=== PATIENT | male | born 1945 | race Caucasian/White ===

== ENCOUNTER 2020-12-29 12:23 | Emergency (ER) | payer MEDICARE, SELFPAY ==
[2020-12-29] VITALS (7 sets, daily range): BP systolic 113–134; BP diastolic 81–98; PULSE 75–95; RESP 18–26; TEMP 37.7–38; O2SAT 94–98; BMI 22.2
--- NOTE | 2020-12-29 12:44 | CT_ITS ---
WS: [id number] CT HEAD TECHNIQUE: Noncontrast CT of the head obtained from the skullbase to the vertex. CLINICAL INFORMATION: altered mental status COMPARISON: CT 8 DLP: 887.[address] scans at [facility] use at least one of these dose optimization techniques: automat ed exposure control; mA and/or kV adjustment per patient size (includes targeted exams where dose is matched to clinical indication); or iterative reconstruction. FINDINGS: No evidence of intracranial hemorrhage or mass effect. Ventricular system and basal cisterns are block nt. Moderate small vessel changes with moderate parenchymal volume loss. Chronic lacunar infarcts in the basal ganglia and thalami bilaterally. Chronic infarct in the right frontoparietal junction with encephalomalacia unchanged from previous. Ex vacuo dilatation right lateral ventricle. Volume loss pr ogressed since 2014. Intracranial vascular calcification. Paranasal sinuses and mastoid air cells are well aerated. .Normal visualized soft tissues. CT/CT head wo con* [id number] IMPRESSION: 1. No evidence of intracranial hemorrhage or mass effect. 2. Moderate small vessel changes with moderate parenchymal volume loss. Volume loss progressed since 2014. 3. Multiple chronic lacunar infarcts in the basal ganglia and bilateral thalam i progressed since 2014 4. Chronic infarct with encephalomalacia right frontoparietal junction is unch anged. 5. No other significant findings.
--- NOTE | 2020-12-29 12:45 | XR_ITS ---
WS: [id number] Exam: XR chest 1V portable [id number] Date/Time of Exam: 12/29/2020 12:46 PM Reason For Exam: fever, aspiration Comparison 09/25/2014. The lungs are fully inflated and clear. Normal cardiomediastinal structures and bony elements. No ple ural effusions. XR/XR chest 1V portable [id number] IMPRESSION: 1. No acute cardiopulmonary finding.
--- NOTE | 2020-12-29 12:59 | ED_ITS ---
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 His states that for the last week he has not been eating much and she has only been able to get a little bit of boost/Ensure down. He denies nausea or vomiting, denies urinary symptoms but his thinks he has a UTI. He has difficulty swallowing following his CVA and his states that he sometimes chokes on his food. She states his mental status has changed and so she would like for him to be evaluated. MD Complaint: generalized weakness and lack of energy Onset (ago): week(s) (1) Duration: constant Location: generalized Associated symptoms: Reports decreased appetite and fever(s); Denies chest pain, chills, confusion, melena, diaphoresis, dysuria, easy bruising, headache(s), myalgias, nausea, rash, short of breath, syncope or vomiting Review of Systems General: Reports: 10 or more systems reviewed and unremarkable except in HPI and below Const: Reports: fever(s); Denies: chills or diaphoresis Card: Denies: chest pain or syncope GI: Denies: nausea, vomiting or melena : Denies: dysuria Neuro: Denies: headache(s) or confusion Jamar/Lymph: Denies: easy bruising Physical Exam Const: COMMON NORMALS: no acute distress, average body habitus, patient oriented x3, no limitations, healthy appearing, alert and well nourished GENERAL APPEARANCE: frail appearing and other (clothes are quite unclean with old food stains on his shirt) HENMT: COMMON NORMALS: normocephalic, atraumatic and moist oral mucous membranes HEAD & SCALP: normocephalic and atraumatic Neck/C-Spine: COMMON NORMALS: no meningeal signs and no JVD Resp: COMMON NORMALS: normal respiratory effort, No retractions, No use of accessory muscles, clear to auscultation bilaterally and percussion normal AUSCULTATION: clear to auscultation bilaterally PERCUSSION: percussion normal Cardio: COMMON NORMALS: no JVD, regular rate, regular rhythm, S1 normal heart sound present, S2 normal heart sound present, No gallops present (Cardio), No clicks present (Cardio), No murmurs present (Cardio), No rub (Cardio) and Peripheral pulses 2+ throughout RATE: regular rate RHYTHM: regular rhythm HEART SOUNDS: S1 normal heart sound present and S2 normal heart sound present PERIPHERAL PULSES: Peripheral pulses 2+ throughout GI: COMMON NORMALS: Normal to inspection, nondistended, normoactive bowel sounds present, Soft to palpation, non-tender, No hepatosplenomegaly present, no masses and no bruits PALPATION: Yes Soft to palpation and Yes No hepatosplenomegaly present : COMMON NORMALS: Yes no CVA tenderness BLADDER/KIDNEY EXAM: Yes no CVA tenderness Back/Pelvis: COMMON NORMALS: no CVA tenderness Extremity: COMMON NORMALS: normal to inspection, full ROM, capillary refill normal, no calf tenderness and no pedal edema OTHER: left hemiplegia (baseline) Neuro: COMMON NORMALS: patient oriented x3 SENSORIUM/ORIENTATION: Yes alert MENINGEAL SIGNS: Yes no meningeal signs Course ED course: 75-year-old male with a prior history of CVA with residual left hemiparesis was brought into the emergency department by his with concerns for increasing weakness, possible UTI, and reduced appetite. Discussed his lab and imaging findings with his and as I am unable to find any acute reasons for his symptoms other than mild dehydration and constipation he is discharged home. Advised his that he does not meet admission criteria. She voiced understanding and is in agreement with the plan Vital Signs: Vital signs: Vital Signs Temperature 99.8 F H 12/29/20 14:33 Pulse Rate 90 12/29/20 20:10 Respiratory Rate 20 H 12/29/20 20:10 Blood Pressure 113/81 12/29/20 20:10 Pulse Oximetry 95 12/29/20 20:10 MDM - Weakness MDM Narrative: Medical decision making narrative: 75-year-old male who was brought into the emergency department by his with nonspecific symptoms. E valuation in the emergency department is unremarkable. CT scan of his abdomen is suggestive of mild constipation. Lab work is also suggestive of mild dehydration. He was given 1 L of normal saline and is discharged home. The patient does not have a primary care provider according to his and a referral was made to case management to obtain a primary care provider for this patient. His wants him to follow-up with Dr. Cooley. Medical Records: Attestation: I reviewed the patient's medical records. Lab Data: Attestation: I reviewed the patient's lab results. Labs: Lab Results 12/29/20 12/29/20 12/29/20 Range/Units 13:42 14:08 14:08 WBC 4.5 (4.0-10.0) 10^3/ uL RBC 5.26 (4.1-5.3) 10^6/u L Hgb 15.7 (11.7-16.6) g/dL Hct 46.1 (42.0-52.0) % MCV 87.6 (80-94) fL MCH 29.8 (28.0-34.0) pg MCHC 34.1 (30.0-36.0) g/dL RDW 13.2 (12.1-15.1) % Plt Count 123 L (130-400) 10^3/c mm MPV 10.9 H (7.4-10.4) fL Neut % (Auto) 78.0 % Lymph % (Auto) 12.4 % [place] % (Auto) 8.2 % Eos % (Auto) 0.0 % Baso % (Auto) 0.7 % Neut # (Auto) 3.51 (1.8-7.7) 10^3/u L Lymph # (Auto) 0.6 L (0.8-4.8) 10^3/u L [place] # (Auto) 0.4 (0.2-0.9) 10^3/u L Eos # (Auto) 0.0 (0.0-0.8) 10^3/u L Baso # (Auto) 0.0 (0.0-0.1) 10^3/u L Nucleated RBC % (a uto) 0 % Nucleated RBCs # 0.0 /100WBC Sodium 136 (136-145) mmol/L Potassium 3.5 (3.5-5.1) mmol/L Chloride 100 (98-107) mmol/L Carbon Dioxide 22 (22-29) mmol/L Anion Gap 17.5 (5-19) BUN 36 H (8-23) mg/dL Creatinine 1.6 H (0.7-1.2) mg/dL GFR Calculation Not Reportable Glucose 184 H (65-115) mg/dL Calculated Osmolal ity 295 (285-295) mOsm/k g Lactate (0.5-2.2) mmol/L Calcium 9.2 (8.5-10.5) mg/dL Total Bilirubin 0.8 (0.15-1.2) mg/dL AST 50 H (0-40) U/L ALT 20 (0-41) U/L Alkaline Phosphata se 76 (40-130) IU/L C-Reactive Protein 28.0 H (0.0-4.9) mg/L Total Protein 7.6 (6.6-8.7) g/dL Albumin 4.2 (3.5-5.2) g/dL Globulin 3.4 (1.3-4.6) g/dL Urine Color Yellow (Yellow) Urine Appearance Clear (CLEAR) Urine pH 5 (5-7) Ur Specific Gravit y 1.015 (1.005-1.030) Urine Protein 3+ H (Negative) Urine Glucose (UA) Norm (Normal) Urine Ketones Negative (Negative) Urine Blood Neg (Negative) Urine Nitrate Negative (Negative) Urine Bilirubin Neg (Negative) Urine Urobilinogen Norm (Negative) mg/dL Ur Leukocyte Cecile ase Negative (Negative) Urine RBC None (0-2) /hpf Urine WBC 5-10 H (0-5) /hpf Ur Squamous Epith Cells 0-4 H (0-5) /hpf Amorphous Sediment Trace /hpf Urine Bacteria 2+ H (NONE) /hpf Hyaline Casts 0-4 H /lpf // Range/Units 14:08 WBC (4.0-10.0) 10^3/ uL RBC (4.1-5.3) 10^6/u L Hgb (11.7-16.6) g/dL Hct (42.0-52.0) % MCV (80-94) fL MCH (28.0-34.0) pg MCHC (30.0-36.0) g/dL RDW (12.1-15.1) % Plt Count (130-400) 10^3/c mm MPV (7.4-10.4) fL Neut % (Auto) % Lymph % (Auto) % [place] % (Auto) % Eos % (Auto) % Baso % (Auto) % Neut # (Auto) (1.8-7.7) 10^3/u L Lymph # (Auto) (0.8-4.8) 10^3/u L [place] # (Auto) (0.2-0.9) 10^3/u L Eos # (Auto) (0.0-0.8) 10^3/u L Baso # (Auto) (0.0-0.1) 10^3/u L Nucleated RBC % (a uto) % Nucleated RBCs # /100WBC Sodium (136-145) mmol/L Potassium (3.5-5.1) mmol/L Chloride (98-107) mmol/L Carbon Dioxide (22-29) mmol/L Anion Gap (5-19) BUN (8-23) mg/dL Creatinine (0.7-1.2) mg/dL GFR Calculation Glucose (65-115) mg/dL Calculated Osmolal ity (285-295) mOsm/k g Lactate 1.3 (0.5-2.2) mmol/L Calcium (8.5-10.5) mg/dL Total Bilirubin (0.15-1.2) mg/dL AST (0-40) U/L ALT (0-41) U/L Alkaline Phosphata se (40-130) IU/L C-Reactive Protein (0.0-4.9) mg/L Total Protein (6.6-8.7) g/dL Albumin (3.5-5.2) g/dL Globulin (1.3-4.6) g/dL Urine Color (Yellow) Urine Appearance (CLEAR) Urine pH (5-7) Ur Specific Gravit y (1.005-1.030) Urine Protein (Negative) Urine Glucose (UA) (Normal) Urine Ketones (Negative) Urine Blood (Negative) Urine Nitrate (Negative) Urine Bilirubin (Negative) Urine Urobilinogen (Negative) mg/dL Ur Leukocyte Cecile ase (Negative) Urine RBC (0-2) /hpf Urine WBC (0-5) /hpf Ur Squamous Epith Cells (0-5) /hpf Amorphous Sediment /hpf Urine Bacteria (NONE) /hpf Hyaline Casts /lpf Imaging Data^: CT Abd/Pel: Attestation: I personally reviewed and interpreted this imaging study as follows: Radiologist's impression: [address], [place] [address]TV Scan ReportSigned Patient: Rico Ozuna AUnit #: [id number]: [id number]#:[id number]/Sex: 75 / MADM Date: 12/29/20Loc: ERRoom/Bed:Attending Dr: Ordering Provider/Ordering MD: Brittany Elias [place] [facility] [place] of Service: 12/29/20 Procedure(s): CT abdomen pelvis wo con [id number] Accession Number(s): [id number] Report Number: [id number] PROCEDURE INFORMATION: Exam: CT Abdomen And Pelvis Without Contrast Exam date and time: 12/29/2020 4:05 PM Age: 75 years old Clinical indication: Constipation; Prior surgery; Surgery type: Hernia TECHNIQUE: Imaging protocol: Computed tomography of the abdomen and pelvis without contrast. Radiation optimization: All CT scans at this facility use at least one of these dose optimization techniques: automated exposure control; mA and/or kV adjustment per patient size (includes targeted exams where dose is matched to clinical indication); or iterative reconstruction. COMPARISON: No relevant prior studies available. RADIATION DOSE METRICS: Total DLP (mGy-cm): 1225.54 FINDINGS: Liver: Normal. No mass. Gallbladder and bile ducts: Normal. No calcified stones. No ductal dilation. Pancreas: Normal. No ductal dilation. Spleen: Normal. No splenomegaly. Adrenal glands: Normal. No mass. Kidneys and ureters: Small vessel arterial calcifications in the renal jong bilaterally which are often associated with chronic renal failure. Stomach and bowel: Moderate retained feces in the rectum. Tortuous sigmoid colon. Appendix: Normal appendix. Intraperitoneal space: Unremarkable. No free air. No significant fluid collection. Vasculature: Severe calcified coronary artery disease. Calcification of the abdominal aorta and/or iliac arteries consistent with atherosclerotic vessel disease. Lymph nodes: Unremarkable. No enlarged lymph nodes. Urinary bladder: Unremarkable as visualized. Reproductive: Unremarkable as visualized. Bones/joints: Unremarkable. No acute fracture. Soft tissues: Previous left inguinal hernia repair. CT/CT abdomen pelvis wo con [id number] IMPRESSION: 1. Severe calcified coronary artery disease. 2. Small vessel arterial calcifications in the renal jong bilaterally which are often associated with chronic renal failure. 3. Moderate retained feces in the rectum. Radiation Dose CTDIVOL = (mGy): DLP = 1225.54 (mGy-cm) Dictated By:Jason Mcdonald MDSigned By:Jason Mcdonald MDSigned Date/Time:12/29/20 1712DD/ 1711 CXR: Attestation: I personally reviewed and interpreted this imaging study as follows: Radiologist's impression: [employer] [id number] [address]UOok ReportSigned Patient: Rico Ozuna #: [id number]: [id number]#:[id number]/Sex: 75 / MADM Date: 12/29/20Loc: ERRoom/Bed:Attending Dr: Ordering Provider/Ordering MD: Brittany Elias MD, [facility] [place] of Service: 12/29/20 Procedure(s): XR chest 1V portable [id number] Accession Number(s): [id number] Report Number: [id number] WS: [id number] Exam: XR chest 1V portable [id number] Date/Time of Exam: 12/29/2020 12:46 PM Reason For Exam: fever, aspiration Comparison 09/25/2014. The lungs are fully inflated and clear. Normal cardiomediastinal structures and bony elements. No pleural effusions. XR/XR chest 1V portable [id number] IMPRESSION: 1. No acute cardiopulmonary finding. Dictated By:Alexanderigned By:Brown Omer Date/Time:12/29/20 1259DD/ 1258 CT Head: Attestation: I personally reviewed and interpreted this imaging study as follows: Radiologist's impression: [address] [address]SP Scan ReportSigned Patient: Rico Ozuna #: [id number]: [id number]#:[id number]/Sex: 75 / MADM Date: 12/29/20Loc: ERRoom/Bed:Attending Dr: Ordering Provider/Ordering MD: Brittany Elias MD, [facility] [place] of Service: 12/29/20 Procedure(s): CT head wo con* [id number] Accession Number(s): [id number] Report Number: [id number] WS: [id number] CT HEAD TECHNIQUE: Noncontrast CT of the head obtained from the skullbase to the vertex. CLINICAL INFORMATION: altered mental status COMPARISON: CT 8 DLP: 887.[address] scans at [facility] use at least one of these dose optimization techniques: automated exposure control; mA and/or kV adjustment per patient size (includes targeted exams where dose is matched to clinical indication); or iterative reconstruction. FINDINGS: No evidence of intracranial hemorrhage or mass effect. Ventricular system and basal cisterns are patent. Moderate small vessel changes with moderate parenchymal volume loss. Chronic lacunar infarcts in the basal ganglia and thalami bilaterally. Chronic infarct in the right frontoparietal junction with encephalomalacia unchanged from previous. Ex vacuo dilatation right lateral ventricle. Volume loss progressed since 2015. Intracranial vascular calcification. Paranasal sinuses and mastoid air cells are well aerated. .Normal visualized soft tissues. CT/CT head wo con* [id number] IMPRESSION: 1. No evidence of intracranial hemorrhage or mass effect. 2. Moderate small vessel changes with moderate parenchymal volume loss. Volume loss progressed since 2014. 3. Multiple chronic lacunar infarcts in the basal ganglia and bilateral thalami progressed since 2014 4. Chronic infarct with encephalomalacia right frontoparietal junction is unchanged. 5. No other significant findings. Dictated By:Caio Mariscal MDSigned By:Caio Mariscal MDSigned Date/Time:12/29/20 1320DD/ 1313 EKG Data^: EKG 1: Attestation: I personally reviewed and interpreted this EKG as follows: EKG interpretation date: 12/29/20 EKG interpretation time: 13:26 Prior EKG tracings: not available for review Interpretation: Sinus rhythm. Heart rate 89 bpm. Left axis deviation. No ST changes. Discharge Plan Discharge Patient Disposition: Home Clinical Impression: Dehydration Constipation Qualifiers: Constipation type: unspecified constipation type Qualified Code(s): K59.00 - Constipation, unspecified Condition: Stable Discharge Orders: Discharge ED (Routine); Ordered 12/29/20 Ordered By: Brittany Elias Referrals: [facility] [Primary Care Provider] - Ezra Cooley MD [Physician] - 4-7 days Discharge Diet: Usual diet Discharge Activity: Increase activity as tolerated Patient Instructions: Constipation (ED), Dehydration (ED) Activity Restrictions/Additional Instructions: Return for any new or worsening symptoms. Follow up with Dr. Cooley within one week. You will be contacted by case management to schedule an appointment with Dr. Cooley. Give him [id number] laxatives and or an enema to help with the constipation. Have him drink plenty of water to keep well hydrated Coding Level of Care Code ED Air Pollution Control Engineer for Chg Fwd Exam Comprehensive
--- NOTE | 2020-12-29 13:48 | PC.NURSE ---
states he has over taken Glyburide, and had a stroke. When placing a 16 F sosa cath, pt peed all around the catheter. UA collected Not able to attain IV access.
[2020-12-29 14:07] LABS: Add Urine Microscopic? YES; Bilirubin Urine Neg (Negative); Blood Urine Neg (Negative); Glucose Urine UA Norm (Normal); Ketones Urine Negative (Negative); Leukocyte Esterase Urine Negative (Negative); Nitrate Urine Negative (Negative); Protein Urine 3+ (Negative); Specific Gravity, Urine 1.015 (1.005-1.030); Urine Appearance Clear (CLEAR); Urine Color Yellow (Yellow); Urobilinogen Urine Norm (Negative); pH Urine 5 (5-7)
[2020-12-29 14:16] LABS: Basophils % 0.7 %; Hematocrit 46.1 % (42.0-52.0); Hemoglobin 15.7 g/dL (11.7-16.6); Lymphocytes # 0.6 10^3/uL (0.8-4.8); Lymphocytes % 12.4 %; Mean Corpuscular HGB Conc 34.1 g/dL (30.0-36.0); Mean Corpuscular Hemoglobin 29.8 pg (28.0-34.0); Mean Corpuscular Volume 87.6 fL (80-94); Mean Platelet Volume 10.9 fL (7.4-10.4); Monocytes # 0.4 10^3/uL (0.2-0.9); Monocytes % 8.2 %; Neutrophils # 3.51 10^3/uL (1.8-7.7); Nucleated Red Blood Cells % 0 %; Platelet Count 123 10^3/cmm (130-400); Red Blood Count 5.26 10^6/uL (4.1-5.3); Red Cell Distribution Width 13.2 % (12.1-15.1); White Blood Count 4.5 10^3/uL (4.0-10.0)
[2020-12-29 14:25] LABS: Bacteria Urine 2+ /hpf; Hyaline Casts Urine 0-4 /lpf
[2020-12-29 14:26] LABS: Add Urine Culture? No; Amorphous Sediment Urine TRACE /hpf; Squamous Epithelial Cell Urine 0-4 /hpf (0-5)
[2020-12-29 14:44] LABS: Lactate (Lactic Acid level) 1.3 mmol/L (0.5-2.2)
[2020-12-29 14:45] LABS: Alanine Aminotransferase 20 U/L (0-41); Albumin Level 4.2 g/dL (3.5-5.2); Alkaline Phosphatase 76 IU/L (40-130); Anion Gap 17.5 (5-19); Aspartate Amino Transferase 50 U/L (0-40); Blood Urea Nitrogen 36 mg/dL (8-23); Calcium 9.2 mg/dL (8.5-10.5); Carbon Dioxide 22 mmol/L (22-29); Chloride 100 mmol/L (98-107); Globulin 3.4 g/dL (1.3-4.6); Glucose 184 mg/dL (65-115); Osmolality Calculated 295 mOsm/kg (285-295); Potassium 3.5 mmol/L (3.5-5.1); Sodium 136 mmol/L (136-145); Total Bilirubin 0.8 mg/dL (0.15-1.2); Total Protein 7.6 g/dL (6.6-8.7)
--- NOTE | 2020-12-29 15:38 | ECG_ITS ---
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 Measurements Intervals [place] Rate: 89 P: 54 CO: 190 QRS: -48 QRSD: 95 T: 45 QT: 337 QTc: 412 Interpretive Statements SINUS RHYTHM MARKED LEFT AXIS DEVIATION [QRS AXIS < -30] PATTERN CONSISTENT WITH PULMONARY DISEASE Compared to ECG 10/30/2017 10:00:38 No significant changes Electronically Signed On 12-29-2020 17:46:58 CDT by Alexandrea Gómez M.D. [id number]
--- NOTE | 2020-12-29 16:05 | CTR_ITS ---
PROCEDURE INFORMATION: Exam: CT Abdomen And Pelvis Without Contrast Exam date and time: 12/29/2020 4:05 PM Age: 75 years old Clinical indication: Constipation; Prior surgery; Surgery type: Hernia TECHNIQUE: Imaging protocol: Computed tomography of the abdomen and pelvis without contrast. Radiation optimization: All CT scans at this facility use at least one of these dose optimization techniques: automated exposure control; mA and/or kV adjustment per patient size (includes targeted exams where dose is matched to clinical indication); or iterative reconstruction. COMPARISON: No relevant prior studies available. RADIATION DOSE METRICS: Total DLP (mGy-cm): 1225.54 FINDINGS: Liver: Normal. No mass. Gallbladder and bile ducts: Normal. No calcified stones. No ductal dilation. Pancreas: Normal. No ductal dilation. Spleen: Normal. No splenomegaly. Adrenal glands: Normal. No mass. Kidneys and ureters: Small vessel arterial calcifications in the renal jong bilaterally which are often associated with chronic renal failure. Stomach and bowel: Moderate retained feces in the rectum. Tortuous sigmoid colon. Appendix: Normal appendix. Intraperitoneal space: Unremarkable. No free air. No significant fluid collection. Vasculature: Severe calcified coronary artery disease. Calcification of the abdominal aorta and/or iliac arteries consistent with atherosclerotic vessel disease. Lymph nodes: Unremarkable. No enlarged lymph nodes. Urinary bladder: Unremarkable as visualized. Reproductive: Unremarkable as visualized. Bones/joints: Unremarkable. No acute fracture. Soft tissues: Previous left inguinal hernia repair. CT/CT abdomen pelvis wo con [id number] IMPRESSION: 1. Severe calcified coronary artery disease. 2. Small vessel arterial calcifications in the renal jong bilaterally which are often associated with chronic renal failure. 3. Moderate retained feces in the rectum. Radiation Dose CTDIVOL = (mGy): DLP = 1225.54 (mGy-cm)
[2020-12-29] MEDS: sodium chloride 0.9% 1,000 ML 999 ML IV (16:08)
--- NOTE | 2020-12-30 09:53 | DCPLANNER ---
care services manager had message to get patient established with a primary care physician. care services manager was told that patient would like to be set up with Dr. Cooley, ed case manager called [facility], spoke with Amanda, gave clinic patients information. care services manager was given an appointment for , February 09, [address] at 9:[address] Cooley. care services manager called phone number [phone], unable to speak with patient or , a voicemail was left for patient to return welfare case worker phone call.
== END 2020-12-29 19:40 | disposition home or self-care (01) ==
PROVIDERS: Emergency Provider Family Medicine
DX: K59.00 Constipation, unspecified (principal); E86.0 Dehydration
CPT/HCPCS: 36415; 70450; 71045; 74176; 80053; 81001; 83605; 85025; 86140; 93005; 96360; 99284; J7030

== ENCOUNTER 2021-11-19 17:10 | Inpatient (IN) | payer MEDICARE, SELFPAY ==
[2021-11-19] VITALS (7 sets, daily range): BP systolic 137–214; BP diastolic 66–92; PULSE 78–93; RESP 17–20; TEMP 37.3–37.9; O2SAT 95–100; BMI 22.6; BMI 19.8
--- NOTE | 2021-11-19 17:15 | ED_ITS ---
HPI - General Adult General: Chief complaint: Skin/Abscess/Foreign Body Stated complaint: RIGHT SCAPULA WOUND Time Seen by Provider: 11/19/21 17:14 History of Present Illness: Patient is a 76-year-old male with prior CVA with left-sided residual weakness presented to the emergency room with concerns for 2 weeks of worsening right upper back abscess. Patient tells me that he was at home when the abscess first started. Since then, patient has been using silver gel to treat the abscess without any improvement symptom. Because of worsening pain patient decided to come to the emergency room for further evaluation. Patient denies any fever/chills or drainage from the abscess. Patient has no other focal complaints at this time. Denies any history of immunosuppression, DM or IV drug use. Onset:2 weeks ago Duration: ongoing Location:R upper back Severity:moderate Associated symptoms: Deny chest pain, dyspnea, nausea, palpitations or vomiting Review of Systems Const: Denies: fever(s) or chills Eyes: Denies: change in vision ENMT: Denies: mouth pain Card: Denies: chest pain or palpitations Resp: Denies: dyspnea or non-productive cough GI: Denies: abdominal pain, nausea, vomiting or diarrhea : Denies: dysuria Musc: Denies: extremity pain Skin/Breast: Reports: new lesions (+R upper back abscess) Neuro: Denies: weakness in extremities Psych: Reports: other (Normal mood) Jamar/Lymph: Denies: easy bruising [facility] ED PFSH: Medical History (Updated 11/21/21 @ 14:37 by Cesario Pérez MD) CKD (chronic kidney disease) stage 3, GFR 30-59 ml/min COPD (chronic obstructive pulmonary disease) CVA (cerebral vascular accident) Depressed Diabetes HTN (hypertension) Malnourished Pulmonary nodule Surgical History History of testicular surgery Social History Smoking and tobacco status: former smoker Alcohol intake: never Substance/Drug Use: never Household members: spouse Housing: House Physical Exam Const: COMMON NORMALS: alert HENMT: COMMON NORMALS: atraumatic HEAD & SCALP: atraumatic MOUTH: moist mucous membranes not abnormal Eye: COMMON NORMALS: EOMs intact bilaterally and conjunctivae normal CONJUNCTIVA: Yes conjunctivae normal Neck/C-Spine: COMMON NORMALS: full ROM and supple Resp: COMMON NORMALS: normal respiratory effort and clear to auscultation bilaterally AUSCULTATION: clear to auscultation bilaterally Cardio: COMMON NORMALS: regular rate RATE: regular rate GI: COMMON NORMALS: Soft to palpation and non-tender PALPATION: Yes Soft to palpation Extremity: COMMON NORMALS: full ROM Neuro: SENSORIUM/ORIENTATION: Yes alert OTHER: +L sided weakness similar to baseline Psych: COMMON NORMALS: speech normal SPEECH: Yes normal speech MOOD & AFFECT: Yes euthymic mood Skin: NARRATIVE SKIN EXAM: +R upper back 8cm x 8cm abscess with central ulceration and mild drainage - lesions tender to palpation, fluctuant Course Vital Signs: Vital signs: Vital Signs Temperature 98.7 F 11/21/21 15:38 Pulse Rate 76 11/21/21 15:38 Respiratory Rate 18 11/21/21 15:38 Blood Pressure 166/82 11/21/21 15:38 Pulse Oximetry 91 11/21/21 15:38 MDM - General Adult Medical Decision Making 76-year-old male with a history of prior CVA and left-sided weakness presenting to the emergency room with right upper back abscess. On exam, patient has a large abscess with central authorization of mild drainage/flucutant to p alpation. CT scan showed complex R upper thoracic abscess. WBC of 14.3. Cr of 1.3 simlar to baseline. Blood culture ordered. Patient received vancomycin and Zosyn. Given 1L of NS. Case was discussed with Dr. Pérez who recommended OR washout tomorrow upon admission. NPO at midnight. 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 Patient is placed in a negative pressure room. Patient he will need work-up for possible tuberculosis vs other mycobacterial infection. Disposition: admission Lab Data : 11/21/21 05:27 11/21/21 05:[address] 11/19/21 17:24 IMPRESSION: 1. 8 x 8 x 3.1 cm area of soft tissue prominence with subcutaneous edema seen in the right posterior lower thorax without intrathoracic extension suggestive of a phlegmon/very complex abscess. 2. Coronary artery atherosclerotic calcifications. 3. Scattered prominent subcentimeter short axis mediastinal lymph nodes, nonspecific. 4. Emphysematous changes. 5. Subtle bilateral upper lobe tree-in-bud type reticulonodular densities, perhaps reflecting an underlying atypical mycobacterial infection. 6. Right upper lobe demonstrates several more focal pulmonary nodules measuring up to 4.6 mm, for instance on series 2 image 20. For patients at low risk (minimal or absent history of smoking and of other known risk factors), no routine follow-up is indicated. For patients at high risk (history of smoking or of other known risk factors), consider optional CT Chest at 12 months. (Reference: [place]) REFERENCES: [place] Webb, et al. Guidelines for Management of Incidental Pulmonary Nodules Detected on CT Images: From the Fleischner Society 2017. Radiology. 2017;284(1):228-243. Laboratory Results WBC 14.3 10^3/uL (4.0-10.0) H 11/19/21 18:40 RBC 3.78 10^6/uL (4.1-5.3) L 11/19/21 18:40 Hgb 10.7 g/dL (11.7-16.6) L 11/19/21 18:40 Hct 33.1 % (42.0-52.0) L 11/19/21 18:40 MCV 87.6 fl (80-94) 11/19/21 18:40 MCH 28.3 pg (28.0-34.0) 11/19/21 18:40 MCHC 32.3 g/dL (30.0-36.0) 11/19/21 18:40 RDW 13.9 % (12.1-15.1) 11/19/21 18:40 Plt Count 269 10^3/cmm (130-400) 11/19/21 18:40 MPV 10.8 fL (7.4-10.4) H 11/19/21 18:40 Neut % (Auto) 80.0 % 11/19/21 18:40 Lymph % (Auto) 8.9 % 11/19/21 18:40 Sunflower % (Auto) 9.1 % 11/19/21 18:40 Eos % (Auto) 0.5 % 11/19/21 18:40 Baso % (Auto) 0.3 % 11/19/21 18:40 Neut # (Auto) 11.46 10^3/uL (1.8-7.7) H 11/19/21 18:40 Lymph # (Auto) 1.3 10^3/uL (0.8-4.8) 11/19/21 18:40 Sunflower # (Auto) 1.3 10^3/uL (0.2-0.9) H 11/19/21 18:40 Eos # (Auto) 0.1 10^3/uL (0.0-0.8) 11/19/21 18:40 Baso # (Auto) 0.1 10^3/uL (0.0-0.1) 11/19/21 18:40 Nucleated RBC % (auto) 0 % 11/19/21 18:40 Nucleated RBCs # 0.0 /100WBC 11/19/21 18:40 ESR 45 mm/hr (0-10) H 11/19/21 18:40 Sodium 134 mmol/L (136-145) L 11/19/21 18:40 Potassium 3.5 mmol/L (3.5-5.1) 11/19/21 18:40 Chloride 95 mmol/L (98-107) L 11/19/21 18:40 Carbon Dioxide 27 mmol/L (22-29) 11/19/21 18:40 Anion Gap 15.5 (5-19) 11/19/21 18:40 BUN 23 mg/dL (8-23) 11/19/21 18:40 Creatinine 1.3 mg/dL (0.7-1.2) H 11/19/21 18:40 GFR Calculation Not Reportable 11/19/21 18:40 Glucose 121 mg/dL (65-115) H 11/19/21 18:40 Calculated Osmolality 283 mOsm/kg (285-295) L 11/19/21 18:40 Calcium 9.4 mg/dL (8.5-10.5) 11/19/21 18:40 C-Reactive Protein 225.8 mg/L (0.0-4.9) H 11/19/21 18:40 Procalcitonin 0.30 ng/mL (0-0.5) 11/19/21 18:40 Imaging Data Other Imaging: Radiologist's impression: [address] [address] [address] Scan Report Signed Patient: Rico Ozuna Unit #: [id number] : 1945 Age/Sex: 76 / M ADM Date: 11/19/21 Loc: ER Room/Bed: Attending Dr: Ordering Provider/Ordering MD: Melissa Lee MD Date of Service: 11/19/21 Procedure(s): CT chest wo con [id number] Accession Number(s): [id number] Report Number: [id number] PROCEDURE INFORMATION: Exam: CT Chest Without Contrast; Diagnostic Exam date and time: 11/19/2021 5:37 PM Age: 76 years old Clinical indication: Mass, lump, or swelling in the chest; Patient HX: C/O abscess near R scapula x approx. 2 weeks worsening pain w foul drainage. No specific injury. ; Additional info: Significant R posterior back abscess mid thoracic TECHNIQUE: Imaging protocol: Diagnostic computed tomography of the chest without contrast. Radiation optimization: All CT scans at this facility use at least one of these dose optimization techniques: automated exposure control; mA and/or kV adjustment per patient size (includes targeted exams where dose is matched to clinical indication); or iterative reconstruction. COMPARISON: CR XR chest 1V portable [id number] 12/29/2020 12:44 PM RADIATION DOSE METRICS: Total DLP (mGy-cm): 780.99 FINDINGS: Lungs: Emphysematous changes. Subtle bilateral upper lobe tree-in-bud type reticulonodular densities, perhaps reflecting an underlying atypical mycobacterial infection. Right upper lobe demonstrates several more focal pulmonary nodules measuring up to 4.6 mm, for instance on series 2 image 20. Pleural spaces: Unremarkable. No pneumothorax. No pleural effusion. Heart: Coronary artery atherosclerotic calcifications. Lymph nodes: Scattered prominent subcentimeter short axis mediastinal lymph nodes, nonspecific. Vasculature: Unremarkable. No aortic aneurysm.? Bones/joints: Unremarkable. No acute fracture. Soft tissues: 8 x 8 x 3.1 cm area of soft tissue prominence with subcutaneous edema seen in the right posterior lower thorax without intrathoracic extension suggestive of a phlegmon/very complex abscess. CT/CT chest wo con [id number] IMPRESSION: 1. 8 x 8 x 3.1 cm area of soft tissue prominence with subcutaneous edema seen in the right posterior lower thorax without intrathoracic extension suggestive of a phlegmon/very complex abscess. 2. Coronary artery atherosclerotic calcifications. 3. Scattered prominent subcentimeter short axis mediastinal lymph nodes, nonspecific. 4. Emphysematous changes. 5. Subtle bilateral upper lobe tree-in-bud type reticulonodular densities, perhaps reflecting an underlying atypical mycobacterial infection. 6. Right upper lobe demonstrates several more focal pulmonary nodules measuring up to 4.6 mm, for instance on series 2 image 20. For patients at low risk (minimal or absent history of smoking and of other known risk factors), no routine follow-up is indicated. For patients at high risk (history of smoking or of other known risk factors), consider optional CT Chest at 12 months. (Reference: [place]) ? REFERENCES: [place] H, et al. Guidelines for Management of Incidental Pulmonary Nodules Detected on CT Images: From the Fleischner Society 2017. Radiology. 2017;284(1):228-243. ? Dictated By: Armand Donald MD Signed By: Armand Donald MD Signed Date/Time: 11/19/211816 DD/ 36 Discharge Plan Discharge Patient Disposition: Admitted As Inpatient Admit Provider: Radhika Kelsey Clinical Impression: Abscess, CARMENZA (acute kidney injury) Condition: Stable Coding Level of Care Code ED Travel Nurse for [facility] Fwd Exam Comprehensive
--- NOTE | 2021-11-19 17:24 | CTR_ITS ---
PROCEDURE INFORMATION: Exam: CT Chest Without Contrast; Diagnostic Exam date and time: 11/19/2021 5:37 PM Age: 76 years old Clinical indication: Mass, lump, or swelling in the chest; Patient HX: C/O abscess near R scapula x approx. 2 weeks worsening pain w foul drainage. No specific injury. ; Additional info: Significant R posterior back abscess mid thoracic TECHNIQUE: Imaging protocol: Diagnostic computed tomography of the chest without contrast. Radiation optimization: All CT scans at this facility use at least one of these dose optimization techniques: automated exposure control; mA and/or kV adjustment per patient size (includes targeted exams where dose is matched to clinical indication); or iterative reconstruction. COMPARISON: CR XR chest 1V portable [id number] 12/29/2020 12:44 PM RADIATION DOSE METRICS: Total DLP (mGy-cm): 780.99 FINDINGS: Lungs: Emphysematous changes. Subtle bilateral upper lobe tree-in-bud type reticulonodular densities, perhaps reflecting an underlying atypical mycobacterial infection. Right upper lobe demonstrates several more focal pulmonary nodules measuring up to 4.6 mm, for instance on series 2 image 20. Pleural spaces: Unremarkable. No pneumothorax. No pleural effusion. Heart: Coronary artery atherosclerotic calcifications. Lymph nodes: Scattered prominent subcentimeter short axis mediastinal lymph nodes, nonspecific. Vasculature: Unremarkable. No aortic aneurysm. Bones/joints: Unremarkable. No acute fracture. Soft tissues: 8 x 8 x 3.1 cm area of soft tissue prominence with subcutaneous edema seen in the right posterior lower thorax without intrathoracic extension suggestive of a phlegmon/very complex abscess. CT/CT chest [facility] [id number] IMPRESSION: 1. 8 x 8 x 3.1 cm area of soft tissue prominence with subcutaneous edema seen in the right posterior lower thorax without intrathoracic extension suggestive of a phlegmon/very complex abscess. 2. Coronary artery atherosclerotic calcifications. 3. Scattered prominent subcentimeter short axis mediastinal lymph nodes, nonspecific. 4. Emphysematous changes. 5. Subtle bilateral upper lobe tree-in-bud type reticulonodular densities, perhaps reflecting an underlying atypical mycobacterial infection. 6. Right upper lobe demonstrates several more focal pulmonary nodules measuring up to 4.6 mm, for instance on series 2 image 20. For patients at low risk (minimal or absent history of smoking and of other known risk factors), no routine follow-up is indicated. For patients at high risk (history of smoking or of other known risk factors), consider optional CT Chest at 12 months. (Reference: [place]) REFERENCES: [place] Webb, et al. Guidelines for Management of Incidental Pulmonary Nodules Detected on CT Images: From the Fleischner Society 2017. Radiology. 2017;284(1):228-243.
--- NOTE | 2021-11-19 18:36 | P.CONIM_ITS ---
Providers/Reason For Consult Consulting Physician/Specialty*: Cesario Pérez MD Reason for Consult*: Right back abscess Requesting Physician: Dr. Lee History of Present Illness History of Present Illness Mr. Rico Ozuna is a pleasant 76 year old male with history of stroke comes to the ER escorted by his spouse as he did develop over the past couple of weeks worsening swelling at the lower side of the right hemithorax likely started as a pressure injury spot being laying down on his chair subsequently he developed infection, also the spouse does not rule out potential spider bite. She denies any history of falls that led to a hematoma and that infection. Currently the patient is seen less oriented likely there is an underlying dementia component. And most of the questions are being answered by his spouse. Further work-up in the ER in the form of blood work was of insignificance except for platelet count of 123, BUN 36, creatinine 1.6, glucose 184, AST 50, C- reactive protein 28. Patient also undergone a CT scan of the chest without contrast that did show; 1. 8 x 8 x 3.1 cm area of soft tissue prominence with subcutaneous edema seen in the right posterior lower thorax without intrathoracic extension suggestive of a phlegmon/very complex abscess. 2. Coronary artery atherosclerotic calcifications. 3. Scattered prominent subcentimeter short axis mediastinal lymph nodes, nonspecific. 4. Emphysematous changes. 5. Subtle bilateral upper lobe tree-in-bud type reticulonodular densities, perhaps reflecting an underlying atypical mycobacterial infection. 6. Right upper lobe demonstrates several more focal pulmonary nodules measuring up to 4.6 mm, for instance on series 2 image 20. For patients at low risk (minimal or absent history of smoking and of other known risk factors), no routine follow-up is indicated. For patients at high risk (history of smoking or of other known risk factors), consider optional CT Chest at 12 months. (Reference: [place]) General surgery was consulted, patient was seen and evaluated in the emergency department Review of Systems General: Reports: ROS unobtainable due to medical condition Medications/Allergies Allergies Allergy/AdvReac Type Severity Reaction Status Date / Time No Known Allergies Allergy Verified 12/29/20 12:36 PFSH Acute PFSH: Medical History CKD (chronic kidney disease) stage 3, GFR 30-59 ml/min COPD (chronic obstructive pulmonary disease) CVA (cerebral vascular accident) Depressed Diabetes HTN (hypertension) Surgical History History of testicular surgery Social History Smoking and tobacco status: former smoker Alcohol intake: never Substance/Drug Use: never Household members: spouse Housing: House Vitals/I&O/Wt Last Vital Signs Temp 99.2 F 11/19/21 17:18 Pulse 90 11/19/21 17:18 Resp 17 11/19/21 17:18 BP 137/75 11/19/21 17:18 Pulse Ox 100 11/19/21 17:18 Weight last 48 hrs Weight 158 lb Physical Exam Const: COMMON NORMALS: apparent distress (Mildly agitated), negative for patient oriented x3 (Patient is conscious alert yet confused) and negative for well nourished (Cachectic) GENERAL APPEARANCE: cooperative ORIENTATION/CONSCIOUSNESS: Yes awake, Yes oriented to person, Yes oriented to place and Yes oriented to time HENMT: COMMON NORMALS: normocephalic HEAD & SCALP: normocephalic Eye: COMMON NORMALS: Equal, round and reactive pupils present and no scleral icterus PUPIL: Yes Equal, round and reactive pupils present Lymph: LYMPHATIC: no lymphadenopathy noted Chest: COMMONS NORMALS: normal inspection of the chest Resp: COMMON NORMALS: normal respiratory effort and clear to auscultation bilaterally AUSCULTATION: clear to auscultation bilaterally Cardio: COMMON NORMALS: S1 normal heart sound present and S2 normal heart sound present; negative for No murmurs present (Cardio) HEART SOUNDS: S1 normal heart sound present and S2 normal heart sound present GI: COMMON NORMALS: Soft to palpation; negative for No hepatosplenomegaly present INSPECTION: Yes normal to inspection PALPATION: Yes Soft to palpation, No Firmness to palpation present (GI), No Tenderness to palpation present (GI), No Guarding due to palpation present (GI), No Rigid due to palpation and No No hepatosplenomegaly present Back/Pelvis: BACK IMAGE (MALE): 1. 20 x 5 cm indurated soft tissue swelling showing tenderness and necrotic tissues at the top of the swelling, clinically consistent with infected hematoma or abscess formation, on top cellulitic changes and it was marked by me bedside. With some fluctuation. Neuro: COMMON NORMALS: negative for patient oriented x3 (Patient is conscious alert yet confused) SENSORIUM/ORIENTATION: Yes oriented to person, Yes oriented to place and Yes oriented to time Psych: COMMON NORMALS: mental status grossly normal Skin: COMMON NORMALS: no rashes or lesions noted GENERAL SKIN EXAM: no rashes or lesions noted Data : 11/20/21 04:00 11/20/21 04:00 A&P Assessment and plan (1) Abscess: After limited history taking physical examination reviewing the chart and images of the CT scan with my personal interpretation. Likely the patient started with a pressure injury ulcer that developed some sort of complex abscess formation. We will plan to take the patient tomorrow for surgery for I&D Indications, risks, benefits alternatives all discussed with the patient and spouse and likely the spouse is the one taking the decision on behalf of her , she agreed to proceed with the I&D understanding the potential longevity of local wound care and potential risk of future surgical interventions IV fluid resuscitation Brought spectrum IV antibiotics. Assurance and education All questions have been answered and all concerns have been addressed to patient's satisfaction. Status: Acute Consult Attestations Medical Necessity Statement: Per admitting service Coding Level of Care Code Acute Faculty Physician for [facility] Fwd Exam Comprehensive Diagnoses Abscess L02.91
[2021-11-19 18:52] LABS: Basophils # 0.1 10^3/uL (0.0-0.1); Basophils % 0.3 %; Eosinophils # 0.1 10^3/uL (0.0-0.8); Eosinophils % 0.5 %; Hematocrit 33.1 % (42.0-52.0); Hemoglobin 10.7 g/dL (11.7-16.6); Lymphocytes # 1.3 10^3/uL (0.8-4.8); Lymphocytes % 8.9 %; Mean Corpuscular HGB Conc 32.3 g/dL (30.0-36.0); Mean Corpuscular Hemoglobin 28.3 pg (28.0-34.0); Mean Corpuscular Volume 87.6 fl (80-94); Mean Platelet Volume 10.8 fL (7.4-10.4); Monocytes # 1.3 10^3/uL (0.2-0.9); Monocytes % 9.1 %; Neutrophils # 11.46 10^3/uL (1.8-7.7); Nucleated Red Blood Cells % 0 %; Platelet Count 269 10^3/cmm (130-400); Red Blood Count 3.78 10^6/uL (4.1-5.3); Red Cell Distribution Width 13.9 % (12.1-15.1); White Blood Count 14.3 10^3/uL (4.0-10.0)
[2021-11-19] MEDS: vancomycin 1,000 MG in sodium chloride 0.9% 250 ML 250 MG IV (19:01)
[2021-11-19 19:12] LABS: Anion Gap 15.5 (5-19); Blood Urea Nitrogen 23 mg/dL (8-23); C Reactive Protein 225.8 mg/L (0.0-4.9); Calcium 9.4 mg/dL (8.5-10.5); Carbon Dioxide 27 mmol/L (22-29); Chloride 95 mmol/L (98-107); Glucose 121 mg/dL (65-115); Osmolality Calculated 283 mOsm/kg (285-295); Potassium 3.5 mmol/L (3.5-5.1); Sodium 134 mmol/L (136-145)
[2021-11-19] MEDS: sodium chloride 0.9% 1,000 ML 999 ML IV (19:41)
--- NOTE | 2021-11-19 20:22 | P.HP_ITS ---
Providers/Chief Complaint Admitting Physician: Radhika Kelsey MD Chief Complaint: RIGHT SCAPULA WOUND History of Present Illness Rico Ozuna is a 76 year old male presented to the hospital with chief Complaint of of worsening of his back sore. 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 Now it has gotten worse, pus is visible, he is not able to lay flat anymore. It has gotten worse in size as well. Patient is not endorsing night sweats, nocturnal fever. He does have features of weight loss Diagnostic work-up in the ER revealed hypertension, patient is stating that he only takes clonidine at home for his high blood pressure He was not able to tell me that he also has history of COPD and diabetes which I found out through review of previous records He has been given vancomycin and Zosyn in the ER along with fluids, I have requested a QuantiFERON test, along tuberculin skin test, requested HIV and ESR Patient is on room air Patient is stating that he is doing well for now CT scan is showing concerning changes IMPRESSION: 1. 8 x 8 x 3.1 cm area of soft tissue prominence with subcutaneous edema seen in the right posterior lower thorax without intrathoracic extension suggestive of a phlegmon/very complex abscess. 2. Coronary artery atherosclerotic calcifications. 3. Scattered prominent subcentimeter short axis mediastinal lymph nodes, nonspecific. 4. Emphysematous changes. 5. Subtle bilateral upper lobe tree-in-bud type reticulonodular densities, perhaps reflecting an underlying atypical mycobacterial infection. 6. Right upper lobe demonstrates several more focal pulmonary nodules measuring up to 4.6 mm, for instance on series 2 image 20 Review of Systems Const: Reports: fever(s), chills, body aches and fatigue Eyes: Denies: change in vision ENMT: Denies: throat pain Card: Denies: chest pain Resp: Denies: dyspnea GI: Reports: diarrhea : Denies: flank pain Musc: Reports: joint stiffness Skin/Breast: Reports: skin swelling, sores, new lesions, changing lesions and changes in skin color Neuro: Denies: headache(s) Psych: Denies: anxiety Endo: Denies: polyuria Jamar/Lymph: Denies: easy bruising All/Imm: Denies: urticaria Medications/Allergies Allergies Allergy/AdvReac Type Severity Reaction Status Date / Time No Known Allergies Allergy Verified 12/29/20 12:36 PFSH Acute PFSH: Medical History (Updated 11/19/21 @ 21:25 by Radhika Kelsey MD) CKD (chronic kidney disease) stage 3, GFR 30-59 ml/min COPD (chronic obstructive pulmonary disease) CVA (cerebral vascular accident) Depressed Diabetes HTN (hypertension) Surgical History (Updated 11/19/21 @ 21:24 by Radhika Kelsey MD) History of testicular surgery Social History (Updated 11/19/21 @ 21:26 by Radhika Kelsey MD) Smoking and tobacco status: former smoker Alcohol intake: never Substance/Drug Use: never Household members: spouse Housing: House Vitals/I&O/Wt Last Vital Signs Temp 99.2 F 11/19/21 17:18 Pulse 80 11/19/21 20:01 Resp 20 H 11/19/21 20:01 BP 162/66 11/19/21 20:01 Pulse Ox 96 11/19/21 20:01 Weight last 48 hrs Weight 71.668 kg Physical Exam Narrative: Cachectic malnourished elderly male Awake and alert GCS 15 Hemoglobin PERRLA Patient is stating that he is not in pain He is able to roll over to show me his right-sided back ulcer Abdomen is soft Contracture of left-sided arm and leg noted 8 x 8 cm swelling of right posterior thoracic area purulent drainage noted, fluctuant consistency, borders are rounded not attached to underlying muscle Saturating well on room air Patient does not make eye contact Malnourished cachectic appearing Unkempt appearance No audible stridor or wheezing Data : 11/19/21 18:40 11/19/21 18:40 Micro: Microbiology 11/19/21 20:06 Blood Culture - Preliminary Blood SPECIMEN COLLECTED 11/19/21 18:40 Blood Culture - Preliminary Blood SPECIMEN COLLECTED Other data: A&P Assessment and plan (1) Abscess: Status: Acute (2) CARMENZA (acute kidney injury): Status: Acute (3) Anemia: Status: Acute (4) Pulmonary nodule: Status: Acute (5) Cellulitis: Status: Acute (6) Malnourished: Status: Acute Plan Purulent cellulitis Patient has history of diabetes Will request A1c level Start broad-spectrum antibiotics renally dosed I would use vancomycin cefepime and metronidazole Continue IV fluids No active signs of sepsis Cachectic, malnourished, pulmonary nodule right upper lobe Rule out HIV I requested tuberculin skin test along QuantiFERON test reason I have ordered skin test is to get results within 48 hours, quantiferon might take more than 72 hours Requested ESR, CRP, procalcitonin, Sputum culture for 3 days 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 Check A1c level Patient is getting that he takes clonidine for hypertension, I would add amlodipine and IV as needed labetalol Goals of care discussed with the patient, patient is stating that he does not want any aggressive intervention such as chest compressions defibrillation or intubation N.p.o. after midnight Copious renal lesion Patient is experiencing loose stools as well For more than 3 loose stools we will request C. 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
[2021-11-19 20:23] LABS: INR 0.89 (0.8-1.2); Partial Thromboplastin Time 19.2 SECONDS (23.9-36.7)
[2021-11-19] MEDS: sodium chloride 0.9% 1,000 ML 100 ML IV (20:48)
[2021-11-19] MEDS: sodium chloride 0.9% 1,000 ML 75 ML IV (20:54)
[2021-11-19] MEDS: metroNIDAZOLE 500 MG Tablet PO (21:00)
[2021-11-19] MEDS: amlodipine 10 mg Tablet PO (21:00)
[2021-11-19 21:10] LABS: Erythrocyte Sedimentation Rate 45 mm/hr (0-10)
[2021-11-19] MEDS: piperacillin-tazobactam 4.5 GM in sodium chloride 0.9% (plus) 50 ML IV (21:12)
[2021-11-19] MEDS: tuberculin 5 unit/0.1 mL (per dose) INTRADERMA (21:13)
--- NOTE | 2021-11-19 21:15 | PC.PHAR ---
Pharmacokinetic dosing service Date: 11/19/21 Time: 2114 Objective: Patient: Rico Ozuna Floor: 257-1 Age: 76 yo Serum creatinine: 1.3 mg/dL Height: 70.0 Inches Weight (kg): 71.668 Diagnosis: Relevant medical/social history: Cultures and sensitivities: Other labs: Assessment: IBW (kg): 73.00 Dosing wt(kg): 71.668 Estimated Creatinine clearance (ml/min): 50.5 CRCL method: Cockcroft and Gault using ibw(default). Drug selected: Vancomycin Loading dose (mg): 0 Vd (liters): 64.5 (factor used: 0.9 L/kg) Murali (hr-1): 0.046 Half life (hrs): 15.07 Recommended dose: 1250 mg Interval: 18 hrs Infusion time (hrs): 1.5 Predicted peak (mcg/mL): 33.3 Predicted trough (mcg/mL): 15.59 Total body weight is being used for vancomycin dosing. Renal function is stable [ ] /unstable [ ] Recommendations: Give Vancomycin 1250 mg q 18 hrs with an expected Cpeak of 33.3 mcg/ml and an expected Ctrough of 15.59 mcg/ml Renal dosing of other antibiotics (review renal dosing of other medications and list guidelines here): Thank you for the consult, will continue to follow. Signature: Babita Calhoun [facility]
[2021-11-19] MEDS: cefepime 1,000 MG in sodium chloride 0.9% (plus) 50 ML 100 MG IV (21:54)
[2021-11-20] VITALS (18 sets, daily range): BP systolic 89–186; BP diastolic 61–98; PULSE 63–122; RESP 11–18; TEMP 36.6–37.7; O2SAT 91–98
[2021-11-20 04:21] LABS: Basophils # 0.1 10^3/uL (0.0-0.1); Basophils % 0.4 %; Eosinophils # 0.1 10^3/uL (0.0-0.8); Eosinophils % 0.4 %; Hematocrit 32.5 % (42.0-52.0); Hemoglobin 10.4 g/dL (11.7-16.6); Lymphocytes # 1.2 10^3/uL (0.8-4.8); Mean Corpuscular Hemoglobin 28.2 pg (28.0-34.0); Mean Corpuscular Volume 88.1 fl (80-94); Mean Platelet Volume 10.4 fL (7.4-10.4); Monocytes % 8.5 %; Neutrophils # 9.74 10^3/uL (1.8-7.7); Nucleated Red Blood Cells % 0 %; Platelet Count 276 10^3/cmm (130-400); Red Blood Count 3.69 10^6/uL (4.1-5.3); White Blood Count 12.2 10^3/uL (4.0-10.0)
[2021-11-20 04:39] LABS: Alanine Aminotransferase 11 U/L (0-41); Albumin Level 2.8 g/dL (3.5-5.2); Alkaline Phosphatase 79 IU/L (40-130); Anion Gap 15.4 (5-19); Aspartate Amino Transferase 27 U/L (0-40); Blood Urea Nitrogen 21 mg/dL (8-23); C Reactive Protein 210.6 mg/L (0.0-4.9); Calcium 9.1 mg/dL (8.5-10.5); Carbon Dioxide 25 mmol/L (22-29); Chloride 99 mmol/L (98-107); Globulin 3.3 g/dL (1.3-4.6); Glucose 111 mg/dL (65-115); Magnesium 2.1 mg/dL (1.7-2.3); Osmolality Calculated 286 mOsm/kg (285-295); Potassium 3.4 mmol/L (3.5-5.1); Sodium 136 mmol/L (136-145); Total Bilirubin 0.4 mg/dL (0.15-1.2); Total Protein 6.1 g/dL (6.6-8.7)
[2021-11-20 04:40] LABS: Creatinine Clr Calc Pharmacy 45.5702; Slide Review Slide Review Perform
[2021-11-20] MEDS: labetalol 5 mg/mL SDV 20mL 10 MG IVP (04:54)
[2021-11-20 04:56] LABS: HIV 1 & 2 Antibody Non-Reactive (Non-Reactiv); HIV 1 & 2 Antigen Non-Reactive (Non-Reactiv)
[2021-11-20] MEDS: sodium chloride 0.9% 1,000 ML 30 ML IV (07:50)
[2021-11-20] MEDS: acetaminophen 1,000 MG/100 ML PIGGYBACK 400 MG IV (08:00)
--- NOTE | 2021-11-20 08:11 | ANES.PREANE2 ---
Pre-Anesthetic Assessment Height/Weight: Height 1.73 m Weight 58.967 kg Temp Pulse Resp BP Pulse Ox 99.8 F H 92 18 109/62 96 11/20/21 07:50 11/20/21 07:50 11/20/21 07:50 11/20/21 07:50 11/20/21 07:50 Preop Diagnosis: Right back abscess Operation Date: 11/20/21 08:10 Proposed Procedures p Incision And Drainage of right back abcess(Right) - Cesario Pérez MD Familial anesthetic complications: None Was Beta Niko taken within 24 hours: N/A Was Clonidine taken within 24 hours: Yes Last intake: Intake Last Liquid Date 11/19/21 Last Solid Date 11/19/21 Social No alcohol and No tobacco (h/o smoking) Exam alert, oriented x 3, clear to auscultation bilaterally and regular rate & rhythm Airway Submandibular: within normal limits Cervical ROM: within normal limits Mallampati: Class II Dentition: false Pulmonary Chronic Obstructive Pulmonary Disease CV/HEM Anemia, Hypertension and Peripheral Vascular Disease Chronic Renal Insufficiency Neuropsych Cerebrovascular Accident and Deficit (Left hemiplegia) Anesthetic Plan ASA status: 3 Anesthesia: General Medications/Allergies Allergies Allergy/AdvReac Type Severity Reaction Status Date / Time No Known Allergies Allergy Verified 12/29/20 12:36 Current Medications Generic Name Dose Route Start Last Admin Trade Name Freq PRN Reason Stop Dose Admin Amlodipine Besylate 10 mg 11/19/21 20:45 11/19/21 21:00 Amlodipine 10 Mg Tablet PO 10 mg DAILY PEPE Administration Sodium Chloride 1,000 mls @ 75 mls/hr 11/19/21 20:45 11/19/21 20:54 Sodium Chloride 0.9% IV 75 mls/hr .[id number] PEPE Administration Cefepime HCl 1,000 mg/ Sodium 50 mls @ 100 mls/hr 11/19/21 21:00 11/19/21 22:33 Chloride IV Infused Q12H PEPE Infusion Protocol Labetalol HCl 10 mg 11/19/21 20:45 11/20/21 04:54 Labetalol 5 Mg/Ml Sdv 20ml IVP 10 mg Q4H PRN Administration bp>180/100 Metronidazole 500 mg 11/19/21 21:00 11/19/21 21:00 Metronidazole 500 Mg Tablet PO 500 mg TID PEPE Administration PFSH Anesthesia Medical History CKD (chronic kidney disease) stage 3, GFR 30-59 ml/min COPD (chronic obstructive pulmonary disease) CVA (cerebral vascular accident) Depressed Diabetes HTN (hypertension) Surgical History History of testicular surgery Social History Smoking and tobacco status: former smoker Alcohol intake: never Substance/Drug Use: never Household members: spouse Housing: House Data Anesthesia : 11/20/21 04:00 11/20/21 04:00 Short CBC 11/19/21 11/20/21 Range/Units 18:40 04:00 WBC 14.3 H 12.2 H (4.0-10.0) 10^3/uL Hgb 10.7 L 10.4 L (11.7-16.6) g/dL Hct 33.1 L 32.5 L (42.0-52.0) % MCV 87.6 88.1 (80-94) fl Plt Count 269 276 (130-400) 10^3/cmm Neut % (Auto) 80.0 80.0 % Neut # (Auto) 11.46 H 9.74 H (1.8-7.7) 10^3/uL BMP 11/19/21 11/20/21 18:40 04:00 Sodium 134 L 136 Potassium 3.5 3.4 L Chloride 95 L 99 Carbon Dioxide 27 25 BUN 23 21 Creatinine 1.3 H 1.3 H Glucose 121 H 111 Calcium 9.4 9.1 Liver Function 11/20/21 Range/Units 04:00 Total Bilirubin 0.4 (0.15-1.2) mg/dL AST 27 (0-40) U/L ALT 11 (0-41) U/L Alkaline Phosphatase 79 (40-130) IU/L Albumin 2.8 L (3.5-5.2) g/dL Coags 11/19/21 11/19/21 11/19/21 18:40 18:40 20:06 ESR 45 H PT 12.30 INR 0.89 APTT 19.2 L C-Reactive Protein 225.8 H 11/20/21 04:00 ESR PT INR APTT C-Reactive Protein 210.6 H Microbiology 11/19/21 20:06 Blood Culture - Preliminary Blood SPECIMEN COLLECTED 11/19/21 18:40 Blood Culture - Preliminary Blood SPECIMEN COLLECTED Cardiac Studies: No Data to Display
--- NOTE | 2021-11-20 08:20 | SUR.PHASEI ---
0755 PT TO OPS ISOLATION ROOM PT IS ON AIRBORN PRECAUTIONS, PT WEARING N-95 DURING TRANSPORT, PT AWAKE ALERT CONFUSED TO ALL BUT SELF, VSS PT WITH WOUND TO BACK CHUX IN PLACE, PT HAS ATTENDS ON , PT ATTEMPTING TO USE URINAL, UNABLE, IV TP RT FOREARM #18 PATIENT WITH GOOD BLOOD RETURN, FLUSHES EASILY, NS 1000ML UP AT KVO RATE PER GRAVITY, TYLENOL INFUSING ORDERED, AT BEDSIDE, TALKING WITH DR LOAIZA AND ANESTHESIA. SIDE RAILS UP AND CALL LIGHT WITHIN REACH, BRAKES ON.
[2021-11-20] MEDS: lidocaine 2% INJ 20 mL INJECTION (09:00)
--- NOTE | 2021-11-20 09:05 | PM.OP ---
Operative Report Date of procedure: November 20, 2021 Pre-op diagnosis: Preop Diagnosis Right back abscess Post-op diagnosis: Right lower back carbuncle Post excision wound measurements 11 x 10 [address] to the muscle layer Post-op findings: Multiple draining sinuses from a carbuncle Procedure done: 1-Excision excision of right lower back carbuncle 2-Incision and drainage of right lower back abscess 3-Sharp debridement of abscess cavity Implants: 2 pieces of Surgicel followed by Kerlix wet-to-dry for packing followed by ABDs Specimens removed/disposition: Swabs for cultures and sensitivity Tissues for cultures and sensitivities Right lower back carbuncle mass with short sutures superior and long sutures marked lateral Surgeon: Cesario Pérez MD Honing Machine Operator: Surgical andrea Ramirez and Leeann Circulating nurse Ezra Ferro Anesthesia: General (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 Patient was appropriately secured to the bed. Time-out was done verifying the patient's name/date of /planned procedure and destination after the procedure, all were in agreement. After palpation of the right lower back carbuncle, I did add elliptical incision Encasing the whole carbuncle mass with multiple draining sinuses with pus. Swab cultures were obtained for aerobes and anaerobes, incision was extended, followed by that superior/inferior incision was created, to create an ellipse to excise the whole carbuncle out from the surrounding healthy tissues(Short suture superior and right long lateral sutures), all loculations were broken down by the examining finger, tissues were obtained for culture from different bernal of the abscess cavity. Debridement of the abscess cavity was obtained,sharp debridement was done all the way to the subcutaneous and muscle layers. Post excision wound measurements 11 x 10 x 3[address] to the muscle layer Copious and thorough irrigation with warm saline was done using 3 L Pulsavac followed by appropriate hemostasis, few [id number] 3-0 Vicryl were used for hemostasis of the bleeding muscle fibers. Followed by 2 sheets of surgicel followed by Kerlix impregnated with lidocaine 2% was used to pack the wound cavity. Pressure and Dry dressing was then applied in the form of ABDs, followed by tape. Patient tolerated the procedure well, count of instruments, needles and sponges were completed at the end of the procedure.The patient was taken to the recovery area in stable condition after extubation. I Was present for the whole entire procedure
--- NOTE | 2021-11-20 09:29 | SUR.PHASEI ---
0915 PT TO OPS 12 ISOLATION ROOM PT AWAKE TO VOICE, GOOD RESP EFFORT, DRESSING TO BACK D/I BILAT SCDS ON IV PATENT NS AT KVO RATE PER GRAVITY, 0933 PT AWAKE ALERT ASKS(HOW DID EVERYTHING GO?) PT STATES PAIN IS (MUCH BETTER) WHEN ASKED PT REPOSTIONS SELF, PT HAS WEAKNESS TO LEFT SIDE FROM OLD STROKE, PT TRYING TO ROLL TO LT SIDE PT ASSISTED WITH PILLOW TO BACK WILL CALL REPORT TO FLOOR.
--- NOTE | 2021-11-20 10:01 | SUR.PHASEI ---
PT TO FLOOR PER CART PT VERY ACTIVE TRIES TO ASSIST WITH TRANSFER TO BED PT VERBALLY TAKING TO STAFF AND , PT REQUESTS OATMEAL AND TOAST. HANDOFF AT BEDSIDE.
--- NOTE | 2021-11-20 10:46 | ANE.PACU2 ---
Inpatient post-anesthesia follow up: Airway intact: Yes Vital signs: Temperature 98.6 F Pulse Rate 104 Respiratory Rate 11 Blood Pressure 135/98 Pulse Oximetry 96 Oxygen Delivery Me thod Room Air Oxygen Flow Rate 8 Fraction of Inspir ed Oxygen Hydration adequate: Yes Nausea and vomiting: No Pain level: 2 Mental status: Baseline
--- NOTE | 2021-11-20 14:19 | PM.PN ---
Subjective Subjective: Admitted overnight. Today morning seen post deep I&D with Dr. Pérez. at bedside. Patient lying comfortably in bed. States pain is better controlled now. Denies any shortness of breath. Patient denies any hemoptysis. Does complain of loss of weight. Did travel to [place] as a kid. 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 Otherwise hemodynamically stable and afebrile. Vitals/I&O/Wt Last Vital Signs Temp 98.2 F 11/20/21 12:55 Pulse 71 11/20/21 12:55 Resp 16 11/20/21 12:55 BP 140/69 11/20/21 12:55 Pulse Ox 96 11/20/21 12:55 11/19/21 11/20/21 11/20/21 22:59 06:59 14:59 Intake Total 1360 / 1360 700 / 700 Output Total 25 / 25 Balance 1360 / 1360 675 / 675 Weight last 48 hrs Weight 58.967 kg Weight 71.668 kg Physical Exam Narrative: Cachectic malnourished elderly male Awake and alert GCS 15 Hemoglobin PERRLA Patient is stating that he is not in pain He is able to roll over to show me his right-sided back ulcer Abdomen is soft Contracture of left-sided arm and leg noted 8 x 8 cm swelling of right posterior thoracic area purulent drainage noted, fluctuant consistency, borders are rounded not attached to underlying muscle Saturating well on room air Patient does not make eye contact Malnourished cachectic appearing Unkempt appearance No audible stridor or wheezing Data : 11/20/21 04:00 11/20/21 04:00 Micro: Microbiology 11/20/21 08:45 Gram Stain - Final Back 11/20/21 08:30 Gram Stain - Final Back 11/19/21 20:06 Blood Culture - Preliminary Blood SPECIMEN COLLECTED 11/19/21 18:40 Blood Culture - Preliminary Blood SPECIMEN COLLECTED A&P Assessment and plan (1) Abscess: Status: Acute (2) CARMENZA (acute kidney injury): Status: Acute (3) Anemia: Status: Acute (4) Pulmonary nodule: Status: Acute (5) Cellulitis: Status: Acute (6) Malnourished: Status: Acute Plan Purulent cellulitis Patient has history of diabetes Will request A1c level Start broad-spectrum antibiotics renally dosed I would use vancomycin cefepime and metronidazole Continue IV fluids No active signs of sepsis Cachectic, malnourished, pulmonary nodule right upper lobe Rule out HIV I requested tuberculin skin test along QuantiFERON test reason I have ordered skin test is to get results within 48 hours, quantiferon might take more than 72 hours Requested ESR, CRP, procalcitonin, Sputum culture for 3 days stitch rubber sputum sample for next 3 days Hypertension and diabetic I will keep him on low-dose sliding scale currently he is n.p.o. Check A1c level Patient is getting that he takes clonidine for hypertension, I would add amlodipine and IV as needed labetalol Goals of care discussed with the patient, patient is stating that he does not want any aggressive intervention such as chest compressions defibrillation or intubation N.p.o. after midnight Copious renal lesion Patient is experiencing loose stools as well For more than 3 loose stools we will request C. difficile Plan for day: Continue vancomycin. Switch from cefepime and oral metronidazole to Zosyn. Follow-up culture results. Continue with gentle IV hydration at 50 cc an hour. Will request for 3 days of subsequent increase sputum sample for Mycobacterium culture. Low suspicion of tuberculosis mycobacterium but history and imaging suspicious for MAC. Remove isolation precautions. Check iron panel, TSH, vitamin B12, folate level. Check urinalysis, urine Legionella, bacterial antigen, hepatitis panel. Discharge planning: Patient most likely will need placement to SNF given physical deconditioning. Will need aggressive wound care on discharge. Attestations Medical Necessity Statement*: Requires further hospitalization for management of purulent cellulitis of thoracic wall. Time Spent in Patient Care: Greater than 35 minutes Coding Level of Care Code Acute [employer] for [employer] Diagnoses Abscess L02.91 CARMENZA (acute kidney injury) N17.9 Anemia D64.9 Pulmonary nodule R91.1 Cellulitis L03.90 Malnourished E46
[2021-11-20] MEDS: sodium chloride 0.9% 1,000 ML 75 ML IV (14:22)
[2021-11-20] MEDS: vancomycin 1,250 MG/250 ML PIGGYBACK 250 MG IV (14:23)
[2021-11-20] MEDS: metroNIDAZOLE 500 MG Tablet PO (14:23)
[2021-11-20 14:40] LABS: Bacillus cereus group Not Detected (NOT DETECT); Bacillus subtillis group Not Detected (NOT DETECT); Corynebacterium Not Detected (NOT DETECT); Cutibacterium acnes (P.acnes) Not Detected (NOT DETECT); Enterococcus Not Detected (NOT DETECT); Enterococcus faecalis Not Detected (NOT DETECT); Enterococcus faecium Not Detected (NOT DETECT); Lactobacillus species Not Detected (NOT DETECT); Listeria Not Detected (NOT DETECT); Listeria monocytogenes Not Detected (NOT DETECT); Micrococcus Not Detected (NOT DETECT); Pan Candida Not Detected (NOT DETECT); Pan Gram-Negative Not Detected (NOT DETECT); Staphylococcus epidermidis Not Detected (NOT DETECT); Staphylococcus lugdunensis Not Detected (NOT DETECT); Staphylococcus species Detected (NOT DETECT); Streptococcus agalactiae Not Detected (NOT DETECT); Streptococcus anginosus group Not Detected (NOT DETECT); Streptococcus pneumoniae Not Detected (NOT DETECT); Streptococcus pyogenes Not Detected (NOT DETECT); Streptococcus species Not Detected (NOT DETECT); mecA Detected (NOT DETECT); mecC Not Detected (NOT DETECT)
[2021-11-20 15:05] LABS: Iron 10 ug/dL (59-158); Percent Saturation 6.6 % (20-50); Total Iron Binding Capacity 150 mcg/dl; Unsaturated Iron Binding 140 ug/dL (112-347)
[2021-11-20 15:11] LABS: Procalcitonin 0.33 ng/mL (0-0.5)
[2021-11-20 15:30] LABS: Thyroid Stimulating Hormone 0.88 uIU/mL (0.27-4.20)
[2021-11-20] MEDS: piperacillin-tazobactam 3.375 GM in sodium chloride 0.9% (plus) 100 ML IV ×2 (15:44→21:39)
[2021-11-20 20:47] LABS: Urine Appearance SL Hazy (CLEAR); Urine Color Yellow (Yellow); pH Urine 5 (5-7)
[2021-11-20 20:48] LABS: Add Urine Culture? No; Add Urine Microscopic? YES; Amorphous Sediment Urine 4+ /hpf; Bacteria Urine 1+ /hpf; Bilirubin Urine Neg (Negative); Blood Urine Trace (Negative); Glucose Urine UA Norm (Normal); Ketones Urine Negative (Negative); Leukocyte Esterase Urine Negative (Negative); Mucus Urine 1+ /hpf; Nitrate Urine Negative (Negative); Protein Urine 3+ (Negative); Urobilinogen Urine Norm (Negative); WBC Urine 0-4 /hpf (0-5)
[2021-11-21] VITALS (7 sets, daily range): BP systolic 161–175; BP diastolic 70–88; PULSE 63–80; RESP 17–18; TEMP 36.7–37.3; O2SAT 91–97
[2021-11-21] MEDS: sodium chloride 0.9% 1,000 ML 75 ML IV (04:10)
[2021-11-21] MEDS: piperacillin-tazobactam 3.375 GM in sodium chloride 0.9% (plus) 100 ML IV ×3 (05:39→21:46)
[2021-11-21 05:42] LABS: Basophils % 0.1 %; Hematocrit 29.6 % (42.0-52.0); Hemoglobin 9.5 g/dL (11.7-16.6); Lymphocytes # 0.8 10^3/uL (0.8-4.8); Lymphocytes % 7.5 %; Mean Corpuscular HGB Conc 32.1 g/dL (30.0-36.0); Mean Corpuscular Hemoglobin 28.3 pg (28.0-34.0); Mean Corpuscular Volume 88.1 fl (80-94); Mean Platelet Volume 10.5 fL (7.4-10.4); Monocytes # 0.6 10^3/uL (0.2-0.9); Neutrophils # 9.47 10^3/uL (1.8-7.7); Neutrophils % 86.6 %; Nucleated Red Blood Cells % 0 %; Platelet Count 278 10^3/cmm (130-400); Red Blood Count 3.36 10^6/uL (4.1-5.3); Red Cell Distribution Width 14.2 % (12.1-15.1); White Blood Count 10.9 10^3/uL (4.0-10.0)
[2021-11-21 06:11] LABS: Alanine Aminotransferase 11 U/L (0-41); Albumin Level 2.5 g/dL (3.5-5.2); Alkaline Phosphatase 73 IU/L (40-130); Anion Gap 14.8 (5-19); Aspartate Amino Transferase 27 U/L (0-40); Blood Urea Nitrogen 32 mg/dL (8-23); Calcium 8.7 mg/dL (8.5-10.5); Carbon Dioxide 23 mmol/L (22-29); Chloride 102 mmol/L (98-107); Chol HDL Ratio 3.38 mg/dL (1.0-5.00); Cholesterol 115 mg/dL (0-200); Creatinine Clr Calc Pharmacy 45.5702; Globulin 3.7 g/dL (1.3-4.6); Glucose 239 mg/dL (65-115); HDL Cholesterol 34 mg/dL (60-100); LDL Cholesterol Calculated 66 mg/dL (50-129); Osmolality Calculated 297 mOsm/kg (285-295); Potassium 3.8 mmol/L (3.5-5.1); Sodium 136 mmol/L (136-145); Total Bilirubin 0.2 mg/dL (0.15-1.2); Total Protein 6.2 g/dL (6.6-8.7); Triglycerides 77 mg/dL (0-150); VLDL Cholestrol Calculation 15 mg/dL (0-30)
[2021-11-21 06:12] LABS: Estmated Average Glucose 114; Hemoglobin A1C 5.6 % (4.0-6.0)
--- NOTE | 2021-11-21 06:16 | PC.NURSE ---
Patient refused to get up to chair.
[2021-11-21] MEDS: vancomycin 1,250 MG/250 ML PIGGYBACK 250 MG IV (08:21)
[2021-11-21] MEDS: amlodipine 10 mg Tablet PO (08:22)
[2021-11-21] MEDS: sennosides-docusate Tablet 1 TAB PO (08:22)
--- NOTE | 2021-11-21 14:26 | P.PN_ITS ---
Subjective Subjective: Admitted overnight. Today morning seen post deep I&D with Dr. Pérez. at bedside. Patient lying comfortably in bed. States pain is better controlled now. Denies any shortness of breath. Patient denies any hemoptysis. Does complain of loss of weight. Did travel to [place] as a kid. 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 Otherwise hemodynamically stable and afebrile. Medications: Medication Review Details: Generic Name Dose Route Start Last Admin Trade Name Freq PRN Reason Stop Dose Admin Amlodipine Besylat e 10 mg 11/19/21 20:45 11/21/21 08:22 Amlodipine 10 Mg Tablet PO 10 mg DAILY PEPE Administration Vancomycin/PEG/NAD A/Lysine/Water 1,250 mg in 250 m ls @ 250 mls/hr 11/20/21 14:30 11/21/21 09:21 Vancocin IV Infused Q18H PEPE Infusion Piperacillin Sod/T azobactam 100 mls @ 25 mls/ hr 11/20/21 14:30 11/21/21 13:47 Sod 3.375 gm/ So dium Chloride IV 25 mls/hr Q8H PEPE Administration Labetalol HCl 10 mg 11/19/21 20:45 11/20/21 04:54 Labetalol 5 Mg/M l Sdv 20ml IVP 10 mg Q4H PRN Administration bp>180/100 Senna/Docusate Sod ium 1 tab 11/20/21 09:00 11/21/21 08:22 Sennosides-Docus ate Tablet PO 1 tab DAILY PEPE Administration Vitals/I&O/Wt Last Vital Signs Temp 98.0 F 11/21/21 12:00 Pulse 65 11/21/21 12:00 Resp 18 11/21/21 12:00 BP 163/78 11/21/21 12:00 Pulse Ox 94 11/21/21 12:00 11/20/21 11/21/21 11/21/21 22:59 06:59 14:59 Intake Total 350 / 2050 1100 / 3150 1190 / 1190 Output Total 250 / 275 Balance 100 / 1775 1100 / 2875 1190 / 1190 Weight last 48 hrs Weight 58.967 kg Weight 71.668 kg Physical Exam Const: COMMON NORMALS: patient oriented x3 HENMT: COMMON NORMALS: normocephalic and atraumatic HEAD & SCALP: normocephalic and atraumatic Eye: GENERAL EYE: appearance normal, both eyes and all related structures Chest: COMMONS NORMALS: normal inspection of the chest and normal palpation of entire chest wall CHEST: Yes Symmetrical chest wall rise Resp: COMMON NORMALS: normal respiratory effort, No retractions, No use of accessory muscles and clear to auscultation bilaterally EFFORT & INSPECTION: Yes symmetric chest movement AUSCULTATION: clear to auscultation bilaterally Cardio: COMMON NORMALS: regular rate, regular rhythm, S1 normal heart sound present, S2 normal heart sound present, No gallops present (Cardio), No murmurs present (Cardio), No rub (Cardio) and Peripheral pulses 2+ throughout RATE: regular rate RHYTHM: regular rhythm HEART SOUNDS: S1 normal heart sound present and S2 normal heart sound present PERIPHERAL PULSES: Peripheral pulses 2+ throughout GI: COMMON NORMALS: Normal to inspection, nondistended, normoactive bowel sounds present, Soft to palpation, non-tender, No hepatosplenomegaly present and no masses AUSCULTATION: Yes normoactive bowel sounds PALPATION: Yes Soft to palpation and Yes No hepatosplenomegaly present RECTAL EXAM: Yes deferred Extremity: COMMON NORMALS: no clubbing, cyanosis or edema and no pedal edema Neuro: COMMON NORMALS: patient oriented x3 Skin: NARRATIVE SKIN EXAM: Large 1. 8 x 8 x 3.1 cm? wound on the right lower back. Data : 11/21/21 05:27 11/21/21 05:27 Micro: Microbiology 11/20/21 08:45 Gram Stain - Final Back Tissue Culture - Preliminary Methicillin Resis Staph Aureus 11/20/21 08:30 Gram Stain - Final Back Anaerobic Culture - Preliminary Abscess Culture - Preliminary Methicillin Resis Staph Aureus 11/20/21 17:30 MRSA Culture - Final Nose 11/19/21 20:15 Bacterial Antigens - Final Urine Kidney 11/21/21 05:27 Blood Culture - Preliminary Blood SPECIMEN COLLECTED 11/21/21 05:30 Blood Culture - Preliminary Blood SPECIMEN COLLECTED 11/20/21 20:15 Legionella Urinary Antigen - Final Urine Catheterized 11/19/21 20:06 Blood Culture - Preliminary Blood NEGATIVE TO DATE 11/19/21 18:40 Blood Culture - Preliminary Blood Methicillin Resis Staph Aureus A&P Assessment and plan (1) Abscess: Status: Acute (2) CARMENZA (acute kidney injury): Status: Acute (3) Anemia: Status: Acute (4) Pulmonary nodule: Status: Acute (5) Cellulitis: Status: Acute (6) Malnourished: Status: Acute Plan Assessment: #Right posterior lower thorax: Carbuncle/abscess: S/p incision and debridement: CT chest wo con?:8 x 8 x 3.1 cm area of soft tissue prominence with subcutaneous edema seen in the right posterior lower thorax without intrathoracic extension suggestive of a phlegmon/very complex abscess. Blood culture: 07/19:MRSA Repeat blood culture: Wound culture:MRSA ESR:45. CRP: 210 Procalcitonin:0.33 Urine Legionella antigen: Negative Urine bacterial antigen panel: Negative Currently on vancomycin and Zosyn. #MRSA bacteremia: Blood culture has grown 1 out of 4: MRSA Follow repeat blood culture #Right upper lobe several more focal pulmonary nodules measuring up to 4.6 mm. Patient quit smoking 5 years back, no history of travel to high risk countries for tuberculosis HIV negative TST: Quant gold: Sputum AFB and culture Low clinical suspicion for TB/MAC #Diabetes: LDDI FSG #Hypertension: Continue amlodipine 10 mg p.o. daily #CKD stage III versus CARMENZA on CKD: Baseline serum creatinine unknown Admission serum creatinine 1.3 Monitor BMP Avoid nephrotoxic's Intake output charting #CODE STATUS: DNI/DNR #History of CVA: With residual left-sided weakness: No acute intervention #Disposition: Likely placement to SNF. Attestations Medical Necessity Statement*: Patient is still in hospital for management of abscess need for IV antibiotics. 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
--- NOTE | 2021-11-21 14:36 | PM.PN ---
Subjective Subjective: Patient appears to be feeling better Medications: Reviewed: Yes Vitals/I&O/Wt Last Vital Signs Temp 98.0 F 11/21/21 12:00 Pulse 65 11/21/21 12:00 Resp 18 11/21/21 12:00 BP 163/78 11/21/21 12:00 Pulse Ox 94 11/21/21 12:00 11/20/21 11/21/21 11/21/21 22:59 06:59 14:59 Intake Total 350 / 2050 1100 / 3150 1190 / 1190 Output Total 250 / 275 Balance 100 / 1775 1100 / 2875 1190 / 1190 Weight last 48 hrs Weight 130 lb Weight 158 lb Physical Exam Narrative: Patient is conscious alert oriented X3 No apparent distress BMI 20 Head and neck examination PERRLA no masses no cervical lymphadenopathy no jaundice Right lower back wound is clean and no evidence of pus. Packing was removed bedside and repacked by me in the presence of the nursing staff Annika Data : 11/21/21 05:27 11/21/21 05:27 Micro: Microbiology 11/20/21 08:45 Gram Stain - Final Back Tissue Culture - Preliminary Methicillin Resis Staph Aureus 11/20/21 08:30 Gram Stain - Final Back Anaerobic Culture - Preliminary Abscess Culture - Preliminary Methicillin Resis Staph Aureus 11/20/21 17:30 MRSA Culture - Final Nose 11/19/21 20:15 Bacterial Antigens - Final Urine Kidney 11/21/21 05:27 Blood Culture - Preliminary Blood SPECIMEN COLLECTED 11/21/21 05:30 Blood Culture - Preliminary Blood SPECIMEN COLLECTED 11/20/21 20:15 Legionella Urinary Antigen - Final Urine Catheterized 11/19/21 20:06 Blood Culture - Preliminary Blood NEGATIVE TO DATE 11/19/21 18:40 Blood Culture - Preliminary Blood Methicillin Resis Staph Aureus A&P Assessment and plan (1) Open wound of lower back: Assessment 76 years old gentleman status post excision of right lower back carbuncle Plan 1-nutrition optimization 2-wound care in the form of daily packing with wet-to-dry followed by ABD 3-management of medical comorbidities 4-physical therapy consultation when needed 5-assurance and education All questions have been answered and all concerns have been addressed to patient's satisfaction. Status: Acute Attestations Medical Necessity Statement*: Per admitting service Coding Level of Care Code Acute Prisoner Classification Interviewer for g Fwd Diagnoses Open wound of lower back S31.000A
--- NOTE | 2021-11-21 16:53 | PC.NURSE ---
TB skin test results noted to be without discoloration, no raise in skin, and no irritation noted.
[2021-11-21 17:15] LABS: Glucose Point of Care 231 mg/dL (70-110)
[2021-11-21] MEDS: insulin lispro 100 unit/1 mL SUBCUT (17:31)
[2021-11-21] MEDS: acetaminophen 500 mg Tablet PO (20:02)
[2021-11-21 20:39] LABS: Glucose Point of Care 110 mg/dL (70-110)
[2021-11-22] VITALS (10 sets, daily range): BP systolic 103–188; BP diastolic 60–82; PULSE 60–89; RESP 16–18; TEMP 36.7–37.2; O2SAT 86–99
[2021-11-22] MEDS: labetalol 5 mg/mL SDV 20mL 10 MG IVP (02:22)
[2021-11-22] MEDS: vancomycin 1,250 MG/250 ML PIGGYBACK 250 MG IV (02:23)
[2021-11-22] MEDS: piperacillin-tazobactam 3.375 GM in sodium chloride 0.9% (plus) 100 ML IV ×3 (05:42→22:37)
--- NOTE | 2021-11-22 06:20 | PC.NURSE ---
Patient refused to get into chair for breakfast at this time.
[2021-11-22 06:32] LABS: Glucose Point of Care 105 mg/dL (70-110)
[2021-11-22] MEDS: amlodipine 10 mg Tablet PO (09:33)
[2021-11-22] MEDS: sennosides-docusate Tablet 1 TAB PO (09:33)
[2021-11-22] MEDS: acetaminophen 500 mg Tablet PO (09:34)
--- NOTE | 2021-11-22 10:57 | PC.SOCIAL ---
IMM Update pg 2 of IMM updated and reviewed w/ patient and his . Copy provided and Copy placed in chart.
[2021-11-22 11:52] LABS: Glucose Point of Care 141 mg/dL (70-110)
--- NOTE | 2021-11-22 15:32 | P.PN_ITS ---
Subjective Subjective: Patient was seen and examined this morning, overall he is doing better no acute events overnight has remained afebrile, repeat blood culture drawn on 11/21 has been negative so far. Medications: Medication Review Details: Generic Name Dose Route Start Last Admin Trade Name Waleq PRN Reason Stop Dose Admin Amlodipine Besylat e 10 mg 11/19/21 20:45 11/21/21 08:22 Amlodipine 10 Mg Tablet PO 10 mg DAILY PEPE Administration Vancomycin/PEG/NAD A/Lysine/Water 1,250 mg in 250 m ls @ 250 mls/hr 11/20/21 14:30 11/21/21 09:21 Vancocin IV Infused Q18H PEPE Infusion Piperacillin Sod/T azobactam 100 mls @ 25 mls/ hr 11/20/21 14:30 11/21/21 13:47 Sod 3.375 gm/ So dium Chloride IV 25 mls/hr Q8H PEPE Administration Labetalol HCl 10 mg 11/19/21 20:45 11/20/21 04:54 Labetalol 5 Mg/M l Sdv 20ml IVP 10 mg Q4H PRN Administration bp>180/100 Senna/Docusate Sod ium 1 tab 11/20/21 09:00 11/21/21 08:22 Sennosides-Docus ate Tablet PO 1 tab DAILY PEPE Administration Vitals/I&O/Wt Last Vital Signs Temp 98.8 F 11/22/21 11:19 Pulse 87 11/22/21 11:19 Resp 16 11/22/21 11:19 BP 125/76 11/22/21 11:19 Pulse Ox 98 11/22/21 11:19 11/22/21 11/22/21 11/22/21 06:59 14:59 22:59 Intake Total 350 / 2770 940 / 940 Output Total 350 / 350 Balance 350 / 2770 590 / 590 Physical Exam Const: COMMON NORMALS: patient oriented x3 HENMT: COMMON NORMALS: normocephalic and atraumatic HEAD & SCALP: normocephalic and atraumatic Eye: GENERAL EYE: appearance normal, both eyes and all related structures Chest: COMMONS NORMALS: normal inspection of the chest and normal palpation of entire chest wall CHEST: Yes Symmetrical chest wall rise Resp: COMMON NORMALS: normal respiratory effort, No retractions, No use of accessory muscles and clear to auscultation bilaterally EFFORT & INSPECTION: Yes symmetric chest movement AUSCULTATION: clear to auscultation bilaterally Cardio: COMMON NORMALS: regular rate, regular rhythm, S1 normal heart sound present, S2 normal heart sound present, No gallops present (Cardio), No murmurs present (Cardio), No rub (Cardio) and Peripheral pulses 2+ throughout RATE: regular rate RHYTHM: regular rhythm HEART SOUNDS: S1 normal heart sound present and S2 normal heart sound present PERIPHERAL PULSES: Peripheral pulses 2+ throughout GI: COMMON NORMALS: Normal to inspection, nondistended, normoactive bowel sounds present, Soft to palpation, non-tender, No hepatosplenomegaly present and no masses AUSCULTATION: Yes normoactive bowel sounds PALPATION: Yes Soft to palpation and Yes No hepatosplenomegaly present RECTAL EXAM: Yes deferred Extremity: COMMON NORMALS: no clubbing, cyanosis or edema and no pedal edema Neuro: COMMON NORMALS: patient oriented x3 Skin: NARRATIVE SKIN EXAM: Large 1. 8 x 8 x 3.1 cm? wound on the right lower back. Data : 11/21/21 05:27 11/21/21 05:27 Micro: Microbiology 11/20/21 08:30 Gram Stain - Final Back Anaerobic Culture - Preliminary Abscess Culture - Preliminary Methicillin Resis Staph Aureus 11/20/21 08:45 Gram Stain - Final Back Tissue Culture - Preliminary Methicillin Resis Staph Aureus 11/19/21 18:40 Blood Culture - Preliminary Blood Methicillin Resis Staph Aureus 11/21/21 05:27 Blood Culture - Preliminary Blood NEGATIVE TO DATE 11/21/21 05:30 Blood Culture - Preliminary Blood NEGATIVE TO DATE 11/20/21 17:30 MRSA Culture - Final Nose A&P Assessment and plan (1) Abscess: Status: Acute (2) CARMENZA (acute kidney injury): Status: Acute (3) Anemia: Status: Acute (4) Pulmonary nodule: Status: Acute (5) Cellulitis: Status: Acute (6) Malnourished: Status: Acute Plan Assessment: #Right posterior lower thorax: Carbuncle/abscess: S/p incision and debridement: CT chest wo con?:8 x 8 x 3.1 cm area of soft tissue prominence with subcutaneous edema seen in the right posterior lower thorax without intrathoracic extension suggestive of a phlegmon/very complex abscess. Blood culture: 07/19:MRSA Repeat blood culture: Wound culture:MRSA ESR:45. CRP: 210 Procalcitonin:0.33 Urine Legionella antigen: Negative Urine bacterial antigen panel: Negative Currently on vancomycin and Zosyn. #MRSA bacteremia: Blood culture has grown 1 out of 4: MRSA Follow repeat blood culture #Right upper lobe several more focal pulmonary nodules measuring up to 4.6 mm. Patient quit smoking 5 years back, no history of travel to high risk countries for tuberculosis HIV negative TST: Quant gold: Sputum AFB and culture Low clinical suspicion for TB/MAC #Diabetes: LDDI FSG #Hypertension: Continue amlodipine 10 mg p.o. daily #CKD stage III versus CARMENZA on CKD: Baseline serum creatinine unknown Admission serum creatinine 1.3 Monitor BMP Avoid nephrotoxic's Intake output charting #CODE STATUS: DNI/DNR #History of CVA: With residual left-sided weakness: No acute intervention #Disposition: Patient is ready for discharge currently awaiting senior living placement. Attestations Medical Necessity Statement*: Patient is in hospital for management of above defined problem. 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
[2021-11-22 17:10] LABS: Glucose Point of Care 120 mg/dL (70-110)
[2021-11-22 21:10] LABS: Glucose Point of Care 143 mg/dL (70-110)
[2021-11-22 22:06] LABS: Vancomycin Trough 27.4 ug/mL (10-15)
--- NOTE | 2021-11-22 22:20 | PC.PHAR ---
Vancomycin trough on dosage of 1250mg IVPB every 18 hours is 27.4. Dosage is reduced to 1000mg IVPB every 24 hours with another trough to be obtained before the fourth 1gm dose.
[2021-11-23] VITALS (7 sets, daily range): BP systolic 119–171; BP diastolic 57–94; PULSE 67–90; RESP 16–20; TEMP 36.8–37.2; O2SAT 92–98
[2021-11-23 03:24] LABS: Basophils # 0.1 10^3/uL (0.0-0.1); Basophils % 0.4 %; Eosinophils # 0.3 10^3/uL (0.0-0.8); Eosinophils % 2.1 %; Hematocrit 31.1 % (42.0-52.0); Hemoglobin 9.8 g/dL (11.7-16.6); Lymphocytes % 17.1 %; Mean Corpuscular HGB Conc 31.5 g/dL (30.0-36.0); Mean Corpuscular Hemoglobin 28.1 pg (28.0-34.0); Mean Corpuscular Volume 89.1 fl (80-94); Mean Platelet Volume 10.1 fL (7.4-10.4); Monocytes # 0.7 10^3/uL (0.2-0.9); Monocytes % 6.2 %; Neutrophils # 8.57 10^3/uL (1.8-7.7); Nucleated Red Blood Cells % 0 %; Platelet Count 390 10^3/cmm (130-400); Red Blood Count 3.49 10^6/uL (4.1-5.3); Red Cell Distribution Width 14.6 % (12.1-15.1); White Blood Count 11.9 10^3/uL (4.0-10.0)
[2021-11-23 03:45] LABS: Blood Urea Nitrogen 28 mg/dL (8-23); Carbon Dioxide 24 mmol/L (22-29); Chloride 107 mmol/L (98-107); Glucose 96 mg/dL (65-115); Osmolality Calculated 297 mOsm/kg (285-295); Sodium 141 mmol/L (136-145)
[2021-11-23 04:06] LABS: Creatinine Clr Calc Pharmacy 45.5702
[2021-11-23 04:07] LABS: Anion Gap 13.7 (5-19); Potassium 3.7 mmol/L (3.5-5.1)
[2021-11-23] MEDS: piperacillin-tazobactam 3.375 GM in sodium chloride 0.9% (plus) 100 ML IV ×3 (05:31→22:58)
--- NOTE | 2021-11-23 06:08 | PC.NURSE ---
Patient declined to get up to a chair at this time.
[2021-11-23 06:43] LABS: Glucose Point of Care 104 mg/dL (70-110)
[2021-11-23] MEDS: amlodipine 10 mg Tablet PO (08:41)
[2021-11-23] MEDS: sennosides-docusate Tablet 1 TAB PO (08:41)
[2021-11-23] MEDS: HYDROcodone-acetaminophen 5-325 mg Tablet 1 TAB PO (08:54)
--- NOTE | 2021-11-23 10:36 | PC.NURSE ---
Dressing Dressing changed, 1inch Nu-Guaze wet to dry with NS Abd pad applied over Nu-Guaze with foam tape.
--- NOTE | 2021-11-23 11:24 | PM.PN ---
Subjective Subjective: Patient was seen and examined this morning, repeat blood culture from 11/21 has remained negative. Medications: Reviewed: Yes Medication Review Details: Generic Name Dose Route Start Last Admin Trade Name Mauricio PRN Reason Stop Dose Admin Amlodipine Besylat e 10 mg 11/19/21 20:45 11/21/21 08:22 Amlodipine 10 Mg Tablet PO 10 mg DAILY PEPE Administration Vancomycin/PEG/NAD A/Lysine/Water 1,250 mg in 250 m ls @ 250 mls/hr 11/20/21 14:30 11/21/21 09:21 Vancocin IV Infused Q18H PEPE Infusion Piperacillin Sod/T azobactam 100 mls @ 25 mls/ hr 11/20/21 14:30 11/21/21 13:47 Sod 3.375 gm/ So dium Chloride IV 25 mls/hr Q8H PEPE Administration Labetalol HCl 10 mg 11/19/21 20:45 11/20/21 04:54 Labetalol 5 Mg/M l Sdv 20ml IVP 10 mg Q4H PRN Administration bp>180/100 Senna/Docusate Sod ium 1 tab 11/20/21 09:00 11/21/21 08:22 Sennosides-Docus ate Tablet PO 1 tab DAILY PEPE Administration Vitals/I&O/Wt Last Vital Signs Temp 98.4 F 11/23/21 07:53 Pulse 68 11/23/21 08:00 Resp 17 11/23/21 08:00 BP 171/57 11/23/21 07:53 Pulse Ox 96 11/23/21 08:00 11/22/21 11/23/21 11/23/21 22:59 06:59 14:59 Intake Total 340 / 1280 340 / 1620 360 / 360 Balance 340 / 930 340 / 1270 360 / 360 Physical Exam Const: COMMON NORMALS: patient oriented x3 HENMT: COMMON NORMALS: normocephalic and atraumatic HEAD & SCALP: normocephalic and atraumatic Eye: GENERAL EYE: appearance normal, both eyes and all related structures Chest: COMMONS NORMALS: normal inspection of the chest and normal palpation of entire chest wall CHEST: Yes Symmetrical chest wall rise Resp: COMMON NORMALS: normal respiratory effort, No retractions, No use of accessory muscles and clear to auscultation bilaterally EFFORT & INSPECTION: Yes symmetric chest movement AUSCULTATION: clear to auscultation bilaterally Cardio: COMMON NORMALS: regular rate, regular rhythm, S1 normal heart sound present, S2 normal heart sound present, No gallops present (Cardio), No murmurs present (Cardio), No rub (Cardio) and Peripheral pulses 2+ throughout RATE: regular rate RHYTHM: regular rhythm HEART SOUNDS: S1 normal heart sound present and S2 normal heart sound present PERIPHERAL PULSES: Peripheral pulses 2+ throughout GI: COMMON NORMALS: Normal to inspection, nondistended, normoactive bowel sounds present, Soft to palpation, non-tender, No hepatosplenomegaly present and no masses AUSCULTATION: Yes normoactive bowel sounds PALPATION: Yes Soft to palpation and Yes No hepatosplenomegaly present RECTAL EXAM: Yes deferred Extremity: COMMON NORMALS: no clubbing, cyanosis or edema and no pedal edema Neuro: COMMON NORMALS: patient oriented x3 Skin: NARRATIVE SKIN EXAM: Large 1. 8 x 8 x 3.1 cm? wound on the right lower back. Data : 11/23/21 02:55 11/23/21 02:55 Micro: Microbiology 11/20/21 08:30 Gram Stain - Final Back Anaerobic Culture - Preliminary Abscess Culture - Preliminary Methicillin Resis Staph Aureus 11/20/21 08:45 Gram Stain - Final Back Tissue Culture - Preliminary Methicillin Resis Staph Aureus 11/19/21 18:40 Blood Culture - Preliminary Blood Methicillin Resis Staph Aureus A&P Assessment and plan (1) Abscess: Status: Acute (2) CARMENZA (acute kidney injury): Status: Acute (3) Anemia: Status: Acute (4) Pulmonary nodule: Status: Acute (5) Cellulitis: Status: Acute (6) Malnourished: Status: Acute Plan Assessment: #Right posterior lower thorax: Carbuncle/abscess: S/p incision and debridement: CT chest wo con?:8 x 8 x 3.1 cm area of soft tissue prominence with subcutaneous edema seen in the right posterior lower thorax without intrathoracic extension suggestive of a phlegmon/very complex abscess. Blood culture: 07/19:MRSA Repeat blood culture: Wound culture:MRSA ESR:45. CRP: 210 Procalcitonin:0.33 Urine Legionella antigen: Negative Urine bacterial antigen panel: Negative Currently on vancomycin and Zosyn. #MRSA bacteremia: Blood culture has grown 2 out of 4: MRSA Repeat blood culture: Negative. Patient will need 2 weeks of IV vancomycin from Target trough:10-15 PICC Line has to be placed #Right upper lobe several more focal pulmonary nodules measuring up to 4.6 mm. Patient quit smoking 5 years back, no history of travel to high risk countries for tuberculosis HIV negative TST: Negative Quant gold: Sputum AFB and culture Low clinical suspicion for TB/MAC #Diabetes: LDDI FSG #Hypertension: Continue amlodipine 10 mg p.o. daily #CKD stage III versus CARMENZA on CKD: Baseline serum creatinine unknown Admission serum creatinine 1.3 Monitor BMP Avoid nephrotoxic's Intake output charting #CODE STATUS: DNI/DNR #History of CVA: With residual left-sided weakness: No acute intervention #Disposition: Patient is ready for discharge currently awaiting longterm placement. Attestations Medical Necessity Statement*: Patient is currently awaiting longterm placement. Coding Level of Care Code Acute Inspection Supervisor for g Fwd Diagnoses Abscess L02.91 CARMENZA (acute kidney injury) N17.9 Anemia D64.9 Pulmonary nodule R91.1 Cellulitis L03.90 Malnourished E46
[2021-11-23 11:42] LABS: Glucose Point of Care 185 mg/dL (70-110)
[2021-11-23] MEDS: insulin lispro 100 unit/1 mL SUBCUT ×2 (11:57→17:15)
[2021-11-23] MEDS: vancomycin 1,000 MG in sodium chloride 0.9% 250 ML 250 MG IV (14:54)
[2021-11-23 17:02] LABS: Glucose Point of Care 195 mg/dL (70-110)
[2021-11-23 20:47] LABS: Glucose Point of Care 144 mg/dL (70-110)
[2021-11-24] VITALS (9 sets, daily range): BP systolic 123–183; BP diastolic 74–91; PULSE 64–104; RESP 15–20; TEMP 36.8–37.4; O2SAT 92–98
[2021-11-24 02:51] LABS: Basophils % 0.4 %; Eosinophils # 0.4 10^3/uL (0.0-0.8); Eosinophils % 3.7 %; Hematocrit 28.6 % (42.0-52.0); Hemoglobin 9.3 g/dL (11.7-16.6); Lymphocytes # 2.1 10^3/uL (0.8-4.8); Lymphocytes % 19.4 %; Mean Corpuscular HGB Conc 32.5 g/dL (30.0-36.0); Mean Corpuscular Hemoglobin 28.6 pg (28.0-34.0); Mean Platelet Volume 10.2 fL (7.4-10.4); Neutrophils # 7.07 10^3/uL (1.8-7.7); Neutrophils % 65.1 %; Nucleated Red Blood Cells % 0 %; Platelet Count 321 10^3/cmm (130-400); Red Blood Count 3.25 10^6/uL (4.1-5.3); Red Cell Distribution Width 14.6 % (12.1-15.1); White Blood Count 10.9 10^3/uL (4.0-10.0)
[2021-11-24 03:07] LABS: Blood Urea Nitrogen 23 mg/dL (8-23); Calcium 8.5 mg/dL (8.5-10.5); Carbon Dioxide 22 mmol/L (22-29); Chloride 105 mmol/L (98-107); Glucose 98 mg/dL (65-115); Osmolality Calculated 290 mOsm/kg (285-295); Sodium 138 mmol/L (136-145)
[2021-11-24 03:20] LABS: Anion Gap 15.1 (5-19); Potassium 4.1 mmol/L (3.5-5.1)
[2021-11-24] MEDS: piperacillin-tazobactam 3.375 GM in sodium chloride 0.9% (plus) 100 ML IV (06:00)
[2021-11-24 07:36] LABS: Glucose Point of Care 95 mg/dL (70-110)
[2021-11-24] MEDS: amlodipine 10 mg Tablet PO (10:17)
[2021-11-24] MEDS: sennosides-docusate Tablet 1 TAB PO (10:17)
--- NOTE | 2021-11-24 10:55 | PC.SOCIAL ---
IMM Update pg 2 of IMM updated and reviewed w/ patient and spouse who is @ bedside. Copy provided and Copy in chart updated.
[2021-11-24 12:21] LABS: Glucose Point of Care 131 mg/dL (70-110)
--- NOTE | 2021-11-24 12:33 | PM.PN ---
Subjective Subjective: Patient was seen and examined this morning,overall he is doing better.PICC Line has been placed today. Medications: Reviewed: Yes Medication Review Details: Generic Name Dose Route Start Last Admin Trade Name Mauricio PRN Reason Stop Dose Admin Acetaminophen 500 mg 11/19/21 20:45 11/22/21 09:34 Acetaminophen 50 0 Mg Tablet PO 500 mg Q4H PRN Administration fever Amlodipine Besylat e 10 mg 11/19/21 20:45 11/24/21 10:17 Amlodipine 10 Mg Tablet PO 10 mg DAILY PEPE Administration Insulin Human Lisp ro 0 unit 11/21/21 18:00 11/24/21 12:03 Insulin Lispro 1 00 Unit/1 Ml SUBCUT Not Given TIDWM [facility] Protocol Labetalol HCl 10 mg 11/19/21 20:45 11/22/21 02:22 Labetalol 5 Mg/M l Sdv 20ml IVP 10 mg Q4H PRN Administration bp>180/100 Senna/Docusate Sod ium 1 tab 11/20/21 09:00 11/24/21 10:17 Sennosides-Docus ate Tablet PO 1 tab DAILY PEPE Administration Vitals/I&O/Wt Last Vital Signs Temp 98.8 F 11/24/21 12:00 Pulse 72 11/24/21 12:00 Resp 18 11/24/21 12:00 BP 144/82 11/24/21 12:00 Pulse Ox 97 11/24/21 12:00 11/23/21 11/24/21 11/24/21 22:59 06:59 14:59 Intake Total 830 / 1290 400 / 1690 360 / 360 Balance 830 / 1290 400 / 1690 360 / 360 Weight last 48 hrs Weight 63.049 kg Physical Exam Const: COMMON NORMALS: patient oriented x3 HENMT: COMMON NORMALS: normocephalic and atraumatic HEAD & SCALP: normocephalic and atraumatic Eye: GENERAL EYE: appearance normal, both eyes and all related structures Chest: COMMONS NORMALS: normal inspection of the chest and normal palpation of entire chest wall CHEST: Yes Symmetrical chest wall rise Resp: COMMON NORMALS: normal respiratory effort, No retractions, No use of accessory muscles and clear to auscultation bilaterally EFFORT & INSPECTION: Yes symmetric chest movement AUSCULTATION: clear to auscultation bilaterally Cardio: COMMON NORMALS: regular rate, regular rhythm, S1 normal heart sound present, S2 normal heart sound present, No gallops present (Cardio), No murmurs present (Cardio), No rub (Cardio) and Peripheral pulses 2+ throughout RATE: regular rate RHYTHM: regular rhythm HEART SOUNDS: S1 normal heart sound present and S2 normal heart sound present PERIPHERAL PULSES: Peripheral pulses 2+ throughout GI: COMMON NORMALS: Normal to inspection, nondistended, normoactive bowel sounds present, Soft to palpation, non-tender, No hepatosplenomegaly present and no masses AUSCULTATION: Yes normoactive bowel sounds PALPATION: Yes Soft to palpation and Yes No hepatosplenomegaly present RECTAL EXAM: Yes deferred Extremity: COMMON NORMALS: no clubbing, cyanosis or edema and no pedal edema Neuro: COMMON NORMALS: patient oriented x3 Skin: NARRATIVE SKIN EXAM: Large 1. 8 x 8 x 3.1 cm? wound on the right lower back. Data : 11/24/21 01:52 11/24/21 01:52 Micro: Microbiology 11/20/21 08:30 Gram Stain - Final Back Anaerobic Culture - Preliminary Abscess Culture - Final Methicillin Resis Staph Aureus 11/19/21 18:40 Blood Culture - Final Blood Methicillin Resis Staph Aureus 11/20/21 08:45 Gram Stain - Final Back Tissue Culture - Final Methicillin Resis Staph Aureus A&P Assessment and plan (1) Abscess: Status: Acute (2) CARMENZA (acute kidney injury): Status: Acute (3) Anemia: Status: Acute (4) Pulmonary nodule: Status: Acute (5) Cellulitis: Status: Acute (6) Malnourished: Status: Acute Plan Assessment: #Right posterior lower thorax: Carbuncle/abscess: S/p incision and debridement: CT chest wo con?:8 x 8 x 3.1 cm area of soft tissue prominence with subcutaneous edema seen in the right posterior lower thorax without intrathoracic extension suggestive of a phlegmon/very complex abscess. Blood culture: 07/19:MRSA Repeat blood culture: Wound culture:MRSA ESR:45. CRP: 210 Procalcitonin:0.33 Urine Legionella antigen: Negative Urine bacterial antigen panel: Negative Currently on vancomycin and Zosyn. #MRSA bacteremia: Blood culture has grown 2 out of 4: MRSA Repeat blood culture: Negative. Patient will need 2 weeks of IV vancomycin from Target trough:10-15 PICC Line has to be placed #Right upper lobe several more focal pulmonary nodules measuring up to 4.6 mm. Patient quit smoking 5 years back, no history of travel to high risk countries for tuberculosis HIV negative TST: Negative Quant gold: Sputum AFB and culture Low clinical suspicion for TB/MAC #Diabetes: LDDI FSG #Hypertension: Continue amlodipine 10 mg p.o. daily #CKD stage III versus CARMENZA on CKD: Baseline serum creatinine unknown Admission serum creatinine 1.3 Monitor BMP Avoid nephrotoxic's Intake output charting #CODE STATUS: DNI/DNR #History of CVA: With residual left-sided weakness: No acute intervention #Disposition: Patient is ready for discharge ,PICC Line placed,formalities for shelter placement completed.Discharge in am. Attestations Medical Necessity Statement*: Patient will be discharged in the morning to shelter. Coding Level of Care Code Acute [employer] for [employer] Diagnoses Abscess L02.91 CARMENZA (acute kidney injury) N17.9 Anemia D64.9 Pulmonary nodule R91.1 Cellulitis L03.90 Malnourished E46
--- NOTE | 2021-11-24 13:18 | XR_ITS ---
WS: [id number] PORTABLE CHEST HISTORY: Post PICC COMPARISON: 12/29/2020 RIGHT PICC line is been placed with tip in the distal SVC. No pneumonia. Normal pulmonary vasculature. No pleural effusion or pneumothorax. Cardiac size: Normal. Mediastinum/Aorta: Normal mediastinum. No osseous abnormality seen. Heavy calcifications noted in the upper chest along the distribution of the subclavian arteries bilat erally but greatest on the RIGHT. XR/XR chest 1V portable [id number] IMPRESSION: 1. Right-sided PICC line in good position. 2. Severe atherosclerosis subclavian arteries.
[2021-11-24 16:58] LABS: Glucose Point of Care 163 mg/dL (70-110)
[2021-11-24] MEDS: vancomycin 1,000 MG in sodium chloride 0.9% 250 ML 250 MG IV (17:25)
[2021-11-24] MEDS: insulin lispro 100 unit/1 mL SUBCUT (18:35)
[2021-11-24 20:30] LABS: Glucose Point of Care 127 mg/dL (70-110)
[2021-11-25] VITALS (7 sets, daily range): BP systolic 165–186; BP diastolic 70–82; PULSE 71–77; RESP 17–19; TEMP 36.7–37.3; O2SAT 94–97
[2021-11-25 03:55] LABS: Basophils # 0.1 10^3/uL (0.0-0.1); Basophils % 0.4 %; Eosinophils # 0.6 10^3/uL (0.0-0.8); Eosinophils % 4.6 %; Hemoglobin 9.1 g/dL (11.7-16.6); Lymphocytes # 2.3 10^3/uL (0.8-4.8); Mean Corpuscular HGB Conc 32.5 g/dL (30.0-36.0); Mean Corpuscular Hemoglobin 28.5 pg (28.0-34.0); Mean Corpuscular Volume 87.8 fl (80-94); Monocytes # 0.9 10^3/uL (0.2-0.9); Monocytes % 7.5 %; Neutrophils # 7.99 10^3/uL (1.8-7.7); Neutrophils % 66.7 %; Nucleated Red Blood Cells % 0 %; Platelet Count 358 10^3/cmm (130-400); Red Blood Count 3.19 10^6/uL (4.1-5.3); Red Cell Distribution Width 14.6 % (12.1-15.1)
[2021-11-25 04:19] LABS: Blood Urea Nitrogen 19 mg/dL (8-23); Calcium 8.6 mg/dL (8.5-10.5); Carbon Dioxide 26 mmol/L (22-29); Chloride 105 mmol/L (98-107); Glucose 100 mg/dL (65-115); Osmolality Calculated 290 mOsm/kg (285-295); Sodium 139 mmol/L (136-145)
[2021-11-25 06:25] LABS: Glucose Point of Care 95 mg/dL (70-110)
[2021-11-25] MEDS: sennosides-docusate Tablet 1 TAB PO (08:11)
[2021-11-25] MEDS: amlodipine 10 mg Tablet PO (08:12)
--- NOTE | 2021-11-25 10:41 | P.DS_ITS ---
Discharge Providers Date of Admission: 11/19/21 19:23 Date of Discharge: November 25, 2021 Attending Provider at Admission: Radhika Kelsey MD Attending Provider at Discharge: Haider Reyes MD Diagnoses at Discharge Discharge Diagnosis (1) Abscess: Status: Acute (2) CARMENZA (acute kidney injury): Status: Acute (3) Anemia: Status: Acute (4) Pulmonary nodule: Status: Acute (5) Cellulitis: Status: Acute (6) Malnourished: Status: Acute Reason for Visit Reason for Visit: RIGHT SCAPULA WOUND Hospital Course Hospital Course HPI: Radhika Kelsey MD Rico Ozuna is a 76 year old male presented to the hospital with chief Complaint of of worsening of his back sore.? Patient is stating that his sore developed a few weeks ago, he is endorsing subjective fevers, he is not reliable historian, he is denying chest pain, shortness of breath, does not use oxygen, he has history of CVA in the past with left-sided weakness, patient is stating that he manages to walk despite his weakness on left side, he does not smoke, quit 5 years ago, he has not traveled outside [facility], he is not sure exactly what caused the ulcer on his back but according to his it probably happened because of his posturing in the chair.? Now it has gotten worse, pus is visible, he is not able to lay flat anymore.? It has gotten worse in size as well.? Patient is not endorsing night sweats, nocturnal fever.? He does have features of weight loss Diagnostic work-up in the ER revealed hypertension, patient is stating that he only takes clonidine at home for his high blood pressure He was not able to tell me that he also has history of COPD and diabetes which I found out through review of previous records He has been given vancomycin and Zosyn in the ER along with fluids, I have requested a QuantiFERON test, along tuberculin skin test, requested HIV and ESR Patient is on room air Patient is stating that he is doing well for now CT scan is showing concerning changes IMPRESSION: 1. 8 x 8 x 3.1 cm area of soft tissue prominence with subcutaneous edema seen in the right posterior lower thorax without intrathoracic extension suggestive of a phlegmon/very complex abscess. 2. Coronary artery atherosclerotic calcifications. 3. Scattered prominent subcentimeter short axis mediastinal lymph nodes, nonspecific. 4. Emphysematous changes. 5. Subtle bilateral upper lobe tree-in-bud type reticulonodular densities, perhaps reflecting an underlying atypical mycobacterial infection. 6. Right upper lobe demonstrates several more focal pulmonary nodules measuring up to 4.6 mm, for instance on series 2 image 20 Hospital course: Patient was managed for #Right posterior lower thorax: Carbuncle/abscess: S/p incision and debridement: With continued wound care.He was kept on broad- spectrum antibiotics, blood culture and urine culture was growing MRSA. Repeat blood culture drawn ON 11/21 was negative: Patient has been discharged on IV vancomycin to complete total of 14 days course of IV antibiotics from first negative blood culture date. Right upper lobe several more focal pulmonary nodules measuring up to 4.6 mm.HIV negative,TST: Negative. Low clinical suspicion for PTB/MAC. Patient was started on amlodipine 10 mg p.o. daily for hypertension. Patient is being discharged to custodial for continued care, he will continue to follow wound care as outpatient. Patient has responded well to above medical management is being discharged in stable condition. Physical Exam Const: COMMON NORMALS: patient oriented x3 HENMT: COMMON NORMALS: normocephalic and atraumatic HEAD & SCALP: normocephalic and atraumatic Eye: GENERAL EYE: appearance normal, both eyes and all related structures Chest: COMMONS NORMALS: normal inspection of the chest and normal palpation of entire chest wall CHEST: Yes Symmetrical chest wall rise Resp: COMMON NORMALS: normal respiratory effort, No retractions, No use of accessory muscles and clear to auscultation bilaterally EFFORT & INSPECTION: Yes symmetric chest movement AUSCULTATION: clear to auscultation bilaterally Cardio: COMMON NORMALS: regular rate, regular rhythm, S1 normal heart sound present, S2 normal heart sound present, No gallops present (Cardio), No murmurs present (Cardio), No rub (Cardio) and Peripheral pulses 2+ throughout RATE: regular rate RHYTHM: regular rhythm HEART SOUNDS: S1 normal heart sound present and S2 normal heart sound present PERIPHERAL PULSES: Peripheral pulses 2+ throughout GI: COMMON NORMALS: Normal to inspection, nondistended, normoactive bowel sounds present, Soft to palpation, non-tender, No hepatosplenomegaly present and no masses AUSCULTATION: Yes normoactive bowel sounds PALPATION: Yes Soft to palpation and Yes No hepatosplenomegaly present RECTAL EXAM: Yes deferred Extremity: COMMON NORMALS: no clubbing, cyanosis or edema and no pedal edema Neuro: COMMON NORMALS: patient oriented x3 Skin: NARRATIVE SKIN EXAM: Large 1. 8 x 8 x 3.1 cm? wound on the right lower back. Discharge Data Studies Completed and Pending Completed Studies During Hospitalization Category Date Time Status CT chest wo con [id number] Urgent Cat Scan 11/19/21 17:24 Completed CXRP [XR chest 1V portable [id number]] Routine Exams 11/24/21 13:18 Completed Pathology: Surgical [PTH] Routine Pth 11/20/21 09:27 Completed Pending at discharge Category Date Time Status ES surgery / GI images Routine Exams 11/20/21 07:34 Taken Abscess Culture and Gram Stain Routine Lab 11/20/21 08:30 Results Anaerobic Culture Routine Lab 11/20/21 08:30 Results Blood Culture AM LABS Lab 11/21/21 05:27 Results Mycobacterium TB Respiratory DAILY Lab 11/20/21 10:00 Ordered Mycobacterium TB Respiratory DAILY Lab 11/21/21 10:00 Ordered Mycobacterium TB Respiratory DAILY Lab 11/22/21 10:00 Ordered Vancomycin Trough Timed Lab 11/26/21 13:30 Ordered Radiology Impressions Chest CT 11/19/21 17:24 IMPRESSION: 1. 8 x 8 x 3.1 cm area of soft tissue prominence with subcutaneous edema seen in the right posterior lower thorax without intrathoracic extension suggestive of a phlegmon/very complex abscess. 2. Coronary artery atherosclerotic calcifications. 3. Scattered prominent subcentimeter short axis mediastinal lymph nodes, nonspecific. 4. Emphysematous changes. 5. Subtle bilateral upper lobe tree-in-bud type reticulonodular densities, perhaps reflecting an underlying atypical mycobacterial infection. 6. Right upper lobe demonstrates several more focal pulmonary nodules measuring up to 4.6 mm, for instance on series 2 image 20. For patients at low risk (minimal or absent history of smoking and of other known risk factors), no routine follow-up is indicated. For patients at high risk (history of smoking or of other known risk factors), consider optional CT Chest at 12 months. (Reference: [place]) REFERENCES: [place] Webb, et al. Guidelines for Management of Incidental Pulmonary Nodules Detected on CT Images: From the Fleischner Society 2017. Radiology. 2017;284(1):228-243. Chest X-Ray 11/24/21 13:18 IMPRESSION: 1. Right-sided PICC line in good position. 2. Severe atherosclerosis subclavian arteries. Laboratory Results WBC 12.0 10^3/uL (4.0-10.0) H 11/25/21 03:35 RBC 3.19 10^6/uL (4.1-5.3) L 11/25/21 03:35 Hgb 9.1 g/dL (11.7-16.6) L 11/25/21 03:35 Hct 28.0 % (42.0-52.0) L 11/25/21 03:35 MCV 87.8 fl (80-94) 11/25/21 03:35 MCH 28.5 pg (28.0-34.0) 11/25/21 03:35 MCHC 32.5 g/dL (30.0-36.0) 11/25/21 03:35 RDW 14.6 % (12.1-15.1) 11/25/21 03:35 Plt Count 358 10^3/cmm (130-400) 11/25/21 03:35 MPV 10.0 fL (7.4-10.4) 11/25/21 03:35 Neut % (Auto) 66.7 % 11/25/21 03:35 Lymph % (Auto) 19.0 % 11/25/21 03:35 Irwin % (Auto) 7.5 % 11/25/21 03:35 Eos % (Auto) 4.6 % 11/25/21 03:35 Baso % (Auto) 0.4 % 11/25/21 03:35 Neut # (Auto) 7.99 10^3/uL (1.8-7.7) H 11/25/21 03:35 Lymph # (Auto) 2.3 10^3/uL (0.8-4.8) 11/25/21 03:35 Irwin # (Auto) 0.9 10^3/uL (0.2-0.9) 11/25/21 03:35 Eos # (Auto) 0.6 10^3/uL (0.0-0.8) 11/25/21 03:35 Baso # (Auto) 0.1 10^3/uL (0.0-0.1) 11/25/21 03:35 Nucleated RBC % (auto) 0 % 11/25/21 03:35 Nucleated RBCs # 0.0 /100WBC 11/25/21 03:35 ESR 45 mm/hr (0-10) H 11/19/21 18:40 PT 12.30 SECONDS (12.1-14.9) 11/19/21 20:06 INR 0.89 (0.8-1.2) 11/19/21 20:06 APTT 19.2 SECONDS (23.9-36.7) L 11/19/21 20:06 Sodium 139 mmol/L (136-145) 11/25/21 03:35 Potassium 4.0 mmol/L (3.5-5.1) 11/25/21 03:35 Chloride 105 mmol/L (98-107) 11/25/21 03:35 Carbon Dioxide 26 mmol/L (22-29) 11/25/21 03:35 Anion Gap 12.0 (5-19) 11/25/21 03:35 BUN 19 mg/dL (8-23) 11/25/21 03:35 Creatinine 1.1 mg/dL (0.7-1.2) 11/25/21 03:35 GFR Calculation Not Reportable 11/25/21 03:35 Glucose 100 mg/dL (65-115) 11/25/21 03:35 POC Glucose 95 mg/dL (70-110) 11/25/21 06:19 Estimat Average Glucose 114 11/21/21 05:27 Hemoglobin A1c 5.6 % (4.0-6.0) 11/21/21 05:27 Calculated Osmolality 290 mOsm/kg (285-295) 11/25/21 03:35 Calcium 8.6 mg/dL (8.5-10.5) 11/25/21 03:35 Magnesium 2.1 mg/dL (1.7-2.3) 11/20/21 04:00 Iron 10 ug/dL (59-158) L 11/20/21 04:00 TIBC 150 mcg/dl 11/20/21 04:00 % Saturation 6.6 % (20-50) L 11/20/21 04:00 Unsat Iron Binding 140 ug/dL (112-347) 11/20/21 04:00 Total Bilirubin 0.2 mg/dL (0.15-1.2) 11/21/21 05:27 AST 27 U/L (0-40) 11/21/21 05:27 ALT 11 U/L (0-41) 11/21/21 05:27 Alkaline Phosphatase 73 IU/L (40-130) 11/21/21 05:27 C-Reactive Protein 210.6 mg/L (0.0-4.9) H 11/20/21 04:00 Total Protein 6.2 g/dL (6.6-8.7) L 11/21/21 05:27 Albumin 2.5 g/dL (3.5-5.2) L 11/21/21 05:27 Globulin 3.7 g/dL (1.3-4.6) 11/21/21 05:27 Triglycerides 77 mg/dL (0-150) 11/21/21 05:27 Cholesterol 115 mg/dL (0-200) 11/21/21 05:27 LDL Cholesterol, Calc 66 mg/dL (50-129) 11/21/21 05:27 Total VLDL Cholesterol 15 mg/dL (0-30) 11/21/21 05:27 HDL Cholesterol 34 mg/dL (60-100) L 11/21/21 05:27 Cholesterol/HDL Ratio 3.38 mg/dL (1.0-5.00) 11/21/21 05:27 Procalcitonin 0.33 ng/mL (0-0.5) 11/20/21 04:00 TSH 0.88 uIU/mL (0.27-4.20) 11/20/21 04:00 Urine Color Yellow (Yellow) 11/20/21 20:15 Urine Appearance Sl hazy (CLEAR) 11/20/21 20:15 Urine pH 5 (5-7) 11/20/21 20:15 Ur Specific Dequincy 1.020 (1.005-1.030) 11/20/21 20:15 Urine Protein 3+ (Negative) H 11/20/21 20:15 Urine Glucose (UA) Norm (Normal) 11/20/21 20:15 Urine Ketones Negative (Negative) 11/20/21 20:15 Urine Blood Trace (Negative) H 11/20/21 20:15 Urine Nitrate Negative (Negative) 11/20/21 20:15 Urine Bilirubin Neg (Negative) 11/20/21 20:15 Urine Urobilinogen Norm mg/dL (Negative) 11/20/21 20:15 Ur Leukocyte Esterase Negative (Negative) 11/20/21 20:15 Urine RBC 5-10 /hpf (0-2) H 11/20/21 20:15 Urine WBC 0-4 /hpf (0-5) H 11/20/21 20:15 Ur Squamous Epith Cells 10-15 /hpf (0-5) H 11/20/21 20:15 Amorphous Sediment 4+ /hpf 11/20/21 20:15 Urine Bacteria 1+ /hpf (NONE) H 11/20/21 20:15 Urine Mucus 1+ /hpf 11/20/21 20:15 Vancomycin Trough 27.4 ug/mL (10-15) H* 11/22/21 21:00 HIV 1&2 Ab & HIV 1 Ag Non-reactive (Non-Reactiv) 11/20/21 04:00 HIV 1&2 Antibody Non-reactive (Non-Reactiv) 11/20/21 04:00 TB (QFT) Gold In Tube Cancelled 11/20/21 04:00 TB Test (QFT) Nil Cancelled 11/20/21 04:00 TB Test (QFT) Mitogen Cancelled 11/20/21 04:00 TB Test Mitogen - Nil Cancelled 11/20/21 04:00 TB Test TB - Nil Cancelled 11/20/21 04:00 Vitals Last Vital Signs Temp 98.1 F 11/25/21 07:29 Pulse 71 11/25/21 08:00 Resp 18 11/25/21 08:00 BP 186/79 11/25/21 07:29 Pulse Ox 94 11/25/21 08:00 Discharge Plan Discharge Patient Disposition: Home Condition: Stable Prescriptions: New amlodipine 10 mg Tablet 10 mg PO DAILY 30 Days Qty: 30 3RF acetaminophen 500 mg Tablet 500 mg PO Q4H PRN (Reason: fever) 14 Days Qty: 30 0RF vancomycin 1.25 gram recon soln 1 g IV Q24H 10 Days 0RF levofloxacin 500 mg tablet 500 mg PO DAILY 7 Days Qty: 7 0RF Continued multivitamin Tablet 1 tab PO DAILY 30 Days Qty: 30 3RF Discharge Orders: Discharge Order (Routine); Ordered 11/25/21 Ordered By: Haider Reyes Referrals: [facility] [place] [Outside] Cesario Pérez MD [Physician] - (Return to wound care center on weekly basis and if needed) [facility] [Occupational Therapist] - Discharge Diet: Diabetic Discharge Activity: Increase activity as tolerated Patient Instructions: Anemia, Amlodipine (By mouth), Levofloxacin (By mouth), Vancomycin (By mouth), MRSA (Methicillin-Resistant Staphylococcus Aureus) (DC), Cellulitis (GEN), Iron Rich Diet (DC), Opioid Safety Discharge Attestations Time Spent in Discharge Care*: less than 30 min Status at Discharge: Cognitive status at discharge: cognitively intact , Behavioral status at discharge: cooperative , Quality Metrics Clinical Quality Measures [ No reported AMI, CVA or VTE this stay] Coding Level of Care Code Acute Chg FW DC note Diagnoses Abscess L02.91 CARMENZA (acute kidney injury) N17.9 Anemia D64.9 Pulmonary nodule R91.1 Cellulitis L03.90 Malnourished E46
[2021-11-25 11:43] LABS: Glucose Point of Care 119 mg/dL (70-110)
--- NOTE | 2021-11-25 12:11 | PC.NURSE ---
Called report to [facility] and spoke to Cuong Sood RN
== END 2021-11-25 12:30 | disposition skilled nursing facility (03) | DRG 580 ==
LOC: ER 18:43 → MEDSURG 19:58
PROVIDERS: Student in an Organized Health Care Education/Training Program; Surgery; Admitting Provider Internal Medicine; Emergency Provider Emergency Medicine; Visit Provider Internal Medicine
PROC: 0KBF0ZZ Excision of Right Trunk Muscle, Open Approach (ICD-10-PCS; principal; 2021-11-20 08:00)
DX: L02.232 Carbuncle of back [any part, except buttock and flank] (principal); I69.954 Hemiplegia and hemiparesis following unspecified cerebrovascular disease affecting left non-dominant side; E46 Unspecified protein-calorie malnutrition; N17.9 Acute kidney failure, unspecified; L03.312 Cellulitis of back [any part except buttock and flank]; E11.22 Type 2 diabetes mellitus with diabetic chronic kidney disease; I12.9 Hypertensive chronic kidney disease with stage 1 through stage 4 chronic kidney disease, or unspecified chronic kidney disease; N18.30 Chronic kidney disease, stage 3 unspecified; J44.9 Chronic obstructive pulmonary disease, unspecified; Z68.20 Body mass index [BMI] 20.0-20.9, adult; Z87.891 Personal history of nicotine dependence; D64.9 Anemia, unspecified; R91.8 Other nonspecific abnormal finding of lung field; B95.62 Methicillin resistant Staphylococcus aureus infection as the cause of diseases classified elsewhere
CPT/HCPCS: 36415; 36416; 36569; 71045; 71250; 80048; 80053; 80061; 80202; 81001; 82962; 83036; 83540; 83550; 83735; 84145; 84443; 85025; 85610; 85651; 85730; 86140; 86403; 86480; 87040; 87070; 87075; 87077; 87150; 87176; 87186; 87205; 87449; 87641; 87806; 88304; 96365; 96367; 96372; 97110; 97161; 97166; 97530; 97535; 99285; J0692; J1100; J1815; J2405; J2543; J2704; J3010; J3370; J3490; J7030; J7050

== ENCOUNTER 2021-11-29 07:49 | Outpatient (CLI) | payer MEDICARE, SELFPAY ==
[2021-11-29 08:51] LABS: Vancomycin Trough 17.7 ug/mL (10-15)
== END 2021-11-29 07:50 | disposition home or self-care (01) ==
LOC: LAB 07:54
PROVIDERS: Visit Provider Internal Medicine
DX: A49.02 Methicillin resistant Staphylococcus aureus infection, unspecified site (principal)
CPT/HCPCS: 80202

== ENCOUNTER 2021-12-02 07:17 | Outpatient (CLI) | payer MEDICARE, SELFPAY ==
[2021-12-02 07:59] LABS: Vancomycin Trough 19.4 ug/mL (10-15)
== END 2021-12-02 07:18 | disposition home or self-care (01) ==
LOC: LAB 07:20
PROVIDERS: Visit Provider Internal Medicine
DX: B95.62 Methicillin resistant Staphylococcus aureus infection as the cause of diseases classified elsewhere (principal)
CPT/HCPCS: 80202

== ENCOUNTER 2021-12-05 07:25 | Outpatient (CLI) | payer MEDICARE, SELFPAY ==
[2021-12-05 08:10] LABS: Vancomycin Trough 22.6 ug/mL (10-15)
== END 2021-12-05 07:26 | disposition home or self-care (01) ==
LOC: LAB 07:28
PROVIDERS: Visit Provider Internal Medicine
DX: A49.02 Methicillin resistant Staphylococcus aureus infection, unspecified site (principal)
CPT/HCPCS: 80202

== ENCOUNTER → 2021-12-21 13:09 | Outpatient (BNVA) | payer MEDICARE, SELFPAY | PROVIDERS: Visit Provider Nurse Practitioner Family | DX: I96 Gangrene, not elsewhere classified (principal); L98.492 Non-pressure chronic ulcer of skin of other sites with fat layer exposed | CPT/HCPCS: 11042; 11045 ==

== ENCOUNTER → 2021-12-28 10:03 | Outpatient (BNVA) | payer MEDICARE, SELFPAY | PROVIDERS: Visit Provider Nurse Practitioner Family | DX: I96 Gangrene, not elsewhere classified (principal); L98.492 Non-pressure chronic ulcer of skin of other sites with fat layer exposed | CPT/HCPCS: 11042; 11045 ==

== ENCOUNTER → 2022-01-04 13:59 | Outpatient (BNVA) | payer MEDICARE, SELFPAY | PROVIDERS: Visit Provider Nurse Practitioner Family | DX: I96 Gangrene, not elsewhere classified (principal); L98.492 Non-pressure chronic ulcer of skin of other sites with fat layer exposed | CPT/HCPCS: 11042; 11045 ==

== ENCOUNTER → 2022-01-12 13:40 | Outpatient (BNVA) | payer MEDICARE, SELFPAY | PROVIDERS: Visit Provider Family Medicine | DX: Z00.00 Encounter for general adult medical examination without abnormal findings (principal); I69.954 Hemiplegia and hemiparesis following unspecified cerebrovascular disease affecting left non-dominant side; R25.2 Cramp and spasm; Z12.5 Encounter for screening for malignant neoplasm of prostate; R35.0 Frequency of micturition; R53.81 Other malaise; R53.83 Other fatigue | CPT/HCPCS: 80053; 80061; 83735; 84153; 84439; 84443; 85025 ==

== ENCOUNTER → 2022-01-18 14:56 | Outpatient (BNVA) | payer MEDICARE, SELFPAY | PROVIDERS: Visit Provider Thoracic Surgery (Cardiothoracic Vascular Surgery) | DX: L97.512 Non-pressure chronic ulcer of other part of right foot with fat layer exposed (principal); I96 Gangrene, not elsewhere classified | CPT/HCPCS: 97597; A6212 ==

== ENCOUNTER 2022-01-30 11:36 | Outpatient (CLI) | payer MEDICARE, SELFPAY ==
[2022-01-30 12:19] LABS: Add Urine Microscopic? YES; Bilirubin Urine Neg (Negative); Blood Urine Neg (Negative); Glucose Urine UA Trace (Normal); Ketones Urine Negative (Negative); Leukocyte Esterase Urine Negative (Negative); Nitrate Urine Negative (Negative); Protein Urine 3+ (Negative); Urine Appearance Clear (CLEAR); Urine Color Yellow (Yellow); Urobilinogen Urine Norm (Negative); pH Urine 5 (5-7)
[2022-01-30 12:20] LABS: Add Urine Culture? No; Hyaline Casts Urine 25-40 /lpf; RBC Urine 0-4 /hpf (0-2); Squamous Epithelial Cell Urine 0-4 /hpf (0-5)
== END 2022-01-30 11:37 | disposition home or self-care (01) ==
LOC: LAB 11:40
PROVIDERS: Visit Provider Family Medicine
DX: N18.30 Chronic kidney disease, stage 3 unspecified (principal)
CPT/HCPCS: 81001

== ENCOUNTER → 2022-02-01 13:29 | Outpatient (BNVA) | payer MEDICARE, SELFPAY | PROVIDERS: Visit Provider Thoracic Surgery (Cardiothoracic Vascular Surgery) | DX: L98.492 Non-pressure chronic ulcer of skin of other sites with fat layer exposed (principal) | CPT/HCPCS: 97597; A6021 ==

== ENCOUNTER 2022-02-10 11:42 | Outpatient (CLI) | payer MEDICARE, SELFPAY ==
[2022-02-10 15:37] LABS: Basophils # 0.1 10^3/uL (0.0-0.1); Basophils % 0.6 %; Eosinophils # 0.6 10^3/uL (0.0-0.8); Hematocrit 33.7 % (42.0-52.0); Hemoglobin 10.7 g/dL (11.7-16.6); Lymphocytes # 1.7 10^3/uL (0.8-4.8); Mean Corpuscular HGB Conc 31.8 g/dL (30.0-36.0); Mean Corpuscular Hemoglobin 27.9 pg (28.0-34.0); Mean Corpuscular Volume 87.8 fl (80-94); Mean Platelet Volume 11.2 fL (7.4-10.4); Monocytes # 0.5 10^3/uL (0.2-0.9); Monocytes % 6.3 %; Neutrophils # 4.86 10^3/uL (1.8-7.7); Neutrophils % 62.8 %; Nucleated Red Blood Cells % 0 %; Platelet Count 289 10^3/cmm (130-400); Red Blood Count 3.84 10^6/uL (4.1-5.3); Red Cell Distribution Width 13.9 % (12.1-15.1); White Blood Count 7.7 10^3/uL (4.0-10.0)
[2022-02-10 16:03] LABS: Alanine Aminotransferase 6 U/L (0-41); Albumin Level 3.3 g/dL (3.5-5.2); Alkaline Phosphatase 81 IU/L (40-130); Anion Gap 12.1 (5-19); Aspartate Amino Transferase 16 U/L (0-40); Blood Urea Nitrogen 18 mg/dL (8-23); Calcium 9.7 mg/dL (8.5-10.5); Carbon Dioxide 28 mmol/L (22-29); Chloride 105 mmol/L (98-107); Cholesterol 154 mg/dL (0-200); Free T4 Free Thyroxine 0.85 ng/dL (0.82-1.77); Globulin 3.4 g/dL (1.3-4.6); Glucose 111 mg/dL (65-115); HDL Cholesterol 57 mg/dL (60-100); LDL Cholesterol Calculated 77 mg/dL (50-129); LDL HDL Ratio 1.35 RATIO (0.00-3.22); Osmolality Calculated 297 mOsm/kg (285-295); Potassium 3.1 mmol/L (3.5-5.1); Sodium 142 mmol/L (136-145); Thyroid Stimulating Hormone 1.32 uIU/mL (0.27-4.20); Total Bilirubin 0.3 mg/dL (0.15-1.2); Total Protein 6.7 g/dL (6.6-8.7); Triglycerides 100 mg/dL (0-150)
[2022-02-10 16:11] LABS: Estmated Average Glucose 103; Hemoglobin A1C 5.2 % (4.0-6.0)
== END 2022-02-10 11:43 | disposition home or self-care (01) ==
PROVIDERS: Visit Provider Family Medicine
DX: E11.22 Type 2 diabetes mellitus with diabetic chronic kidney disease (principal)
CPT/HCPCS: 80053; 80061; 83036; 83735; 84153; 84439; 84443; 85025

== ENCOUNTER 2022-04-07 06:29 | Inpatient (IN) | payer MEDICARE, SELFPAY ==
[2022-04-07] VITALS (104 sets, daily range): BP systolic 94–189; BP diastolic 65–111; PULSE 83–115; RESP 18–38; TEMP 36.2–37.5; O2SAT 77–100; BMI 21.1
--- NOTE | 2022-04-07 06:32 | ECG_ITS ---
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 Measurements Intervals [place] Rate: 83 P: 12 VT: 152 QRS: 16 QRSD: 100 T: 177 QT: 396 QTc: 467 Interpretive Statements SINUS RHYTHM LEFT VENTRICULAR HYPERTROPHY AND ST-T CHANGE [VOLTAGE CRITERIA PLUS ST/T ABNORMALITY] Compared to ECG 12/29/2020 13:26:09 Left ventricular hypertrophy now present ST (T wave) deviation now present Left-axis deviation no longer present Electronically Signed On 04-07-2022 16:25:32 CDT by Marisol Acuña M.D. [email or web address]
--- NOTE | 2022-04-07 06:39 | W.ED.SOB ---
HPI - SOB/Dyspnea General: Chief Complaint: Shortness of Breath/Dyspnea Stated Complaint: RESP DISTRESS Time Seen by Provider: 04/07/22 06:33 Source: patient and EMS Mode of arrival: EMS History of Present Illness: HPI Narrative: 76-year-old male brought in by EMS. EMS is the original call was for weakness in the right side of his face. Patient has a known previous stroke with left-sided weakness on arrival here patient is in respiratory distress. He has a history of COPD is not usually on oxygen and is now requiring at least 4 L by oxygen. EMS reports that receive deficits on their arrival resolved after application of oxygen. Patient denies any chest pain at the time of presentation although he did state he had some chest discomfort earlier. Chest discomfort resolved after application of oxygen and the nebulizers. He has not had any orthopnea. He says his symptoms of shortness of breath began last night he has had a moderately productive cough. There is no family at the bedside. MD elicited complaint: shortness of breath and cough Pertinent past history: COPD Onset (ago): hour(s) Timing: constant Severity: severe Exacerbating factors: exertion and coughing Relieving factors: oxygen and rest Known history of: COPD Associated symptoms: Reports chest congestion; Deny abdominal pain, chest pain, diaphoresis, dizziness, extremity pain, fever(s), hemoptysis, lightheadedness, nausea, orthopnea, palpitations, paresthesias, polydipsia, polyuria, rash, sense of impending doom, syncope or vomiting Treatment prior to arrival: oxygen Review of Systems Const: Reports: fatigue and malaise; Denies: fever(s), chills or diaphoresis Card: Reports: dyspnea on exertion; Denies: chest pain, palpitations, edema, lightheadedness, syncope or orthopnea Resp: Reports: chest congestion; Denies: hemoptysis GI: Denies: abdominal pain, nausea or vomiting : Denies: flank pain, difficulty urinating, dysuria, urinary frequency or urinary urgency Musc: Denies: extremity pain Neuro: Denies: dizziness Endo: Denies: polyuria or polydipsia [facility] PFSH: Medical History Abscess CARMENZA (acute kidney injury) Anemia Cellulitis CKD (chronic kidney disease) stage 3, GFR 30-59 ml/min COPD (chronic obstructive pulmonary disease) CVA (cerebral vascular accident) Depressed Diabetes HTN (hypertension) Malnourished Open wound of lower back Pulmonary nodule Surgical History History of testicular surgery Social History Smoking and tobacco status: former smoker Alcohol intake: never Household members: spouse Housing: House Physical Exam Const: GENERAL APPEARANCE: cooperative ORIENTATION/CONSCIOUSNESS: Yes awake, Yes oriented to person, Yes oriented to place and Yes oriented to time HENMT: COMMON NORMALS: normocephalic, atraumatic and hearing grossly normal bilaterally HEAD & SCALP: normocephalic and atraumatic Resp: EFFORT & INSPECTION: Yes labored, Yes retractions and Yes uses accessory muscles AUSCULTATION: rhonchi and wheezes Cardio: COMMON NORMALS: regular rate, regular rhythm and No murmurs present (Cardio) RATE: regular rate RHYTHM: regular rhythm GI: COMMON NORMALS: Soft to palpation and No hepatosplenomegaly present AUSCULTATION: Yes normoactive bowel sounds PALPATION: Yes Soft to palpation, No Tenderness to palpation present (GI), No Guarding due to palpation present (GI) and Yes No hepatosplenomegaly present Extremity: COMMON NORMALS: normal to inspection, capillary refill normal, no clubbing, cyanosis or edema, no calf tenderness and no pedal edema OTHER: Chronic 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 Neuro: SENSORIUM/ORIENTATION: Yes oriented to person, Yes oriented to place and Yes oriented to time Skin: COMMON NORMALS: no rashes or lesions noted GENERAL SKIN EXAM: no rashes or lesions noted Course Vital Signs: Vital signs: Vital Signs Temperature 97.1 F L 04/07/22 06:29 Pulse Rate 98 04/07/22 10:48 Respiratory Rate 30 H 04/07/22 10:48 Blood Pressure 136/94 04/07/22 09:45 Pulse Oximetry 93 04/07/22 10:48 Oxygen Delivery Me thod 04/07/22 06:53 Oxygen Flow Rate 40 04/07/22 10:48 Fraction of Inspir ed Oxygen 60 04/07/22 10:48 MDM - SOB/Dyspnea Medical Decision Making EKG shows ST depression laterally and signs of LVH. On previous EKG from 2018 the lateral changes were not noted. I reviewed the EKG was Dr. Mullen on-call for cardiology he did not feel there was a any ST elevation that met criteria. There are some upsloping ST changes on V2 and V3 on his first EKG that I asked Dr. Mullen to review. We both agreed it was likely from LVH. His first troponin is 790. Chest x-ray he appears to have COVID. Patient also has a mild acute kidney injury. BNP 79,000 CTA of the chest negative for PE but does show COVID-like appearance of the lungs and a small to moderate pleural effusion. COVID swab initially was negative clinically I am very suspicious and we are repeating. I discussed with cardiology as well as the hospitalist will admit. Acute respiratory failure with hypoxia on presentation. Reviewing history patient previously had an MRSA skin infection earlier this year in November was treated for 14 days potential that he has a recurrence of this since it was found on blood cultures he may not have had enough antibiotics to fully resolve the infection and this may be residual or recurrence of it. Medical Records I reviewed the patient's medical records. Lab Data I reviewed the patient's lab results. : 04/07/22 06:35 04/07/22 06:35 Labs/Radiology: Radiology Impressions Chest X-Ray 04/07/22 06:40 IMPRESSION: Interval development of bilateral diffuse opacifications. Differential is most likely pulmonary edema. Pneumonia also should be considered. Laboratory Results WBC 17.0 10^3/uL (4.0-10.0) H 04/07/22 06:35 RBC 3.90 10^6/uL (4.1-5.3) L 04/07/22 06:35 Hgb 10.7 g/dL (11.7-16.6) L 04/07/22 06:35 Hct 34.4 % (42.0-52.0) L 04/07/22 06:35 MCV 88.2 fl (80-94) 04/07/22 06:35 MCH 27.4 pg (28.0-34.0) L 04/07/22 06:35 MCHC 31.1 g/dL (30.0-36.0) 04/07/22 06:35 RDW 14.6 % (12.1-15.1) 04/07/22 06:35 Plt Count 555 10^3/cmm (130-400) H 04/07/22 06:35 MPV 10.7 fL (7.4-10.4) H 04/07/22 06:35 Neut % (Auto) 87.5 % 04/07/22 06:35 Lymph % (Auto) 6.8 % 04/07/22 06:35 [place] % (Auto) 4.9 % 04/07/22 06:35 Eos % (Auto) 0.0 % 04/07/22 06:35 Baso % (Auto) 0.1 % 04/07/22 06:35 Neut # (Auto) 14.84 10^3/uL (1.8-7.7) H 04/07/22 06:35 Lymph # (Auto) 1.2 10^3/uL (0.8-4.8) 04/07/22 06:35 [place] # (Auto) 0.8 10^3/uL (0.2-0.9) 04/07/22 06:35 Eos # (Auto) 0.0 10^3/uL (0.0-0.8) 04/07/22 06:35 Baso # (Auto) 0.0 10^3/uL (0.0-0.1) 04/07/22 06:35 Nucleated RBC % (auto) 0 % 04/07/22 06:35 Nucleated RBCs # 0.0 /100WBC 04/07/22 06:35 APTT 31.0 SECONDS (23.9-36.7) 04/07/22 08:26 D-Dimer 2.06 ug/mIFEU (0-0.59) H 04/07/22 06:35 Specimen Type Arterial 04/07/22 09:30 Sample Site Radial, left 04/07/22 09:30 ABG pH 7.49 (7.35-7.45) H 04/07/22 09:30 ABG pCO2 19.8 mmHg (35-45) L* 04/07/22 09:30 ABG pO2 109.0 mmHg (80.0-100.0) H 04/07/22 09:30 ABG HCO3 15.0 mmol/L (22-26) L 04/07/22 09:30 ABG O2 Saturation 99.0 04/07/22 09:30 ABG Base Excess -6.8 mmol/L (-2.0-2.0) L 04/07/22 09:30 Harry Test Pos 04/07/22 09:30 A-a O2 Gradient 38.1 mmHg (5-10) H 04/07/22 09:30 Hematocrit 30.2 % (42-52) L 04/07/22 09:30 Hgb O2 Saturation 97.6 % (95-100) 04/07/22 09:30 Carboxyhemoglobin < 1.0 %THgb (0.4-20.1) 04/07/22 09:30 Methemoglobin 0.4 % (0.4-1.5) 04/07/22 09:30 Total Hemoglobin 9.8 g/dL (14-18) L 04/07/22 09:30 Sodium 134.0 mmol/L (131-143) 04/07/22 09:30 Potassium 3.9 mmol/L (3.5-5.0) 04/07/22 09:30 Glucose 207.0 mg/dL (70-115) H 04/07/22 09:30 Ionized Calcium 1.2 mmol/L (1.1-1.4) 04/07/22 09:30 O2 Delivery Device Hag 04/07/22 09:30 O2 Liters/Min 40.0 % 04/07/22 09:30 FiO2 60.0 % 04/07/22 09:30 Mailroom Assistant ID Cak 04/07/22 09:30 Sodium 134 mmol/L (136-145) L 04/07/22 06:35 Potassium 4.6 mmol/L (3.5-5.1) 04/07/22 06:35 Chloride 97 mmol/L (98-107) L 04/07/22 06:35 Carbon Dioxide 18 mmol/L (22-29) L 04/07/22 06:35 Anion Gap 23.6 (5-19) H 04/07/22 06:35 BUN 65 mg/dL (8-23) H 04/07/22 06:35 Creatinine 2.3 mg/dL (0.7-1.2) H 04/07/22 06:35 GFR Calculation Not Reportable 04/07/22 06:35 Glucose 255 mg/dL (65-115) H 04/07/22 06:35 Calculated Osmolality 305 mOsm/kg (285-295) H 04/07/22 06:35 Lactic Acid 4.6 mmol/L (0.5-2.2) H* 04/07/22 06:35 Lactic Acid (Sepsis) 5.8 mmol/L (0.5-2.2) H* 04/07/22 09:20 Calcium 9.2 mg/dL (8.5-10.5) 04/07/22 06:35 Total Bilirubin 0.5 mg/dL (0.15-1.2) 04/07/22 06:35 AST 92 U/L (0-40) H 04/07/22 06:35 ALT 40 U/L (0-41) 04/07/22 06:35 Alkaline Phosphatase 92 U/L (40-130) 04/07/22 06:35 Troponin T Baseline 790 ng/L (0-15) H* 04/07/22 06:35 Troponin T 120 Minute 732.9 ng/L (0-15) H 04/07/22 09:20 Delta Troponin T -57.1 ABS# (0-10) L 04/07/22 09:20 NT-Pro-B Natriuret Pep 42457 pg/mL (0-125) H 04/07/22 06:35 Total Protein 7.1 g/dL (6.6-8.7) 04/07/22 06:35 Albumin 2.9 g/dL (3.5-5.2) L 04/07/22 06:35 Globulin 4.2 g/dL (1.3-4.6) 04/07/22 06:35 Procalcitonin 0.35 ng/mL (0-0.5) 04/07/22 06:30 Coronavirus 229E (PCR) Not detected (NOT DETECT) 04/07/22 06:55 SARS-CoV-2 (PCR) Not detected (NOT DETECT) 04/07/22 06:55 Critical Care Time Critical Care Time: Critical Care Time: Yes Total Critical Care Time: 45 Attestation: The high probability of a clinically significant, sudden or life threatening deterioration of the patient's respiratory system(s) required my full and direct attention, intervention and personal management. The critical care time is as shown. This time is in addition to time spent performing any reported procedures but includes the following: [x] Data and vital sign review and interpretation [x] Patient assessment, examination and intervention [x] Documentation [x] Medication orders and management Discharge Plan Discharge Admit Provider: Javier Bedolla Condition: Stable Coding Level of Care Code ED Physicist [place] for Chg Fwd Exam Detailed
--- NOTE | 2022-04-07 06:40 | XR_ITS ---
WS: [id number] PORTABLE CHEST HISTORY: dyspnea/cough COMPARISON: 11/24/2021 Significant change in appearance of the lungs since the prior study. There is significant bilateral o pacifications throughout both lungs with mild sparing of the periphery. Probably representing pulmona ry edema. Small bilateral pleural effusions. Cardiac size: Mildly prominent and enlarged heart shadow. Mediastinum/Aorta: Normal mediastinum. Osteopenia and degenerative changes at the glenohumeral joints. XR/XR chest 1V portable [id number] IMPRESSION: Interval development of bilateral diffuse opacifications. Differential is most likely pulmonary edema. Pneumonia also should be considered.
[2022-04-07] MEDS: ipratropium-albuterol 3 mL Neb 6 ML INHALATION (06:53)
[2022-04-07 07:07] LABS: Basophils % 0.1 %; Hematocrit 34.4 % (42.0-52.0); Hemoglobin 10.7 g/dL (11.7-16.6); Lymphocytes # 1.2 10^3/uL (0.8-4.8); Lymphocytes % 6.8 %; Mean Corpuscular HGB Conc 31.1 g/dL (30.0-36.0); Mean Corpuscular Hemoglobin 27.4 pg (28.0-34.0); Mean Corpuscular Volume 88.2 fl (80-94); Mean Platelet Volume 10.7 fL (7.4-10.4); Monocytes # 0.8 10^3/uL (0.2-0.9); Monocytes % 4.9 %; Neutrophils # 14.84 10^3/uL (1.8-7.7); Neutrophils % 87.5 %; Nucleated Red Blood Cells % 0 %; Platelet Count 555 10^3/cmm (130-400); Red Cell Distribution Width 14.6 % (12.1-15.1)
--- NOTE | 2022-04-07 07:14 | PC.NURSE ---
pt resting in bed, RT at bedside for breathing treatment and xray at bedside for imaging. Pt's significant other arrived. Unable to give detailed hx of events. States this morning pt c/o part of his tongue being numb and that yesterday he had a cough that she treated with Benadryl. Pt is alert and oriented to person and place. speech difficult to understand due to hx of cva. contracture noted to LUE. Lung sounds clear bilat. skin appears WNL. strength WNL to RUE. pt denies needs at this time, call light within reach.
[2022-04-07 07:19] LABS: Alanine Aminotransferase 40 U/L (0-41); Albumin Level 2.9 g/dL (3.5-5.2); Alkaline Phosphatase 92 U/L (40-130); Anion Gap 23.6 (5-19); Aspartate Amino Transferase 92 U/L (0-40); Blood Urea Nitrogen 65 mg/dL (8-23); Calcium 9.2 mg/dL (8.5-10.5); Carbon Dioxide 18 mmol/L (22-29); Chloride 97 mmol/L (98-107); Globulin 4.2 g/dL (1.3-4.6); Glucose 255 mg/dL (65-115); Osmolality Calculated 305 mOsm/kg (285-295); Potassium 4.6 mmol/L (3.5-5.1); Sodium 134 mmol/L (136-145); Total Bilirubin 0.5 mg/dL (0.15-1.2); Total Protein 7.1 g/dL (6.6-8.7)
[2022-04-07 07:26] LABS: ABG PCO2 21.9 mmHg (35-45); Base Excess ABG -4.7 mmol/L (-2.0-2.0); PO2 ABG 53.5 mmHg (80.0-100.0); Potassium Level - ABG 4.5 mmol/L (3.5-5.0)
[2022-04-07 07:27] LABS: Oxygen Device NC
[2022-04-07 07:28] LABS: Arterial Blood Gas Hematocrit 31.9 % (42-52); Carboxyhemoglobin 1.2 %THgb (0.4-20.1); HGB O2 Sat 86.4 % (95-100); Ionized Calcium Level - ABG 1.2 mmol/L (1.1-1.4); Methemoglobin 0.7 % (0.4-1.5); Total Hemoglobin 10.4 g/dL (14-18)
--- NOTE | 2022-04-07 07:34 | PC.PHAR ---
Addendum entered by Elizabeth Shankar 04/07/22 08:41: per cecilyshona badillo [place] states they last filled clonazepam 0.5mg bid prn on 02/28/22 30d/s and lipitor 20mg daily on 01/19/22 90d/s Original Note: pts states she takes care of the pts medications-pts states pt takes clonazepam 0.5mg tid prn-ext med history shows 01/19/22 0.5mg bid prn-rx written 02/22/22 0.25mg bid prn-called justino Dubon not open to verify how and when filled last-pts states the pt hasnt taken amlodipine 10mg daily for months rx written 11/25/21-pts states the pt only takes lipitor 20mg three times a week rx written 02/22/22 30d/s for 20mg daily-notes are made in the pharmacy comments
[2022-04-07 07:38] LABS: Troponin(5th) Baseline 790 ng/L (0-15)
[2022-04-07 07:39] LABS: Lactic Sepsis W/Reflex 4.6 mmol/L (0.5-2.2)
--- NOTE | 2022-04-07 07:48 | ECG_ITS ---
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 Measurements Intervals [place] Rate: 94 P: 67 LA: 167 QRS: 25 QRSD: 98 T: 132 QT: 369 QTc: 463 Interpretive Statements SINUS RHYTHM LEFT VENTRICULAR HYPERTROPHY AND ST-T CHANGE [VOLTAGE CRITERIA PLUS ST/T ABNORMALITY] Compared to ECG 12/29/2020 13:26:09 Left ventricular hypertrophy now present ST (T wave) deviation now present Left-axis deviation no longer present Electronically Signed On 04-07-2022 16:30:33 CDT by Marisol Acuña M.D. [id number]
--- NOTE | 2022-04-07 07:53 | CT_ITS ---
WS: [id number] CTA OF THE CHEST WITH PULMONARY EMBOLISM PROTOCOL TECHNIQUE: High-resolution contrast enhanced CTA of the chest with coronal and sagittal reformatted i isidros with pulmonary embolism protocol. MIP images are also reviewed. CLINICAL INFORMATION: resp failure COMPARISON: CT November 19, 2021 DLP: 380.[address] scans at [facility] use at least one of these dose optimization techniques: automated e xposure control; mA and/or kV adjustment per patient size (includes targeted exams where dose is matc hed to clinical indication); or iterative reconstruction. FINDINGS: Proximal main pulmonary arteries are normal. Normal segmental and subsegmental pulmonary arteries. No evidence of pulmonary embolus. Small to moderate bilateral pleural effusions RIGHT greater than LEFT . Diffuse patchy perihilar airspace infiltrates with confluence. Patchy airspace infiltrates in both lower lobes. Findings compatible with pneumonia. Recommend correlation for Covid 19 pneumonia. Splenic artery calcification. Normal GE junction. Hypertrophic changes thoracic spine. Normal caliber thoracic aorta. Coronary calcification. IMPRESSION 1. No evidence for pulmonary embolus. 2. Small to moderate RIGHT greater than LEFT pleural effusions. 3. Patchy confluent airspace infiltrates in both perihilar regions extending into the upper and lowe r lobes compatible with pneumonia. Pattern suspicious for viral pneumonia. Correlation for Covid 19 p neumonia. 4. Aortic and coronary calcification. Notified Ethan Velazquez DO at 04/07/2022 8:50 AM.
--- NOTE | 2022-04-07 08:03 | PC.NURSE ---
confirmed with physician Covid antigen to be completed, awaiting results of Covid PCR. Verbal order received for repeat EKG. pt and family updated. pt moved to weigh bed to obtain accurate weight. pt readjusted in bed for comfort. call light within reach.
[2022-04-07 08:10] LABS: Procalcitonin 0.35 ng/mL (0-0.5)
--- NOTE | 2022-04-07 08:14 | PC.NURSE ---
pt taken to CT via stretcher, pt wearing surgical mask
--- NOTE | 2022-04-07 08:14 | PC.NURSE ---
per lab, covid pcr should be resulted in approximately 55 minutes. physician updated.
[2022-04-07] MEDS: iohexol 350 mg/mL 100 mL Btl IV (08:17)
[2022-04-07 08:31] LABS: D Dimer 2.06 ug/mIFEU (0-0.59)
[2022-04-07] MEDS: sodium chloride 0.9% 1,000 ML 999 ML IV (08:38)
[2022-04-07] MEDS: heparin 5,000 unit/mL INJ 1 mL IV (08:40)
[2022-04-07 08:48] LABS: Reflex Lactate Order REFLEX LACTIC ORDERD
[2022-04-07 08:57] LABS: Adenovirus Not Detected (NOT DETECT); Chlamydia Pneumoniae Not Detected (NOT DETECT); Coronavirus 229E,HKU1,NL63,OC4 Not Detected (NOT DETECT); Human Metapneumovirus Not Detected (NOT DETECT); Human Rhinovirus/Enterovirus Not Detected (NOT DETECT); Influenza A Not Detected (NOT DETECT); Influenza A H1 Not Detected (NOT DETECT); Influenza A H1-2009 Not Detected (NOT DETECT); Influenza A H3 Not Detected (NOT DETECT); Influenza B Not Detected (NOT DETECT); Mycoplasma Pneumoniae Not Detected (NOT DETECT); Parainfluenza Virus Type 1 Not Detected (NOT DETECT); Parainfluenza Virus Type 2 Not Detected (NOT DETECT); Parainfluenza Virus Type 3 Not Detected (NOT DETECT); Parainfluenza Virus Type 4 Not Detected (NOT DETECT); Respiratory Syncytial Virus A Not Detected (NOT DETECT); Respiratory Syncytial Virus B Not Detected (NOT DETECT); SARS-COV-2 Not Detected (NOT DETECT)
[2022-04-07] MEDS: heparin drip 25,000 UNIT/500 ML PREMIX 16.13 UNIT IV (09:00)
--- NOTE | 2022-04-07 09:17 | PC.NURSE ---
pt becoming restless and continuously breaking seal of BiPAP mask and trying to pull mask off. educated pt on reasoning for BiPAP and risks of not wearing mask. pt continues to pull at mask. pt also refusing catheter placement and blood culture draws. pt educated on reasoning for blood cultures and catheter. pt continues to refuse. physician notified by charge nurse of pt pulling at mask, refusing catheter and blood cultures, and agitation.
--- NOTE | 2022-04-07 09:30 | USCV_ITS ---
Rico Ozuna Age: 76 Gender: M : 1945 Exam Date: 04/07/2022 09:42 Ordering Phys: Ethan Velazquez DO Technologist: Juan Coto [place] [facility] [place]: ? pericarditis BP: 136 / 94 HR: 94 Rhythm: Sinus Technical Quality: Adequate MEASUREMENTS (Male / Female) Normal Values 2D ECHO LV Diastolic Diameter PLAX 4.9 cm 4.2 - 5.9 / 3.9 - 5.3 cm LV Systolic Diameter PLAX 3.9 cm IVS Diastolic Thickness 0.9 cm 0.6 - 1.0 / 0.6 - 0.9 cm IVS Systolic Thickness 1.1 cm LVPW Diastolic Thickness 1.0 cm 0.6 - 1.0 / 0.6 - 0.9 cm LVPW Systolic Thickness 1.2 cm LVOT Diameter 2.0 cm LV Ejection Fraction 2D Teich 41.1 % LV Ejection Fraction MOD 2C 32.5 % LV Ejection Fraction 2C AL 32.4 % LA Diameter 4.7 cm Aorta at Sinotubular Diameter 3.0 cm M-MODE Aortic Annulus Diameter 3.6 cm LA Ao Ratio MM 1.5 MV E Point Septal Separation 1.6 cm DOPPLER AV Peak Velocity 130.0 cm/s LVOT Peak Velocity 69.0 cm/s AV Area Cont Eq vti 1.6 cm squared AV Area Cont Eq pk 1.7 cm squared MV Area PHT 3.9 cm squared Mitral E to A Ratio 1.0 MV E' Velocity 61.8 cm/s Mitral E to MV E' Ratio 17.9 Mitral E to LV E' Lateral Ratio 16.1 Mitral E to LV E' Septal Ratio 20.0 TR Peak Velocity 265.0 cm/s TR Peak Gradient 28.1 mmHg TV Peak E Velocity 64.0 cm/s Right Atrial Pressure 3.0 mmHg Pulmonary Artery Systolic Pressu 31.1 mmHg PV Peak Velocity 87.0 cm/s FINDINGS Left Ventricle Mildly dilated left ventricle. Severe diffuse hypokinesia of the left ventricle. Mild concentric left-ventricular hypertrophy LV ejection fraction of 32%.Grade III/IV diastolic dysfunction (restrictive filling pattern), severely elevated filling pressures. Right Ventricle Normal right ventricular size and systolic function. Right Atrium The right atrium is normal in size. Left Atrium The left atrium is normal in size. Mitral Valve Thickened mitral valve. Mild mitral valve regurgitation. Aortic Valve Thickened aortic valve. Trace aortic valve regurgitation. Tricuspid Valve Trace to mild tricuspid valve regurgitation. Estimated pulmonary artery peak systolic pressure of 45 mmHg Pulmonic Valve Structurally normal pulmonic valve without significant stenosis. There is no pulmonic regurgitation. Pericardium Normal pericardium without effusion. Aorta Normal aortic annulus size. IVC Inferior vena cava not visualized. CONCLUSIONS Mildly dilated left ventricle. Severe diffuse hypokinesia of the left ventricle. Mild concentric left-ventricular hypertrophy. LV ejection fraction of 32%. Grade III/IV diastolic dysfunction (restrictive filling pattern), severely elevated filling pressures. Thickened mitral valve. Mild mitral valve regurgitation. Thickened aortic valve. Trace aortic valve regurgitation. Trace to mild tricuspid valve regurgitation. Estimated pulmonary artery peak systolic pressure of 45 mmHg. Normal pericardium without effusion. There is no pericardial effusion. There are no intracardiac masses. Compared to the study from 09/26/2014, there is significant drop in the LV ejection fraction from 65% to 32% Dr Alexandrea Gómez MD [facility] (Electronically Signed) Final Date: 07 April 2022 17:13 S
[2022-04-07 09:43] LABS: Blood Gas Allen Test Pos; Blood Gas Operator Identificat CAK; Blood Gas Sample Site Radial, left; Blood Gas Sample Type Arterial; Oxygen Device HAG
[2022-04-07 09:46] LABS: ABG PCO2 19.8 mmHg (35-45)
[2022-04-07 09:52] LABS: Lactic Acid level (Lactate) 5.8 mmol/L (0.5-2.2)
[2022-04-07 09:56] LABS: NT Pro B Type Natriuretic Pept 79957 pg/mL (0-125)
--- NOTE | 2022-04-07 09:56 | PC.NURSE ---
repeat Covid PCR swab obtained and to lab. pt continues to refuse placement of sosa catheter but is now agreeable on blood cultures. called lab to request blood draw.
[2022-04-07 09:58] LABS: Troponin 5 2HR 732.9 ng/L (0-15)
--- NOTE | 2022-04-07 10:09 | PC.NURSE ---
assisted in readjusting pt in bed. pt on high flow NC 40L at 60%
[2022-04-07] MEDS: cefepime 2,000 MG in sodium chloride 0.9% (plus) 50 ML 100 MG IV (10:53)
[2022-04-07] MEDS: vancomycin 1,000 MG in sodium chloride 0.9% 250 ML 250 MG IV (11:36)
--- NOTE | 2022-04-07 11:42 | PC.NURSE ---
pt resting in bed, lights dimmed for comfort, call light within reach.
[2022-04-07 11:49] LABS: Adenovirus Not Detected (NOT DETECT); Chlamydia Pneumoniae Not Detected (NOT DETECT); Coronavirus 229E,HKU1,NL63,OC4 Not Detected (NOT DETECT); Human Metapneumovirus Not Detected (NOT DETECT); Human Rhinovirus/Enterovirus Not Detected (NOT DETECT); Influenza A Not Detected (NOT DETECT); Influenza A H1 Not Detected (NOT DETECT); Influenza A H1-2009 Not Detected (NOT DETECT); Influenza A H3 Not Detected (NOT DETECT); Influenza B Not Detected (NOT DETECT); Mycoplasma Pneumoniae Not Detected (NOT DETECT); Parainfluenza Virus Type 1 Not Detected (NOT DETECT); Parainfluenza Virus Type 2 Not Detected (NOT DETECT); Parainfluenza Virus Type 3 Not Detected (NOT DETECT); Parainfluenza Virus Type 4 Not Detected (NOT DETECT); Respiratory Syncytial Virus A Not Detected (NOT DETECT); Respiratory Syncytial Virus B Not Detected (NOT DETECT); SARS-COV-2 Not Detected (NOT DETECT)
--- NOTE | 2022-04-07 11:49 | PC.NURSE ---
report called to LESLYE Hirsch in ICU
--- NOTE | 2022-04-07 12:34 | PC.NURSE ---
when preparing pt for transport to ICU, pt stated that he didnt want to go and that he wanted to go home, pt removed his oxygen. Pt's at bedside and she states that pt is confused and is not in his right mind. charge nurse spoke with admitting physician per pt confused and pt's wants to continue with ICU admission. pt transferred to ICU.
--- NOTE | 2022-04-07 12:41 | ECG_ITS ---
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 Measurements Intervals [place] Rate: 93 P: 39 [place]: 144 QRS: 8 QRSD: 100 T: 143 QT: 389 QTc: 484 Interpretive Statements SINUS RHYTHM LEFT VENTRICULAR HYPERTROPHY AND ST-T CHANGE [VOLTAGE CRITERIA PLUS ST/T ABNORMALITY] Compared to ECG 04/07/2022 07:48:17 No significant changes Electronically Signed On 04-07-2022 16:29:34 CDT by Marisol Acuña M.D. [id number]
[2022-04-07 12:55] LABS: Alveolar-Arterial Oxygen Gradi 8.9 mmHg (5-10); Blood Gas Allen Test Pos; Blood Gas LPM 3.5 %; Blood Gas Operator Identificat JB; Blood Gas Sample Site Brachial, right; Blood Gas Sample Type Arterial
[2022-04-07 12:55] LABS: Alveolar-Arterial Oxygen Gradi 30.9 mmHg (5-10); Arterial Blood Gas Hematocrit 30.7 % (42-52); Carboxyhemoglobin 0.8 %THgb (0.4-20.1); HCO3 ABG 14.5 mmol/L (22-26); HGB O2 Sat 98.4 % (95-100); Ionized Calcium Level - ABG 1.1 mmol/L (1.1-1.4); Methemoglobin 0.7 % (0.4-1.5); Oxygen Saturation ABG 99.9; Potassium Level - ABG 4.1 mmol/L (3.5-5.0)
--- NOTE | 2022-04-07 13:16 | PM.HP ---
Providers/Chief Complaint Admitting Physician: Javier Bedolla MD Primary Care Provider: Ezra Cooely MD Chief Complaint: RESP DISTRESS History of Present Illness Rico Ozuna is a 76 year old male who presented to the emergency department with complaints of shortness of breath starting approximately yesterday. History is somewhat difficult from the patient secondary to respiratory distress. is present and confirms that he is very short of breath. She reports no vomiting, fever, ill contacts. He denies any chest discomfort. He denies being on oxygen in the past, although he has had an extensive smoking history in the past. His most recent hospitalization was in November where an abscess was found on his back. This was drained by general surgery. Blood cultures and abscess cultures grew MRSA. It was arranged that he received 2 weeks of IV antibiotics at that time. Review of Systems General: Reports: 10 or more systems reviewed and unremarkable except in HPI and below Const: Reports: fatigue; Denies: fever(s) or chills Eyes: Denies: change in vision ENMT: Denies: throat pain Card: Reports: orthopnea; Denies: chest pain Resp: Reports: dyspnea; Denies: productive cough GI: Denies: abdominal pain, nausea, vomiting, hematochezia or melena : Reports: difficulty urinating; Denies: flank pain Musc: Denies: neck pain Skin/Breast: Denies: rash Neuro: Denies: headache(s) Psych: Denies: anxiety or depression Endo: Denies: polyuria Jamar/Lymph: Denies: easy bruising All/Imm: Denies: urticaria Medications/Allergies Home Medications Medication Instructions Recorded Confirmed Last Taken Type atorvastatin 20 mg tablet 20 mg PO .THREE TIMES A WEEK 04/07/22 04/07/22 04/03/22 History clonazepam 0.5 mg tablet 0.5 mg PO TID PRN anxiety 04/07/22 04/07/22 Unknown History protein supplement 1 ea PO BID PRN unknown 04/07/22 04/07/22 Unknown History Allergies Allergy/AdvReac Type Severity Reaction Status Date / Time No Known Allergies Allergy Verified 04/07/22 07:23 PFSH Acute PFSH: Medical History (Updated 04/07/22 @ 13:21 by Javier Bedolla MD) Abscess CARMENZA (acute kidney injury) Anemia Cellulitis CKD (chronic kidney disease) stage 3, GFR 30-59 ml/min COPD (chronic obstructive pulmonary disease) CVA (cerebral vascular accident) Depressed Diabetes HTN (hypertension) Malnourished Open wound of lower back Pulmonary nodule Surgical History History of testicular surgery Social History Smoking and tobacco status: former smoker Alcohol intake: never Household members: spouse Housing: House Other PFSH information: Supplemental [facility] Information: He was not able to give me a family history at the time of the interview secondary to his dyspnea Vitals/I&O/Wt Last Vital Signs Temp 97.1 F L 04/07/22 06:29 Pulse 93 04/07/22 12:48 Resp 33 H 04/07/22 12:48 BP 129/99 04/07/22 11:45 Pulse Ox 94 04/07/22 12:48 O2 Del Method 04/07/22 12:30 O2 Flow Rate 40 04/07/22 12:48 FiO2 50 04/07/22 12:48 Weight last 48 hrs Weight 57.606 kg Weight 57.606 kg Physical Exam Narrative: General exam is a white male with significant tachypnea on high flow oxygen and moderate respiratory distress HEENT: Pupils equally round. Oropharynx clear. Neck is supple no lymphadenopathy thyromegaly Cardiovascular regular rate and rhythm, distant heart sounds. No obvious murmur. Lungs bilateral expiratory wheezes. Few crackles. Breath sounds symmetric. Abdomen is soft nontender positive bowel sounds. No obvious organomegaly Back demonstrates small decub right scapular area approximately 1.5 cm, stage II without signs of infection. Surgical scar noted exam now demonstrates Myers as he is allowed placement. In talking with the nurse he had quite a bit of residual that was lost/leaked when Myers was placed. Extremities no cyanosis clubbing or edema, cap refill brisk Skin see findings above Neuro no obvious focal deficits. Urinary Catheter Management: Myers: Cath Placed During This Visit: yes Urinary Catheter Date of Insertion: 04/07/22 Urinary Catheter Time of Insertion: 13:06 Data : 04/07/22 06:35 04/07/22 06:35 Other Labs: Urinalysis is pending COVID PCR not detected Procalcitonin normal Albumin 2.9 Troponin 790 with repeat of 730 BNP 80,000 AST 92, rest of LFTs normal Lactic acid 4.6 with repeat of 5.8 Anion gap 24 Dimer is 2.06 Initial ABG with pH 7.5, PCO2 of 22, PO2 of 53 Chest x-ray shows bilateral infiltrates CTA demonstrates bilateral infiltrates, no evidence of pulmonary embolism Blood cultures have been drawn EKG demonstrates sinus rhythm, normal axis, ST depression V5, V6 and laterally. Concern of LVH. Micro: Microbiology 04/07/22 10:10 Blood Culture - Preliminary Blood SPECIMEN COLLECTED 04/07/22 10:16 Blood Culture - Preliminary Blood SPECIMEN COLLECTED A&P Assessment and plan (1) Acute respiratory failure with hypoxemia: Significant acute respiratory failure on arrival, initially placed on BiPAP but intolerance and placed on high flow oxygen at 60% FiO2, 40 L currently. Manifested by profound hypoxemia initially in the field with O2 saturation in the 70s. Cannot rule out component of COPD exacerbation, wheezing present on exam currently. Solu-Medrol given in the emergency department. Will continue Solu-Medrol 60 mg IV every 12 hours. Pulmonary toilet with DuoNeb every 4 hours, budesonide twice daily. Wean oxygen as tolerated Status: Acute (2) Pneumonia: Concern of pneumonia on CTA. Patient with history of MRSA bacteremia and abscess in mid May treated with IV antibiotics for 2 weeks. Given the scenario would have to entertain possibility of recurrent MRSA bacteremia. Blood cultures have been obtained Sputum cultures IV antibiotics consisting of Zosyn and vancomycin Status: Acute (3) ARDS (adult respiratory distress syndrome): Presumably secondary to above Status: Acute (4) Acute kidney injury: Etiology uncertain. No history of significant anti-inflammatory use at home. Urinary retention was present on admission, but exact quantity is unknown as this spilled with insertion of Myers. Continue Myers placement Check CK prior to continuing statin Renal ultrasound Status: Acute (5) Acute systolic heart failure: Patient presents with symptomatology concerning for acute systolic heart failure with bilateral pleural effusions, and infiltrate on x-ray although there is concern for pneumonia. Lasix 40 mg IV given x1, monitoring closely for response Await formal echocardiogram reading. I was present for the bedside exam and I suspect his ejection fraction will be around 35%. Secondary to elevated troponin, concern for non-ST elevation myocardial infarction exists. We will place him on aspirin daily, consideration for continuation of statin if CK is not elevated. Heparin drip has been initiated. Cardiology consultation will be obtained for comanagement. Status: Acute (6) MRSA bacteremia: Recent hospitalization for MRSA bacteremia, treated with 2 weeks of IV antibiotics. See notations under pneumonia. Vancomycin will be part of his regimen currently until cultures return. Status: Acute (7) COPD (chronic obstructive pulmonary disease): Cannot rule out exacerbation. IV steroids, pulmonary toilet as listed above Status: Acute Plan Elevated dimer. Check bilateral lower extremity venous duplex Multiple other medical problems as outlined in past medical history Allow natural . Clarified with both patient and . He does not want CPR, intubation mechanical ventilation, defibrillation. He is amenable to ICU, BiPAP, other aggressive treatment. Attestations Medical Necessity Statement*: Will require greater than 2 midnight stay for evaluation and treatment of pneumonia, respiratory failure, evidence of acute heart failure with bilateral pleural effusions. Critical Care Time: The high probability of a clinically significant, sudden or life threatening deterioration of the patient's [pulmonary, infectious disease, cardiac, renal] system(s) required my full and direct attention, intervention and personal management. The critical care time is as shown. This time is in addition to time spent performing any reported procedures but includes the following: [x] Data and vital sign review and interpretation [x] Patient assessment, examination and intervention [x] Documentation [x] Medication orders and management Critical Care Time (min): 70 Coding Level of Care Code Acute [employer] Diagnoses Acute respiratory failure with hypoxemia J96.01 Pneumonia J18.9 ARDS (adult respiratory distress syndrome) J80 Acute kidney injury N17.9 Acute systolic heart failure I50.21 MRSA bacteremia R78.81; B95.62 COPD (chronic obstructive pulmonary disease) J44.9
[2022-04-07 13:24] LABS: Blood Urine 2+ (Negative); Glucose Urine UA Trace (Normal); Ketones Urine 1+ (Negative); Nitrate Urine Negative (Negative); Protein Urine 3+ (Negative); Urine Appearance Clear (CLEAR); Urine Color Yellow (Yellow); pH Urine 5 (5-7)
--- NOTE | 2022-04-07 13:24 | USCV_ITS ---
Rico Ozuna Age: 76 Gender: M : 1945 Exam Date: 04/07/2022 14:44 Ordering Phys: Javier Bedolla MD Technologist: ANA [place] [facility] [place]: ELEVATED D DIMER HISTORY: ELEVATED DIMER PROCEDURES: Venous duplex imaging was performed in bilateral lower extremities. The following venous structures were evaluated: common femoral vein, profunda vein, proximal portion of the greater saphenous vein, superficial femoral vein, and the popliteal vein. In addition, the posterior tibial and peroneal trunk were evaluated. Serial compression, augmentation maneuvers, and spectral Doppler flow evaluation were performed. FINDINGS: No evidence of DVT seen in any vessel visualized at this time. Left Pop V not seen due to patient unable to move leg CONCLUSIONS No evidence of right lower extremity DVT. No evidence of left lower extremity DVT. Left Popliteal vein not seen due to patient inability to move leg Caio Mariscal MD (Electronically Signed) Final Date: 07 April 2022 15:32 S
[2022-04-07 13:25] LABS: Add Urine Microscopic? YES; Bilirubin Urine Neg (Negative); Leukocyte Esterase Urine Negative (Negative); Urobilinogen Urine Neg (Negative)
--- NOTE | 2022-04-07 13:28 | US_ITS ---
WS: [id number] RENAL ULTRASOUND HISTORY: renal failure COMPARISON: None available. TECHNIQUE: 2-D and color Doppler imaging of the kidney submitted. Right kidney: 8.4 cm x 3.4 cm x 3.8 cm. Low normal size kidney with increased echogenicity as compared to the liver. No hydronephrosis or mas s. Left kidney: 8.6 cm x 4.9 cm x 4.5 cm. Small echogenic kidney. No hydronephrosis or mass. Aorta: Atherosclerotic changes. Poorly visualized. Urinary Bladder: Nondistended. US/US renal BI* [id number] IMPRESSION: Low normal-sized echogenic kidneys. Moderate chronic medical renal disease.
[2022-04-07] MEDS: FUROsemide 10 mg/mL SDV 4mL 40 MG IVP (13:30)
[2022-04-07 13:41] LABS: Amorphous Sediment Urine 1+ /hpf; Bacteria Urine 1+ /hpf; RBC Urine 0-4 /hpf (0-2); Squamous Epithelial Cell Urine 0-4 /hpf (0-5)
[2022-04-07 13:42] LABS: Add Urine Culture? No
[2022-04-07 13:45] LABS: Troponin 5 6HR 640.8 ng/L (0-15)
[2022-04-07 13:59] LABS: Creatine Phosphokinase 191 U/L (39-308)
[2022-04-07] MEDS: ipratropium-albuterol 3 mL Neb INHALATION ×3 (14:08→20:28)
[2022-04-07] MEDS: piperacillin-tazobactam 3.375 GM in sodium chloride 0.9% (plus) 50 ML IV ×2 (15:18→23:20)
[2022-04-07] MEDS: hyDRALAzine 20 mg/mL INJ 1 mL 10 MG IVP (16:51)
--- NOTE | 2022-04-07 16:57 | P.CONIM_ITS ---
Providers/Reason For Consult Consulting Physician/Specialty*: YVAN Gómez MD/cardiology Reason for Consult*: Patient is acute respiratory failure/CHF Requesting Physician: Dr. Bedolla Attending Physician: Javier Bedolla MD Primary Care Provider: Ezra Cooley MD History of Present Illness History of Present Illness Rico Ozuna is a 76 year old male, is admitted to the hospital through the emergency room, where he presented with complaints of rather acute worsening of the shortness of breath. The patient is in respiratory distress. He is not able to give any detailed history. Most of the information is from the medical records. No family is available at this time to get more details. This patient has a history of COPD and is on home oxygen. He has been having a cough for the last few days. Last night, he started getting more short of breath. This morning, the shortness of breath has gotten worse. He also had some chest discomfort. The family thought that the patient may have right-sided facial weakness. Because of worsening shortness of breath, the EMS was called in. As the EMS arrived at the scene, the patient was in respiratory distress. He was placed on oxygen. His chest discomfort and facial weakness? all improved. He was brought to the emergency room for further evaluation managem ent. In the emergency room, patient had a chest x-ray and a CTA of the chest. The chest x-ray revealed bilateral lung infiltrates/interstitial edema. The CT of the chest revealed bilateral airspace densities, mostly in the hilar region. The features may suggest viral pneumonia/COVID-19. Patient was tested negative for COVID x2. This patient was recently in the hospital with abscess in the back. The culture grew MRSA in the blood and in the abscess. Patient was treated with vancomycin. Had to undergo surgical incision and drainage of the abscess in the back. Patient seems to have a low-grade fever at this time. His blood pressure also was elevated. He has no history for any coronary artery disease, myocardial infarction or congestive heart failure. The echocardiogram today revealed LV ejection fraction around 32%. He has diffuse hypokinesia of the left 23. He also has features of hypertensive heart disease. Review of Systems Narrative: CONSTITUTIONAL:? Low-grade fever EYES: No blurring of vision or other visual disturbances lately. ENT: No hoarseness of voice, auditory disturbances or sore throat. CARDIOVASCULAR: As mentioned above. RESPIRATORY: Acute worsening of the shortness of breath GASTROINTESTINAL: No hematemesis or melena. GENITOURINARY: Acute on chronic kidney disease INTEGUMENTARY: No skin rashes or history of skin cancer. NEURO: No transient ischemic attacks or amaurosis. PSYCHIATRIC: No history of psychosis or major depression. HEMATOLOGIC: No bleeding disorders or significant anemia. ENDOCRINE: History of type 2 diabetes MUSCULOSKELETAL: No recent joint pain or swelling. ALLERGY/IMMUNOLOGY: As mentioned above. Medications/Allergies Home Medications Medication Instructions Recorded Confirmed Last Taken Type atorvastatin 20 mg tablet 20 mg PO .THREE TIMES A WEEK 04/07/22 04/07/22 04/03/22 History clonazepam 0.5 mg tablet 0.5 mg PO TID PRN anxiety 04/07/22 04/07/22 Unknown History protein supplement 1 ea PO BID PRN unknown 04/07/22 04/07/22 Unknown History Allergies Allergy/AdvReac Type Severity Reaction Status Date / Time No Known Allergies Allergy Verified 04/07/22 07:23 Current Medications Generic Name Dose Route Start Last Admin Trade Name Freq PRN Reason Stop Dose Admin Albuterol/Ipratropium 3 ml 04/07/22 16:00 04/07/22 15:25 Ipratropium-Albuterol 3 Ml Neb INHALATION 3 ml Q4H PEPE Administration Heparin Sodium (Porcine) 0 unit 04/07/22 07:37 04/07/22 08:40 Heparin 5,000 Unit/Ml Inj 1 Ml IV 4,000 unit PRN PRN Administration Heparin weight-base protocol Protocol Heparin Sodium/Sodium Chloride 25,000 unit in 500 mls @ 0 mls/hr 04/07/22 07: 45 04/07/22 09:00 Heparin Drip IV 14 unit/kg/hr .Q0M PEPE 16.13 mls/hr Administration Protocol Per Protocol Piperacillin Sod/Tazobactam 50 mls @ 12.5 mls/hr 04/07/22 15:00 04/07/22 15:18 Sod 3.375 gm/ Sodium Chloride IV 12.5 mls/hr Q8H PEPE Administration Protocol PFSH Acute PFSH: Medical History (Updated 04/07/22 @ 17:01 by Alexandrea Gómez MD) Abscess CARMENZA (acute kidney injury) Anemia Cellulitis CKD (chronic kidney disease) stage 3, GFR 30-59 ml/min COPD (chronic obstructive pulmonary disease) CVA (cerebral vascular accident) Depressed Diabetes HTN (hypertension) Malnourished Open wound of lower back Pulmonary nodule Surgical History History of testicular surgery Social History Smoking and tobacco status: former smoker Alcohol intake: never Household members: spouse Housing: House Vitals/I&O/Wt Last Vital Signs Temp 97.1 F L 04/07/22 06:29 Pulse 104 H 04/07/22 15:28 Resp 30 H 04/07/22 15:20 BP 176/111 04/07/22 14:45 Pulse Ox 94 04/07/22 15:20 O2 Del Method 04/07/22 15:20 O2 Flow Rate 35 04/07/22 15:20 FiO2 40 04/07/22 15:20 04/07/22 04/07/22 04/07/22 06:59 14:59 22:59 Intake Total 1300 / 1300 Balance 1300 / 1300 Weight last 48 hrs Weight 127 lb Weight 127 lb Physical Exam Narrative: GENERAL: The patient is alert and in respiratory distress. Breathing rate of 30/min. HEENT: Mild pallor, icterus or lymphadenopathy. The pupils are symmetrical oral cavity: There are no mucous membrane lesions. Funduscopic examination: The fundus is not visualized NECK: Trachea appears to be central. No masses noted. No JVD or thyromegaly appreciated. No carotid bruit. RESPIRATORY: Chest is symmetrical. There is activation of the accessory muscles. No there is no chest wall tenderness. Breath sounds are heard bilate rally. Bilateral scattered crackles and some fine rales BREASTS: Deferred. HEART: The PMI is in the 5th left intercostals space just in the midclavicular line. No palpable precordial events. S1 and S2 are normal. No S3 or S4 heard. No pericardial rub or any click heard. ABDOMEN: No vessel pulsations or distention. No tenderness. No organomegaly appreciated. No abdominal bruit. Bowel sounds are normally heard. : Deferred. RECTAL: Deferred. LYMPHATIC: No lymphadenopathy noted in the neck or groin. EXTREMITIES: No edema or cyanosis. No clubbing. The dorsalis pedis and posterior tibial pulses are palpable but weak bilaterally. MUSCULOSKELETAL: No acute joint deformities or swelling. SKIN: There are no significant scars or skin rash noted. NEUROPSYCHIATRIC: The patient is alert and oriented x3. Appears to be in a good mood. The higher functions are grossly within normal limits. No tremors or rigidity noted. Urinary Catheter Management: Myers: Cath Placed During This Visit: yes Urinary Catheter Date of Insertion: 04/07/22 Urinary Catheter Time of Insertion: 13:06 Data : 04/07/22 06:35 04/07/22 06:35 Other Labs: Laboratory Last Values WBC 17.0 10^3/uL (4.0-10.0) H 04/07/22 06:35 RBC 3.90 10^6/uL (4.1-5.3) L 04/07/22 06:35 Hgb 10.7 g/dL (11.7-16.6) L 04/07/22 06:35 Hct 34.4 % (42.0-52.0) L 04/07/22 06:35 MCV 88.2 fl (80-94) 04/07/22 06:35 MCH 27.4 pg (28.0-34.0) L 04/07/22 06:35 MCHC 31.1 g/dL (30.0-36.0) 04/07/22 06:35 RDW 14.6 % (12.1-15.1) 04/07/22 06:35 Plt Count 555 10^3/cmm (130-400) H 04/07/22 06:35 MPV 10.7 fL (7.4-10.4) H 04/07/22 06:35 Neut % (Auto) 87.5 % 04/07/22 06:35 Lymph % (Auto) 6.8 % 04/07/22 06:35 [place] % (Auto) 4.9 % 04/07/22 06:35 Eos % (Auto) 0.0 % 04/07/22 06:35 Baso % (Auto) 0.1 % 04/07/22 06:35 Neut # (Auto) 14.84 10^3/uL (1.8-7.7) H 04/07/22 06:35 Lymph # (Auto) 1.2 10^3/uL (0.8-4.8) 04/07/22 06:35 [place] # (Auto) 0.8 10^3/uL (0.2-0.9) 04/07/22 06:35 Eos # (Auto) 0.0 10^3/uL (0.0-0.8) 04/07/22 06:35 Baso # (Auto) 0.0 10^3/uL (0.0-0.1) 04/07/22 06:35 Nucleated RBC % (auto) 0 % 04/07/22 06:35 Nucleated RBCs # 0.0 /100WBC 04/07/22 06:35 APTT 181.4 SECONDS (23.9-36.7) H* D 04/07/22 14:55 APTT Cancelled 04/07/22 14:55 PTT Patient/Normal 1:1 Cancelled 04/07/22 14:55 D-Dimer 2.06 ug/mIFEU (0-0.59) H 04/07/22 06:35 Specimen Type Arterial 04/07/22 09:30 Sample Site Radial, left 04/07/22 09:30 ABG pH 7.50 (7.35-7.45) H 04/07/22 09:30 ABG pCO2 19.8 mmHg (35-45) L* 04/07/22 09:30 ABG pO2 163.0 mmHg (80.0-100.0) H 04/07/22 09:30 ABG HCO3 14.5 mmol/L (22-26) L 04/07/22 09:30 ABG O2 Saturation 99.9 04/07/22 09:30 ABG Base Excess -7.0 mmol/L (-2.0-2.0) L 04/07/22 09:30 Harry Test Pos 04/07/22 09:30 A-a O2 Gradient 30.9 mmHg (5-10) H 04/07/22 09:30 Hematocrit 30.7 % (42-52) L 04/07/22 09:30 Hgb O2 Saturation 98.4 % (95-100) 04/07/22 09:30 Carboxyhemoglobin 0.8 %THgb (0.4-20.1) 04/07/22 09:30 Methemoglobin 0.7 % (0.4-1.5) 04/07/22 09:30 Total Hemoglobin 10.0 g/dL (14-18) L 04/07/22 09:30 Sodium 137.0 mmol/L (131-143) 04/07/22 09:30 Potassium 4.1 mmol/L (3.5-5.0) 04/07/22 09:30 Glucose 219.0 mg/dL (70-115) H 04/07/22 09:30 Ionized Calcium 1.1 mmol/L (1.1-1.4) 04/07/22 09:30 O2 Delivery Device Hag 04/07/22 09:30 O2 Liters/Min 40.0 % 04/07/22 09:30 FiO2 60.0 % 04/07/22 09:30 Tap Dancer ID Cak 04/07/22 09:30 Sodium 134 mmol/L (136-145) L 04/07/22 06:35 Potassium 4.6 mmol/L (3.5-5.1) 04/07/22 06:35 Chloride 97 mmol/L (98-107) L 04/07/22 06:35 Carbon Dioxide 18 mmol/L (22-29) L 04/07/22 06:35 Anion Gap 23.6 (5-19) H 04/07/22 06:35 BUN 65 mg/dL (8-23) H 04/07/22 06:35 Creatinine 2.3 mg/dL (0.7-1.2) H 04/07/22 06:35 GFR Calculation Not Reportable 04/07/22 06:35 Glucose 255 mg/dL (65-115) H 04/07/22 06:35 POC Glucose 250 mg/dL (70-110) H 04/07/22 17:45 Calculated Osmolality 305 mOsm/kg (285-295) H 04/07/22 06:35 Lactic Acid 4.6 mmol/L (0.5-2.2) H* 04/07/22 06:35 Lactic Acid (Sepsis) 5.8 mmol/L (0.5-2.2) H* 04/07/22 09:20 Calcium 9.2 mg/dL (8.5-10.5) 04/07/22 06:35 Total Bilirubin 0.5 mg/dL (0.15-1.2) 04/07/22 06:35 AST 92 U/L (0-40) H 04/07/22 06:35 ALT 40 U/L (0-41) 04/07/22 06:35 Alkaline Phosphatase 92 U/L (40-130) 04/07/22 06:35 Creatine Kinase 191 U/L (39-308) 04/07/22 13:16 Troponin T Baseline 790 ng/L (0-15) H* 04/07/22 06:35 Troponin T 120 Minute 732.9 ng/L (0-15) H 04/07/22 09:20 Delta Troponin T -57.1 ABS# (0-10) L 04/07/22 09:20 Troponin T Hi Sens 6Hr 640.8 ng/L (0-15) H 04/07/22 13:15 Troponin T Hi Sens 6Hr Delta -149.2 ng/L (0-12) L 04/07/22 13:15 NT-Pro-B Natriuret Pep 82842 pg/mL (0-125) H 04/07/22 06:35 Total Protein 7.1 g/dL (6.6-8.7) 04/07/22 06:35 Albumin 2.9 g/dL (3.5-5.2) L 04/07/22 06:35 Globulin 4.2 g/dL (1.3-4.6) 04/07/22 06:35 Procalcitonin 0.35 ng/mL (0-0.5) 04/07/22 06:30 Urine Color Yellow (Yellow) 04/07/22 13:06 Urine Appearance Clear (CLEAR) 04/07/22 13:06 Urine pH 5 (5-7) 04/07/22 13:06 Ur Specific [place] 1.020 (1.005-1.030) 04/07/22 13:06 Urine Protein 3+ (Negative) H 04/07/22 13:06 Urine Glucose (UA) Trace (Normal) H 04/07/22 13:06 Urine Ketones 1+ (Negative) H 04/07/22 13:06 Urine Blood 2+ (Negative) H 04/07/22 13:06 Urine Nitrate Negative (Negative) 04/07/22 13:06 Urine Bilirubin Neg (Negative) 04/07/22 13:06 Urine Urobilinogen Neg mg/dL (Negative) 04/07/22 13:06 Ur Leukocyte Esterase Negative (Negative) 04/07/22 13:06 Urine RBC 0-4 /hpf (0-2) H 04/07/22 13:06 Urine WBC None /hpf (0-5) 04/07/22 13:06 Ur Squamous Epith Cells 0-4 /hpf (0-5) H 04/07/22 13:06 Amorphous Sediment 1+ /hpf 04/07/22 13:06 Urine Bacteria 1+ /hpf (NONE) H 04/07/22 13:06 Coronavirus 229E (PCR) Not detected (NOT DETECT) 04/07/22 09:47 SARS-CoV-2 (PCR) Not detected (NOT DETECT) 04/07/22 09:47 Micro: Microbiology 04/07/22 10:10 Blood Culture - Preliminary Blood SPECIMEN COLLECTED 04/07/22 10:16 Blood Culture - Preliminary Blood SPECIMEN COLLECTED EKG 1: My Interpretation: Normal sinus rhythm with a heart rate of 93 bpm Features limited to due to hypertrophy. Secondary ST-T changes EKG computer-generated impression: Chest X-Ray 04/07/22 06:40 IMPRESSION: Interval development of bilateral diffuse opacifications. Differential is most likely pulmonary edema. Pneumonia also should be considered. Chest CTA 1.? No evidence for pulmonary embolus. 2.? Small to moderate RIGHT greater than LEFT pleural effusions. 3.? Patchy confluent airspace infiltrates in both perihilar regions extending into the upper and lower lobes compatible with pneumonia. Pattern suspicious for viral pneumonia. Correlation for Covid 19 pneumonia. 4.? Aortic and coronary calcification. Renal Ultrasound 04/07/22 13:28 IMPRESSION: Low normal-sized echogenic kidneys. Moderate chronic medical renal disease. A&P Assessment and plan (1) ARDS (adult respiratory distress syndrome): Patient may have an underlying viral pneumonia complicated with the congestive heart failure. He has a borderline low blood pressure. He is not respiratory distress. Apparently the patient refused endotracheal intubation. He could not tolerate BiPAP. He is 100% oxygen by nasal cannula. He seems to be responding to the IV diuretics. This may be continued. (2) Acute systolic heart failure: The etiology is not clear. Patient has diffuse hypokinesia of the left ventricle. Possibility of him having underlying three-vessel coronary artery disease is a consideration. (3) Elevated troponin: It is possible that the patient might have had a non-ST elevation myocardial infarction. He has a negative delta in 2 hours. I may start him on IV heparin, over the protocol (4) Acute kidney injury superimposed on chronic kidney disease: He has worsening BUN and creatinine. The low output state may be the contributing factor. I might consider starting him on a low-dose of Dobutrex, to help the output. Plan The other problems are Possible pneumonia Leukocytosis Recent MRSA infection/abscess drainage COPD exacerbation History of hypertension, currently normotensive Type 2 diabetes Patient apparently did not want to be intubated. He has a DNI DNR status. We will try to optimize medical treatment. Based on the clinical progress, further recommendations will be made. Consult Attestations Medical Necessity Statement: Patient requires continued hospital stay for close monitoring and further management Coding Level of Care Code Acute Business Development Coordinator for g Fwd History Detailed Exam Detailed Medical Decision Making High Complexity Diagnoses ARDS (adult respiratory distress syndrome) J80 Acute systolic heart failure I50.21 Elevated troponin R77.8 Acute kidney injury superimposed on chronic kidney disease N17.9; N18.9
[2022-04-07 17:26] LABS: Partial Thromboplastin Time 181.4 SECONDS (23.9-36.7)
[2022-04-07 18:00] LABS: Glucose Point of Care 250 mg/dL (70-110)
[2022-04-07] MEDS: morphine 4 mg/mL SDV 1 mL 2 MG IVP ×2 (18:13→20:38)
[2022-04-07] MEDS: insulin lispro 100 unit/1 mL SUBCUT ×2 (18:13→21:45)
--- NOTE | 2022-04-07 18:28 | PC.NURSE ---
PT IS CURRENTLY RESTING IN BED. HAS GONE HOME TO GET SOME REST. PT IS ON BIPAP. HE DID RECEIVE 2MG MORPHINE VIA IVP. TOLERATED THAT WELL. HE DOES NOT APPEAR TO BE IN ANY PAIN AND HIS RESPIRATIONS HAVE DECREASED SOME; CURRENTLY 24 RR/MIN. ALL OTHER VITALS ARE WNL. WILL CONTINUE TO MONITOR.
--- NOTE | 2022-04-07 18:35 | PC.NURSE ---
CRITICAL PTT: DR NAVA CALLED AND NOTIFIED OF CRITICAL PTT OF 181.4. ORDERS TO STOP HEPARIN GTT FOR 3 HRS AND THEN RESUME AT 12ML/HR WERE GIVEN. HEPARIN GTT STOPPED AT 1730. HEPARIN TO RESUME AT 2030. PTT ORDER PUT IN PER PROTOCOL FOR LAB TO BE DRAWN AT 0230 GIVEN THAT HEPARIN IS RESUMED AT 2030.
[2022-04-07] MEDS: budesonide 0.5 mg/2 mL Neb INHALATION (20:28)
[2022-04-07] MEDS: FUROsemide 10 mg/mL SDV 10mL 60 MG IVP (21:26)
[2022-04-07 21:50] LABS: Glucose Point of Care 183 mg/dL (70-110)
[2022-04-08] VITALS (102 sets, daily range): BP systolic 91–145; BP diastolic 59–102; PULSE 77–104; RESP 13–32; TEMP 35.9–36.8; O2SAT 88–100
[2022-04-08] MEDS: ipratropium-albuterol 3 mL Neb INHALATION ×7 (00:04→23:20)
--- NOTE | 2022-04-08 01:31 | PC.NURSE ---
Patient has remained on Bipap through the night. Upon rounding @ 0100 it was noted that his catheter had leaked and saturated his bed. Patient was cleaned with pads and sheets changed. Previous shift had reported that catheter had leaked upon initial insertion. Patient appears to be comfortable and respirations have remained below 20. Prn morphine has not been needed since 2229. BP remains stable with Sp02 in the upper 90s. Oral care for dry mouth provided at 's request per phone call.
[2022-04-08 02:36] LABS: Basophils % 0.1 %; Hematocrit 29.4 % (42.0-52.0); Hemoglobin 9.4 g/dL (11.7-16.6); Lymphocytes # 0.5 10^3/uL (0.8-4.8); Lymphocytes % 3.3 %; Mean Corpuscular Hemoglobin 27.8 pg (28.0-34.0); Mean Platelet Volume 10.9 fL (7.4-10.4); Monocytes # 0.3 10^3/uL (0.2-0.9); Monocytes % 1.9 %; Neutrophils # 15.15 10^3/uL (1.8-7.7); Neutrophils % 93.7 %; Nucleated Red Blood Cells % 0 %; Platelet Count 403 10^3/cmm (130-400); Red Blood Count 3.38 10^6/uL (4.1-5.3); Red Cell Distribution Width 14.7 % (12.1-15.1); White Blood Count 16.2 10^3/uL (4.0-10.0)
[2022-04-08 02:47] LABS: Partial Thromboplastin Time 29.5 SECONDS (23.9-36.7)
[2022-04-08 02:53] LABS: Alanine Aminotransferase 160 U/L (0-41); Albumin Level 2.7 g/dL (3.5-5.2); Alkaline Phosphatase 87 U/L (40-130); Anion Gap 23.6 (5-19); Aspartate Amino Transferase 380 U/L (0-40); Calcium 8.9 mg/dL (8.5-10.5); Carbon Dioxide 18 mmol/L (22-29); Chloride 104 mmol/L (98-107); Globulin 3.5 g/dL (1.3-4.6); Glucose 190 mg/dL (65-115); Magnesium 2.4 mg/dL (1.7-2.3); Osmolality Calculated 325 mOsm/kg (285-295); Potassium 3.6 mmol/L (3.5-5.1); Sodium 142 mmol/L (136-145); Total Bilirubin 0.5 mg/dL (0.15-1.2); Total Protein 6.2 g/dL (6.6-8.7)
[2022-04-08 03:06] LABS: Creatinine Clr Calc Pharmacy 21.1335
[2022-04-08 03:10] LABS: Blood Urea Nitrogen 85 mg/dL (8-23)
[2022-04-08] MEDS: heparin 5,000 unit/mL INJ 1 mL IV ×4 (04:04→23:58)
--- NOTE | 2022-04-08 05:00 | PC.NURSE ---
Patient was taken off Bipap around 0400 this morning by RT and placed on HHF 40% 35L. Sp02 remains stable in the mid to upper 90s. Patient was slightly confused and is difficult to understand as reported by day shift nurse in report. Patient inquired about Covid status and was pleased that results were negative.
[2022-04-08] MEDS: piperacillin-tazobactam 3.375 GM in sodium chloride 0.9% (plus) 50 ML IV ×3 (06:37→23:38)
[2022-04-08 07:23] LABS: Glucose Point of Care 199 mg/dL (70-110)
[2022-04-08] MEDS: budesonide 0.5 mg/2 mL Neb INHALATION ×2 (07:40→20:42)
[2022-04-08] MEDS: pantoprazole 40 mg SDV IVP (08:00)
[2022-04-08] MEDS: aspirin 81 mg EC Tablet PO (08:00)
[2022-04-08] MEDS: insulin lispro 100 unit/1 mL SUBCUT ×4 (08:00→21:35)
[2022-04-08] MEDS: acetaminophen 325 mg Tablet 650 MG PO (10:02)
[2022-04-08] MEDS: sodium chloride 0.45% 1,000 ML 50 ML IV (10:19)
[2022-04-08 11:04] LABS: Glucose Point of Care 192 mg/dL (70-110)
--- NOTE | 2022-04-08 12:23 | P.PN_ITS ---
Subjective Subjective: Hospital course, labs appreciated. Examination patient lying comfortably in bed. Also on heated high flow and transitioned over to high flow nasal cannula 7 L. Seen with family at bedside. Multiple questions answered. Patient states he is feeling little better. Denies any nausea vomiting, head ache. States he is extremely thirsty and hungry. We discussed CODE STATUS again. Patient states he would not want to be intubated or resuscitated. We discussed possibility of his difficulty in jagdish thing is a combination of heart failure and aspiration pneumonia. We discussed that he can start on clear liquid diet for now but diet will be advanced further as per swallow evaluation. Family and patient verbalized understanding. Vitals/I&O/Wt Last Vital Signs Temp 97.1 F L 04/08/22 08:00 Pulse 93 04/08/22 11:15 Resp 19 H 04/08/22 11:00 BP 116/90 04/08/22 10:00 Pulse Ox 94 04/08/22 11:00 O2 Del Method 04/08/22 11:00 O2 Flow Rate 7 04/08/22 11:00 FiO2 40 04/08/22 08:00 04/07/22 04/08/22 04/08/22 22:59 06:59 14:59 Intake Total 189.793 / 1489.793 132 / 1621.793 50 / 50 Output Total 700 / 700 Balance 189.793 / 1489.793 -568 / 921.793 50 / 50 Weight last 48 hrs Weight 58.74 kg Weight 57.606 kg Weight 57.606 kg Physical Exam Narrative: General exam is a white male, comfortable, pleasant on heated high flow, chronically ill-appearing, bitemporal wasting HEENT: Pupils equally round. Oropharynx clear. Neck is supple no lymphadenopathy thyromegaly Cardiovascular regular rate and rhythm, distant heart sounds. No obvious murmur. Lungs bilateral expiratory wheezes. Few crackles. Breath sounds symmetric. Abdomen is soft nontender positive bowel sounds. No obvious organomegaly Back demonstrates small decub right scapular area approximately 1.5 cm, stage II without signs of infection. Surgical scar noted exam now demonstrates Myres as he is allowed placement. In talking with the nurse he had quite a bit of residual that was lost/leaked when Myers was placed. Extremities no cyanosis clubbing or edema, cap refill brisk Skin see findings above Neuro no obvious focal deficits. Urinary Catheter Management: Myers: Cath Placed During This Visit: yes Reason for Continuing Indwelling Catheter: Accurate Measurement of Urinary Output in Critically Ill Patients Urinary Catheter Date of Insertion: 04/07/22 Urinary Catheter Time of Insertion: 13:06 Data : 04/08/22 02:21 04/08/22 02:21 Micro: Microbiology 04/07/22 10:16 Blood Culture - Preliminary Blood 04/07/22 10:10 Blood Culture - Preliminary Blood NEGATIVE TO DATE A&P Assessment and plan (1) ARDS (adult respiratory distress syndrome): (2) Pneumonia: (3) Acute kidney injury superimposed on chronic kidney disease: (4) COPD (chronic obstructive pulmonary disease): (5) Acute systolic heart failure: (6) Physical deconditioning: (7) Protein-energy malnutrition: Plan ARDS: Most likely secondary to aspiration pneumonia along with systolic congestive heart failure in setting of baseline COPD. History of MRSA bacteremia recently. Continue with vancomycin, Zosyn. Dose antibiotics as per creatinine clearance. Follow-up blood cultures. Sputum culture awaited. Aggressive pulmonary toilet with incentive spirometry, flutter valve and chest vest. Wean down supplementation keeping saturation over 88%. Continue with DuoNebs, budesonide. Slight COPD exacerbation for now continue with Solu-Medrol 60 mg IV twice daily. Will start weaning from tomorrow. Also concern for congestive heart failure. New diagnosis. Echocardiogram shows an EF of 32%, grade 3 diastolic dysfunction, diffuse hypokinesia of LV, moderate pulmonary hypertension with PASP of 45 mmHg. Patient over dehydrated today after 60 mg IV twice daily Lasix. For now hold off. Start on gentle IV hydration with 50 cc/h half normal saline while monitoring fluid overload. Myers catheterization, strict input output charting, fluid restriction otherwise up to 1500 cc. Most likely patient if patient improves he will need a possible stress test prior to discharge. CARMENZA on CKD: Baseline creatinine 1.2-1.6. Currently 2.6. Most likely secondary to overdiuresis. Cannot rule out cardiorenal syndrome. Stop diuresis today. Gentle hydration as above. Medical admission done for nephrotoxic drugs. Monitor BMP daily for now. Elevated troponin/cannot rule out non-ST elevation [place]: Currently chest pain- free. Appreciate cardiology recommendations. For now given acute illness we will continue heparin drip. Appreciate recent A1c and lipid panel. Aspirin 81 mg daily, atorvastatin 20 mg nightly. Analgesia: Tylenol as needed, morphine 1 mg every 4 hours as needed Glycemic control: Not needed. Hypoglycemia protocol Nutrition: Clear liquid diet. Advance as per swallow evaluation. CODE STATUS: Discussed in detail with patient again. DNR/DNI. PUD prophylaxis: Protonix for PUD prophylaxis DVT prophylaxis: Heparin drip will suffice as DVT prophylaxis Discharge planning: SNF versus home health once medically stable will get physi rogelio therapy evaluation. Continue with care at ICU level This documentation was created by [employer] director of elementary education software. Every effort was made to ensure accuracy of director of elementary education. Any obvious errors or omissions should be clarified with the author of the document. Attestations Medical Necessity Statement*: Day course of hospitalization for management of ARDS secondary to possible aspiration pneumonia, severe congestive heart failure, CARMENZA and CKD Time Spent in Patient Care: Greater than 35 minutes Critical Care Time: The high probability of a clinically significant, sudden or life threatening deterioration of the patient's pulmonary, cardiac, renal system(s) required my full and direct attention, intervention and personal management. The critical care time is as shown. This time is in addition to time spent performing any reported procedures but includes the following: [x] Data and vital sign review and interpretation [x] Patient assessment, examination and intervention [x] Documentation [x] Medication orders and management Critical Care Time (min): 60 Coding Level of Care Code Acute Electrophysiology Nurse Practitioner for g Fwd Diagnoses ARDS (adult respiratory distress syndrome) J80 Pneumonia J18.9 Acute kidney injury superimposed on chronic kidney disease N17.9; N18.9 COPD (chronic obstructive pulmonary disease) J44.9 Acute systolic heart failure I50.21 Physical deconditioning R53.81 Protein-energy malnutrition E46
--- NOTE | 2022-04-08 13:26 | PM.PN ---
Subjective Subjective: Patient has been on BiPAP intermittently. Currently he is on 6 L of oxygen by nasal cannula. Respiratory status seems to be slowly improving. Medications: Medication Review Details: Current Medications Acetaminophen (Acetaminophen 325 Mg Tablet) 650 mg PO Q6H PRN PRN Reason: MILD PAIN Last Admin: 04/08/22 10:02 Dose: 650 mg Albuterol/Ipratropium (Ipratropium-Albuterol 3 Ml Neb) 3 ml INHALATION Q4H PEPE Last Admin: 04/08/22 11:05 Dose: 3 ml Aspirin (Aspirin 81 Mg Ec Tablet) 81 mg PO DAILY PEPE Last Admin: 04/08/22 08:00 Dose: 81 mg Atorvastatin Calcium (Atorvastatin 40 Mg Tablet) 20 mg PO BEDTIME PEPE Budesonide (Budesonide 0.5 Mg/2 Ml Neb) 0.5 mg INHALATION BID.RESPIRATORY PEPE Last Admin: 04/08/22 07:40 Dose: 0.5 mg Dextrose (Dextrose 50% Syringe 50 Ml) 25 ml IVP ONCE PRN; Protocol PRN Reason: hypoglycemia protocol Dextrose (Dextrose 50% Syringe 50 Ml) 50 ml IVP PRN PRN; Protocol PRN Reason: hypoglycemia protocol Ferrous Gluconate (Ferrous Gluconate 324 Mg Tablet) 324 mg PO BIDWM PEPE Furosemide (Furosemide 10 Mg/Ml Sdv 10ml) 60 mg IVP Q12H PEPE Last Admin: 04/08/22 10:00 Dose: Not Given Glucagon (Glucagon 1 Mg/Ml Inj 1 Ml) 1 mg IM ONCE PRN; Protocol PRN Reason: Adult Acute Hypoglycemia Prot. Heparin Sodium (Porcine) (Heparin 5,000 Unit/Ml Inj 1 Ml) 0 unit IV PRN PRN; Protocol PRN Reason: Heparin weight-base protocol Last Admin: 04/08/22 10:19 Dose: 2,900 unit Hydralazine HCl (Hydralazine 20 Mg/Ml Inj 1 Ml) 10 mg IVP Q4H PRN PRN Reason: SYSTOLIC BLOOD PRESSURE Last Admin: 04/07/22 16:51 Dose: 10 mg Heparin Sodium/Sodium Chloride (Heparin Drip) 25,000 unit in 500 mls @ 0 mls/hr IV .Q0M PEPE; Protocol Last Titration: 04/08/22 03:25 Dose: 13.02 unit/kg/hr, 15 mls/hr Vancomycin HCl 1,000 mg/ (Sodium Chloride) 250 mls @ 250 mls/hr IV Q36H PEPE; Protocol Piperacillin Sod/Tazobactam (Sod 3.375 gm/ Sodium Chloride) 50 mls @ 12.5 mls/hr IV Q8H PEPE; Protocol Last Infusion: 04/08/22 11:20 Dose: Infused Dextrose (D5w) 500 mls @ 100 mls/hr IV ONCE PRN; Protocol PRN Reason: Adult Acute Hypoglycemia Prot Sodium Chloride (Sodium Chloride 0.45%) 1,000 mls @ 50 mls/hr IV .Q20H PEPE Stop: 04/09/22 05:59 Last Admin: 04/08/22 10:19 Dose: 50 mls/hr Insulin Human Lispro (Insulin Lispro 100 Unit/1 Ml) 0 unit SUBCUT WM&BEDTIME PEPE; Protocol Last Admin: 04/08/22 08:00 Dose: 4 unit Methylprednisolone Sodium Succinate (Methylprednisolone Sod Succ 125 Mg/2 Ml Inj) 60 mg IVP Q12H PEPE Last Admin: 04/08/22 10:03 Dose: 60 mg Morphine Sulfate (Morphine 4 Mg/Ml Sdv 1 Ml) 2 mg IVP Q2H PRN 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 Last Admin: 04/07/22 20:38 Dose: 2 mg Ondansetron HCl (Ondansetron 2 Mg/Ml Sdv 2 Ml) 4 mg IVP Q6H PRN PRN Reason: NAUSEA AND VOMITING Pantoprazole Sodium (Pantoprazole 40 Mg Sdv) 40 mg IVP DAILY [facility] Last Admin: 04/08/22 08:00 Dose: 40 mg Vitals/I&O/Wt Last Vital Signs Temp 97.1 F L 04/08/22 08:00 Pulse 93 04/08/22 11:15 Resp 19 H 04/08/22 11:00 BP 116/90 04/08/22 10:00 Pulse Ox 94 04/08/22 11:00 O2 Del Method 04/08/22 11:00 O2 Flow Rate 7 04/08/22 11:00 FiO2 40 04/08/22 08:00 04/07/22 04/08/22 04/08/22 22:59 06:59 14:59 Intake Total 189.793 / 1489.793 132 / 1621.793 50 / 50 Output Total 700 / 700 Balance 189.793 / 1489.793 -568 / 921.793 50 / 50 Weight last 48 hrs Weight 129 lb 8 oz Weight 127 lb Weight 127 lb Physical Exam Narrative: GENERAL: The patient is alert, seems confused and tachypneic , breathing rate of 24/min. HEENT: Minimal pallor with no icterus or lymphadenopathy.Oral cavity: There are no mucous membrane lesions. NECK: Trachea appears to be central. No masses noted. No JVD or thyromegaly appreciated. RESPIRATORY: Chest is symmetrical. Breath sounds noted bilaterally with diffused expiratory wheezing and some coarse crackles. BREASTS: Deferred. HEART: The heart sounds are normal. No S3 or S4. No significant murmurs. No pericardial rub ABDOMEN: No vessel pulsations or distention. No tenderness. No organomegaly appreciated. Bowel sounds are normally heard. : Deferred. RECTAL: Deferred. LYMPHATIC: No lymphadenopathy noted in the neck. EXTREMITIES: No edema or cyanosis. No clubbing. MUSCULOSKELETAL: No acute joint deformities or swelling SKIN: There are no significant rashes or ecchymosis NEUROPSYCHIATRIC: Left-sided weakness present Urinary Catheter Management: Myers: Cath Placed During This Visit: yes Reason for Continuing Indwelling Catheter: Accurate Measurement of Urinary Output in Critically Ill Patients Urinary Catheter Date of Insertion: 04/07/22 Urinary Catheter Time of Insertion: 13:06 Data : 04/08/22 02:21 04/08/22 02:21 Micro: Microbiology 04/07/22 10:16 Blood Culture - Preliminary Blood 04/07/22 10:10 Blood Culture - Preliminary Blood NEGATIVE TO DATE A&P Assessment and plan (1) ARDS (adult respiratory distress syndrome): Patient may have an underlying viral pneumonia complicated with the congestive heart failure. His vital signs are so far stable. Still has significant tachypnea. Respiratory status seems to be slowly improving. (2) Acute systolic heart failure: The etiology is not clear. Patient has diffuse hypokinesia of the left ventricle. Possibility of him having underlying three-vessel coronary artery disease is a consideration. May be carefully treated with IV diuretics. (3) Elevated troponin: It is possible that the patient might have had a non-ST elevation myocardial infarction. He has a negative delta in 2 hours. Patient may be continued on the heparin. I also may start him on the Plavix 300 mg p.o. today followed by 75 mg p.o. daily. (4) Acute kidney injury superimposed on chronic kidney disease: He has worsening BUN and creatinine. The low output state may be the contributing factor. I might consider starting him on a low-dose of Dobutrex, to help the output. Plan The other problems are Possible pneumonia Leukocytosis Recent MRSA infection/abscess drainage COPD exacerbation History of hypertension, currently normotensive Type 2 diabetes Patient apparently did not want to be intubated. He has a DNI DNR status. We will try to optimize medical treatment. Based on the clinical progress, further recommendations will be made. Attestations Medical Necessity Statement*: Patient requires continued hospital stay for close monitoring and further management Coding Level of Care Code Acute Insurance Loss Adjuster for Chg Fwd History Expanded Problem Focused Medical Decision Making Moderate Complexity Diagnoses ARDS (adult respiratory distress syndrome) J80 Acute systolic heart failure I50.21 Elevated troponin R77.8 Acute kidney injury superimposed on chronic kidney disease N17.9; N18.9
[2022-04-08] MEDS: clopidogrel 300 mg Tablet PO (14:30)
[2022-04-08 16:27] LABS: Partial Thromboplastin Time 39.2 SECONDS (23.9-36.7)
[2022-04-08 17:14] LABS: Glucose Point of Care 241 mg/dL (70-110)
[2022-04-08] MEDS: ferrous gluconate 324 mg Tablet PO (17:14)
--- NOTE | 2022-04-08 18:23 | PC.NURSE ---
PT HAS HAD A PROGESSFUL SHIFT. PTS LUNG SOUNDS HAVE IMPROVED, TO THIS NURSE, DURING MY SHIFT. PT IS DOWN TO 3L NASAL CANNULA, SATING AT 91%. PT DOES NOT APPEAR TO BE IN ANY DISTRESS. HE IS CURRENTLY RESTING IN BED. WILL CONTINUE TO MONITOR.
[2022-04-08 19:31] LABS: Bacillus cereus group Not Detected (NOT DETECT); Bacillus subtillis group Not Detected (NOT DETECT); Corynebacterium Not Detected (NOT DETECT); Cutibacterium acnes (P.acnes) Not Detected (NOT DETECT); Enterococcus Not Detected (NOT DETECT); Enterococcus faecalis Not Detected (NOT DETECT); Enterococcus faecium Not Detected (NOT DETECT); Lactobacillus species Not Detected (NOT DETECT); Listeria Not Detected (NOT DETECT); Listeria monocytogenes Not Detected (NOT DETECT); Micrococcus Not Detected (NOT DETECT); Pan Candida Not Detected (NOT DETECT); Pan Gram-Negative Not Detected (NOT DETECT); Staphylococcus epidermidis Detected (NOT DETECT); Staphylococcus lugdunensis Not Detected (NOT DETECT); Staphylococcus species Detected (NOT DETECT); Streptococcus agalactiae Not Detected (NOT DETECT); Streptococcus anginosus group Not Detected (NOT DETECT); Streptococcus pneumoniae Not Detected (NOT DETECT); Streptococcus pyogenes Not Detected (NOT DETECT); Streptococcus species Not Detected (NOT DETECT); mecA Detected (NOT DETECT); mecC Not Detected (NOT DETECT)
[2022-04-08] MEDS: CLONazepam 0.5 mg Tablet 0.25 MG PO (20:54)
[2022-04-08 21:31] LABS: Glucose Point of Care 204 mg/dL (70-110)
[2022-04-08] MEDS: atorvastatin 40 mg Tablet 20 MG PO (21:33)
[2022-04-08] MEDS: heparin drip 25,000 UNIT/500 ML PREMIX 20 UNIT IV (21:40)
[2022-04-08 21:48] LABS: Partial Thromboplastin Time 44.4 SECONDS (23.9-36.7)
[2022-04-08] MEDS: vancomycin 1,000 MG in sodium chloride 0.9% 250 ML 250 MG IV (23:39)
[2022-04-09] VITALS (111 sets, daily range): BP systolic 101–175; BP diastolic 68–109; PULSE 72–112; RESP 11–25; TEMP 36.1–36.4; O2SAT 85–100
[2022-04-09] MEDS: ipratropium-albuterol 3 mL Neb INHALATION ×6 (03:04→23:13)
[2022-04-09 04:52] LABS: Basophils % 0.1 %; Hematocrit 27.9 % (42.0-52.0); Hemoglobin 8.6 g/dL (11.7-16.6); Lymphocytes # 0.5 10^3/uL (0.8-4.8); Mean Corpuscular HGB Conc 30.8 g/dL (30.0-36.0); Mean Corpuscular Hemoglobin 27.8 pg (28.0-34.0); Mean Corpuscular Volume 90.3 fl (80-94); Monocytes # 0.4 10^3/uL (0.2-0.9); Monocytes % 1.6 %; Neutrophils # 21.81 10^3/uL (1.8-7.7); Neutrophils % 95.4 %; Nucleated Red Blood Cells % 0 %; Platelet Count 349 10^3/cmm (130-400); Red Blood Count 3.09 10^6/uL (4.1-5.3); Red Cell Distribution Width 14.9 % (12.1-15.1); White Blood Count 22.9 10^3/uL (4.0-10.0)
[2022-04-09 05:12] LABS: Alanine Aminotransferase 120 U/L (0-41); Albumin Level 2.5 g/dL (3.5-5.2); Alkaline Phosphatase 123 U/L (40-130); Anion Gap 22.1 (5-19); Aspartate Amino Transferase 117 U/L (0-40); Calcium 8.6 mg/dL (8.5-10.5); Carbon Dioxide 17 mmol/L (22-29); Chloride 106 mmol/L (98-107); Globulin 3.4 g/dL (1.3-4.6); Glucose 159 mg/dL (65-115); Osmolality Calculated 329 mOsm/kg (285-295); Potassium 3.1 mmol/L (3.5-5.1); Sodium 142 mmol/L (136-145); Total Bilirubin 0.4 mg/dL (0.15-1.2); Total Protein 5.9 g/dL (6.6-8.7)
[2022-04-09 05:21] LABS: Blood Urea Nitrogen 101 mg/dL (8-23)
[2022-04-09] MEDS: heparin 5,000 unit/mL INJ 1 mL IV (07:30)
[2022-04-09] MEDS: piperacillin-tazobactam 3.375 GM in sodium chloride 0.9% (plus) 50 ML IV ×3 (07:31→22:03)
[2022-04-09] MEDS: insulin lispro 100 unit/1 mL SUBCUT ×4 (07:33→21:11)
[2022-04-09] MEDS: budesonide 0.5 mg/2 mL Neb INHALATION ×2 (07:37→19:59)
[2022-04-09] MEDS: clopidogrel 75 mg Tablet PO (08:46)
[2022-04-09] MEDS: ferrous gluconate 324 mg Tablet PO ×2 (08:46→17:09)
[2022-04-09] MEDS: pantoprazole 40 mg SDV IVP ×2 (08:47→20:36)
[2022-04-09] MEDS: aspirin 81 mg EC Tablet PO (08:47)
[2022-04-09] MEDS: acetaminophen 325 mg Tablet 650 MG PO (08:47)
[2022-04-09 11:19] LABS: Lactate (Lactic Acid level) 1.5 mmol/L (0.5-2.2)
[2022-04-09 12:37] LABS: Glucose Point of Care 211 mg/dL (70-110)
[2022-04-09] MEDS: metoprolol tartrate 25 mg Tablet PO ×2 (12:37→20:36)
[2022-04-09] MEDS: sucralfate 1 gm/10 mL Oral Liq UDC PO ×3 (12:37→20:36)
[2022-04-09] MEDS: potassium chloride ER 20 mEq Tablet 80 MEQ PO (12:37)
[2022-04-09] MEDS: heparin 5,000 unit/mL INJ 1 mL 5000 UNIT SUBCUT ×2 (12:38→22:04)
[2022-04-09] MEDS: morphine 4 mg/mL SDV 1 mL 1 MG IVP ×2 (12:44→19:38)
[2022-04-09 13:46] LABS: Partial Thromboplastin Time 29.1 SECONDS (23.9-36.7)
[2022-04-09] MEDS: FUROsemide 10 mg/mL SDV 4mL 40 MG IVP (15:11)
--- NOTE | 2022-04-09 16:05 | PM.PN ---
Subjective Subjective: No acute events overnight. Patient has remained hemodynamically stable and afebrile. Currently on examination patient was on 2 L oxygen supplementation which had gone up to between 2 and 4 during the whole day. Saturations have maintained around 90. Saturations drop on eating. Patient otherwise is comfortable. Urine output around 475 yesterday. Renal functions trending up. Vitals/I&O/Wt Last Vital Signs Temp 97.0 F L 04/09/22 14:00 Pulse 100 04/09/22 15:25 Resp 18 04/09/22 15:20 BP 149/94 04/09/22 15:00 Pulse Ox 92 04/09/22 15:20 O2 Del Method 04/09/22 15:20 O2 Flow Rate 3 04/09/22 15:20 FiO2 40 04/09/22 06:11 04/09/22 04/09/22 04/09/22 06:59 14:59 22:59 Intake Total 403.333 / 618.939 9580.467 / 1529.467 360 / 1889.467 Output Total 475 / 475 400 / 400 Balance -71.667 / 232.434 6002.467 / 1529.467 -40 / 1489.467 Weight last 48 hrs Weight 63.701 kg Weight 58.74 kg Physical Exam Narrative: General exam is a white male, comfortable, pleasant on heated high flow, chronically ill-appearing, bitemporal wasting HEENT: Pupils equally round. Oropharynx clear. Neck is supple no lymphadenopathy thyromegaly Cardiovascular regular rate and rhythm, distant heart sounds. No obvious murmur. Lungs bilateral expiratory wheezes. Few crackles. Breath sounds symmetric. Abdomen is soft nontender positive bowel sounds. No obvious organomegaly Back demonstrates small decub right scapular area approximately 1.5 cm, stage II without signs of infection. Surgical scar noted exam now demonstrates Myers as he is allowed placement. In talking with the nurse he had quite a bit of residual that was lost/leaked when Myers was placed. Extremities no cyanosis clubbing or edema, cap refill brisk Skin see findings above Neuro no obvious focal deficits. Urinary Catheter Management: Myers: Cath Placed During This Visit: yes Reason for Continuing Indwelling Catheter: Accurate Measurement of Urinary Output in Critically Ill Patients Urinary Catheter Date of Insertion: 04/07/22 Urinary Catheter Time of Insertion: 13:06 Data : 04/09/22 04:43 04/09/22 04:43 Micro: Microbiology 04/07/22 10:16 Blood Culture - Preliminary Blood A&P Assessment and plan (1) ARDS (adult respiratory distress syndrome): (2) Pneumonia: (3) Acute kidney injury superimposed on chronic kidney disease: (4) COPD (chronic obstructive pulmonary disease): (5) Acute systolic heart failure: (6) Physical deconditioning: (7) Protein-energy malnutrition: (8) Uremia: Plan ARDS: Resolving. Most likely secondary to aspiration pneumonia along with systolic congestive heart failure in setting of baseline COPD. History of MRSA bacteremia recently. Continue with vancomycin, Zosyn. Dose antibiotics as per creatinine clearance. Given worsening renal function will check vancomycin random level in a.m. Follow-up blood cultures. Sputum culture awaited. Aggressive pulmonary toilet with incentive spirometry, flutter valve and chest vest. Wean down supplementation keeping saturation over 88%. Plan for modified barium swallow in a.m. Diet to be advanced as per swallow evaluation. Continue with DuoNebs, budesonide. Wean Solu-Medrol to 30 mg twice daily. Congestive heart failure: Systolic. New diagnosis. Echocardiogram shows an EF of 32%, grade 3 diastolic dysfunction, diffuse hypokinesia of LV, moderate pulmonary hypertension with PASP of 45 mmHg. Patient not dehydrated today. Does have signs of cardiogenic shock with worsening renal functions, oliguria, abnormal LFTs, elevated lactate on admission. Repeat lactate. Stop IV fluids. Do not give any further Lasix for now. Will dose Lasix as per fluid status during the day. Start patient on dobutamine drip at 5 mcg/h for now. Myers catheterization, strict input output charting, fluid restriction otherwise up to 1500 cc. Most likely patient if patient improves he will need a possible stress test prior to discharge. CARMENZA on CKD: Baseline creatinine 1.2-1.6. Currently 2.6. Most likely secondary to overdiuresis. Cannot rule out cardiorenal syndrome. Diuresis and hydration as above. Dobutamine drip as above. Medical admission done for nephrotoxic drugs. Monitor BMP daily for now. Elevated troponin/cannot rule out non-ST elevation NH: Currently chest pain-free. Most likely type II NH. Appreciate cardiology recommendations. Hold off on heparin drip for now. Convert to prophylactic dose. Aspirin 81 mg daily, atorvastatin 20 mg nightly. Hypertension: Goal blood pressure less than 140/90 mmHg. Blood pressures trending up to more than 160. For now start on low-dose beta-tenzin given few VPCs with dobutamine drip as well. Analgesia: Tylenol as needed, morphine 1 mg every 4 hours as needed Glycemic control: Not needed. Hypoglycemia protocol Nutrition: Clear liquid diet. Advance as per swallow evaluation. CODE STATUS: Discussed in detail with patient again. DNR/DNI. PUD prophylaxis: Protonix for PUD prophylaxis DVT prophylaxis: Heparin drip will suffice as DVT prophylaxis Physical therapy evaluation, Discharge planning: SNF versus home health once medically stable will get physical therapy evaluation. Continue with care at ICU level This documentation was created by [employer] document management specialist software. Every effort was made to ensure accuracy of document management specialist. Any obvious errors or omissions should be clarified with the author of the document. Attestations Medical Necessity Statement*: Requires further hospitalization for management of cardiogenic shock, cardiomyopathy, hypoxic respiratory failure secondary to aspiration pneumonia, CARMENZA Critical Care Time: The high probability of a clinically significant, sudden or life threatening deterioration of the patient's [cardiac, pulmonary, renal] system(s) required my full and direct attention, intervention and personal management. The critical care time is as shown. This time is in addition to time spent performing any reported procedures but includes the following: [x] Data and vital sign review and interpretation [x] Patient assessment, examination and intervention [x] Documentation [x] Medication orders and management Critical Care Time (min): 90 Coding Level of Care Code Acute Bioinformatics Analyst for [facility] Fwd Diagnoses ARDS (adult respiratory distress syndrome) J80 Pneumonia J18.9 Acute kidney injury superimposed on chronic kidney disease N17.9; N18.9 COPD (chronic obstructive pulmonary disease) J44.9 Acute systolic heart failure I50.21 Physical deconditioning R53.81 Protein-energy malnutrition E46 Uremia N19
--- NOTE | 2022-04-09 16:26 | P.PN_ITS ---
Subjective Subjective: Patient is the breathing is better. No chest pain. Complains of generalized body aches. His hemoglobin dropped down to 8.6. No obvious external bleeding. His BUN is going up. Creatinine level remains more or less the same. Denies any fever or chills. No cough. Currently he is on 4 L of ox ygen by nasal cannula. Medications: Medication Review Details: Current Medications Acetaminophen (Acetaminophen 325 Mg Tablet) 650 mg PO Q6H PRN PRN Reason: MILD PAIN Last Admin: 04/09/22 08:47 Dose: 650 mg Albuterol/Ipratropium (Ipratropium-Albuterol 3 Ml Neb) 3 ml INHALATION Q4H PEPE Last Admin: 04/09/22 15:20 Dose: 3 ml Aspirin (Aspirin 81 Mg Ec Tablet) 81 mg PO DAILY PEPE Last Admin: 04/09/22 08:47 Dose: 81 mg Atorvastatin Calcium (Atorvastatin 40 Mg Tablet) 20 mg PO BEDTIME PEPE Last Admin: 04/08/22 21:33 Dose: 20 mg Budesonide (Budesonide 0.5 Mg/2 Ml Neb) 0.5 mg INHALATION BID.RESPIRATORY PEPE Last Admin: 04/09/22 07:37 Dose: 0.5 mg Clonazepam (Clonazepam 0.5 Mg Tablet) 0.25 mg PO BID PRN PRN Reason: ANXIETY Last Admin: 04/08/22 20:54 Dose: 0.25 mg Clopidogrel Bisulfate (Clopidogrel 75 Mg Tablet) 75 mg PO DAILY PEPE Last Admin: 04/09/22 08:46 Dose: 75 mg Dextrose (Dextrose 50% Syringe 50 Ml) 25 ml IVP ONCE PRN; Protocol PRN Reason: hypoglycemia protocol Dextrose (Dextrose 50% Syringe 50 Ml) 50 ml IVP PRN PRN; Protocol PRN Reason: hypoglycemia protocol Ferrous Gluconate (Ferrous Gluconate 324 Mg Tablet) 324 mg PO BIDWM PEPE Last Admin: 04/09/22 08:46 Dose: 324 mg Furosemide (Furosemide 10 Mg/Ml Sdv 10ml) 60 mg IVP Q12H PEPE Last Admin: 04/08/22 10:00 Dose: Not Given Glucagon (Glucagon 1 Mg/Ml Inj 1 Ml) 1 mg IM ONCE PRN; Protocol PRN Reason: Adult Acute Hypoglycemia Prot. Heparin Sodium (Porcine) (Heparin 5,000 Unit/Ml Inj 1 Ml) 5,000 unit SUBCUT Q12H PEPE Last Admin: 04/09/22 12:38 Dose: 5,000 unit Hydralazine HCl (Hydralazine 20 Mg/Ml Inj 1 Ml) 10 mg IVP Q4H PRN PRN Reason: SYSTOLIC BLOOD PRESSURE Last Admin: 04/07/22 16:51 Dose: 10 mg Vancomycin HCl 1,000 mg/ (Sodium Chloride) 250 mls @ 250 mls/hr IV Q36H PEPE; Protocol Last Infusion: 04/09/22 05:45 Dose: Infused Piperacillin Sod/Tazobactam (Sod 3.375 gm/ Sodium Chloride) 50 mls @ 12.5 mls/hr IV Q8H PEPE; Protocol Last Admin: 04/09/22 14:09 Dose: 12.5 mls/hr Dextrose (D5w) 500 mls @ 100 mls/hr IV ONCE PRN; Protocol PRN Reason: Adult Acute Hypoglycemia Prot Dobutamine HCl 250 mg/ (Dextrose) 125 mls @ 9.555 mls/hr IV .Q13H5M [facility] Last Admin: 04/09/22 08:48 Dose: 5 mcg/kg/min, 9.56 mls/hr Insulin Human Lispro (Insulin Lispro 100 Unit/1 Ml) 0 unit SUBCUT WM&BEDTIME PEPE; Protocol Last Admin: 04/09/22 12:38 Dose: 4 unit Methylprednisolone Sodium Succinate (Methylprednisolone Sod Succ 125 Mg/2 Ml Inj) 30 mg IVP Q12H [facility] Metoprolol Tartrate (Metoprolol Tartrate 25 Mg Tablet) 25 mg PO BID@0900,2100 [facility] Last Admin: 04/09/22 12:37 Dose: 25 mg Morphine Sulfate (Morphine 4 Mg/Ml Sdv 1 Ml) 1 mg IVP Q4H PRN PRN Reason: PAIN Last Admin: 04/09/22 12:44 Dose: 1 mg Ondansetron HCl (Ondansetron 2 Mg/Ml Sdv 2 Ml) 4 mg IVP Q6H PRN PRN Reason: NAUSEA AND VOMITING Pantoprazole Sodium (Pantoprazole 40 Mg Sdv) 40 mg IVP Q12H PEPE Sucralfate (Sucralfate 1 Gm/10 Ml Oral Liq Udc) 1 gm PO AC&BEDTIME PEPE Last Admin: 04/09/22 12:37 Dose: 1 gm Vitals/I&O/Wt Last Vital Signs Temp 97.0 F L 04/09/22 14:00 Pulse 100 04/09/22 15:25 Resp 18 04/09/22 15:20 BP 149/94 04/09/22 15:00 Pulse Ox 92 04/09/22 15:20 O2 Del Method 04/09/22 15:20 O2 Flow Rate 3 04/09/22 15:20 FiO2 40 04/09/22 06:11 04/09/22 04/09/22 04/09/22 06:59 14:59 22:59 Intake Total 403.333 / 960.937 0862.467 / 1529.467 360 / 1889.467 Output Total 475 / 475 400 / 400 Balance -71.667 / 820.015 2385.467 / 1529.467 -40 / 1489.467 Weight last 48 hrs Weight 140 lb 7 oz Weight 129 lb 8 oz Physical Exam Narrative: GENERAL: The patient is alert and oriented times three. Not in any acute distress. HEENT: Moderate pallor. No icterus or lymphadenopathy.Oral cavity: There are no mucous membrane lesions. NECK: Trachea appears to be central. No masses noted. No JVD or thyromegaly appreciated. RESPIRATORY: Scattered expiratory wheezing and few coarse crackles bilaterally. BREASTS: Deferred. HEART: The heart sounds are normal. No S3 or S4. No significant murmurs. No pericardial rub ABDOMEN: No vessel pulsations or distention. No tenderness. No organomegaly appreciated. Bowel sounds are normally heard. : Deferred. RECTAL: Deferred. LYMPHATIC: No lymphadenopathy noted in the neck. EXTREMITIES: No edema or cyanosis. No clubbing. MUSCULOSKELETAL: No acute joint deformities or swelling SKIN: There are no significant rashes or ecchymosis NEUROPSYCHIATRIC: The patient is alert and oriented x3. Appears to be in a good mood. No tremors or rigidity noted. Urinary Catheter Management: Myers: Cath Placed During This Visit: yes Reason for Continuing Indwelling Catheter: Accurate Measurement of Urinary Output in Critically Ill Patients Urinary Catheter Date of Insertion: 04/07/22 Urinary Catheter Time of Insertion: 13:06 Data : 04/10/22 02:54 04/10/22 02:54 Other Labs: Laboratory Last Values WBC 22.9 10^3/uL (4.0-10.0) H 04/09/22 04:43 RBC 3.09 10^6/uL (4.1-5.3) L 04/09/22 04:43 Hgb 8.6 g/dL (11.7-16.6) L 04/09/22 04:43 Hct 27.9 % (42.0-52.0) L 04/09/22 04:43 MCV 90.3 fl (80-94) 04/09/22 04:43 MCH 27.8 pg (28.0-34.0) L 04/09/22 04:43 MCHC 30.8 g/dL (30.0-36.0) 04/09/22 04:43 RDW 14.9 % (12.1-15.1) 04/09/22 04:43 Plt Count 349 10^3/cmm (130-400) 04/09/22 04:43 MPV 11.0 fL (7.4-10.4) H 04/09/22 04:43 Neut % (Auto) 95.4 % 04/09/22 04:43 Lymph % (Auto) 2.0 % 04/09/22 04:43 Mcleod % (Auto) 1.6 % 04/09/22 04:43 Eos % (Auto) 0.0 % 04/09/22 04:43 Baso % (Auto) 0.1 % 04/09/22 04:43 Neut # (Auto) 21.81 10^3/uL (1.8-7.7) H 04/09/22 04:43 Lymph # (Auto) 0.5 10^3/uL (0.8-4.8) L 04/09/22 04:43 Mcleod # (Auto) 0.4 10^3/uL (0.2-0.9) 04/09/22 04:43 Eos # (Auto) 0.0 10^3/uL (0.0-0.8) 04/09/22 04:43 Baso # (Auto) 0.0 10^3/uL (0.0-0.1) 04/09/22 04:43 Nucleated RBC % (auto) 0 % 04/09/22 04:43 Nucleated RBCs # 0.0 /100WBC 04/09/22 04:43 APTT 29.1 SECONDS (23.9-36.7) 04/09/22 13:26 PTT Patient/Normal 1:1 Cancelled 04/07/22 14:55 D-Dimer 2.06 ug/mIFEU (0-0.59) H 04/07/22 06:35 Specimen Type Arterial 04/07/22 09:30 Sample Site Radial, left 04/07/22 09:30 ABG pH 7.50 (7.35-7.45) H 04/07/22 09:30 ABG pCO2 19.8 mmHg (35-45) L* 04/07/22 09:30 ABG pO2 163.0 mmHg (80.0-100.0) H 04/07/22 09:30 ABG HCO3 14.5 mmol/L (22-26) L 04/07/22 09:30 ABG O2 Saturation 99.9 04/07/22 09:30 ABG Base Excess -7.0 mmol/L (-2.0-2.0) L 04/07/22 09:30 Harry Test Pos 04/07/22 09:30 A-a O2 Gradient 30.9 mmHg (5-10) H 04/07/22 09:30 Hematocrit 30.7 % (42-52) L 04/07/22 09:30 Hgb O2 Saturation 98.4 % (95-100) 04/07/22 09:30 Carboxyhemoglobin 0.8 %THgb (0.4-20.1) 04/07/22 09:30 Methemoglobin 0.7 % (0.4-1.5) 04/07/22 09:30 Total Hemoglobin 10.0 g/dL (14-18) L 04/07/22 09:30 Sodium 137.0 mmol/L (131-143) 04/07/22 09:30 Potassium 4.1 mmol/L (3.5-5.0) 04/07/22 09:30 Glucose 219.0 mg/dL (70-115) H 04/07/22 09:30 Ionized Calcium 1.1 mmol/L (1.1-1.4) 04/07/22 09:30 O2 Delivery Device Hag 04/07/22 09:30 O2 Liters/Min 40.0 % 04/07/22 09:30 FiO2 60.0 % 04/07/22 09:30 Vascular Sonographer ID Cak 04/07/22 09:30 Sodium 142 mmol/L (136-145) 04/09/22 04:43 Potassium 3.1 mmol/L (3.5-5.1) L 04/09/22 04:43 Chloride 106 mmol/L (98-107) 04/09/22 04:43 Carbon Dioxide 17 mmol/L (22-29) L 04/09/22 04:43 Anion Gap 22.1 (5-19) H 04/09/22 04:43 BUN 101 mg/dL (8-23) H* 04/09/22 04:43 Creatinine 2.9 mg/dL (0.7-1.2) H 04/09/22 04:43 GFR Calculation Not Reportable 04/09/22 04:43 Glucose 159 mg/dL (65-115) H 04/09/22 04:43 POC Glucose 211 mg/dL (70-110) H 04/09/22 12:32 Calculated Osmolality 329 mOsm/kg (285-295) H 04/09/22 04:43 Lactic Acid 4.6 mmol/L (0.5-2.2) H* 04/07/22 06:35 Lactic Acid (Sepsis) 5.8 mmol/L (0.5-2.2) H* 04/07/22 09:20 Lactate 1.5 mmol/L (0.5-2.2) 04/09/22 10:37 Calcium 8.6 mg/dL (8.5-10.5) 04/09/22 04:43 Magnesium 2.4 mg/dL (1.7-2.3) H 04/08/22 02:21 Total Bilirubin 0.4 mg/dL (0.15-1.2) 04/09/22 04:43 AST 117 U/L (0-40) H 04/09/22 04:43 ALT 120 U/L (0-41) H 04/09/22 04:43 Alkaline Phosphatase 123 U/L (40-130) 04/09/22 04:43 Creatine Kinase 191 U/L (39-308) 04/07/22 13:16 Troponin T Baseline 790 ng/L (0-15) H* 04/07/22 06:35 Troponin T 120 Minute 732.9 ng/L (0-15) H 04/07/22 09:20 Delta Troponin T -57.1 ABS# (0-10) L 04/07/22 09:20 Troponin T Hi Sens 6Hr 640.8 ng/L (0-15) H 04/07/22 13:15 Troponin T Hi Sens 6Hr Delta -149.2 ng/L (0-12) L 04/07/22 13:15 NT-Pro-B Natriuret Pep 25360 pg/mL (0-125) H 04/07/22 06:35 Total Protein 5.9 g/dL (6.6-8.7) L 04/09/22 04:43 Albumin 2.5 g/dL (3.5-5.2) L 04/09/22 04:43 Globulin 3.4 g/dL (1.3-4.6) 04/09/22 04:43 Procalcitonin 0.35 ng/mL (0-0.5) 04/07/22 06:30 Urine Color Yellow (Yellow) 04/07/22 13:06 Urine Appearance Clear (CLEAR) 04/07/22 13:06 Urine pH 5 (5-7) 04/07/22 13:06 Ur Specific [place] 1.020 (1.005-1.030) 04/07/22 13:06 Urine Protein 3+ (Negative) H 04/07/22 13:06 Urine Glucose (UA) Trace (Normal) H 04/07/22 13:06 Urine Ketones 1+ (Negative) H 04/07/22 13:06 Urine Blood 2+ (Negative) H 04/07/22 13:06 Urine Nitrate Negative (Negative) 04/07/22 13:06 Urine Bilirubin Neg (Negative) 04/07/22 13:06 Urine Urobilinogen Neg mg/dL (Negative) 04/07/22 13:06 Ur Leukocyte Esterase Negative (Negative) 04/07/22 13:06 Urine RBC 0-4 /hpf (0-2) H 04/07/22 13:06 Urine WBC None /hpf (0-5) 04/07/22 13:06 Ur Squamous Epith Cells 0-4 /hpf (0-5) H 04/07/22 13:06 Amorphous Sediment 1+ /hpf 04/07/22 13:06 Urine Bacteria 1+ /hpf (NONE) H 04/07/22 13:06 Coronavirus 229E (PCR) Not detected (NOT DETECT) 04/07/22 09:47 SARS-CoV-2 (PCR) Not detected (NOT DETECT) 04/07/22 09:47 Micro: Microbiology 04/07/22 10:16 Blood Culture - Preliminary Blood A&P Assessment and plan (1) ARDS (adult respiratory distress syndrome): The patient's respiratory status seems to be improving. Oxygenation has significantly improved. (2) Acute systolic heart failure: The etiology is not clear. Patient has diffuse hypokinesia of the left ventricle. Possibility of him having underlying three-vessel coronary artery disease is a consideration. May be carefully treated with IV diuretics. Because of the drop in the hemoglobin, it may be appropriate to stop the heparin. Patient may be kept on a DVT prophylaxis dose of Lovenox, 30 mg every 24 hours. (3) Elevated troponin: May continue on the Plavix and the aspirin. Because of the high BUN/creatinine ratio, a GI bleed cannot be excluded. (4) Acute kidney injury superimposed on chronic kidney disease: Still seems to be making adequate urine. The high BUN, could be related to prednisone. Cannot exclude GI bleed. Plan The other problems are Anemia possible pneumonia Leukocytosis Recent MRSA infection/abscess drainage COPD exacerbation History of hypertension, currently normotensive Type 2 diabetes Hypokalemia Patient apparently did not want to be intubated. He has a DNI DNR status. We will try to optimize medical treatment. Supplement potassium Need to rule out GI bleed Based on the clinical progress, further recommendations will be made Attestations Medical Necessity Statement*: Patient requires continued hospital stay for close monitoring and further management Coding Level of Care Code Acute Hand Former for Chg Fwd History Expanded Problem Focused Exam Expanded Problem Focused Medical Decision Making Moderate Complexity Diagnoses ARDS (adult respiratory distress syndrome) J80 Acute systolic heart failure I50.21 Elevated troponin R77.8 Acute kidney injury superimposed on chronic kidney disease N17.9; N18.9
[2022-04-09 17:09] LABS: Glucose Point of Care 182 mg/dL (70-110)
[2022-04-09 18:53] LABS: Alanine Aminotransferase 116 U/L (0-41); Albumin Level 2.6 g/dL (3.5-5.2); Alkaline Phosphatase 146 U/L (40-130); Anion Gap 21.2 (5-19); Aspartate Amino Transferase 105 U/L (0-40); Calcium 8.8 mg/dL (8.5-10.5); Carbon Dioxide 17 mmol/L (22-29); Chloride 104 mmol/L (98-107); Globulin 3.3 g/dL (1.3-4.6); Glucose 175 mg/dL (65-115); Osmolality Calculated 324 mOsm/kg (285-295); Potassium 3.2 mmol/L (3.5-5.1); Sodium 139 mmol/L (136-145); Total Bilirubin 0.4 mg/dL (0.15-1.2); Total Protein 5.9 g/dL (6.6-8.7)
[2022-04-09 18:56] LABS: Blood Urea Nitrogen 101 mg/dL (8-23)
[2022-04-09] MEDS: atorvastatin 40 mg Tablet 20 MG PO (20:37)
[2022-04-09 20:56] LABS: Glucose Point of Care 142 mg/dL (70-110)
[2022-04-09] MEDS: CLONazepam 0.5 mg Tablet 0.25 MG PO (23:58)
[2022-04-10] VITALS (85 sets, daily range): BP systolic 119–167; BP diastolic 71–102; PULSE 73–95; RESP 10–24; TEMP 36.2–36.6; O2SAT 84–100; BMI 22.6
--- NOTE | 2022-04-10 | FL_ITS ---
WS: [id number] Exam: FL barium swallow modifd [id number] Date/Time of Exam: 04/10/2022 8:25 AM Reason For Exam: Oropharyngeal dysphagia Fluoroscopy time: 1min [id number] minutes # of spot films: Modified barium swallow was performed in conjunction with the speech therapy department. Swallowing function at the level of the oropharynx was normal. The patient experienced aspiration whe n ingesting nectar consistency and thin liquid barium foodstuffs. The patient tolerated pudding consi stency barium foodstuffs without complication. The exam was terminated at this point. FL/FL barium swallow modifd [id number] IMPRESSION: 1. Modified barium swallow positive for aspiration of nectar consistency and th in liquid barium foodstuffs. A report of recommendations and findings will also follow from the speech thera py service.
[2022-04-10] MEDS: ipratropium-albuterol 3 mL Neb INHALATION ×6 (02:59→23:23)
[2022-04-10 03:17] LABS: Basophils % 0.1 %; Hematocrit 25.9 % (42.0-52.0); Hemoglobin 7.8 g/dL (11.7-16.6); Lymphocytes # 0.3 10^3/uL (0.8-4.8); Lymphocytes % 1.6 %; Mean Corpuscular HGB Conc 30.1 g/dL (30.0-36.0); Mean Corpuscular Hemoglobin 27.9 pg (28.0-34.0); Mean Corpuscular Volume 92.5 fl (80-94); Monocytes # 0.4 10^3/uL (0.2-0.9); Monocytes % 2.3 %; Neutrophils # 17.56 10^3/uL (1.8-7.7); Nucleated Red Blood Cells % 0 %; Platelet Count 307 10^3/cmm (130-400); White Blood Count 18.5 10^3/uL (4.0-10.0)
[2022-04-10 03:38] LABS: Vancomycin Random 14.2 ug/mL (20.0-40.0)
[2022-04-10 03:39] LABS: Alanine Aminotransferase 111 U/L (0-41); Albumin Level 2.6 g/dL (3.5-5.2); Alkaline Phosphatase 140 U/L (40-130); Anion Gap 20.3 (5-19); Aspartate Amino Transferase 98 U/L (0-40); Calcium 8.7 mg/dL (8.5-10.5); Carbon Dioxide 18 mmol/L (22-29); Chloride 100 mmol/L (98-107); Globulin 3.3 g/dL (1.3-4.6); Glucose 236 mg/dL (65-115); Osmolality Calculated 318 mOsm/kg (285-295); Potassium 3.3 mmol/L (3.5-5.1); Sodium 135 mmol/L (136-145); Total Bilirubin 0.4 mg/dL (0.15-1.2); Total Protein 5.9 g/dL (6.6-8.7)
[2022-04-10 03:47] LABS: Blood Urea Nitrogen 98 mg/dL (8-23)
[2022-04-10] MEDS: piperacillin-tazobactam 3.375 GM in sodium chloride 0.9% (plus) 50 ML IV ×2 (07:10→17:34)
[2022-04-10] MEDS: sucralfate 1 gm/10 mL Oral Liq UDC PO ×4 (07:10→21:17)
[2022-04-10 07:23] LABS: Glucose Point of Care 145 mg/dL (70-110)
[2022-04-10] MEDS: budesonide 0.5 mg/2 mL Neb INHALATION ×2 (07:27→19:31)
[2022-04-10] MEDS: CLONazepam 0.5 mg Tablet 0.25 MG PO (09:18)
[2022-04-10] MEDS: pantoprazole 40 mg SDV IVP ×2 (09:19→21:17)
[2022-04-10] MEDS: insulin lispro 100 unit/1 mL SUBCUT ×4 (09:19→21:16)
[2022-04-10 10:21] LABS: Vancomycin Trough 14.2 ug/mL (10-15)
--- NOTE | 2022-04-10 10:23 | P.PN_ITS ---
Subjective Subjective: seen this am. he is on dobutamine drip currently just got back from barium swallow, results pending no acute events overnight cr 3.0 today urine output 750 cc overall 1700 positive since admission wbc 18.5 Hb 7.8 K 3.3 Vitals/I&O/Wt Last Vital Signs Temp 97.1 F L 04/09/22 23:43 Pulse 81 04/10/22 07:31 Resp 20 H 04/10/22 07:28 BP 157/78 04/10/22 07:00 Pulse Ox 98 04/10/22 07:28 O2 Del Method 04/10/22 07:28 O2 Flow Rate 3 04/10/22 07:28 FiO2 40 04/10/22 02:59 04/09/22 04/10/22 04/10/22 22:59 06:59 14:59 Intake Total 503.051 / 2032.518 50 / 2082.518 123.165 / 123.165 Output Total 750 / 750 1125 / 1875 400 / 400 Balance -246.949 / 1282.518 -1075 / 207.518 -276.835 / -276.835 Weight last 48 hrs Weight 63.701 kg Physical Exam Narrative: General exam is a white male, comfortable, pleasant on 5L nasal cannula, chronically ill-appearing, bitemporal wasting HEENT: Pupils equally round. Oropharynx clear. Cardiovascular regular rate and rhythm, distant heart sounds. No obvious murmur. Lungs bilateral expiratory wheezes. Few crackles at bases. Breath sounds symmetric. Abdomen is soft nontender positive bowel sounds. No obvious organomegaly Back demonstrates small decub right scapular area approximately 1.5 cm, stage II without signs of infection. Surgical scar noted exam now demonstrates Myers as he is allowed placement. Extremities no cyanosis clubbing or edema, cap refill brisk Skin see findings above Neuro no obvious focal deficits. Urinary Catheter Management: Myers: Cath Placed During This Visit: yes Reason for Continuing Indwelling Catheter: Accurate Measurement of Urinary Output in Critically Ill Patients Urinary Catheter Date of Insertion: 04/07/22 Urinary Catheter Time of Insertion: 13:06 Data : 04/10/22 02:54 04/10/22 02:54 Micro: Microbiology 04/07/22 10:16 Blood Culture - Preliminary Blood A&P Assessment and plan (1) ARDS (adult respiratory distress syndrome): (2) Pneumonia: (3) Acute kidney injury superimposed on chronic kidney disease: (4) COPD (chronic obstructive pulmonary disease): (5) Acute systolic heart failure: (6) Physical deconditioning: (7) Protein-energy malnutrition: (8) Uremia: Plan ARDS: Resolving. Most likely secondary to aspiration pneumonia along with systolic congestive heart failure in setting of baseline COPD. History of MRSA bacteremia recently. Continue with vancomycin, Zosyn. Dose antibiotics as per creatinine clearance. Given worsening renal function will check vancomycin random level in a.m. Follow-up blood cultures. Sputum culture awaited. Aggressive pulmonary toilet with incentive spirometry, flutter valve and chest vest. Wean down supplementation keeping saturation over 88%. Continue with DuoNebs, budesonide. Wean Solu-Medrol to 30 mg twice daily. High Aspiration Risk - Continue aspiration precautions - Barium swallow complete today. Patient aspirated during study as well. - Very thick puree food has been recommended. There still lies a risk of aspiration as per speech therapist. - Will discuss with family - Pt probably will continue to have recurrant aspiration pneumonias Congestive heart failure: Systolic. New diagnosis. Echocardiogram shows an EF of 32%, grade 3 diastolic dysfunction, diffuse hypokinesia of LV, moderate pulmonary hypertension with PASP of 45 mmHg. Patient not dehydrated today. Does have signs of cardiogenic shock with worsening renal functions, oliguria, abnormal LFTs, elevated lactate on admission. Repeat lactate. Stop IV fluids. Do not give any further Lasix for now. Will dose Lasix as per fluid status during the day. Start patient on dobutamine drip at 5 mcg/h for now. Myers catheterization, strict input output charting, fluid restriction otherwise up to 1500 cc. Most likely patient if patient improves he will need a possible stress test prior to discharge. Anemia: Check iron studies, tibc, ferritin FOBT Hb 7.8 today. Will plan to transfuse < 7 for now given pt's low EF. Will monitor HB Q12H. Will tranfuse very slowly if needed to prevent TACO. CARMENZA on CKD: Baseline creatinine 1.2-1.6. Currently 2.6. Most likely secondary to overdiuresis. Cannot rule out cardiorenal syndrome. Diuresis and hydration as above. Dobutamine drip as above. Medical admission done for nephrotoxic drugs. Monitor BMP daily for now. Elevated troponin/cannot rule out non-ST elevation AL: Currently chest pain- free. Most likely type II AL. Appreciate cardiology recommendations. Cardiology suspecting underlying 3 vessel disease? Hold off on heparin drip for now. Convert to prophylactic dose. Heparin 5000 unit BID Aspirin 81 mg daily, atorvastatin 20 mg nightly. Hypertension: Goal blood pressure less than 140/90 mmHg. Blood pressures trending up to more than 160. For now start on low-dose beta-tenzin given few VPCs with dobutamine drip as w ell. Analgesia: Tylenol as needed, morphine 1 mg every 4 hours as needed Glycemic control: Not needed. Hypoglycemia protocol Nutrition: Puree diet dysphagia level 4 CODE STATUS: DNR/DNI. PUD prophylaxis: Protonix for PUD prophylaxis DVT prophylaxis: Heparin subc Physical therapy evaluation, Discharge planning: SNF versus home health once medically stable will get physical therapy evaluation. Continue with care at ICU level This documentation was created by [employer] certifed refrigeration operator software. Every effort was made to ensure accuracy of certifed refrigeration operator. Any obvious errors or omissions should be clarified with the author of the document. Will update family at bedside today. Attestations Medical Necessity Statement*: Critically ill. Continue to monitor in ICU. Critical Care Time: 60 Coding Level of Care Code Acute Compensation Advisor for Chg Fwd Diagnoses ARDS (adult respiratory distress syndrome) J80 Pneumonia J18.9 Acute kidney injury superimposed on chronic kidney disease N17.9; N18.9 COPD (chronic obstructive pulmonary disease) J44.9 Acute systolic heart failure I50.21 Physical deconditioning R53.81 Protein-energy malnutrition E46 Uremia N19
[2022-04-10] MEDS: ferrous gluconate 324 mg Tablet PO ×2 (10:35→17:34)
[2022-04-10] MEDS: clopidogrel 75 mg Tablet PO (10:36)
[2022-04-10] MEDS: potassium chloride ER 20 mEq Tablet 40 MEQ PO ×2 (10:36→14:24)
[2022-04-10] MEDS: aspirin 81 mg EC Tablet PO (10:36)
[2022-04-10] MEDS: metoprolol tartrate 25 mg Tablet PO ×2 (10:36→21:17)
--- NOTE | 2022-04-10 11:15 | PC.SOCIAL ---
IMM update IMM updated with patient. Verbalized an understanding. Copy PG 2 provided. Initialled, dated, timed, and placed in chart.
[2022-04-10] MEDS: vancomycin 1,000 MG in sodium chloride 0.9% 250 ML 250 MG IV (11:45)
[2022-04-10] MEDS: heparin 5,000 unit/mL INJ 1 mL 5000 UNIT SUBCUT ×2 (11:47→22:48)
[2022-04-10 11:50] LABS: Glucose Point of Care 144 mg/dL (70-110)
--- NOTE | 2022-04-10 14:40 | PC.NURSE ---
Verbal order received via telephone from Dr. Jerome to titrate over next two hours and discontinue Dobutamine drip. Order read back and verified.
[2022-04-10 16:59] LABS: Glucose Point of Care 191 mg/dL (70-110)
--- NOTE | 2022-04-10 17:43 | PM.PN ---
Subjective Subjective: Patient seems to be fairly stable from a hemodynamic standpoint. Respiratory status continues to improve. He is currently on 3 L of oxygen by nasal cannula. Heart rate is in the 80s and 90s. He is still on a Dobutrex at 5 mics per KG per minute Vitals/I&O/Wt Last Vital Signs Temp 97.8 F 04/10/22 07:15 Pulse 88 04/10/22 16:15 Resp 14 04/10/22 16:15 BP 137/73 04/10/22 16:15 Pulse Ox 91 04/10/22 16:15 O2 Del Method 04/10/22 16:15 O2 Flow Rate 3 04/10/22 16:15 FiO2 40 04/10/22 02:59 04/10/22 04/10/22 04/10/22 06:59 14:59 22:59 Intake Total 50 / 2082.518 732.794 / 732.794 Output Total 1125 / 1875 400 / 400 Balance -1075 / 207.518 332.794 / 332.794 Weight last 48 hrs Weight 136 lb 5 oz Weight 140 lb 7 oz Physical Exam Narrative: GENERAL: The patient is alert and oriented times three. Not in any acute distress. Generalized emaciation present. The speech is somewhat garbled significant is been by garbled speech HEENT: No significant pallor, icterus or lymphadenopathy.Oral cavity: There are no mucous membrane lesions. NECK: Trachea appears to be central. No masses noted. No JVD or thyromegaly appreciated. RESPIRATORY: Chest is symmetrical. No intercostals muscle retraction or any accessory muscle activation. There is no chest wall tenderness. Breath sounds are heard bilaterally. No rales or rhonchi heard. No evidence of any consolidation. BREASTS: Deferred. HEART: The heart sounds are normal. No S3 or S4. No significant murmurs. No pericardial rub ABDOMEN: No vessel pulsations or distention. No tenderness. No organomegaly appreciated. Bowel sounds are normally heard. : Deferred. RECTAL: Deferred. LYMPHATIC: No lymphadenopathy noted in the neck. EXTREMITIES: No edema or cyanosis. No clubbing. MUSCULOSKELETAL: No acute joint deformities or swelling SKIN: There are no significant rashes or ecchymosis NEUROPSYCHIATRIC: Upper motor neuron type of weakness of the left side. Urinary Catheter Management: Myers: Cath Placed During This Visit: yes Reason for Continuing Indwelling Catheter: Accurate Measurement of Urinary Output in Critically Ill Patients Urinary Catheter Date of Insertion: 04/07/22 Urinary Catheter Time of Insertion: 13:06 Data : 04/10/22 02:54 04/10/22 02:54 Other Labs: Laboratory Last Values WBC 18.5 10^3/uL (4.0-10.0) H 04/10/22 02:54 RBC 2.80 10^6/uL (4.1-5.3) L 04/10/22 02:54 Hgb 7.8 g/dL (11.7-16.6) L 04/10/22 02:54 Hct 25.9 % (42.0-52.0) L 04/10/22 02:54 MCV 92.5 fl (80-94) 04/10/22 02:54 MCH 27.9 pg (28.0-34.0) L 04/10/22 02:54 MCHC 30.1 g/dL (30.0-36.0) 04/10/22 02:54 RDW 15.0 % (12.1-15.1) 04/10/22 02:54 Plt Count 307 10^3/cmm (130-400) 04/10/22 02:54 MPV 11.0 fL (7.4-10.4) H 04/10/22 02:54 Neut % (Auto) 95.0 % 04/10/22 02:54 Lymph % (Auto) 1.6 % 04/10/22 02:54 Randolph % (Auto) 2.3 % 04/10/22 02:54 Eos % (Auto) 0.0 % 04/10/22 02:54 Baso % (Auto) 0.1 % 04/10/22 02:54 Neut # (Auto) 17.56 10^3/uL (1.8-7.7) H 04/10/22 02:54 Lymph # (Auto) 0.3 10^3/uL (0.8-4.8) L 04/10/22 02:54 Randolph # (Auto) 0.4 10^3/uL (0.2-0.9) 04/10/22 02:54 Eos # (Auto) 0.0 10^3/uL (0.0-0.8) 04/10/22 02:54 Baso # (Auto) 0.0 10^3/uL (0.0-0.1) 04/10/22 02:54 Nucleated RBC % (auto) 0 % 04/10/22 02:54 Nucleated RBCs # 0.0 /100WBC 04/10/22 02:54 APTT 29.1 SECONDS (23.9-36.7) 04/09/22 13:26 PTT Patient/Normal 1:1 Cancelled 04/07/22 14:55 D-Dimer 2.06 ug/mIFEU (0-0.59) H 04/07/22 06:35 Specimen Type Arterial 04/07/22 09:30 Sample Site Radial, left 04/07/22 09:30 ABG pH 7.50 (7.35-7.45) H 04/07/22 09:30 ABG pCO2 19.8 mmHg (35-45) L* 04/07/22 09:30 ABG pO2 163.0 mmHg (80.0-100.0) H 04/07/22 09:30 ABG HCO3 14.5 mmol/L (22-26) L 04/07/22 09:30 ABG O2 Saturation 99.9 04/07/22 09:30 ABG Base Excess -7.0 mmol/L (-2.0-2.0) L 04/07/22 09:30 Harry Test Pos 04/07/22 09:30 A-a O2 Gradient 30.9 mmHg (5-10) H 04/07/22 09:30 Hematocrit 30.7 % (42-52) L 04/07/22 09:30 Hgb O2 Saturation 98.4 % (95-100) 04/07/22 09:30 Carboxyhemoglobin 0.8 %THgb (0.4-20.1) 04/07/22 09:30 Methemoglobin 0.7 % (0.4-1.5) 04/07/22 09:30 Total Hemoglobin 10.0 g/dL (14-18) L 04/07/22 09:30 Sodium 137.0 mmol/L (131-143) 04/07/22 09:30 Potassium 4.1 mmol/L (3.5-5.0) 04/07/22 09:30 Glucose 219.0 mg/dL (70-115) H 04/07/22 09:30 Ionized Calcium 1.1 mmol/L (1.1-1.4) 04/07/22 09:30 O2 Delivery Device Hag 04/07/22 09:30 O2 Liters/Min 40.0 % 04/07/22 09:30 FiO2 60.0 % 04/07/22 09:30 Finished Goods Planner ID Cak 04/07/22 09:30 Sodium 135 mmol/L (136-145) L 04/10/22 02:54 Potassium 3.3 mmol/L (3.5-5.1) L 04/10/22 02:54 Chloride 100 mmol/L (98-107) 04/10/22 02:54 Carbon Dioxide 18 mmol/L (22-29) L 04/10/22 02:54 Anion Gap 20.3 (5-19) H 04/10/22 02:54 BUN 98 mg/dL (8-23) H* 04/10/22 02:54 Creatinine 3.0 mg/dL (0.7-1.2) H 04/10/22 02:54 GFR Calculation Not Reportable 04/10/22 02:54 Glucose 236 mg/dL (65-115) H 04/10/22 02:54 POC Glucose 191 mg/dL (70-110) H 04/10/22 16:53 Calculated Osmolality 318 mOsm/kg (285-295) H 04/10/22 02:54 Lactic Acid 4.6 mmol/L (0.5-2.2) H* 04/07/22 06:35 Lactic Acid (Sepsis) 5.8 mmol/L (0.5-2.2) H* 04/07/22 09:20 Lactate 1.5 mmol/L (0.5-2.2) 04/09/22 10:37 Calcium 8.7 mg/dL (8.5-10.5) 04/10/22 02:54 Magnesium 2.4 mg/dL (1.7-2.3) H 04/08/22 02:21 Total Bilirubin 0.4 mg/dL (0.15-1.2) 04/10/22 02:54 AST 98 U/L (0-40) H 04/10/22 02:54 ALT 111 U/L (0-41) H 04/10/22 02:54 Alkaline Phosphatase 140 U/L (40-130) H 04/10/22 02:54 Creatine Kinase 191 U/L (39-308) 04/07/22 13:16 Troponin T Baseline 790 ng/L (0-15) H* 04/07/22 06:35 Troponin T 120 Minute 732.9 ng/L (0-15) H 04/07/22 09:20 Delta Troponin T -57.1 ABS# (0-10) L 04/07/22 09:20 Troponin T Hi Sens 6Hr 640.8 ng/L (0-15) H 04/07/22 13:15 Troponin T Hi Sens 6Hr Delta -149.2 ng/L (0-12) L 04/07/22 13:15 NT-Pro-B Natriuret Pep 46187 pg/mL (0-125) H 04/07/22 06:35 Total Protein 5.9 g/dL (6.6-8.7) L 04/10/22 02:54 Albumin 2.6 g/dL (3.5-5.2) L 04/10/22 02:54 Globulin 3.3 g/dL (1.3-4.6) 04/10/22 02:54 Procalcitonin 0.35 ng/mL (0-0.5) 04/07/22 06:30 Urine Color Yellow (Yellow) 04/07/22 13:06 Urine Appearance Clear (CLEAR) 04/07/22 13:06 Urine pH 5 (5-7) 04/07/22 13:06 Ur Specific [place] 1.020 (1.005-1.030) 04/07/22 13:06 Urine Protein 3+ (Negative) H 04/07/22 13:06 Urine Glucose (UA) Trace (Normal) H 04/07/22 13:06 Urine Ketones 1+ (Negative) H 04/07/22 13:06 Urine Blood 2+ (Negative) H 04/07/22 13:06 Urine Nitrate Negative (Negative) 04/07/22 13:06 Urine Bilirubin Neg (Negative) 04/07/22 13:06 Urine Urobilinogen Neg mg/dL (Negative) 04/07/22 13:06 Ur Leukocyte Esterase Negative (Negative) 04/07/22 13:06 Urine RBC 0-4 /hpf (0-2) H 04/07/22 13:06 Urine WBC None /hpf (0-5) 04/07/22 13:06 Ur Squamous Epith Cells 0-4 /hpf (0-5) H 04/07/22 13:06 Amorphous Sediment 1+ /hpf 04/07/22 13:06 Urine Bacteria 1+ /hpf (NONE) H 04/07/22 13:06 Vancomycin Trough 14.2 ug/mL (10-15) 04/10/22 09:45 Random Vancomycin 14.2 ug/mL (20.0-40.0) L 04/10/22 02:54 Coronavirus 229E (PCR) Not detected (NOT DETECT) 04/07/22 09:47 SARS-CoV-2 (PCR) Not detected (NOT DETECT) 04/07/22 09:47 A&P Assessment and plan (1) ARDS (adult respiratory distress syndrome): The patient's respiratory status seems to be improving. Oxygenation has significantly improved. (2) Acute systolic heart failure: The etiology is not clear. Patient has diffuse hypokinesia of the left ventricle. Possibility of him having underlying three-vessel coronary artery disease is a consideration. I may taper off the IV Dobutrex at this time. In view of his acute renal failure and multiple other comorbidities, he would not be an ideal candidate for any invasive or interventional procedures. However I will be discussing this with his , to make a final decision. (3) Non-ST elevation myocardial infarction (NSTEMI) in recovery phase: May continue on the Plavix and baby aspirin. He is off to therapeutic dose of heparin. (4) Acute kidney injury superimposed on chronic kidney disease: Still seems to be making adequate urine. The high BUN, could be related to prednisone. Cannot exclude GI bleed. Based on his clinical progress, further recommendations will be made. Plan The other problems are Anemia possible pneumonia Leukocytosis Recent MRSA infection/abscess drainage COPD exacerbation History of hypertension, currently normotensive Type 2 diabetes Hypokalemia Patient apparently did not want to be intubated. He has a DNI DNR status. We will try to optimize medical treatment. Supplement potassium Need to rule out GI bleed Based on the clinical progress, further recommendations will be made Attestations Medical Necessity Statement*: Patient requires continued hospital stay for close monitoring and further management Coding Level of Care Code Acute Industrial Design Intern for Chg Fwd History Expanded Problem Focused Exam Expanded Problem Focused Medical Decision Making Moderate Complexity Diagnoses ARDS (adult respiratory distress syndrome) J80 Acute systolic heart failure I50.21 Non-ST elevation myocardial infarction (NSTEMI) in recovery phase I21.4 Acute kidney injury superimposed on chronic kidney disease N17.9; N18.9
[2022-04-10 18:12] LABS: Basophils % 0.1 %; Eosinophils % 0.1 %; Hematocrit 23.4 % (42.0-52.0); Lymphocytes # 0.3 10^3/uL (0.8-4.8); Lymphocytes % 1.7 %; Mean Corpuscular HGB Conc 29.9 g/dL (30.0-36.0); Mean Corpuscular Hemoglobin 27.6 pg (28.0-34.0); Mean Corpuscular Volume 92.1 fl (80-94); Monocytes # 0.4 10^3/uL (0.2-0.9); Monocytes % 2.6 %; Neutrophils % 94.5 %; Nucleated Red Blood Cells % 0 %; Platelet Count 276 10^3/cmm (130-400); Red Blood Count 2.54 10^6/uL (4.1-5.3); Red Cell Distribution Width 15.3 % (12.1-15.1); White Blood Count 15.6 10^3/uL (4.0-10.0)
[2022-04-10] MEDS: atorvastatin 40 mg Tablet 20 MG PO (21:17)
[2022-04-10 22:00] LABS: Glucose Point of Care 187 mg/dL (70-110)
[2022-04-11] VITALS (41 sets, daily range): BP systolic 133–175; BP diastolic 81–108; PULSE 80–96; RESP 11–30; TEMP 35.8–36.3; O2SAT 84–99
[2022-04-11] MEDS: acetaminophen 325 mg Tablet 650 MG PO ×2 (01:52→17:44)
[2022-04-11] MEDS: CLONazepam 0.5 mg Tablet 0.25 MG PO (01:53)
[2022-04-11] MEDS: ipratropium-albuterol 3 mL Neb INHALATION ×5 (03:26→20:24)
[2022-04-11 04:35] LABS: Alanine Aminotransferase 125 U/L (0-41); Alkaline Phosphatase 162 U/L (40-130); Anion Gap 19.7 (5-19); Aspartate Amino Transferase 114 U/L (0-40); Calcium 9.6 mg/dL (8.5-10.5); Carbon Dioxide 21 mmol/L (22-29); Chloride 108 mmol/L (98-107); Globulin 3.8 g/dL (1.3-4.6); Glucose 118 mg/dL (65-115); Magnesium 2.9 mg/dL (1.7-2.3); Osmolality Calculated 329 mOsm/kg (285-295); Potassium 4.7 mmol/L (3.5-5.1); Sodium 144 mmol/L (136-145); Total Bilirubin 0.4 mg/dL (0.15-1.2); Total Protein 6.8 g/dL (6.6-8.7)
[2022-04-11 05:08] LABS: Blood Urea Nitrogen 96 mg/dL (8-23)
[2022-04-11] MEDS: piperacillin-tazobactam 3.375 GM in sodium chloride 0.9% (plus) 50 ML IV (05:46)
[2022-04-11 05:48] LABS: Vancomycin Random 23.6 ug/mL (20.0-40.0)
[2022-04-11] MEDS: ferrous gluconate 324 mg Tablet PO ×2 (07:28→17:44)
[2022-04-11] MEDS: sucralfate 1 gm/10 mL Oral Liq UDC PO ×3 (07:28→20:33)
[2022-04-11] MEDS: budesonide 0.5 mg/2 mL Neb INHALATION ×2 (07:43→20:24)
[2022-04-11] MEDS: clopidogrel 75 mg Tablet PO (09:14)
[2022-04-11] MEDS: pantoprazole 40 mg SDV IVP ×2 (09:14→20:32)
[2022-04-11] MEDS: metoprolol tartrate 25 mg Tablet PO ×2 (09:14→20:33)
[2022-04-11] MEDS: aspirin 81 mg EC Tablet PO (09:14)
[2022-04-11] MEDS: FUROsemide 10 mg/mL SDV 10mL 60 MG IVP (09:25)
[2022-04-11] MEDS: morphine 4 mg/mL SDV 1 mL 1 MG IVP ×4 (09:25→23:31)
--- NOTE | 2022-04-11 09:28 | XR_ITS ---
WS: [id number] Exam: XR chest 1V portable [id number] Date/Time of Exam: 04/11/2022 9:43 AM Reason For Exam: dyspnea/high 02 requirements Comparison 04/07/2022. Extensive bilateral pulmonary infiltrates show little change since the previous study. No pneumothora x. Stable small bibasal pleural effusions. The heart is enlarged. The mediastinum is normal in contou r. Monitoring leads superimpose the chest. XR/XR chest 1V portable [id number] IMPRESSION: 1. Extensive bilateral pulmonary infiltrates and small bibasal pleural effusion s demonstrating no significant change.
--- NOTE | 2022-04-11 11:36 | PM.PN ---
Subjective Subjective: Seen this morning. Patient is on BiPAP. He is experiencing slightly more short of breath than usual. 5 L nasal cannula at this time is not using accessory muscles however. Hemoglobin 7.0. Will order for 1 unit of blood with additional Lasix. Repeat chest x-ray today pending. Patient has not had a bowel movement in the last 4 days since admission. Vitals/I&O/Wt Last Vital Signs Temp 96.7 F L 04/11/22 07:33 Pulse 86 04/11/22 07:57 Resp 19 H 04/11/22 09:25 BP 161/87 04/11/22 07:33 Pulse Ox 92 04/11/22 09:25 O2 Del Method 04/11/22 07:47 O2 Flow Rate 4 04/11/22 07:47 FiO2 40 04/11/22 07:57 04/10/22 04/11/22 04/11/22 22:59 06:59 14:59 Intake Total 210 / 942.794 170 / 1112.794 105.371 / 105.371 Output Total 450 / 850 150 / 1000 Balance -240 / 92.794 20 / 112.794 105.371 / 105.371 Weight last 48 hrs Weight 61.054 kg Weight 61.83 kg Physical Exam Narrative: General exam is a white male, comfortable, pleasant on 5L nasal cannula, chronically ill-appearing, bitemporal wasting HEENT: Pupils equally round. Oropharynx clear. Cardiovascular regular rate and rhythm, distant heart sounds. No obvious murmur. Lungs bilateral expiratory wheezes. Few crackles at bases. Breath sounds symmetric. No acute distress, no accessory muscle use. Abdomen is soft nontender positive bowel sounds. No obvious organomegaly Back demonstrates small decub right scapular area approximately 1.5 cm, stage II without signs of infection. Surgical scar noted exam now demonstrates Myers as he is allowed placement. Extremities no cyanosis clubbing or edema, cap refill brisk Skin see findings above Neuro no obvious focal deficits. Urinary Catheter Management: Myers: Cath Placed During This Visit: yes Reason for Continuing Indwelling Catheter: Accurate Measurement of Urinary Output in Critically Ill Patients Urinary Catheter Date of Insertion: 04/07/22 Urinary Catheter Time of Insertion: 13:06 Data : 04/10/22 17:55 04/11/22 03:46 A&P Assessment and plan (1) ARDS (adult respiratory distress syndrome): (2) Pneumonia: (3) Acute kidney injury superimposed on chronic kidney disease: (4) COPD (chronic obstructive pulmonary disease): (5) Acute systolic heart failure: (6) Physical deconditioning: (7) Protein-energy malnutrition: (8) Uremia: Plan #Aspiration pneumonia, ARDS, multilobar pneumonia? #High aspiration risk #Acute systolic congestive heart failure, new onset #Anemia #CARMENZA on CKD, baseline 1.2?1.6 #NSTEMI, most likely type II PA #Hypertension #COPD #Positive blood culture with MRSA November 2021, 1 bottle out of 4 gram-positive for gram-positive cocci in clusters #Constipation #Leukocytosis #Elevated liver enzymes -1 bottle of 4 positive for GPC in clusters. ? Check MRSA nares. Patient is on Vanco and Zosyn since admission, will continue for now ? Chest at admission showed no evidence for PE, small to moderate right greater than left pleural effusions., Patchy confluent airspace infiltrates in both perihilar regions extending into upper and lower lobes compatible with pneumonia, pattern suspicious for viral pneumonia. Correlation for COVID-pneumonia. -Venous Dopplers negative for DVT ? Renal ultrasound on 04/06 2022 showed normal-sized echogenic kidneys, moderate to chronic medical renal disease ? Modified barium swallow done on 04/10/2022 shows positive for aspiration of nectar consistency and thin liquid barium.. ? Chest x-ray today shows bilateral pulmonary infiltrates and small bibasilar pleural effusions demonstrating no significant change. ? Echocardiogram shows LVEF 32%, mildly dilated left ventricle, diffuse hypokinesia of left ventricle, mild concentric left ventricular hypertrophy. Grade 3 x 4 diastolic dysfunction, severely elevated filling pressures. Estimated pulmonary artery peak systolic pressure of 45.04/07/2022 -WBC count today 15,000. Hemoglobin 7.0. BUN 96, creatinine 3.5. ? Patient has had 48 hours of dobutamine drip at 5/h. ? Urine output 450 cc overnight. Overall patient is 1.7 L positive since admission. ? Liver enzymes elevation worsening. AST 114, ALT 125. - COVID-negative PCR 04/07/2022 Plan for today ? Continue aspirin, Lipitor, Plavix, metoprolol tartrate 25 twice daily ?Continue DuoNeb, Pulmicort twice daily ? Continue Protonix 40 IV twice daily ? We will consult nephrology for worsening kidney injury and uremia ? We will start patient on a bowel regimen. Lactulose 20 g x 1 now. MiraLAX 17 g daily. We will add docusate senna 1 twice daily. ? Check FOBT ? Transfuse 1 unit packed RBC. Type and cross. Check hemoglobin 2 hours posttransfusion. Lasix 20 IV x1 to be given along with transfusion to prevent TACO ? We will continue sucralfate and Protonix for now. ? Patient is at high aspiration risk. Dysphagia level 4 diet, thick pur?e food recommended. There is stabilized risk of aspiration as per speech therapist. I discussed this with the yesterday. Patient is not interested in any type of feeding tube if needed later on down the road. -Cardiology suspecting underlying three-vessel disease due to patient's echo results. Patient not a candidate for invasive intervention at this time due to kidney function. Dobutamine drip was stopped 04/10/2022 after discussion with cardiology. We will continue per their recommendations. Cardiology to have family meeting with patient. -We will discuss patient's x-ray with pulmonology further input. ?Avoid nephrotoxic's ? Check respiratory viral panel ? Repeat blood cultures today ?Vanc level 23 today. Analgesia: Tylenol as needed, morphine 1 mg every 4 hours as needed Glycemic control: Not needed. Hypoglycemia protocol Nutrition: Puree diet dysphagia level 4 CODE STATUS: DNR/DNI. PUD prophylaxis: Protonix for PUD prophylaxis DVT prophylaxis: Heparin subc Physical therapy evaluation, Discharge planning: SNF versus home health once medically stable will get physical therapy evaluation. Continue with care at ICU level This documentation was created by [employer] wrapper operator software. Every effort was made to ensure accuracy of wrapper operator. Any obvious errors or omissions should be clarified with the author of the document. Will update family at bedside today. Attestations Medical Necessity Statement*: Continue to manage in the ICU. Patient is critically ill. Critical Care Time: The high probability of a clinically significant, sudden or life threatening deterioration of the patient's [] system(s) required my full and direct attention, intervention and personal management. The critical care time is as shown. This time is in addition to time spent performing any reported procedures but includes the following: [x] Data and vital sign review and interpretation [x] Patient assessment, examination and intervention [x] Documentation [x] Medication orders and management Critical Care Time (min): 60 Coding Level of Care Code Acute Dry Curer for Chg Fwd Diagnoses ARDS (adult respiratory distress syndrome) J80 Pneumonia J18.9 Acute kidney injury superimposed on chronic kidney disease N17.9; N18.9 COPD (chronic obstructive pulmonary disease) J44.9 Acute systolic heart failure I50.21 Physical deconditioning R53.81 Protein-energy malnutrition E46 Uremia N19
--- NOTE | 2022-04-11 12:00 | P.CONIM_ITS ---
Providers/Reason For Consult Consulting Physician/Specialty*: Krista Gomez DO, telenephrology Reason for Consult*: Acute kidney injury Requesting Physician: Familia Jerome MD Attending Physician: Khadijah Jerome MD Primary Care Provider: Ezra Cooley MD History of Present Illness History of Present Illness Rico Ozuna is a 76 year old male being treated for pneumonia/ARDS/COPD. Also ischemic cardiomyopathy, EF 32%. Had CTA 04/07/22 Review of Systems Narrative: on BiPAP, awake, states he does not want to be intubated Medications/Allergies Home Medications Medication Instructions Recorded Confirmed Last Taken Type atorvastatin 20 mg tablet 20 mg PO .THREE TIMES A WEEK 04/07/22 04/07/22 04/03/22 History clonazepam 0.5 mg tablet 0.5 mg PO TID PRN anxiety 04/07/22 04/07/22 Unknown History protein supplement 1 ea PO BID PRN unknown 04/07/22 04/07/22 Unknown History Allergies Allergy/AdvReac Type Severity Reaction Status Date / Time No Known Allergies Allergy Verified 04/07/22 07:23 Current Medications Generic Name Dose Route Start Last Admin Trade Name Freq PRN Reason Stop Dose Admin Acetaminophen 650 mg 04/07/22 13:26 04/11/22 01:52 Acetaminophen 325 Mg Tablet PO 650 mg Q6H PRN Administration MILD PAIN Albuterol/Ipratropium 3 ml 04/07/22 16:00 04/11/22 07:43 Ipratropium-Albuterol 3 Ml Neb INHALATION 3 ml Q4H PEPE Administration Aspirin 81 mg 04/08/22 09:00 04/11/22 09:14 Aspirin 81 Mg Ec Tablet PO 81 mg DAILY PEPE Administration Atorvastatin Calcium 20 mg 04/08/22 21:00 04/10/22 21:17 Atorvastatin 40 Mg Tablet PO 20 mg BEDTIME PEPE Administration Budesonide 0.5 mg 04/07/22 20:00 04/11/22 07:43 Budesonide 0.5 Mg/2 Ml Neb INHALATION 0.5 mg BID.RESPIRATORY PEPE Administration Clonazepam 0.25 mg 04/08/22 20:31 04/11/22 01:53 Clonazepam 0.5 Mg Tablet PO 0.25 mg BID PRN Administration ANXIETY Clopidogrel Bisulfate 75 mg 04/09/22 09:00 04/11/22 09:14 Clopidogrel 75 Mg Tablet PO 75 mg DAILY PEPE Administration Ferrous Gluconate 324 mg 04/08/22 18:00 04/11/22 07:28 Ferrous Gluconate 324 Mg Tablet PO 324 mg BIDWM PEPE Administration Furosemide 60 mg 04/07/22 22:00 04/11/22 09:25 Furosemide 10 Mg/Ml Sdv 10ml IVP 60 mg Q12H PEPE Administration Heparin Sodium (Porcine) 5,000 unit 04/09/22 11:00 04/10/22 22:48 Heparin 5,000 Unit/Ml Inj 1 Ml SUBCUT 5,000 unit Q12H PEPE Administration Hydralazine HCl 10 mg 04/07/22 15:49 04/07/22 16:51 Hydralazine 20 Mg/Ml Inj 1 Ml IVP 10 mg Q4H PRN Administration SYSTOLIC BLOOD PRESSURE Vancomycin HCl 1,000 mg/ 250 mls @ 250 mls/hr 04/08/22 23:00 04/10/22 12:50 Sodium Chloride IV Infused Q36H PEPE Infusion Protocol Dobutamine HCl 250 mg/ 125 mls @ 9.555 mls/hr 04/09/22 08:30 04/11/22 07:21 Dextrose IV Infused .Q13H5M PEPE Infusion 5 MCG/KG/MIN Piperacillin Sod/Tazobactam 50 mls @ 12.5 mls/hr 04/10/22 18:00 04/11/22 10:25 Sod 3.375 gm/ Sodium Chloride IV Infused Q12H PEPE Infusion Protocol Insulin Human Lispro 0 unit 04/07/22 18:00 04/11/22 07:20 Insulin Lispro 100 Unit/1 Ml SUBCUT Not Given WM&BEDTIME PEPE Protocol Methylprednisolone Sodium Succinate 30 mg 04/09/22 20:00 04/11/22 07:28 Methylprednisolone Sod Succ 125 Mg/2 Ml Inj IVP 30 mg Q12H PEPE Administration Metoprolol Tartrate 25 mg 04/09/22 11:28 04/11/22 09:14 Metoprolol Tartrate 25 Mg Tablet PO 25 mg BID@0900,2100 PEPE Administration Morphine Sulfate 1 mg 04/09/22 12:00 04/11/22 09:25 Morphine 4 Mg/Ml Sdv 1 Ml IVP 1 mg Q4H PRN Administration PAIN Pantoprazole Sodium 40 mg 04/09/22 21:00 04/11/22 09:14 Pantoprazole 40 Mg Sdv IVP 40 mg Q12H PEPE Administration Sucralfate 1 gm 04/09/22 11:00 04/11/22 07:28 Sucralfate 1 Gm/10 Ml Oral Liq Udc PO 1 gm AC&BEDTIME PEPE Administration PFSH Acute PFSH: Medical History Abscess CARMENZA (acute kidney injury) Anemia Carbuncle of back except buttock Cellulitis CKD (chronic kidney disease) stage 3, GFR 30-59 ml/min COPD (chronic obstructive pulmonary disease) CVA (cerebral vascular accident) CVA, old, hemiparesis Depressed Diabetes HTN (hypertension) Malnourished MRSA bacteremia Open wound of lower back Pulmonary nodule Surgical History History of testicular surgery Social History Smoking and tobacco status: former smoker Alcohol intake: never Household members: spouse Housing: House Vitals/I&O/Wt Last Vital Signs Temp 96.7 F L 04/11/22 07:33 Pulse 86 04/11/22 07:57 Resp 19 H 04/11/22 09:25 BP 161/87 04/11/22 07:33 Pulse Ox 92 04/11/22 09:25 O2 Del Method 04/11/22 07:47 O2 Flow Rate 4 04/11/22 07:47 FiO2 40 04/11/22 07:57 04/10/22 04/11/22 04/11/22 22:59 06:59 14:59 Intake Total 210 / 942.794 170 / 1112.794 105.371 / 105.371 Output Total 450 / 850 150 / 1000 Balance -240 / 92.794 20 / 112.794 105.371 / 105.371 Weight last 48 hrs Weight 61.054 kg Weight 61.83 kg Physical Exam Const: GENERAL APPEARANCE: in distress Resp: OTHER: wheezing Extremity: NARRATIVE EXTREMITY EXAM: minimal edema Urinary Catheter Management: Myers: Cath Placed During This Visit: yes Reason for Continuing Indwelling Catheter: Accurate Measurement of Urinary Output in Critically Ill Patients Urinary Catheter Date of Insertion: 04/07/22 Urinary Catheter Time of Insertion: 13:06 Data : 04/11/22 11:57 04/11/22 11:57 Other Labs: urinalysis 3+ protein, 2+ blood baseline serum Cr 1.1 - 1.3 mg/dL vanco 23.6 US: Radiologist's impression: 04/07/22 Right kidney: 8.4 cm x 3.4 cm x 3.8 cm. Low normal size kidney with increased echogenicity as compared to the liver. No hydronephrosis or mass. Left kidney: 8.6 cm x 4.9 cm x 4.5 cm. Small echogenic kidney. No hydronephrosis or mass. A&P Assessment and plan (1) Acute kidney injury: Plan seen via telemedicine with assistance of RN at bedside 1. Acute nonoliguric kidney injury, on intermittent IV furosemide 2. CHF, ARDS 3. Hypertension 4. Metabolic acidosis Recommend: increase IV lasix. Consult Attestations Medical Necessity Statement: critically ill in ICU Time Spent in Patient Care: 16 - 35 minutes Coding Level of Care Code Acute Gang Plank Workman for Juice Duran Diagnoses Acute kidney injury N17.9
[2022-04-11 12:10] LABS: Basophils % 0.1 %; Hematocrit 30.1 % (42.0-52.0); Hemoglobin 9.3 g/dL (11.7-16.6); Lymphocytes # 0.4 10^3/uL (0.8-4.8); Lymphocytes % 1.8 %; Mean Corpuscular HGB Conc 30.9 g/dL (30.0-36.0); Mean Corpuscular Hemoglobin 27.7 pg (28.0-34.0); Mean Corpuscular Volume 89.6 fl (80-94); Monocytes # 0.5 10^3/uL (0.2-0.9); Monocytes % 2.4 %; Neutrophils # 21.32 10^3/uL (1.8-7.7); Neutrophils % 94.8 %; Nucleated Red Blood Cells % 0 %; Platelet Count 444 10^3/cmm (130-400); Red Blood Count 3.36 10^6/uL (4.1-5.3); Red Cell Distribution Width 15.4 % (12.1-15.1); White Blood Count 22.5 10^3/uL (4.0-10.0)
[2022-04-11 12:33] LABS: Alanine Aminotransferase 123 U/L (0-41); Albumin Level 2.6 g/dL (3.5-5.2); Alkaline Phosphatase 181 U/L (40-130); Anion Gap 22.7 (5-19); Aspartate Amino Transferase 120 U/L (0-40); Calcium 9.4 mg/dL (8.5-10.5); Carbon Dioxide 16 mmol/L (22-29); Chloride 108 mmol/L (98-107); Globulin 3.8 g/dL (1.3-4.6); Glucose 170 mg/dL (65-115); Magnesium 2.9 mg/dL (1.7-2.3); Osmolality Calculated 332 mOsm/kg (285-295); Potassium 4.7 mmol/L (3.5-5.1); Sodium 142 mmol/L (136-145); Total Bilirubin 0.4 mg/dL (0.15-1.2); Total Protein 6.4 g/dL (6.6-8.7)
[2022-04-11 12:35] LABS: Glucose Point of Care 147 mg/dL (70-110)
[2022-04-11 12:36] LABS: Blood Urea Nitrogen 108 mg/dL (8-23)
[2022-04-11] MEDS: heparin 5,000 unit/mL INJ 1 mL 5000 UNIT SUBCUT ×2 (12:39→22:05)
[2022-04-11] MEDS: polyethylene glycol 3350 Pkt 17 gm PO (12:40)
[2022-04-11 13:38] LABS: ABG PCO2 27.4 mmHg (35-45); ABG PH Result 7.38 (7.35-7.45); Alveolar-Arterial Oxygen Gradi 33.8 mmHg (5-10); Arterial Blood Gas Hematocrit 28.3 % (42-52); Base Excess ABG -7.7 mmol/L (-2.0-2.0); Blood Gas Allen Test Pos; Blood Gas Operator Identificat CAK; Blood Gas Sample Site Radial, left; Blood Gas Sample Type Arterial; Carboxyhemoglobin 1.3 %THgb (0.4-20.1); HCO3 ABG 16.3 mmol/L (22-26); HGB O2 Sat 88.2 % (95-100); Ionized Calcium Level - ABG 1.3 mmol/L (1.1-1.4); Methemoglobin 0.7 % (0.4-1.5); Oxygen Device HAG; PO2 ABG 62.5 mmHg (80.0-100.0); Potassium Level - ABG 4.5 mmol/L (3.5-5.0); Total Hemoglobin 9.2 g/dL (14-18)
--- NOTE | 2022-04-11 16:22 | PM.CONSULT ---
Providers/Reason For Consult Consulting Physician/Specialty*: Juliocesar Morfin MD / Pulmonary Critical care Reason for Consult*: Acute hypoxic respiratory distress patient with increasing oxygen requirements and patient with underlying CHF and worsening renal functions Requesting Physician: Khadijah Jerome MD Attending Physician: Khadijah Jerome MD Primary Care Provider: Ezra Cooley MD History of Present Illness History of Present Illness Rico Ozuna is a 76 year old male with past medical history of COPD, CKD, CVA, diabetes, hypertension admitted through emergency room for chief complaints of shortness of breath, 1 day duration on 04/07/2022. Patient had a recent hospitalization in November 2021 where there was an abscess on his back-drained by general surgery-blood cultures and abscess cultures grew MRSA, he received with 2 weeks of IV antibiotics. Patient is on home oxygen for his COPD. Family also thought patient had right-sided facial weakness. X-ray in the emergency room patient chest x-ray and CT-revealed bilateral lung infiltrates/interstitial edema. CTA on admission did not show PE but showed patchy confluent airspace infiltrates in both perihilar regions extending into upper and lower lobes reported as compatible with pneumonia. However there were bilateral small pleural effusions and BNP 79,000 and admission echocardiogram showed severe diffuse hypokinesia of left ventricle with LV ejection fraction 32% and grade 3 diastolic dysfunction-compared to echo in 2015 there is a significant drop in LV ejection fraction from 65% to 32%. Also review of CTA central airspace infiltrates consistent more with flash pulmonary edema. Patient was seem to be responding to IV diuretics. EKG did not show any ST elevation-started on IV heparin drip and later changed to prophylactic dose. He also received dobutamine gtt. for cardiogenic shock which was discontinued. Cardiology were consulted for new onset systolic heart failure-we will follow recommendations. Patient was started on vancomycin, Zosyn for suspected pneumonia given history of MRSA bacteremia in November 2021 and the pulmonary infiltrates on imaging; his admission procalcitonin was low; 1/4 blood cultures were growing gram-positive cocci in clusters-identification pending and so repeat cultures were sent today. He was requiring 7 L oxygen around the time of admission-which has gradually improved to 3 L-at that point he refused intubation and resuscitation so he was made DNR/DNI after goals of care discussion with family. Yesterday patient had a barium swallow which showed that patient experienced aspiration when ingesting nectar consistencies and thin liquid barium foods he tolerated pudding consistency barium foods without complication. Today his oxygen requirements went up and currently he is requiring heated high flow 50 L and 60%. Chest x-ray showed worsening infiltrates. Pulmonary critical care consulted for worsening respiratory status. Patient seen at bedside today-noted to be in moderate respiratory distress and being placed on heated high flow 50 L 60% -Other labs and imaging reviewed Review of Systems General: Reports: 10 or more systems reviewed and unremarkable except in HPI and below Medications/Allergies Home Medications Medication Instructions Recorded Confirmed Last Taken Type atorvastatin 20 mg tablet 20 mg PO .THREE TIMES A WEEK 04/07/22 04/07/22 04/03/22 History clonazepam 0.5 mg tablet 0.5 mg PO TID PRN anxiety 04/07/22 04/07/22 Unknown History protein supplement 1 ea PO BID PRN unknown 04/07/22 04/07/22 Unknown History Allergies Allergy/AdvReac Type Severity Reaction Status Date / Time No Known Allergies Allergy Verified 04/07/22 07:23 Current Medications Generic Name Dose Route Start Last Admin Trade Name Freq PRN Reason Stop Dose Admin Acetaminophen 650 mg 04/07/22 13:26 04/11/22 01:52 Acetaminophen 325 Mg Tablet PO 650 mg Q6H PRN Administration MILD PAIN Albuterol/Ipratropium 3 ml 04/07/22 16:00 04/11/22 15:07 Ipratropium-Albuterol 3 Ml Neb INHALATION 3 ml Q4H PEPE Administration Aspirin 81 mg 04/08/22 09:00 04/11/22 09:14 Aspirin 81 Mg Ec Tablet PO 81 mg DAILY PEPE Administration Atorvastatin Calcium 20 mg 04/08/22 21:00 04/10/22 21:17 Atorvastatin 40 Mg Tablet PO 20 mg BEDTIME PEPE Administration Budesonide 0.5 mg 04/07/22 20:00 04/11/22 07:43 Budesonide 0.5 Mg/2 Ml Neb INHALATION 0.5 mg BID.RESPIRATORY PEPE Administration Clopidogrel Bisulfate 75 mg 04/09/22 09:00 04/11/22 09:14 Clopidogrel 75 Mg Tablet PO 75 mg DAILY PEPE Administration Ferrous Gluconate 324 mg 04/08/22 18:00 04/11/22 07:28 Ferrous Gluconate 324 Mg Tablet PO 324 mg BIDWM PEPE Administration Heparin Sodium (Porcine) 5,000 unit 04/09/22 11:00 04/11/22 12:39 Heparin 5,000 Unit/Ml Inj 1 Ml SUBCUT 5,000 unit Q12H PEPE Administration Hydralazine HCl 10 mg 04/07/22 15:49 04/07/22 16:51 Hydralazine 20 Mg/Ml Inj 1 Ml IVP 10 mg Q4H PRN Administration SYSTOLIC BLOOD PRESSURE Vancomycin HCl 1,000 mg/ 250 mls @ 250 mls/hr 04/08/22 23:00 04/10/22 12:50 Sodium Chloride IV Infused Q36H PEPE Infusion Protocol Imipenem/Cilastatin Sodium 250 100 mls @ 200 mls/hr 04/11/22 13:00 04/11/22 15:44 mg/ Sodium Chloride IV Infused Q12H PEPE Infusion Protocol Insulin Human Lispro 0 unit 04/07/22 18:00 04/11/22 12:34 Insulin Lispro 100 Unit/1 Ml SUBCUT Not Given WM&BEDTIME PEPE Protocol Methylprednisolone Sodium Succinate 30 mg 04/09/22 20:00 04/11/22 07:28 Methylprednisolone Sod Succ 125 Mg/2 Ml Inj IVP 30 mg Q12H PEPE Administration Metoprolol Tartrate 25 mg 04/09/22 11:28 04/11/22 09:14 Metoprolol Tartrate 25 Mg Tablet PO 25 mg BID@0900,2100 PEPE Administration Morphine Sulfate 1 mg 04/09/22 12:00 04/11/22 14:59 Morphine 4 Mg/Ml Sdv 1 Ml IVP 1 mg Q4H PRN Administration PAIN Pantoprazole Sodium 40 mg 04/09/22 21:00 04/11/22 09:14 Pantoprazole 40 Mg Sdv IVP 40 mg Q12H PEPE Administration Polyethylene Glycol 17 gm 04/11/22 12:15 04/11/22 12:40 Polyethylene Glycol 3350 Pkt 17 Gm PO 17 gm DAILY PEPE Administration Sucralfate 1 gm 04/09/22 11:00 04/11/22 12:34 Sucralfate 1 Gm/10 Ml Oral Liq Udc PO Not Given AC&BEDTIME PEPE PFSH Acute PFSH: Medical History (Updated 04/11/22 @ 22:00 by Juliocesar Morfin MD) Abscess CARMENZA (acute kidney injury) Anemia Carbuncle of back except buttock Cellulitis CKD (chronic kidney disease) stage 3, GFR 30-59 ml/min COPD (chronic obstructive pulmonary disease) CVA (cerebral vascular accident) CVA, old, hemiparesis Depressed Diabetes HTN (hypertension) Malnourished MRSA bacteremia Open wound of lower back Pulmonary nodule Surgical History History of testicular surgery Social History Smoking and tobacco status: former smoker Alcohol intake: never Household members: spouse Housing: House Vitals/I&O/Wt Last Vital Signs Temp 96.7 F L 04/11/22 07:33 Pulse 91 04/11/22 15:10 Resp 30 H 04/11/22 15:10 BP 168/98 04/11/22 15:00 Pulse Ox 90 04/11/22 15:10 O2 Del Method 04/11/22 15:10 O2 Flow Rate 50 04/11/22 15:10 FiO2 50 04/11/22 15:10 04/11/22 04/11/22 04/11/22 06:59 14:59 22:59 Intake Total 170 / 1112.794 105.371 / 105.371 200 / 305.371 Output Total 150 / 1000 Balance 20 / 112.794 105.371 / 105.371 200 / 305.371 Weight last 48 hrs Weight 134 lb 9.6 oz Weight 136 lb 5 oz Physical Exam Narrative: General: alert, in moderate respiratory distress HEENT: conj clear, EOMI, PERRL, mmm, Neck: supple, no meningismus Heme: no cervical LAP Pulmonary: Bilateral diffuse crackles Cardiovascular: rrr, nl s1s2, no mrg Abdomen: soft, nt, nd, no r/g, bs+ Extremities: pulses +, no edema, no c/c : no CVA tenderness Skin: intact, no rash MSK: no back or neck pain Neurologic: grossly intact Urinary Catheter Management: Myers: Cath Placed During This Visit: yes Reason for Continuing Indwelling Catheter: Accurate Measurement of Urinary Output in Critically Ill Patients Urinary Catheter Date of Insertion: 04/07/22 Urinary Catheter Time of Insertion: 13:06 Data : 04/11/22 11:57 04/11/22 11:57 Other Labs: Radiology Impressions Renal Ultrasound 04/07/22 13:28 IMPRESSION: Low normal-sized echogenic kidneys. Moderate chronic medical renal disease. Modified Barium Swallow 04/10/22 00:00 IMPRESSION: 1. Modified barium swallow positive for aspiration of nectar consistency and thin liquid barium foodstuffs. A report of recommendations and findings will also follow from the speech therapy service. Chest X-Ray 04/11/22 09:28 IMPRESSION: 1. Extensive bilateral pulmonary infiltrates and small bibasal pleural effusions demonstrating no significant change. Laboratory Results WBC 22.5 10^3/uL (4.0-10.0) H 04/11/22 11:57 RBC 3.36 10^6/uL (4.1-5.3) L 04/11/22 11:57 Hgb 9.3 g/dL (11.7-16.6) L D 04/11/22 11:57 Hct 30.1 % (42.0-52.0) L 04/11/22 11:57 MCV 89.6 fl (80-94) 04/11/22 11:57 MCH 27.7 pg (28.0-34.0) L 04/11/22 11:57 MCHC 30.9 g/dL (30.0-36.0) 04/11/22 11:57 RDW 15.4 % (12.1-15.1) H 04/11/22 11:57 Plt Count 444 10^3/cmm (130-400) H D 04/11/22 11:57 MPV 11.0 fL (7.4-10.4) H 04/11/22 11:57 Neut % (Auto) 94.8 % 04/11/22 11:57 Lymph % (Auto) 1.8 % 04/11/22 11:57 [place] % (Auto) 2.4 % 04/11/22 11:57 Eos % (Auto) 0.0 % 04/11/22 11:57 Baso % (Auto) 0.1 % 04/11/22 11:57 Neut # (Auto) 21.32 10^3/uL (1.8-7.7) H 04/11/22 11:57 Lymph # (Auto) 0.4 10^3/uL (0.8-4.8) L 04/11/22 11:57 [place] # (Auto) 0.5 10^3/uL (0.2-0.9) 04/11/22 11:57 Eos # (Auto) 0.0 10^3/uL (0.0-0.8) 04/11/22 11:57 Baso # (Auto) 0.0 10^3/uL (0.0-0.1) 04/11/22 11:57 Nucleated RBC % (auto) 0 % 04/11/22 11:57 Nucleated RBCs # 0.0 /100WBC 04/11/22 11:57 APTT 29.1 SECONDS (23.9-36.7) 04/09/22 13:26 PTT Patient/Normal 1:1 Cancelled 04/07/22 14:55 D-Dimer 2.06 ug/mIFEU (0-0.59) H 04/07/22 06:35 Specimen Type Arterial 04/11/22 13:27 Sample Site Radial, left 04/11/22 13:27 ABG pH 7.38 (7.35-7.45) 04/11/22 13:27 ABG pCO2 27.4 mmHg (35-45) L 04/11/22 13:27 ABG pO2 62.5 mmHg (80.0-100.0) L 04/11/22 13:27 ABG HCO3 16.3 mmol/L (22-26) L 04/11/22 13:27 ABG O2 Saturation 90.0 04/11/22 13:27 ABG Base Excess -7.7 mmol/L (-2.0-2.0) L 04/11/22 13:27 Harry Test Pos 04/11/22 13:27 A-a O2 Gradient 33.8 mmHg (5-10) H 04/11/22 13:27 Hematocrit 28.3 % (42-52) L 04/11/22 13:27 Hgb O2 Saturation 88.2 % (95-100) L 04/11/22 13:27 Carboxyhemoglobin 1.3 %THgb (0.4-20.1) 04/11/22 13:27 Methemoglobin 0.7 % (0.4-1.5) 04/11/22 13:27 Total Hemoglobin 9.2 g/dL (14-18) L 04/11/22 13:27 Sodium 147.0 mmol/L (131-143) H 04/11/22 13:27 Potassium 4.5 mmol/L (3.5-5.0) 04/11/22 13:27 Glucose 192.0 mg/dL (70-115) H 04/11/22 13:27 Ionized Calcium 1.3 mmol/L (1.1-1.4) 04/11/22 13:27 O2 Delivery Device Hag 04/11/22 13:27 O2 Liters/Min 50.0 % 04/11/22 13:27 FiO2 50.0 % 04/11/22 13:27 Inseam Trimming Machine Operator ID Cak 04/11/22 13:27 Sodium 142 mmol/L (136-145) 04/11/22 11:57 Potassium 4.7 mmol/L (3.5-5.1) 04/11/22 11:57 Chloride 108 mmol/L (98-107) H 04/11/22 11:57 Carbon Dioxide 16 mmol/L (22-29) L 04/11/22 11:57 Anion Gap 22.7 (5-19) H 04/11/22 11:57 BUN 108 mg/dL (8-23) H* 04/11/22 11:57 Creatinine 3.2 mg/dL (0.7-1.2) H 04/11/22 11:57 GFR Calculation Not Reportable 04/11/22 11:57 Glucose 170 mg/dL (65-115) H 04/11/22 11:57 POC Glucose 190 mg/dL (70-110) H 04/11/22 20:14 Calculated Osmolality 332 mOsm/kg (285-295) H 04/11/22 11:57 Lactic Acid 4.6 mmol/L (0.5-2.2) H* 04/07/22 06:35 Lactic Acid (Sepsis) 5.8 mmol/L (0.5-2.2) H* 04/07/22 09:20 Lactate 1.5 mmol/L (0.5-2.2) 04/09/22 10:37 Calcium 9.4 mg/dL (8.5-10.5) 04/11/22 11:57 Magnesium 2.9 mg/dL (1.7-2.3) H 04/11/22 11:57 Total Bilirubin 0.4 mg/dL (0.15-1.2) 04/11/22 11:57 AST 120 U/L (0-40) H 04/11/22 11:57 ALT 123 U/L (0-41) H 04/11/22 11:57 Alkaline Phosphatase 181 U/L (40-130) H 04/11/22 11:57 Creatine Kinase 191 U/L (39-308) 04/07/22 13:16 Troponin T Baseline 790 ng/L (0-15) H* 04/07/22 06:35 Troponin T 120 Minute 732.9 ng/L (0-15) H 04/07/22 09:20 Delta Troponin T -57.1 ABS# (0-10) L 04/07/22 09:20 Troponin T Hi Sens 6Hr 640.8 ng/L (0-15) H 04/07/22 13:15 Troponin T Hi Sens 6Hr Delta -149.2 ng/L (0-12) L 04/07/22 13:15 NT-Pro-B Natriuret Pep 14042 pg/mL (0-125) H 04/07/22 06:35 Total Protein 6.4 g/dL (6.6-8.7) L 04/11/22 11:57 Albumin 2.6 g/dL (3.5-5.2) L 04/11/22 11:57 Globulin 3.8 g/dL (1.3-4.6) 04/11/22 11:57 Procalcitonin 0.86 ng/mL (0-0.5) H 04/11/22 11:57 Urine Color Yellow (Yellow) 04/07/22 13:06 Urine Appearance Clear (CLEAR) 04/07/22 13:06 Urine pH 5 (5-7) 04/07/22 13:06 Ur Specific [place] 1.020 (1.005-1.030) 04/07/22 13:06 Urine Protein 3+ (Negative) H 04/07/22 13:06 Urine Glucose (UA) Trace (Normal) H 04/07/22 13:06 Urine Ketones 1+ (Negative) H 04/07/22 13:06 Urine Blood 2+ (Negative) H 04/07/22 13:06 Urine Nitrate Negative (Negative) 04/07/22 13:06 Urine Bilirubin Neg (Negative) 04/07/22 13:06 Urine Urobilinogen Neg mg/dL (Negative) 04/07/22 13:06 Ur Leukocyte Esterase Negative (Negative) 04/07/22 13:06 Urine RBC 0-4 /hpf (0-2) H 04/07/22 13:06 Urine WBC None /hpf (0-5) 04/07/22 13:06 Ur Squamous Epith Cells 0-4 /hpf (0-5) H 04/07/22 13:06 Amorphous Sediment 1+ /hpf 04/07/22 13:06 Urine Bacteria 1+ /hpf (NONE) H 04/07/22 13:06 Vancomycin Trough 14.2 ug/mL (10-15) 04/10/22 09:45 Random Vancomycin 23.6 ug/mL (20.0-40.0) 04/11/22 03:46 Coronavirus 229E (PCR) Not detected (NOT DETECT) 04/07/22 09:47 SARS-CoV-2 (PCR) Not detected (NOT DETECT) 04/07/22 09:47 Blood Type O Positive 04/11/22 08:50 Rho(D) Type Positive 04/11/22 08:50 Antibody Screen Negative 04/11/22 08:50 Crossmatch See Detail 04/11/22 08:50 Micro: Microbiology 04/11/22 13:35 Blood Culture - Preliminary Blood SPECIMEN COLLECTED 04/11/22 12:29 Blood Culture - Preliminary Blood SPECIMEN COLLECTED A&P Assessment and plan (1) Non-ST elevation myocardial infarction (NSTEMI) in recovery phase: (2) Uremia: (3) Protein-energy malnutrition: (4) Acute kidney injury superimposed on chronic kidney disease: (5) COPD (chronic obstructive pulmonary disease): (6) Acute systolic heart failure: (7) Acute kidney injury: (8) Pneumonia: (9) Acute respiratory failure with hypoxemia: (10) ARDS (adult respiratory distress syndrome): Plan #Acute hypoxic respiratory failure in patient who presented with fluid overload due to acute systolic heart failure-improved oxygen requirements with initial diuretic regimen and dobutamine #Patient at high risk for aspiration-barium swallow showed evidence of aspiration with nectar thick fluids-?underlying pneumonia and ARDS component #History of MRSA bacteremia in November 2021-current cultures 1/4 bottles positive for staph aureus-identification pending and repeat cultures pending #Acute on chronic renal [id number] plausible explanation is cardiorenal syndrome in patient with new onset CHF #Patient also has underlying COPD and is on 3 L home oxygen -Currently patient oxygen requirements increased and requiring high flow nasal cannula 50 L and 60%;-Patient does not want intubation and resuscitation-and so he is DNR/DNI-we will continue supportive care -Continue DuoNeb nebulizations and we will taper down steroids based on clinical response -With significantly elevated BNP and echo evidence of acute systolic heart failure-and CT evidence of central pulmonary congestion-I suspect respiratory failure is predominantly secondary to fluid overload and with worsening renal functions this is even more challenging. Also given high risk for aspiration based on barium swallow-he may have some component of aspiration pneumonia contributing to ARDS-also today's procalcitonin is high-although likely secondary to renal failure-recommended to continue broad-spectrum antibiotic coverage with vancomycin/Zosyn until final cultures are available -Cardiology on board and will make decision about further interventions to rule out underlying CAD-currently patient is on Plavix -Patient hemoglobin dropped with no obvious bleeding-received 1 unit of PRBC yesterday-might have contributed somewhat to his fluid overload and worsening respiratory status today -Given worsening renal functions -likely prerenal -nephrology was consulted and patient was started on Lasix 80 every 6 hours--if no improvement-we need to initiate discussion with family regarding hemodialysis and revisit goals of care -We should avoid IV fluids and continue IV diuresis and we will closely monitor renal function/input output/electrolytes ICU CHECKLIST: Problem list updated Verbal orders reviewed and signed Analgesia: Morphine as needed Glycemic Control: Scale coverage Nutrition: Speech recommended pur?ed diet with honey thick liquids Restraint Renewal (within 24 hrs): Yes Ulcer Prophylaxis: PPI Chemical Thromboprophylaxis: Prophylaxis: Heparin Mechanical Thromboprophylaxis: SCD Need for Central line: PICC line Need for Myers catheter: Urine output monitoring Critical Care Time (No Overlap) 65 min This patient has a high probability of sudden, clinically significant deterioration, which requires the highest level of physician preparedness to intervene urgently. I managed/supervised life or organ supporting interventions that required frequent physician assessment. I devoted my full attention in the ICU to the direct care of this patient for the period of time indicated above. Time I spent with family or surrogate(s) is included only if the patient was incapable of providing necessary information or participating in decision making. Time devoted to teaching and to any procedures I billed separately is not included. Services Provided: Telemetry review Mechanical Ventilation Hemodynamic interpretation, assessment and management Review and interpretation of CXR Review and interpretation of lab values Review and interpretation of microbiologic data and culture results Review of medications and administration Review and interpretation of Nutrition requirements and management Discussion of management with other consultants and services Clinical update to family members Consult Attestations Medical Necessity Statement: Worsening respiratory status requiring high flow oxygen, worsening renal functions-needs close ICU monitoring Time Spent in Patient Care: Greater than 35 minutes (>than 50% of time spent in counselling and/or direct pt care on unit). Critical Care Time: The high probability of a clinically significant, sudden or life threatening deterioration of the patient's [pulmonary, cardiac, renal, infectious] system(s) required my full and direct attention, intervention and personal management. The critical care time is as shown. This time is in addition to time spent performing any reported procedures but includes the following: [x] Data and vital sign review and interpretation [x] Patient assessment, examination and intervention [x] Documentation [x] Medication orders and management Critical Care Time (min): 65 Coding Level of Care Code New Pt Acute Edger Runner for Chg Fwd Patient Type New History Comprehensive Exam Comprehensive Medical Decision Making High Complexity Diagnoses Non-ST elevation myocardial infarction (NSTEMI) in recovery phase I21.4 Uremia N19 Protein-energy malnutrition E46 Acute kidney injury superimposed on chronic kidney disease N17.9; N18.9 COPD (chronic obstructive pulmonary disease) J44.9 Acute systolic heart failure I50.21 Acute kidney injury N17.9 Pneumonia J18.9 Acute respiratory failure with hypoxemia J96.01 ARDS (adult respiratory distress syndrome) J80 Time Spent (min) 65
[2022-04-11] MEDS: FUROsemide 10 mg/mL SDV 10mL 80 MG IVP ×2 (16:27→20:33)
[2022-04-11 17:42] LABS: Glucose Point of Care 204 mg/dL (70-110)
[2022-04-11] MEDS: sennosides-docusate Tablet 1 TAB PO (17:44)
[2022-04-11] MEDS: insulin lispro 100 unit/1 mL SUBCUT ×2 (17:44→20:35)
--- NOTE | 2022-04-11 18:01 | PM.PN ---
Subjective Subjective: Patient seems to be getting more short of breath today. Currently he is on 7 L of oxygen by nasal cannula. Has no chest pain. No fever or chills. Still has a cough. Medications: Medication Review Details: Current Medications Acetaminophen (Acetaminophen 325 Mg Tablet) 650 mg PO Q6H PRN PRN Reason: MILD PAIN Last Admin: 04/11/22 17:44 Dose: 650 mg Albuterol/Ipratropium (Ipratropium-Albuterol 3 Ml Neb) 3 ml INHALATION Q4H [facility] Last Admin: 04/11/22 15:07 Dose: 3 ml Aspirin (Aspirin 81 Mg Ec Tablet) 81 mg PO DAILY [facility] Last Admin: 04/11/22 09:14 Dose: 81 mg Atorvastatin Calcium (Atorvastatin 40 Mg Tablet) 20 mg PO BEDTIME PEPE Last Admin: 04/10/22 21:17 Dose: 20 mg Budesonide (Budesonide 0.5 Mg/2 Ml Neb) 0.5 mg INHALATION BID.RESPIRATORY PEPE Last Admin: 04/11/22 07:43 Dose: 0.5 mg Clopidogrel Bisulfate (Clopidogrel 75 Mg Tablet) 75 mg PO DAILY PEPE Last Admin: 04/11/22 09:14 Dose: 75 mg Dextrose (Dextrose 50% Syringe 50 Ml) 25 ml IVP ONCE PRN; Protocol PRN Reason: hypoglycemia protocol Dextrose (Dextrose 50% Syringe 50 Ml) 50 ml IVP PRN PRN; Protocol PRN Reason: hypoglycemia protocol Ferrous Gluconate (Ferrous Gluconate 324 Mg Tablet) 324 mg PO BIDWM [facility]PE Last Admin: 04/11/22 17:44 Dose: 324 mg Furosemide (Furosemide 10 Mg/Ml Sdv 10ml) 80 mg IVP Q6H [facility] Last Admin: 04/11/22 16:27 Dose: 80 mg Glucagon (Glucagon 1 Mg/Ml Inj 1 Ml) 1 mg IM ONCE PRN; Protocol PRN Reason: Adult Acute Hypoglycemia Prot. Heparin Sodium (Porcine) (Heparin 5,000 Unit/Ml Inj 1 Ml) 5,000 unit SUBCUT Q12H [facility] Last Admin: 04/11/22 12:39 Dose: 5,000 unit Hydralazine HCl (Hydralazine 20 Mg/Ml Inj 1 Ml) 10 mg IVP Q4H PRN PRN Reason: SYSTOLIC BLOOD PRESSURE Last Admin: 04/07/22 16:51 Dose: 10 mg Vancomycin HCl 1,000 mg/ (Sodium Chloride) 250 mls @ 250 mls/hr IV Q36H [facility]; Protocol Last Infusion: 04/10/22 12:50 Dose: Infused Dextrose (D5w) 500 mls @ 100 mls/hr IV ONCE PRN; Protocol PRN Reason: Adult Acute Hypoglycemia Prot Imipenem/Cilastatin Sodium 250 (mg/ Sodium Chloride) 100 mls @ 200 mls/hr IV Q12H [facility]; Protocol Last Infusion: 04/11/22 15:44 Dose: Infused Insulin Human Lispro (Insulin Lispro 100 Unit/1 Ml) 0 unit SUBCUT WM&BEDTIME [facility]; Protocol Last Admin: 04/11/22 17:44 Dose: 4 unit Methylprednisolone Sodium Succinate (Methylprednisolone Sod Succ 125 Mg/2 Ml Inj) 30 mg IVP Q12H [facility] Last Admin: 04/11/22 07:28 Dose: 30 mg Metoprolol Tartrate (Metoprolol Tartrate 25 Mg Tablet) 25 mg PO BID@0900,2100 [facility] Last Admin: 04/11/22 09:14 Dose: 25 mg Morphine Sulfate (Morphine 4 Mg/Ml Sdv 1 Ml) 1 mg IVP Q4H PRN PRN Reason: PAIN Last Admin: 04/11/22 14:59 Dose: 1 mg Ondansetron HCl (Ondansetron 2 Mg/Ml Sdv 2 Ml) 4 mg IVP Q6H PRN PRN Reason: NAUSEA AND VOMITING Pantoprazole Sodium (Pantoprazole 40 Mg Sdv) 40 mg IVP Q12H [facility] Last Admin: 04/11/22 09:14 Dose: 40 mg Polyethylene Glycol (Polyethylene Glycol 3350 Pkt 17 Gm) 17 gm PO DAILY PEPE Last Admin: 04/11/22 12:40 Dose: 17 gm Senna/Docusate Sodium (Sennosides-Docusate Tablet) 1 tab PO BID [facility]PE Last Admin: 04/11/22 17:44 Dose: 1 tab Sucralfate (Sucralfate 1 Gm/10 Ml Oral Liq Udc) 1 gm PO AC&BEDTIME PEPE Last Admin: 04/11/22 17:44 Dose: 1 gm Vitals/I&O/Wt Last Vital Signs Temp 96.7 F L 04/11/22 07:33 Pulse 91 04/11/22 15:10 Resp 30 H 04/11/22 15:10 BP 168/98 04/11/22 15:00 Pulse Ox 90 04/11/22 15:10 O2 Del Method 04/11/22 15:10 O2 Flow Rate 50 04/11/22 15:10 FiO2 50 04/11/22 15:10 04/11/22 04/11/22 04/11/22 06:59 14:59 22:59 Intake Total 170 / 1112.794 105.371 / 105.371 200 / 305.371 Output Total 150 / 1000 Balance 20 / 112.794 105.371 / 105.371 200 / 305.371 Weight last 48 hrs Weight 134 lb 9.6 oz Weight 136 lb 5 oz Physical Exam Narrative: GENERAL: The patient is alert and oriented times three. Slight respiratory distress. Chronically ill looking. HEENT: No significant pallor, icterus or lymphadenopathy.Oral cavity: There are no mucous membrane lesions. NECK: Trachea appears to be central. No masses noted. No JVD or thyromegaly appreciated. RESPIRATORY: Bilateral coarse crackles and expiratory wheezing. Few fine rales. BREASTS: Deferred. HEART: The heart sounds are normal. No S3 or S4. Short systolic murmur in the left sternal border. No pericardial rub ABDOMEN: No vessel pulsations or distention. No tenderness. No organomegaly appreciated. Bowel sounds are normally heard. : Deferred. RECTAL: Deferred. LYMPHATIC: No lymphadenopathy noted in the neck. EXTREMITIES: No edema or cyanosis. No clubbing. MUSCULOSKELETAL: No acute joint deformities or swelling SKIN: There are no significant rashes or ecchymosis NEUROPSYCHIATRIC: The patient is alert . Mild respiratory distress. Left-sided weakness Urinary Catheter Management: Myers: Cath Placed During This Visit: yes Reason for Continuing Indwelling Catheter: Accurate Measurement of Urinary Output in Critically Ill Patients Urinary Catheter Date of Insertion: 04/07/22 Urinary Catheter Time of Insertion: 13:06 Data : 04/11/22 11:57 04/11/22 11:57 Micro: Microbiology 04/11/22 13:35 Blood Culture - Preliminary Blood SPECIMEN COLLECTED 04/11/22 12:29 Blood Culture - Preliminary Blood SPECIMEN COLLECTED A&P Assessment and plan (1) ARDS (adult respiratory distress syndrome): The patient's respiratory status seems to be improving. Oxygenation has significantly improved. (2) Acute systolic heart failure: Patient seems her intermittent decompensated heart failure. The worsening kidney function could be a contributing factor. (3) Non-ST elevation myocardial infarction (NSTEMI) in recovery phase: May continue on the Plavix. In view of the drop in the hemoglobin, may discontinue the aspirin and keep the Plavix (4) Acute kidney injury superimposed on chronic kidney disease: BUN/creatinine seems to be getting worse. This could be multifactorial. Nephrology consult would be appropriate. Plan The other problems are Anemia, status post blood transfusion possible pneumonia Leukocytosis Recent MRSA infection/abscess drainage COPD exacerbation History of hypertension, currently normotensive Type 2 diabetes Hypokalemia, currently corrected Patient apparently did not want to be intubated. He has a DNI DNR status. I had a long discussion with the patient's . Patient's current status was discussed. In view of his worsening kidney function and poor respiratory status, he may not be a candidate for any interventional cardiac procedures, at this time. We will continue to optimize medical treatment. In view of his multiple organ disease, the overall prognosis poor. The agreed with the idea of continue the medical management. Attestations Medical Necessity Statement*: Patient requires continued hospital stay for close monitoring and further management Coding Level of Care Code Acute Chief Load Dispatcher for [facility] Fwd Diagnoses ARDS (adult respiratory distress syndrome) J80 Acute systolic heart failure I50.21 Non-ST elevation myocardial infarction (NSTEMI) in recovery phase I21.4 Acute kidney injury superimposed on chronic kidney disease N17.9; N18.9
[2022-04-11 18:24] LABS: Procalcitonin 0.86 ng/mL (0-0.5)
--- NOTE | 2022-04-11 19:10 | PC.NURSE ---
PT HAS HAD AN UNEVENTFUL SHIFT. PT HAS BEEN HYPERTENSIVE. PHYSICIANS ARE AWARE. OTHER THEN B/P OTHER VITALS REMAIN WNL. PT HAS HAD SOME COMPLAINTS OF PAIN. PAIN TREATED WITH PRN MEDICATIONS. PT IS CURRENTLY RESTING IN BED. PT IS ON HHF, 50L @ 60%. PT DOES NOT HAVE ANY REQUESTS AT THIS TIME. REPORT WITH LESLYE MEJIA AT BEDSIDE. ALL QUESTIONS ANSWERED.
[2022-04-11 20:20] LABS: Glucose Point of Care 190 mg/dL (70-110)
[2022-04-11] MEDS: atorvastatin 40 mg Tablet 20 MG PO (20:34)
[2022-04-11] MEDS: vancomycin 1,000 MG in sodium chloride 0.9% 250 ML 250 MG IV (22:06)
[2022-04-12] VITALS (38 sets, daily range): BP systolic 121–167; BP diastolic 70–103; PULSE 75–90; RESP 8–20; TEMP 35.8–36.7; O2SAT 89–99
[2022-04-12] MEDS: ipratropium-albuterol 3 mL Neb INHALATION ×6 (00:38→20:58)
[2022-04-12] MEDS: FUROsemide 10 mg/mL SDV 10mL 80 MG IVP ×3 (02:42→15:13)
[2022-04-12] MEDS: morphine 4 mg/mL SDV 1 mL 1 MG IVP ×2 (03:36→14:08)
--- NOTE | 2022-04-12 06:55 | PC.NURSE ---
Bedside report completed with LESLYE Yu
--- NOTE | 2022-04-12 07:25 | PM.PN ---
Subjective Subjective: weak on high flow 02. left sided hemiparesis. Medications: Reviewed: Yes Medication Review Details: Current Medications Acetaminophen (Acetaminophen 325 Mg Tablet) 650 mg PO Q6H PRN PRN Reason: MILD PAIN Last Admin: 04/11/22 17:44 Dose: 650 mg Albuterol/Ipratropium (Ipratropium-Albuterol 3 Ml Neb) 3 ml INHALATION Q4H [facility] Last Admin: 04/12/22 04:24 Dose: 3 ml Aspirin (Aspirin 81 Mg Ec Tablet) 81 mg PO DAILY PEPE Last Admin: 04/11/22 09:14 Dose: 81 mg Atorvastatin Calcium (Atorvastatin 40 Mg Tablet) 20 mg PO BEDTIME PEPE Last Admin: 04/11/22 20:34 Dose: 20 mg Budesonide (Budesonide 0.5 Mg/2 Ml Neb) 0.5 mg INHALATION BID.RESPIRATORY PEPE Last Admin: 04/11/22 20:24 Dose: 0.5 mg Clopidogrel Bisulfate (Clopidogrel 75 Mg Tablet) 75 mg PO DAILY PEPE Last Admin: 04/11/22 09:14 Dose: 75 mg Dextrose (Dextrose 50% Syringe 50 Ml) 25 ml IVP ONCE PRN; Protocol PRN Reason: hypoglycemia protocol Dextrose (Dextrose 50% Syringe 50 Ml) 50 ml IVP PRN PRN; Protocol PRN Reason: hypoglycemia protocol Ferrous Gluconate (Ferrous Gluconate 324 Mg Tablet) 324 mg PO BIDWM [facility] Last Admin: 04/11/22 17:44 Dose: 324 mg Furosemide (Furosemide 10 Mg/Ml Sdv 10ml) 80 mg IVP Q6H [facility] Last Admin: 04/12/22 02:42 Dose: 80 mg Glucagon (Glucagon 1 Mg/Ml Inj 1 Ml) 1 mg IM ONCE PRN; Protocol PRN Reason: Adult Acute Hypoglycemia Prot. Heparin Sodium (Porcine) (Heparin 5,000 Unit/Ml Inj 1 Ml) 5,000 unit SUBCUT Q12H [facility]PE Last Admin: 04/11/22 22:05 Dose: 5,000 unit Hydralazine HCl (Hydralazine 20 Mg/Ml Inj 1 Ml) 10 mg IVP Q4H PRN PRN Reason: SYSTOLIC BLOOD PRESSURE Last Admin: 04/07/22 16:51 Dose: 10 mg Vancomycin HCl 1,000 mg/ (Sodium Chloride) 250 mls @ 250 mls/hr IV Q36H [facility]; Protocol Last Admin: 04/11/22 22:06 Dose: 250 mls/hr Dextrose (D5w) 500 mls @ 100 mls/hr IV ONCE PRN; Protocol PRN Reason: Adult Acute Hypoglycemia Prot Imipenem/Cilastatin Sodium 250 (mg/ Sodium Chloride) 100 mls @ 200 mls/hr IV Q12H [facility]; Protocol Last Admin: 04/12/22 00:30 Dose: 200 mls/hr Insulin Human Lispro (Insulin Lispro 100 Unit/1 Ml) 0 unit SUBCUT WM&BEDTIME [facility]; Protocol Last Admin: 04/11/22 20:35 Dose: 4 unit Methylprednisolone Sodium Succinate (Methylprednisolone Sod Succ 125 Mg/2 Ml Inj) 30 mg IVP Q12H [facility] Last Admin: 04/11/22 20:33 Dose: 30 mg Metoprolol Tartrate (Metoprolol Tartrate 25 Mg Tablet) 25 mg PO BID@0900,2100 [facility] Last Admin: 04/11/22 20:33 Dose: 25 mg Morphine Sulfate (Morphine 4 Mg/Ml Sdv 1 Ml) 1 mg IVP Q4H PRN PRN Reason: PAIN Last Admin: 04/12/22 03:36 Dose: 1 mg Ondansetron HCl (Ondansetron 2 Mg/Ml Sdv 2 Ml) 4 mg IVP Q6H PRN PRN Reason: NAUSEA AND VOMITING Pantoprazole Sodium (Pantoprazole 40 Mg Sdv) 40 mg IVP Q12H [facility] Last Admin: 04/11/22 20:32 Dose: 40 mg Polyethylene Glycol (Polyethylene Glycol 3350 Pkt 17 Gm) 17 gm PO DAILY [facility] Last Admin: 04/11/22 12:40 Dose: 17 gm Senna/Docusate Sodium (Sennosides-Docusate Tablet) 1 tab PO BID [facility] Last Admin: 04/11/22 17:44 Dose: 1 tab Sucralfate (Sucralfate 1 Gm/10 Ml Oral Liq Udc) 1 gm PO AC&BEDTIME [facility] Last Admin: 04/11/22 20:33 Dose: 1 gm Vitals/I&O/Wt Last Vital Signs Temp 96.4 F L 04/12/22 04:00 Pulse 83 04/12/22 06:40 Resp 15 04/12/22 06:40 BP 167/94 04/12/22 06:00 Pulse Ox 93 04/12/22 06:40 O2 Del Method 04/12/22 04:00 O2 Flow Rate 50 04/12/22 06:40 FiO2 60 04/12/22 06:40 04/11/22 04/12/22 04/12/22 22:59 06:59 14:59 Intake Total 500 / 605.371 410 / 1015.371 Output Total 900 / 900 1000 / 1900 Balance -400 / -294.629 -590 / -884.629 Weight last 48 hrs Weight 58.287 kg Weight 61.054 kg Weight 61.83 kg Physical Exam Narrative: sob on high flow 02 , bp elevated, sob in bed heent- nc/at neck jvp lungs right side poor air movement left crackles heart reg abd soft, nt, nd, +bs ext b/l edema neuro- left arm very weak, left leg moves, a,a, o x 1-2 Urinary Catheter Management: Myers: Cath Placed During This Visit: yes Reason for Continuing Indwelling Catheter: Accurate Measurement of Urinary Output in Critically Ill Patients Urinary Catheter Date of Insertion: 04/07/22 Urinary Catheter Time of Insertion: 13:06 Data : 04/11/22 11:57 04/11/22 11:57 Micro: Microbiology 04/11/22 16:36 Legionella Urinary Antigen - Final Urine Catheterized 04/11/22 13:35 Blood Culture - Preliminary Blood SPECIMEN COLLECTED 04/11/22 12:29 Blood Culture - Preliminary Blood SPECIMEN COLLECTED A&P Assessment and plan (1) Acute kidney injury superimposed on chronic kidney disease: 76 yr old man h/o COPD, CKD stage 3, CVA, DM, HTN. H/o MRSA pleural effusion in November 2021. Pt here w/ b/l pna, infoltrates, pleural effusions and drop in EF from 65- 32% pt has CARMENZA., he is being treated w/ lasix, vanco, zsosyn 1. CARMENZA- baseline cr 1.1 in November 2021. Cr 1.3- 1.5 in December/ january 2022. CR 04/07 was 2.3 now cr 3.2 down from 3.5 and pt is urinating and responding to lasix -recommendations- continue diuretics -consider lasix drip -if cardiology/ pum need more fluids removed- consider thoracenetesis or Dialysis 2. Infection- on zosyn and vanco- monitor vanco level. monitor wbc caroline to 22 yesterday 3. met acidosis w/ resp compensation - had lactic acid as high as 5.8- repeat. can also be from carmenza 4. dec EF- if cardiology feels a cath is beneficial then proceed and we can dialyze if needed meds reviewed discussed w/ ENVIRONMENTAL SAMPLER seen and examined w/ ENVIRONMENTAL SAMPLER- telehealth visit time spent 30 min Plan see above Attestations Medical Necessity Statement*: Hypoxemia, low ef, CARMENZA, infection Time Spent in Patient Care: 16 - 35 minutes (>than 50% of time spent in counselling and/or direct pt care on unit). Coding Level of Care Code Acute Crnp for [facility]ice [facility]an Diagnoses Acute kidney injury superimposed on chronic kidney disease N17.9; N18.9
[2022-04-12 07:37] LABS: Basophils % 0.1 %; Hematocrit 29.8 % (42.0-52.0); Hemoglobin 9.3 g/dL (11.7-16.6); Lymphocytes # 0.7 10^3/uL (0.8-4.8); Lymphocytes % 2.8 %; Mean Corpuscular HGB Conc 31.2 g/dL (30.0-36.0); Mean Corpuscular Hemoglobin 27.6 pg (28.0-34.0); Mean Corpuscular Volume 88.4 fl (80-94); Mean Platelet Volume 11.1 fL (7.4-10.4); Monocytes # 0.7 10^3/uL (0.2-0.9); Neutrophils % 92.8 %; Nucleated Red Blood Cells % 0.1 %; Platelet Count 459 10^3/cmm (130-400); Red Blood Count 3.37 10^6/uL (4.1-5.3); Red Cell Distribution Width 15.7 % (12.1-15.1); White Blood Count 23.3 10^3/uL (4.0-10.0)
[2022-04-12 07:57] LABS: Alanine Aminotransferase 107 U/L (0-41); Albumin Level 2.9 g/dL (3.5-5.2); Alkaline Phosphatase 195 U/L (40-130); Anion Gap 23.9 (5-19); Aspartate Amino Transferase 65 U/L (0-40); Calcium 9.4 mg/dL (8.5-10.5); Carbon Dioxide 17 mmol/L (22-29); Chloride 113 mmol/L (98-107); Globulin 3.6 g/dL (1.3-4.6); Glucose 112 mg/dL (65-115); Osmolality Calculated 344 mOsm/kg (285-295); Potassium 3.9 mmol/L (3.5-5.1); Sodium 150 mmol/L (136-145); Total Bilirubin 0.4 mg/dL (0.15-1.2); Total Protein 6.5 g/dL (6.6-8.7)
[2022-04-12 08:11] LABS: Vancomycin Random 31.6 ug/mL (20.0-40.0)
[2022-04-12 08:34] LABS: Blood Urea Nitrogen 105 mg/dL (8-23)
[2022-04-12] MEDS: budesonide 0.5 mg/2 mL Neb INHALATION ×2 (09:02→20:58)
[2022-04-12 09:14] LABS: Glucose Point of Care 130 mg/dL (70-110)
[2022-04-12] MEDS: sucralfate 1 gm/10 mL Oral Liq UDC PO ×4 (09:41→21:33)
[2022-04-12] MEDS: sennosides-docusate Tablet 1 TAB PO ×2 (09:42→18:56)
[2022-04-12] MEDS: clopidogrel 75 mg Tablet PO (09:42)
[2022-04-12] MEDS: aspirin 81 mg EC Tablet PO (09:42)
[2022-04-12] MEDS: acetaZOLAMIDE 250 mg Tablet PO ×2 (09:42→18:56)
[2022-04-12] MEDS: pantoprazole 40 mg SDV IVP ×2 (09:42→21:33)
[2022-04-12] MEDS: metoprolol tartrate 25 mg Tablet PO ×2 (09:42→23:37)
[2022-04-12] MEDS: polyethylene glycol 3350 Pkt 17 gm PO (09:43)
[2022-04-12] MEDS: ferrous gluconate 324 mg Tablet PO ×2 (09:43→18:56)
[2022-04-12 10:30] LABS: Uric Acid 14.6 mg/dL (3.4-7.0)
--- NOTE | 2022-04-12 10:35 | PC.NURSE ---
Catheter leaking. Checked balloon, fluid amount 10ml, appropriate. Flushed cath with 10 ml. Pericare and bed linen change provided.
[2022-04-12 12:03] LABS: Glucose Point of Care 130 mg/dL (70-110)
--- NOTE | 2022-04-12 13:55 | PM.PN ---
Subjective Subjective: WBC count 20 urine output 1300 over last 24 hours. Patient confused today. BUN 105, anion gap 23.9. AST 65, ALT 107. Patient is constipated. We started him on lactulose 20 g, MiraLAX, docusate senna twice daily. Will also give rectal lactulose today. at bedside. Had a discussion with her, Dr. Morfin and Dr. Gómez. I have discussed dialysis with her. And possible cardiac angiogram and discussed in detail patient's case. She will think about it and let us know. I went back to talk to patient but she has left for the day. I have attempted to call her number twice but that is not a working number. Patient is on heated high flow. He keeps trying to pull his oxygen off. He is confused. Vitals/I&O/Wt Last Vital Signs Temp 96.7 F L 04/12/22 08:00 Pulse 88 04/12/22 13:45 Resp 15 04/12/22 13:45 BP 145/100 04/12/22 11:00 Pulse Ox 92 04/12/22 13:45 O2 Del Method 04/12/22 11:41 O2 Flow Rate 45 04/12/22 13:45 FiO2 55 04/12/22 13:45 04/11/22 04/12/22 04/12/22 22:59 06:59 14:59 Intake Total 500 / 605.371 410 / 1015.371 150 / 150 Output Total 900 / 900 1000 / 1900 300 / 300 Balance -400 / -294.629 -590 / -884.629 -150 / -150 Weight last 48 hrs Weight 58.287 kg Weight 61.054 kg Weight 61.83 kg Physical Exam Narrative: General exam is a white male, comfortable, on heated high flow rate on heated high flow., chronically ill-appearing, bitemporal wasting HEENT: Pupils equally round. Oropharynx clear. Cardiovascular regular rate and rhythm, distant heart sounds. No obvious murmur. Lungs bilateral expiratory wheezes. crackles at bases. Breath sounds symmetric. No acute distress, no accessory muscle use. Abdomen is soft nontender positive bowel sounds. No obvious organomegaly Back demonstrates small decub right scapular area approximately 1.5 cm, stage II without signs of infection. Surgical scar noted Extremities trace edema bilateral lower extremities, cap refill brisk Skin see findings above Neuro no obvious focal deficits. Urinary Catheter Management: Myers: Cath Placed During This Visit: yes Reason for Continuing Indwelling Catheter: Accurate Measurement of Urinary Output in Critically Ill Patients Urinary Catheter Date of Insertion: 04/07/22 Urinary Catheter Time of Insertion: 13:06 Data : 04/12/22 07:12 04/12/22 07:12 Micro: Microbiology 04/11/22 13:35 Blood Culture - Preliminary Blood NEGATIVE TO DATE 04/11/22 12:29 Blood Culture - Preliminary Blood NEGATIVE TO DATE 04/07/22 10:10 Blood Culture - Final Blood NO GROWTH AFTER 5 DAYS 04/11/22 16:36 Bacterial Antigens - Final Urine,Voided 04/11/22 16:36 Legionella Urinary Antigen - Final Urine Catheterized A&P Assessment and plan (1) ARDS (adult respiratory distress syndrome): (2) Pneumonia: (3) Acute kidney injury superimposed on chronic kidney disease: (4) COPD (chronic obstructive pulmonary disease): (5) Acute systolic heart failure: (6) Physical deconditioning: (7) Protein-energy malnutrition: (8) Uremia: Plan #Aspiration pneumonia, ARDS, multilobar pneumonia? #High aspiration risk #Acute systolic congestive heart failure, new onset #Anemia #CARMENZA on CKD, baseline 1.2?1.6 #NSTEMI, most likely type II PA #Hypertension #COPD #Positive blood culture with MRSA November 2021, 1 bottle out of 4 gram-positive for gram-positive cocci in clusters #Constipation #Leukocytosis #Elevated liver enzymes -1 bottle of 4 positive for GPC in clusters. ? Check MRSA nares. Patient is on Vanco and Zosyn since admission, will continue for now ? Chest at admission showed no evidence for PE, small to moderate right greater than left pleural effusions., Patchy confluent airspace infiltrates in both perihilar regions extending into upper and lower lobes compatible with pneumonia, pattern suspicious for viral pneumonia. Correlation for COVID-pneumonia. -Venous Dopplers negative for DVT ? Renal ultrasound on 04/06 2022 showed normal-sized echogenic kidneys, moderate to chronic medical renal disease ? Modified barium swallow done on 04/10/2022 shows positive for aspiration of nectar consistency and thin liquid barium.. ? Chest x-ray today shows bilateral pulmonary infiltrates and small bibasilar pleural effusions demonstrating no significant change. ? Echocardiogram shows LVEF 32%, mildly dilated left ventricle, diffuse hypokinesia of left ventricle, mild concentric left ventricular hypertrophy. Grade 3 x 4 diastolic dysfunction, severely elevated filling pressures. Estimated pulmonary artery peak systolic pressure of 45.04/07/2022 -WBC count today 15,000. Hemoglobin 7.0. BUN 96, creatinine 3.5. ? Patient has had 48 hours of dobutamine drip at 5/h. ? Urine output 450 cc overnight. Overall patient is 1.7 L positive since admission. ? Liver enzymes elevation worsening. AST 114, ALT 125. - COVID-negative PCR 04/07/2022 Plan for today ? Continue aspirin, Lipitor, Plavix, metoprolol tartrate 25 twice daily ?Continue DuoNeb, Pulmicort twice daily ? Continue Protonix 40 IV twice daily ? Nephrology on board. Continue Lasix as per their recommendations. ? Continue bowel regimen. Will order rectal lactulose. MiraLAX 17 g daily. We will add docusate senna 1 twice daily. Patient does get hypoxic with movement. Unsure if he can tolerate an enema at this time. We will hold off on aggressive stimulant enemas. We will attempt with a glycerin suppository today. ? Check FOBT ? There was an order to transfuse 1 unit of packed RBC yesterday but it was not given as patient's hemoglobin was better on repeat labs. ? We will continue sucralfate and Protonix for now. ? Patient is at high aspiration risk. Dysphagia level 4 diet, thick pur?e food recommended. There is stabilized risk of aspiration as per speech therapist. I discussed this with the yesterday. Patient is not interested in any type of feeding tube if needed later on down the road. -Cardiology suspecting underlying three-vessel disease due to patient's echo results. Patient not a candidate for invasive intervention at this time due to kidney function. Dobutamine drip was stopped 04/10/2022 after discussion with cardiology. We will continue per their recommendations. -Pulmonology consulted. Appreciate their recommendations. ?Avoid nephrotoxic's ? respiratory viral panel pending ? Repeat blood cultures today ? Continue patient on vancomycin and imipenem ? Continue on heated high flow and continue to diurese. ? He is confused possibly secondary to uremia and ICU stay. He may benefit from dialysis at this time. Family still deciding. Analgesia: Tylenol as needed, morphine 1 mg every 4 hours as needed Glycemic control: Not needed. Hypoglycemia protocol Nutrition: Puree diet dysphagia level 4 CODE STATUS: DNR/DNI. PUD prophylaxis: Protonix for PUD prophylaxis DVT prophylaxis: Heparin subc Physical therapy evaluation, Discharge planning: SNF versus home health once medically stable will get physical therapy evaluation. Continue with care at ICU level This documentation was created by [email or web address] hotel supplies salesperson software. Every effort was made to ensure accuracy of hotel supplies salesperson. Any obvious errors or omissions should be clarified with the author of the document. Had a long discussion with the regarding patient's current care. We have discussed the possibility and need for dialysis. She will think about it and let us know. Patient's did not give us a definitive answer on what she would like to do. Patient will remain DNR/DNI at this time. We will continue to diurese with Lasix. I had a discussion with the this morning and went back to the room to talk to her again but she was not there anymore. I tried calling her phone number that was provided in the chart and called twice. The phone number is out of service. Attestations Medical Necessity Statement*: Continue to manage in the ICU. Patient is critically ill. Critical Care Time: The high probability of a clinically significant, sudden or life threatening deterioration of the patient's [] system(s) required my full and direct attention, intervention and personal management. The critical care time is as shown. This time is in addition to time spent performing any reported procedures but includes the following: [x] Data and vital sign review and interpretation [x] Patient assessment, examination and intervention [x] Documentation [x] Medication orders and management Critical Care Time (min): 60 Coding Level of Care Code Acute Faculty Member for [facility] Fwd Diagnoses ARDS (adult respiratory distress syndrome) J80 Pneumonia J18.9 Acute kidney injury superimposed on chronic kidney disease N17.9; N18.9 COPD (chronic obstructive pulmonary disease) J44.9 Acute systolic heart failure I50.21 Physical deconditioning R53.81 Protein-energy malnutrition E46 Uremia N19
[2022-04-12] MEDS: heparin 5,000 unit/mL INJ 1 mL 5000 UNIT SUBCUT ×2 (14:04→23:37)
[2022-04-12] MEDS: lactulose oral liq 20 gm/30 mL UDC PO (14:07)
--- NOTE | 2022-04-12 14:19 | PC.NURSE ---
Addendum entered by Beatrice Thomas RN 04/12/22 14:20: Dr Jerome, at bedside, aware. Original Note: [id number] medication administration delay related to Care/intubation of other critical patients.
--- NOTE | 2022-04-12 17:18 | P.PN_ITS ---
Subjective Subjective: -Patient seen at bedside -Appears confused -Good urine output with Lasix drip and FiO2 down to 40 L 60% on high flow nasal cannula -Concerning feature is elevated BUN-which may be contributing to his confusion -Had extensive discussion with at bedside about goals of care regarding DNR/DNI and hemodialysis -As per patient wishes-he is DNR/DNI and is okay with temporary hemodialysis -Discussed with nephrology/hospitalist agreed to place hemodialysis catheter and dialyzed to see if uremia is improving his mentation will improve -Other causes of confusion can be from his sepsis Medications: Reviewed: Yes Vitals/I&O/Wt Last Vital Signs Temp 96.7 F L 04/12/22 08:00 Pulse 83 04/12/22 16:31 Resp 15 04/12/22 16:31 BP 145/100 04/12/22 11:00 Pulse Ox 96 04/12/22 16:31 O2 Del Method 04/12/22 16:29 O2 Flow Rate 45 04/12/22 16:31 FiO2 55 04/12/22 16:31 04/12/22 04/12/22 04/12/22 06:59 14:59 22:59 Intake Total 510 / 1115.371 150 / 150 100 / 250 Output Total 1000 / 1900 300 / 300 Balance -490 / -784.629 -150 / -150 100 / -50 Weight last 48 hrs Weight 128 lb 8 oz Weight 134 lb 9.6 oz Physical Exam Narrative: General: Appears confused and extremely weak, in moderate respi ratory distress HEENT: conj clear, EOMI, PERRL, mmm, Neck: supple, no meningismus Heme: no cervical LAP Pulmonary: Bilateral diffuse crackles Cardiovascular: rrr, nl s1s2, no mrg Abdomen: soft, nt, nd, no r/g, bs+ Extremities: pulses +, no edema, no c/c : no CVA tenderness Skin: intact, no rash MSK: no back or neck pain Neurologic: grossly intact Urinary Catheter Management: Myers: Cath Placed During This Visit: yes Reason for Continuing Indwelling Catheter: Accurate Measurement of Urinary Output in Critically Ill Patients Urinary Catheter Date of Insertion: 04/07/22 Urinary Catheter Time of Insertion: 13:06 Data : 04/13/22 03:55 04/13/22 10:12 Other Labs: Radiology Impressions Renal Ultrasound 04/07/22 13:28 IMPRESSION: Low normal-sized echogenic kidneys. Moderate chronic medical renal disease. Modified Barium Swallow 04/10/22 00:00 IMPRESSION: 1. Modified barium swallow positive for aspiration of nectar consistency and thin liquid barium foodstuffs. A report of recommendations and findings will also follow from the speech therapy service. Chest X-Ray 04/11/22 09:28 IMPRESSION: 1. Extensive bilateral pulmonary infiltrates and small bibasal pleural effusions demonstrating no significant change. Laboratory Results WBC 20.6 10^3/uL (4.0-10.0) H 04/13/22 03:55 RBC 3.16 10^6/uL (4.1-5.3) L 04/13/22 03:55 Hgb 8.6 g/dL (11.7-16.6) L 04/13/22 03:55 Hct 28.4 % (42.0-52.0) L 04/13/22 03:55 MCV 89.9 fl (80-94) 04/13/22 03:55 MCH 27.2 pg (28.0-34.0) L 04/13/22 03:55 MCHC 30.3 g/dL (30.0-36.0) 04/13/22 03:55 RDW 15.4 % (12.1-15.1) H 04/13/22 03:55 Plt Count 349 10^3/cmm (130-400) 04/13/22 03:55 MPV 10.9 fL (7.4-10.4) H 04/13/22 03:55 Neut % (Auto) 94.0 % 04/13/22 03:55 Lymph % (Auto) 1.8 % 04/13/22 03:55 [place] % (Auto) 3.3 % 04/13/22 03:55 Eos % (Auto) 0.0 % 04/13/22 03:55 Baso % (Auto) 0.0 % 04/13/22 03:55 Neut # (Auto) 19.37 10^3/uL (1.8-7.7) H 04/13/22 03:55 Lymph # (Auto) 0.4 10^3/uL (0.8-4.8) L 04/13/22 03:55 [place] # (Auto) 0.7 10^3/uL (0.2-0.9) 04/13/22 03:55 Eos # (Auto) 0.0 10^3/uL (0.0-0.8) 04/13/22 03:55 Baso # (Auto) 0.0 10^3/uL (0.0-0.1) 04/13/22 03:55 Nucleated RBC % (auto) 0.2 % 04/13/22 03:55 Nucleated RBCs # 0.0 /100WBC 04/13/22 03:55 APTT 29.1 SECONDS (23.9-36.7) 04/09/22 13:26 PTT Patient/Normal 1:1 Cancelled 04/07/22 14:55 D-Dimer 2.06 ug/mIFEU (0-0.59) H 04/07/22 06:35 Specimen Type Arterial 04/11/22 13:27 Sample Site Radial, left 04/11/22 13:27 ABG pH 7.38 (7.35-7.45) 04/11/22 13:27 ABG pCO2 27.4 mmHg (35-45) L 04/11/22 13:27 ABG pO2 62.5 mmHg (80.0-100.0) L 04/11/22 13:27 ABG HCO3 16.3 mmol/L (22-26) L 04/11/22 13:27 ABG O2 Saturation 90.0 04/11/22 13:27 ABG Base Excess -7.7 mmol/L (-2.0-2.0) L 04/11/22 13:27 Harry Test Pos 04/11/22 13:27 A-a O2 Gradient 33.8 mmHg (5-10) H 04/11/22 13:27 Hematocrit 28.3 % (42-52) L 04/11/22 13:27 Hgb O2 Saturation 88.2 % (95-100) L 04/11/22 13:27 Carboxyhemoglobin 1.3 %THgb (0.4-20.1) 04/11/22 13:27 Methemoglobin 0.7 % (0.4-1.5) 04/11/22 13:27 Total Hemoglobin 9.2 g/dL (14-18) L 04/11/22 13:27 Sodium 147.0 mmol/L (131-143) H 04/11/22 13:27 Potassium 4.5 mmol/L (3.5-5.0) 04/11/22 13:27 Glucose 192.0 mg/dL (70-115) H 04/11/22 13:27 Ionized Calcium 1.3 mmol/L (1.1-1.4) 04/11/22 13:27 O2 Delivery Device Hag 04/11/22 13:27 O2 Liters/Min 50.0 % 04/11/22 13:27 FiO2 50.0 % 04/11/22 13:27 Vp Securities ID Cak 04/11/22 13:27 Sodium 142 mmol/L (136-145) 04/13/22 10:12 Potassium 3.2 mmol/L (3.5-5.1) L 04/13/22 03:55 Chloride 105 mmol/L (98-107) 04/13/22 10:12 Carbon Dioxide 22 mmol/L (22-29) 04/13/22 10:12 Anion Gap 17.9 (5-19) 04/13/22 10:12 BUN 71 mg/dL (8-23) H 04/13/22 03:55 Creatinine 2.4 mg/dL (0.7-1.2) H 04/13/22 03:55 GFR Calculation Not Reportable 04/13/22 10:12 Glucose 393 mg/dL (65-115) H 04/13/22 03:55 POC Glucose 208 mg/dL (70-110) H 04/13/22 06:58 Calculated Osmolality 313 mOsm/kg (285-295) H 04/13/22 03:55 Lactic Acid 4.6 mmol/L (0.5-2.2) H* 04/07/22 06:35 Lactic Acid (Sepsis) 5.8 mmol/L (0.5-2.2) H* 04/07/22 09:20 Lactate 1.5 mmol/L (0.5-2.2) 04/09/22 10:37 Uric Acid 14.6 mg/dL (3.4-7.0) H 04/12/22 09:56 Calcium 8.6 mg/dL (8.5-10.5) 04/13/22 10:12 Phosphorus 3.2 mg/dL (2.5-4.5) 04/13/22 10:12 Magnesium 2.3 mg/dL (1.7-2.3) 04/13/22 10:12 Iron 23 ug/dL (59-158) L 04/13/22 03:55 TIBC 157 mcg/dl 04/13/22 03:55 % Saturation 14.6 % (20-50) L 04/13/22 03:55 Unsat Iron Binding 134 ug/dL (112-347) 04/13/22 03:55 Total Bilirubin 0.4 mg/dL (0.15-1.2) 04/13/22 10:12 AST 33 U/L (0-40) 04/13/22 10:12 ALT 73 U/L (0-41) H 04/13/22 03:55 Alkaline Phosphatase 195 U/L (40-130) H 04/13/22 03:55 Creatine Kinase 191 U/L (39-308) 04/07/22 13:16 Troponin T Baseline 790 ng/L (0-15) H* 04/07/22 06:35 Troponin T 120 Minute 732.9 ng/L (0-15) H 04/07/22 09:20 Delta Troponin T -57.1 ABS# (0-10) L 04/07/22 09:20 Troponin T Hi Sens 6Hr 640.8 ng/L (0-15) H 04/07/22 13:15 Troponin T Hi Sens 6Hr Delta -149.2 ng/L (0-12) L 04/07/22 13:15 NT-Pro-B Natriuret Pep 65828 pg/mL (0-125) H 04/07/22 06:35 Total Protein 5.7 g/dL (6.6-8.7) L 04/13/22 03:55 Albumin 2.3 g/dL (3.5-5.2) L 04/13/22 03:55 Globulin 3.2 g/dL (1.3-4.6) 04/13/22 10:12 25-OH Vitamin D Total 17 ng/mL (30-100) L 04/13/22 03:55 Procalcitonin 0.86 ng/mL (0-0.5) H 04/11/22 11:57 Urine Color Yellow (Yellow) 04/07/22 13:06 Urine Appearance Clear (CLEAR) 04/07/22 13:06 Urine pH 5 (5-7) 04/07/22 13:06 Ur Specific [place] 1.020 (1.005-1.030) 04/07/22 13:06 Urine Protein 3+ (Negative) H 04/07/22 13:06 Urine Glucose (UA) Trace (Normal) H 04/07/22 13:06 Urine Ketones 1+ (Negative) H 04/07/22 13:06 Urine Blood 2+ (Negative) H 04/07/22 13:06 Urine Nitrate Negative (Negative) 04/07/22 13:06 Urine Bilirubin Neg (Negative) 04/07/22 13:06 Urine Urobilinogen Neg mg/dL (Negative) 04/07/22 13:06 Ur Leukocyte Esterase Negative (Negative) 04/07/22 13:06 Urine RBC 0-4 /hpf (0-2) H 04/07/22 13:06 Urine WBC None /hpf (0-5) 04/07/22 13:06 Ur Squamous Epith Cells 0-4 /hpf (0-5) H 04/07/22 13:06 Amorphous Sediment 1+ /hpf 04/07/22 13:06 Urine Bacteria 1+ /hpf (NONE) H 04/07/22 13:06 Vancomycin Trough 21.3 ug/mL (10-15) H 04/13/22 10:12 Random Vancomycin 31.6 ug/mL (20.0-40.0) 04/12/22 07:12 Coronavirus 229E (PCR) Not detected (NOT DETECT) 04/07/22 09:47 Hep Bs Antigen Non-reactive (Nonreactive) 04/12/22 21:21 Hep Bs Antibody 3.5 (11.5-1000) L 04/12/22 21:21 Hepatitis C Antibody Non-reactive (Nonreactive) 04/12/22 21:21 SARS-CoV-2 (PCR) Not detected (NOT DETECT) 04/07/22 09:47 Blood Type O Positive 04/11/22 08:50 Rho(D) Type Positive 04/11/22 08:50 Antibody Screen Negative 04/11/22 08:50 Crossmatch See Detail 04/11/22 08:50 Micro: Microbiology 04/11/22 16:57 MRSA Culture - Final Nose 04/07/22 10:10 Blood Culture - Final Blood NO GROWTH AFTER 5 DAYS 04/07/22 10:16 Blood Culture - Final Blood Staphylococcus epidermidis 04/11/22 13:35 Blood Culture - Preliminary Blood NEGATIVE TO DATE 04/11/22 12:29 Blood Culture - Preliminary Blood NEGATIVE TO DATE 04/11/22 16:36 Bacterial Antigens - Final Urine,Voided 04/11/22 16:36 Legionella Urinary Antigen - Final Urine Catheterized A&P Assessment and plan (1) Non-ST elevation myocardial infarction (NSTEMI) in recovery phase: (2) Uremia: (3) Protein-energy malnutrition: (4) Acute kidney injury superimposed on chronic kidney disease: (5) COPD (chronic obstructive pulmonary disease): (6) Acute systolic heart failure: (7) Acute kidney injury: (8) Pneumonia: (9) Acute respiratory failure with hypoxemia: (10) ARDS (adult respiratory distress syndrome): Plan #Altered mental status in patient with sepsis secondary to aspiration pneumonia/uremic encephalopathy -Appears confused -Concerning feature is elevated BUN-which may be contributing to his confusion -Had extensive discussion with at bedside about goals of care regarding DNR/DNI and hemodialysis -As per patient wishes-he is DNR/DNI and is okay with temporary hemodialysis -Discussed with nephrology/hospitalist agreed to place hemodialysis catheter and dialyzed to see if uremia is improving his mentation will improve -Other causes of confusion can be from his sepsis -patient is being treated with antibiotics -If no improvement of mentation hemodialysis-we will obtain CT head #acute hypoxic respiratory failure in patient who presented with fluid overload due to acute systolic heart failure-improved oxygen requirements with initial diuretic regimen and dobutamine #Patient at high risk for aspiration-barium swallow showed evidence of aspiration with nectar thick fluids-?underlying pneumonia and ARDS component #History of MRSA bacteremia in November 2021-current cultures / bottles positive for staph aureus-identification pending and repeat cultures pending #Acute on chronic renal [id number]-iera plausible explanation is cardiorenal syndrome in patient with new onset CHF #Patient also has underlying COPD and is on 3 L home oxygen -Currently patient oxygen requirements increased and requiring high flow nasal cannula 50 L and 60%;-Patient does not want intubation and resuscitation-and so he is DNR/DNI-we will continue supportive care -Continue DuoNeb nebulizations and we will taper down steroids based on clinical response -With significantly elevated BNP and echo evidence of acute systolic heart failure-and CT evidence of central pulmonary congestion-I suspect respiratory failure is predominantly secondary to fluid overload and with worsening renal functions this is even more challenging. Also given high risk for aspiration based on barium swallow-he may have some component of aspiration pneumonia contributing to ARDS-also today's procalcitonin is high-although likely secondary to renal failure-recommended to continue broad-spectrum antibiotic coverage with vancomycin/Zosyn until final cultures are available -Cardiology on board and will make decision about further interventions to rule out underlying CAD-currently patient is on Plavix -Good urine output with Lasix drip and FiO2 down to 40 L 60% on high flow nasal cannula -Given worsening renal functions -likely prerenal -and elevated BUN-we will hemodialysis to see if patient mentation improves #Protein energy malnutrition and severe deconditioning #Patient with significant aspiration to nectar thin liquids as per speech and recommended honey thick liquids -With his confusion-very difficult to feed patient -He refused NG feeding when he was more awake and alert - has to make decisions about further goals of care as we are limited in further interventions based on patient's wishes -Today goal is to do hemodialysis and see if clearing out uremia can improve his mentation -Meanwhile we will treat patient aspiration pneumonia with antibiotics and see if patient's mentation improves ICU CHECKLIST: Problem list updated Verbal orders reviewed and signed Analgesia: Morphine as needed Glycemic Control: Scale coverage Nutrition: Speech recommended pur?ed diet with honey thick liquids Restraint Renewal (within 24 hrs): Yes Ulcer Prophylaxis: PPI Chemical Thromboprophylaxis: Prophylaxis: Heparin Mechanical Thromboprophylaxis: SCD Need for Central line: PICC line Need for Myers catheter: Urine output monitoring Critical Care Time (No Overlap) 65 min This patient has a high probability of sudden, clinically significant dete rioration, which requires the highest level of physician preparedness to intervene urgently. I managed/supervised life or organ supporting interventions that required frequent physician assessment. I devoted my full attention in the ICU to the direct care of this patient for the period of time indicated above. Time I spent with family or surrogate(s) is included only if the patient was incapable of providing necessary information or participating in decision making. Time devoted to teaching and to any procedures I billed separately is not included. Services Provided: Telemetry review Mechanical Ventilation Hemodynamic interpretation, assessment and management Review and interpretation of CXR Review and interpretation of lab values Review and interpretation of microbiologic data and culture results Review of medications and administration Review and interpretation of Nutrition requirements and management Discussion of management with other consultants and services Clinical update to family members Attestations Medical Necessity Statement*: Worsening mental status-require hemodialysis for uremic encephalopathy Critical Care Time: The high probability of a clinically significant, sudden or life threatening deterioration of the patient's?[pulmonary, cardiac, renal, infectious]?system(s) required my full and direct attention, intervention and personal management. The critical care time is as shown. This time is in addition to time spent performing any reported procedures but includes the f ollowing: [x]?Data and vital sign review and interpretation [x]?Patient assessment, examination and intervention [x]?Documentation [x]?Medication orders and management Critical Care Time (min): 65 Coding Level of Care Code Established Pt Acute Refrigerating Engineer Head for Chg Fwd Patient Type Established History Comprehensive Exam Comprehensive Medical Decision Making High Complexity Diagnoses Non-ST elevation myocardial infarction (NSTEMI) in recovery phase I21.4 Uremia N19 Protein-energy malnutrition E46 Acute kidney injury superimposed on chronic kidney disease N17.9; N18.9 COPD (chronic obstructive pulmonary disease) J44.9 Acute systolic heart failure I50.21 Acute kidney injury N17.9 Pneumonia J18.9 Acute respiratory failure with hypoxemia J96.01 ARDS (adult respiratory distress syndrome) J80 Time Spent (min) 45
[2022-04-12] MEDS: dextrose 5% 1,000 ML 100 ML IV (17:39)
[2022-04-12 17:59] LABS: Anion Gap 23.4 (5-19); Calcium 9.3 mg/dL (8.5-10.5); Carbon Dioxide 18 mmol/L (22-29); Chloride 113 mmol/L (98-107); Glucose 210 mg/dL (65-115); Potassium 3.4 mmol/L (3.5-5.1); Sodium 151 mmol/L (136-145)
[2022-04-12 18:14] LABS: Blood Urea Nitrogen 122 mg/dL (8-23); Osmolality Calculated 357 mOsm/kg (285-295)
[2022-04-12 18:33] LABS: Glucose Point of Care 248 mg/dL (70-110)
[2022-04-12] MEDS: insulin lispro 100 unit/1 mL SUBCUT ×2 (18:56→21:34)
--- NOTE | 2022-04-12 19:10 | PC.NURSE ---
Bedside report completed with José Miguel Simon.
--- NOTE | 2022-04-12 19:55 | PM.ACPR ---
Procedure/Consent Time out: Time Out Performed: Yes Consent: Consent for Procedure: Consent obtained from other (indicate) Additional Consent Information: Procedure Narrative: Name of the procedure: Right femoral vein hemodialysis catheter insertion under ultrasound guidance. Medications: Lidocaine 1% 5 mL. IV medications: None Consent: Obtained from his . Description of the procedure: The right femoral vein was identified under ultrasound guidance with collapsibility and lack of pulsatility. The site was prepared using sterile technique and the patient was positioned optimally. The skin, subcutaneous tissue was anesthetized with 1% lidocaine. The introducer needle was then advanced under direct ultrasound guidance to flashback was noted. Dark nonpulsatile blood was noted. The guidewire was advanced through the needle and confirmed to be in the femoral vein with ultrasound. Using Seldinger technique the right femoral vein hemodialysis catheter was inserted. The catheter was sutured in place. The insertion length was 20 cm. Complications: None Blood loss: 2 mL Acute Procedures Epistaxis Control: Time out performed: Yes
--- NOTE | 2022-04-12 20:29 | PC.NURSE ---
Shift Note: Pt has remained resting in bed. He is confused. He is wearing HHF, he pulls it off frequently. sits at bedside watching him do these things. He has difficulty swallowing, Pills need to be crushed, liquid medications ae difficult to get him to swallow. He has had greater [id number] urine output this shift, with that one leaking cath episode. Catheter has not leaked since. This am his urine was bloody, it is cleared up to lear yellow at end of shift. Frequent safety and comfort rounds continue. Orders and/or nursing care completed as indicated. Patient monitored for response to intervention and treatment(s). Education provided include Lasix, Diamix, Dialysis,ear mold laboratory technician and progress with plan of care. Patient and/or labor representative verbalizes understanding of plan of care and medications but re-enforcement is needed Will continue to monitor.
[2022-04-12] MEDS: atorvastatin 40 mg Tablet 20 MG PO (21:33)
[2022-04-12 21:45] LABS: Glucose Point of Care 199 mg/dL (70-110)
--- NOTE | 2022-04-12 21:45 | PC.NURSE ---
Dr. March at bedside to place dialysis catheter. gave consent.
[2022-04-12 22:40] LABS: Hepatitis B Surface AB 3.5 (11.5-1000); Hepatitis B Surface Antigen Non-Reactive (Nonreactive); Hepatitis C Virus Antibody Non-Reactive (Nonreactive)
--- NOTE | 2022-04-12 23:03 | P.PN_ITS ---
Subjective Subjective: The patient is renal function continues to deteriorate. The white cell count is keep going. Hemoglobin seems to be steady. Urine output seems to be declining. Hemodialysis is being considered. Denies any chest pain. Continues to have shortness of breath. Medications: Medication Review Details: Current Medications Acetaminophen (Acetaminophen 325 Mg Tablet) 650 mg PO Q6H PRN PRN Reason: MILD PAIN Last Admin: 04/11/22 17:44 Dose: 650 mg Acetazolamide (Acetazolamide 250 Mg Tablet) 250 mg PO BID PEPE Last Admin: 04/12/22 18:56 Dose: 250 mg Albuterol/Ipratropium (Ipratropium-Albuterol 3 Ml Neb) 3 ml INHALATION Q4H PEPE Last Admin: 04/12/22 20:58 Dose: 3 ml Aspirin (Aspirin 81 Mg Ec Tablet) 81 mg PO DAILY PEPE Last Admin: 04/12/22 09:42 Dose: 81 mg Atorvastatin Calcium (Atorvastatin 40 Mg Tablet) 20 mg PO BEDTIME PEPE Last Admin: 04/12/22 21:33 Dose: 20 mg Budesonide (Budesonide 0.5 Mg/2 Ml Neb) 0.5 mg INHALATION BID.RESPIRATORY PEPE Last Admin: 04/12/22 20:58 Dose: 0.5 mg Clopidogrel Bisulfate (Clopidogrel 75 Mg Tablet) 75 mg PO DAILY [facility] Last Admin: 04/12/22 09:42 Dose: 75 mg Dextrose (Dextrose 50% Syringe 50 Ml) 25 ml IVP ONCE PRN; Protocol PRN Reason: hypoglycemia protocol Dextrose (Dextrose 50% Syringe 50 Ml) 50 ml IVP PRN PRN; Protocol PRN Reason: hypoglycemia protocol Ferrous Gluconate (Ferrous Gluconate 324 Mg Tablet) 324 mg PO BIDWM [facility] Last Admin: 04/12/22 18:56 Dose: 324 mg Furosemide (Furosemide 10 Mg/Ml Sdv 10ml) 80 mg IVP BID@16 [facility] Glucagon (Glucagon 1 Mg/Ml Inj 1 Ml) 1 mg IM ONCE PRN; Protocol PRN Reason: Adult Acute Hypoglycemia Prot. Heparin Sodium (Porcine) (Heparin 5,000 Unit/Ml Inj 1 Ml) 5,000 unit SUBCUT Q12H [facility]PE Last Admin: 04/12/22 14:04 Dose: 5,000 unit Hydralazine HCl (Hydralazine 20 Mg/Ml Inj 1 Ml) 10 mg IVP Q4H PRN PRN Reason: SYSTOLIC BLOOD PRESSURE Last Admin: 04/07/22 16:51 Dose: 10 mg Vancomycin HCl 1,000 mg/ (Sodium Chloride) 250 mls @ 250 mls/hr IV Q36H PEPE; Protocol Last Admin: 04/11/22 22:06 Dose: 250 mls/hr Dextrose (D5w) 500 mls @ 100 mls/hr IV ONCE PRN; Protocol PRN Reason: Adult Acute Hypoglycemia Prot Imipenem/Cilastatin Sodium 250 (mg/ Sodium Chloride) 100 mls @ 200 mls/hr IV Q12H PEPE; Protocol Last Infusion: 04/12/22 15:00 Dose: Infused Dextrose (D5w) 1,000 mls @ 100 mls/hr IV .Q10H PEPE Last Admin: 04/12/22 17:39 Dose: 100 mls/hr Insulin Human Lispro (Insulin Lispro 100 Unit/1 Ml) 0 unit SUBCUT WM&BEDTIME EP[facility]; Protocol Last Admin: 04/12/22 21:34 Dose: 4 unit Methylprednisolone Sodium Succinate (Methylprednisolone Sod Succ 125 Mg/2 Ml Inj) 30 mg IVP Q12H PEPE Last Admin: 04/12/22 21:33 Dose: 30 mg Metoprolol Tartrate (Metoprolol Tartrate 25 Mg Tablet) 25 mg PO BID@0900,2100 [facility] Last Admin: 04/12/22 09:42 Dose: 25 mg Morphine Sulfate (Morphine 4 Mg/Ml Sdv 1 Ml) 1 mg IVP Q4H PRN PRN Reason: PAIN Last Admin: 04/12/22 14:08 Dose: 1 mg Ondansetron HCl (Ondansetron 2 Mg/Ml Sdv 2 Ml) 4 mg IVP Q6H PRN PRN Reason: NAUSEA AND VOMITING Pantoprazole Sodium (Pantoprazole 40 Mg Sdv) 40 mg IVP Q12H [facility] Last Admin: 04/12/22 21:33 Dose: 40 mg Polyethylene Glycol (Polyethylene Glycol 3350 Pkt 17 Gm) 17 gm PO DAILY [facility] Last Admin: 04/12/22 09:43 Dose: 17 gm Senna/Docusate Sodium (Sennosides-Docusate Tablet) 1 tab PO BID [facility] Last Admin: 04/12/22 18:56 Dose: 1 tab Sucralfate (Sucralfate 1 Gm/10 Ml Oral Liq Udc) 1 gm PO AC&BEDTIME PEPE Last Admin: 04/12/22 21:33 Dose: 1 gm Vitals/I&O/Wt Last Vital Signs Temp 98.1 F 04/12/22 21:00 Pulse 83 04/12/22 21:00 Resp 17 04/12/22 21:00 BP 145/81 04/12/22 21:00 Pulse Ox 95 04/12/22 21:00 O2 Del Method 04/12/22 20:58 O2 Flow Rate 40 04/12/22 21:00 FiO2 50 04/12/22 21:00 04/12/22 04/12/22 04/13/22 14:59 22:59 06:59 Intake Total 150 / 150 175 / 325 Output Total 300 / 300 975 / 1275 Balance -150 / -150 -800 / -950 Weight last 48 hrs Weight 128 lb 8 oz Weight 134 lb 9.6 oz Physical Exam Narrative: GENERAL: The patient is alert confused. Slight respiratory distress. Chronically ill looking. HEENT: Mild pallor, no icterus or lymphadenopathy.Oral cavity: There are no mucous membrane lesions. NECK: Trachea appears to be central. No masses noted. No JVD or thyromegaly appreciated. RESPIRATORY: Bilateral coarse crackles and expiratory wheezing. Few fine rales. BREASTS: Deferred. HEART: The heart sounds are normal. No S3 or S4. Short systolic murmur in the left sternal border. No pericardial rub ABDOMEN: No vessel pulsations or distention. No tenderness. No organomegaly appreciated. Bowel sounds are normally heard. : Deferred. RECTAL: Deferred. LYMPHATIC: No lymphadenopathy noted in the neck. EXTREMITIES: No edema or cyanosis. No clubbing. MUSCULOSKELETAL: No acute joint deformities or swelling SKIN: There are no significant rashes or ecchymosis NEUROPSYCHIATRIC: The patient is alert . Mild respiratory distress. Left-sided weakness Urinary Catheter Management: Myers: Cath Placed During This Visit: yes Reason for Continuing Indwelling Catheter: Accurate Measurement of Urinary Output in Critically Ill Patients Urinary Catheter Date of Insertion: 04/07/22 Urinary Catheter Time of Insertion: 13:06 Data : 04/12/22 07:12 04/12/22 17:17 Micro: Microbiology 04/11/22 16:57 MRSA Culture - Final Nose 04/07/22 10:10 Blood Culture - Final Blood NO GROWTH AFTER 5 DAYS 04/07/22 10:16 Blood Culture - Final Blood Staphylococcus epidermidis 04/11/22 13:35 Blood Culture - Preliminary Blood NEGATIVE TO DATE 04/11/22 12:29 Blood Culture - Preliminary Blood NEGATIVE TO DATE 04/11/22 16:36 Bacterial Antigens - Final Urine,Voided A&P Assessment and plan (1) ARDS (adult respiratory distress syndrome): The patient's respiratory status seems to be slowly getting worse. (2) Acute systolic heart failure: Patient seems her intermittent decompensated heart failure. The worsening kidney function could be a contributing factor. (3) Non-ST elevation myocardial infarction (NSTEMI) in recovery phase: May continue on the Plavix. In view of the drop in the hemoglobin, may discontinue the aspirin and keep the Plavix (4) Acute kidney injury superimposed on chronic kidney disease: BUN/creatinine seems to be getting worse. This could be multifactorial. Appreciate nephrology input. Hemodialysis is being contemplated Plan The other problems are Anemia, status post blood transfusion possible pneumonia Leukocytosis-getting worse Recent MRSA infection/abscess drainage COPD exacerbation History of hypertension, currently normotensive Type 2 diabetes Hypokalemia, currently corrected The patient has a DNI DNR status. According the patient's , she does not want him to be on permanent hemodialysis. So we will continue to optimize his medical treatment. 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
[2022-04-13] VITALS (39 sets, daily range): BP systolic 127–165; BP diastolic 66–85; PULSE 71–89; RESP 9–24; TEMP 36.3–36.6; O2SAT 89–100
[2022-04-13] MEDS: morphine 4 mg/mL SDV 1 mL 1 MG IVP ×2 (00:08→04:06)
[2022-04-13] MEDS: dextrose 5% 1,000 ML 100 ML IV (02:22)
[2022-04-13] MEDS: ipratropium-albuterol 3 mL Neb INHALATION ×7 (03:23→23:44)
[2022-04-13 04:05] LABS: Hematocrit 28.4 % (42.0-52.0); Hemoglobin 8.6 g/dL (11.7-16.6); Lymphocytes # 0.4 10^3/uL (0.8-4.8); Lymphocytes % 1.8 %; Mean Corpuscular HGB Conc 30.3 g/dL (30.0-36.0); Mean Corpuscular Hemoglobin 27.2 pg (28.0-34.0); Mean Corpuscular Volume 89.9 fl (80-94); Mean Platelet Volume 10.9 fL (7.4-10.4); Monocytes # 0.7 10^3/uL (0.2-0.9); Monocytes % 3.3 %; Neutrophils # 19.37 10^3/uL (1.8-7.7); Nucleated Red Blood Cells % 0.2 %; Platelet Count 349 10^3/cmm (130-400); Red Blood Count 3.16 10^6/uL (4.1-5.3); Red Cell Distribution Width 15.4 % (12.1-15.1); White Blood Count 20.6 10^3/uL (4.0-10.0)
[2022-04-13 04:39] LABS: Alanine Aminotransferase 73 U/L (0-41); Albumin Level 2.3 g/dL (3.5-5.2); Alkaline Phosphatase 195 U/L (40-130); Anion Gap 17.2 (5-19); Aspartate Amino Transferase 41 U/L (0-40); Blood Urea Nitrogen 71 mg/dL (8-23); Calcium 8.5 mg/dL (8.5-10.5); Carbon Dioxide 20 mmol/L (22-29); Chloride 99 mmol/L (98-107); Globulin 3.4 g/dL (1.3-4.6); Glucose 393 mg/dL (65-115); Iron 23 ug/dL (59-158); Magnesium 2.2 mg/dL (1.7-2.3); Osmolality Calculated 313 mOsm/kg (285-295); Percent Saturation 14.6 % (20-50); Potassium 3.2 mmol/L (3.5-5.1); Sodium 133 mmol/L (136-145); Total Bilirubin 0.3 mg/dL (0.15-1.2); Total Iron Binding Capacity 157 mcg/dl; Total Protein 5.7 g/dL (6.6-8.7); Unsaturated Iron Binding 134 ug/dL (112-347)
[2022-04-13 04:53] LABS: 25 Hydroxy Vitamin D 17 ng/mL (30-100)
[2022-04-13 07:01] LABS: Glucose Point of Care 208 mg/dL (70-110)
[2022-04-13] MEDS: budesonide 0.5 mg/2 mL Neb INHALATION ×2 (07:38→20:08)
--- NOTE | 2022-04-13 08:10 | P.PN_ITS ---
Subjective Subjective: still confused, sob on hi flow m02 Medications: Reviewed: Yes Medication Review Details: Current Medications Acetaminophen (Acetaminophen 325 Mg Tablet) 650 mg PO Q6H PRN PRN Reason: MILD PAIN Last Admin: 04/11/22 17:44 Dose: 650 mg Acetazolamide (Acetazolamide 250 Mg Tablet) 250 mg PO BID [facility] Last Admin: 04/12/22 18:56 Dose: 250 mg Albuterol/Ipratropium (Ipratropium-Albuterol 3 Ml Neb) 3 ml INHALATION Q4H PEPE Last Admin: 04/13/22 07:38 Dose: 3 ml Aspirin (Aspirin 81 Mg Ec Tablet) 81 mg PO DAILY [facility] Last Admin: 04/12/22 09:42 Dose: 81 mg Atorvastatin Calcium (Atorvastatin 40 Mg Tablet) 20 mg PO BEDTIME PEPE Last Admin: 04/12/22 21:33 Dose: 20 mg Budesonide (Budesonide 0.5 Mg/2 Ml Neb) 0.5 mg INHALATION BID.RESPIRATORY [facility] Last Admin: 04/13/22 07:38 Dose: 0.5 mg Clopidogrel Bisulfate (Clopidogrel 75 Mg Tablet) 75 mg PO DAILY [facility] Last Admin: 04/12/22 09:42 Dose: 75 mg Dextrose (Dextrose 50% Syringe 50 Ml) 25 ml IVP ONCE PRN; Protocol PRN Reason: hypoglycemia protocol Dextrose (Dextrose 50% Syringe 50 Ml) 50 ml IVP PRN PRN; Protocol PRN Reason: hypoglycemia protocol Ferrous Gluconate (Ferrous Gluconate 324 Mg Tablet) 324 mg PO BIDWM [facility] Last Admin: 04/12/22 18:56 Dose: 324 mg Furosemide (Furosemide 10 Mg/Ml Sdv 10ml) 80 mg IVP BID@16 [facility] Glucagon (Glucagon 1 Mg/Ml Inj 1 Ml) 1 mg IM ONCE PRN; Protocol PRN Reason: Adult Acute Hypoglycemia Prot. Heparin Sodium (Porcine) (Heparin 5,000 Unit/Ml Inj 1 Ml) 5,000 unit SUBCUT Q1 2H [facility] Last Admin: 04/12/22 23:37 Dose: 5,000 unit Hydralazine HCl (Hydralazine 20 Mg/Ml Inj 1 Ml) 10 mg IVP Q4H PRN PRN Reason: SYSTOLIC BLOOD PRESSURE Last Admin: 04/07/22 16:51 Dose: 10 mg Vancomycin HCl 1,000 mg/ (Sodium Chloride) 250 mls @ 250 mls/hr IV Q36H [facility]; Protocol Last Infusion: 04/13/22 06:53 Dose: Infused Imipenem/Cilastatin Sodium 250 (mg/ Sodium Chloride) 100 mls @ 200 mls/hr IV Q12H [facility]; Protocol Last Infusion: 04/13/22 01:46 Dose: Infused Insulin Human Lispro (Insulin Lispro 100 Unit/1 Ml) 0 unit SUBCUT WM&BEDTIME [facility]; Protocol Last Admin: 04/12/22 21:34 Dose: 4 unit Methylprednisolone Sodium Succinate (Methylprednisolone Sod Succ 125 Mg/2 Ml Inj) 30 mg IVP Q12H [facility] Last Admin: 04/12/22 21:33 Dose: 30 mg Metoprolol Tartrate (Metoprolol Tartrate 25 Mg Tablet) 25 mg PO BID@0900,2100 [facility] Last Admin: 04/12/22 23:37 Dose: 25 mg Morphine Sulfate (Morphine 4 Mg/Ml Sdv 1 Ml) 1 mg IVP Q4H PRN PRN Reason: PAIN Last Admin: 04/13/22 04:06 Dose: 1 mg Ondansetron HCl (Ondansetron 2 Mg/Ml Sdv 2 Ml) 4 mg IVP Q6H PRN PRN Reason: NAUSEA AND VOMITING Pantoprazole Sodium (Pantoprazole 40 Mg Sdv) 40 mg IVP Q12H [facility] Last Admin: 04/12/22 21:33 Dose: 40 mg Polyethylene Glycol (Polyethylene Glycol 3350 Pkt 17 Gm) 17 gm PO DAILY [facility] Last Admin: 04/12/22 09:43 Dose: 17 gm Senna/Docusate Sodium (Sennosides-Docusate Tablet) 1 tab PO BID [facility] Last Admin: 04/12/22 18:56 Dose: 1 tab Sucralfate (Sucralfate 1 Gm/10 Ml Oral Liq Udc) 1 gm PO AC&BEDTIME [facility] Last Admin: 04/12/22 21:33 Dose: 1 gm Vitals/I&O/Wt Last Vital Signs Temp 98.1 F 04/12/22 21:00 Pulse 80 04/13/22 07:43 Resp 14 04/13/22 07:43 BP 153/85 04/13/22 06:00 Pulse Ox 98 04/13/22 07:43 O2 Del Method 04/13/22 07:20 O2 Flow Rate 40 04/13/22 07:43 FiO2 50 04/13/22 07:43 04/12/22 04/13/22 04/13/22 22:59 06:59 14:59 Intake Total 175 / 325 1221.667 / 1546.667 Output Total 975 / 1275 520 / 1795 Balance -800 / -950 701.667 / -248.333 Weight last 48 hrs Weight 56.472 kg Weight 58.287 kg Physical Exam Narrative: sob on high flow 02 , VS noted heent- nc/at neck supple lungs -per RN -improved. still w/ b/l crackles left crackles heart reg abd soft, nt, nd, +bs ext b/l edema rt femoral dialysis access neuro- confused, left side weak, not following commands Urinary Catheter Management: Myers: Cath Placed During This Visit: yes Reason for Continuing Indwelling Catheter: Accurate Measurement of Urinary Output in Critically Ill Patients Urinary Catheter Date of Insertion: 04/07/22 Urinary Catheter Time of Insertion: 13:06 Data : 04/13/22 03:55 04/13/22 03:55 Micro: Microbiology 04/11/22 16:57 MRSA Culture - Final Nose 04/07/22 10:10 Blood Culture - Final Blood NO GROWTH AFTER 5 DAYS 04/07/22 10:16 Blood Culture - Final Blood Staphylococcus epidermidis 04/11/22 13:35 Blood Culture - Preliminary Blood NEGATIVE TO DATE 04/11/22 12:29 Blood Culture - Preliminary Blood NEGATIVE TO DATE 04/11/22 16:36 Bacterial Antigens - Final Urine,Voided A&P Assessment and plan (1) Acute kidney injury superimposed on chronic kidney disease: 76 yr old man h/o COPD, CKD stage 3, CVA, DM, HTN. H/o MRSA pleural effusion in November 2021. Pt here w/ b/l pna, infoltrates, pleural effusions and drop in EF from 65- 32% pt has CARMENZA., he is being treated w/ lasix, vanco, zsosyn 1. CARMENZA- baseline cr 1.1 in November 2021. Cr 1.3- 1.5 in December/ january 2022. -s/p first HD yesterday to see if helps w/ MS- no improvement -will discuss w/ Pulm if need further dialysis 2. Infection- on zosyn and vanco- monitor vanco level. was 31 yesterday- will repeat vanco level. do not redose vanco if trough is above 20 -wbc remains 20 3. repeat chemistries- may have been too close to finishing dialysis -d/c d5w as na dropped from 151 to 133 w/ dialysis 4.met acidosis- from CARMENZA and lactate- improving 5. dec EF- if cardiology feels a cath is beneficial then proceed w/ cath as he is on HD, - we can dialyze as needed 6. anemia 7. effusions- remains on diuretics meds reviewed discussed w/ SENIOR MECHANICAL DESIGNER seen and examined w/ SENIOR MECHANICAL DESIGNER- telehealth visit time spent 30 min Plan see above Attestations Medical Necessity Statement*: AMS, SOB, CARMENZA Time Spent in Patient Care: 16 - 35 minutes (>than 50% of time spent in counselling and/or direct pt care on unit) . 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
[2022-04-13] MEDS: insulin lispro 100 unit/1 mL SUBCUT ×2 (08:21→17:29)
[2022-04-13] MEDS: pantoprazole 40 mg SDV IVP ×2 (08:25→20:37)
[2022-04-13] MEDS: aspirin 81 mg EC Tablet PO (08:26)
[2022-04-13] MEDS: clopidogrel 75 mg Tablet PO (08:26)
[2022-04-13] MEDS: acetaZOLAMIDE 250 mg Tablet PO (08:26)
[2022-04-13] MEDS: metoprolol tartrate 25 mg Tablet PO ×2 (08:26→20:36)
[2022-04-13 10:52] LABS: Vancomycin Trough 21.3 ug/mL (10-15)
[2022-04-13 11:07] LABS: Alanine Aminotransferase 64 U/L (0-41); Albumin Level 2.5 g/dL (3.5-5.2); Alkaline Phosphatase 190 U/L (40-130); Anion Gap 17.9 (5-19); Aspartate Amino Transferase 33 U/L (0-40); Blood Urea Nitrogen 69 mg/dL (8-23); Calcium 8.6 mg/dL (8.5-10.5); Carbon Dioxide 22 mmol/L (22-29); Chloride 105 mmol/L (98-107); Globulin 3.2 g/dL (1.3-4.6); Glucose 142 mg/dL (65-115); Magnesium 2.3 mg/dL (1.7-2.3); Osmolality Calculated 317 mOsm/kg (285-295); Phosphorus 3.2 mg/dL (2.5-4.5); Sodium 142 mmol/L (136-145); Total Bilirubin 0.4 mg/dL (0.15-1.2); Total Protein 5.7 g/dL (6.6-8.7)
--- NOTE | 2022-04-13 11:54 | PC.CHAP ---
Pastoral Care Encounter/Spiritual Assessment Type of Contact [] Declined bell spinner sousaphones visit [] Patient/Family/Request visit [] Outpatient visit [] Follow-up visit [] Physician referral [] Code/Alert [x] Routine visit [] Staff referral [] Actively dying [x] Patient sleeping [] Family support [] [] Out of room [] Palliative care [] [] Receiving care in room [] Pre-surgical visit [] Trauma [] Long length of stay [x] ICU visit [] Other: Relational/Emotional Strength [] Patient feels connected with others/family/visitors/staff [] Distress [] Loneliness/isolation [] Abandonment Spirituality of Patient [] Person of Krissy [] Attends Evangelical of their Krissy [] Believes in Prayer [] Reads Bible or Zoroastrianism materials [] There are Spiritual issues to be addressed Data Capture Clerk Interventions [x] Prayer [] Active listening [] Non-anxious presence [] Spiritual/emotional support [] Crisis/trauma care [] Spiritual counseling [] Bereavement support [] Provided bereavement packet [] Provided Bible/devotional materials [] Provided toy/stuffed animal, coloring book to patient or family member [] Provided Communion [] Anointing/[place] [] Salvation [x] Completed spiritual assessment [] Other: Impact on Illness or Injury [] Angry [] Fearful [] Anxious [] Often cries [] Exhaustion [] Unable to work [] Unable to attend lutheran [] Unable to walk/stand [] Unable to read [] Unable to drive [] Unable to eat/drink [] Unable to sleep [] Unable to be with family [] Patient intubated [] Other: Summary Time spent with patient
[2022-04-13] MEDS: sodium chloride 0.9% 250 ML IV (11:58)
[2022-04-13] MEDS: heparin 5,000 unit/mL INJ 1 mL 5000 UNIT SUBCUT ×2 (11:59→22:02)
[2022-04-13] MEDS: sucralfate 1 gm/10 mL Oral Liq UDC PO ×2 (12:02→20:36)
[2022-04-13 12:08] LABS: Creatinine Clr Calc Pharmacy 20.1968; Potassium 2.9 mmol/L (3.5-5.1)
[2022-04-13 12:54] LABS: Glucose Point of Care 138 mg/dL (70-110)
[2022-04-13] MEDS: lidocaine 1% 5 ML in potassium chloride premix 100 ML 50 ML IV (13:37)
--- NOTE | 2022-04-13 13:44 | P.PN_ITS ---
Subjective Subjective: -Patient seen at bedside -Agree with nephrology that patient had a good urine output but a requested to do 1 session of hemodialysis yesterday evening to see if improvement in his BUN can improve his mentation-accordingly had 1 session of hemodialysis overnight and 1 L fluid removed. BUN down from 1 22-69;-Still appears confused and extremely weak -On honey thick liquid diet-still feel like he is aspirating-we will call for speech reevaluation -Appeared somewhat clinically dehydrated-with a dry tongue; will hold on Lasix for today and give 250 cc NS fluid -Patient oxygen requirements have improved and were able to transition from high flow nasal cannula 40 L 60% to 8 L nasal cannula and patient is saturating 95% on monitor -Again had extensive discussion with at bedside about goals of care regarding feeding. Earlier during hospitalization patient himself did not want any feeding tubes and today at bedside also agrees with that. -At this point of time patient is hemodynamically stable with decreasing supplemental oxygen requirements, making good urine-does not have any indication for hemodialysis-the major concern was his feeding without which he will be further deconditioned and does not give a good prognosis overall. Everything explained in detail to the patient and she verbalized understanding of what is happening and requested for home hospice and would want assistance with feeding the patient as well as nursing care regarding his bedsores. -Accordingly information was passed on to hospitalist taking care of the patient to involve case management to discuss about home hospice -We may discontinue hemodialysis catheter-as there is no intention to continue permanent hemodialysis -Overall prognosis poor -Patient can be transferred to floor while pending certified social workers in health care evaluation Medications: Reviewed: Yes Medication Review Details: Current Medications Acetaminophen (Acetaminophen 325 Mg Tablet) 650 mg PO Q6H PRN PRN Reason: MILD PAIN Last Admin: 04/11/22 17:44 Dose: 650 mg Acetazolamide (Acetazolamide 250 Mg Tablet) 250 mg PO BID [facility] Last Admin: 04/12/22 18:56 Dose: 250 mg Albuterol/Ipratropium (Ipratropium-Albuterol 3 Ml Neb) 3 ml INHALATION Q4H [facility] Last Admin: 04/13/22 07:38 Dose: 3 ml Aspirin (Aspirin 81 Mg Ec Tablet) 81 mg PO DAILY [facility] Last Admin: 04/12/22 09:42 Dose: 81 mg Atorvastatin Calcium (Atorvastatin 40 Mg Tablet) 20 mg PO BEDTIME [facility] Last Admin: 04/12/22 21:33 Dose: 20 mg Budesonide (Budesonide 0.5 Mg/2 Ml Neb) 0.5 mg INHALATION BID.[facility] Last Admin: 04/13/22 07:38 Dose: 0.5 mg Clopidogrel Bisulfate (Clopidogrel 75 Mg Tablet) 75 mg PO DAILY [facility] Last Admin: 04/12/22 09:42 Dose: 75 mg Dextrose (Dextrose 50% Syringe 50 Ml) 25 ml IVP ONCE PRN; Protocol PRN Reason: hypoglycemia protocol Dextrose (Dextrose 50% Syringe 50 Ml) 50 ml IVP PRN PRN; Protocol PRN Reason: hypoglycemia protocol Ferrous Gluconate (Ferrous Gluconate 324 Mg Tablet) 324 mg PO BIDWM [facility] Last Admin: 04/12/22 18:56 Dose: 324 mg Furosemide (Furosemide 10 Mg/Ml Sdv 10ml) 80 mg IVP BID@ [facility] Glucagon (Glucagon 1 Mg/Ml Inj 1 Ml) 1 mg IM ONCE PRN; Protocol PRN Reason: Adult Acute Hypoglycemia Prot. Heparin Sodium (Porcine) (Heparin 5,000 Unit/Ml Inj 1 Ml) 5,000 unit SUBCUT Q12H [facility] Last Admin: 04/12/22 23:37 Dose: 5,000 unit Hydralazine HCl (Hydralazine 20 Mg/Ml Inj 1 Ml) 10 mg IVP Q4H PRN PRN Reason: SYSTOLIC BLOOD PRESSURE Last Admin: 04/07/22 16:51 Dose: 10 mg Vancomycin HCl 1,000 mg/ (Sodium Chloride) 250 mls @ 250 mls/hr IV Q36H [facility]; Protocol Last Infusion: 04/13/22 06:53 Dose: Infused Imipenem/Cilastatin Sodium 250 (mg/ Sodium Chloride) 100 mls @ 200 mls/hr IV Q12H [facility]; Protocol Last Infusion: 04/13/22 01:46 Dose: Infused Insulin Human Lispro (Insulin Lispro 100 Unit/1 Ml) 0 unit SUBCUT WM&BEDTIME [facility]; Protocol Last Admin: 04/12/22 21:34 Dose: 4 unit Methylprednisolone Sodium Succinate (Methylprednisolone Sod Succ 125 Mg/2 Ml Inj) 30 mg IVP Q12H [facility] Last Admin: 04/12/22 21:33 Dose: 30 mg Metoprolol Tartrate (Metoprolol Tartrate 25 Mg Tablet) 25 mg PO BID@0900,2100 [facility] Last Admin: 04/12/22 23:37 Dose: 25 mg Morphine Sulfate (Morphine 4 Mg/Ml Sdv 1 Ml) 1 mg IVP Q4H PRN PRN Reason: PAIN Last Admin: 04/13/22 04:06 Dose: 1 mg Ondansetron HCl (Ondansetron 2 Mg/Ml Sdv 2 Ml) 4 mg IVP Q6H PRN PRN Reason: NAUSEA AND VOMITING Pantoprazole Sodium (Pantoprazole 40 Mg Sdv) 40 mg IVP Q12H [facility] [place] Last Admin: 04/12/22 21:33 Dose: 40 mg Polyethylene Glycol (Polyethylene Glycol 3350 Pkt 17 Gm) 17 gm PO DAILY [facility] [place] Last Admin: 04/12/22 09:43 Dose: 17 gm Senna/Docusate Sodium (Sennosides-Docusate Tablet) 1 tab PO BID [facility] Last Admin: 04/12/22 18:56 Dose: 1 tab Sucralfate (Sucralfate 1 Gm/10 Ml Oral Liq Udc) 1 gm PO AC&BEDTIME [facility] Last Admin: 04/12/22 21:33 Dose: 1 gm Vitals/I&O/Wt Last Vital Signs Temp 97.4 F L 04/13/22 08:00 Pulse 81 04/13/22 13:00 Resp 12 04/13/22 13:00 BP 146/71 04/13/22 13:00 Pulse Ox 95 04/13/22 13:00 O2 Del Method 04/13/22 11:10 O2 Flow Rate 8 04/13/22 11:10 FiO2 50 04/13/22 07:43 04/12/22 04/13/22 04/13/22 22:59 06:59 14:59 Intake Total 475 / 625 1221.667 / 0605.860 1588 / 1350 Output Total 2275 / 2575 520 / 3095 Balance -1800 / -1950 701.667 / -4061.460 8985 / 1350 Weight last 48 hrs Weight 124 lb 8 oz Weight 122 lb 12.76 oz Weight 128 lb 8 oz Physical Exam Narrative: General: Appears confused and extremely weak, in moderate respiratory distress HEENT: conj clear, EOMI, PERRL, dry tongue, Neck: supple, no meningismus Heme: no cervical LAP Pulmonary: Bilateral diffuse crackles Cardiovascular: rrr, nl s1s2, no mrg Abdomen: soft, nt, nd, no r/g, bs+ Extremities: pulses +, no edema, no c/c : no CVA tenderness Skin: intact, no rash MSK: no back or neck pain Neurologic: grossly intact Urinary Catheter Management: Myers: Cath Placed During This Visit: yes Reason for Continuing Indwelling Catheter: Accurate Measurement of Urinary Output in Critically Ill Patients Urinary Catheter Date of Insertion: 04/07/22 Urinary Catheter Time of Insertion: 13:06 Data : 04/13/22 03:55 04/13/22 10:12 Other Labs: Radiology Impressions Renal Ultrasound 04/07/22 13:28 IMPRESSION: Low normal-sized echogenic kidneys. Moderate chronic medical renal disease. Modified Barium Swallow 04/10/22 00:00 IMPRESSION: 1. Modified barium swallow positive for aspiration of nectar consistency and thin liquid barium foodstuffs. A report of recommendations and findings will also follow from the speech therapy service. Chest X-Ray 04/11/22 09:28 IMPRESSION: 1. Extensive bilateral pulmonary infiltrates and small bibasal pleural effusions demonstrating no significant change. Laboratory Results WBC 20.6 10^3/uL (4.0-10.0) H 04/13/22 03:55 RBC 3.16 10^6/uL (4.1-5.3) L 04/13/22 03:55 Hgb 8.6 g/dL (11.7-16.6) L 04/13/22 03:55 Hct 28.4 % (42.0-52.0) L 04/13/22 03:55 MCV 89.9 fl (80-94) 04/13/22 03:55 MCH 27.2 pg (28.0-34.0) L 04/13/22 03:55 MCHC 30.3 g/dL (30.0-36.0) 04/13/22 03:55 RDW 15.4 % (12.1-15.1) H 04/13/22 03:55 Plt Count 349 10^3/cmm (130-400) 04/13/22 03:55 MPV 10.9 fL (7.4-10.4) H 04/13/22 03:55 Neut % (Auto) 94.0 % 04/13/22 03:55 Lymph % (Auto) 1.8 % 04/13/22 03:55 Ripley % (Auto) 3.3 % 04/13/22 03:55 Eos % (Auto) 0.0 % 04/13/22 03:55 Baso % (Auto) 0.0 % 04/13/22 03:55 Neut # (Auto) 19.37 10^3/uL (1.8-7.7) H 04/13/22 03:55 Lymph # (Auto) 0.4 10^3/uL (0.8-4.8) L 04/13/22 03:55 Ripley # (Auto) 0.7 10^3/uL (0.2-0.9) 04/13/22 03:55 Eos # (Auto) 0.0 10^3/uL (0.0-0.8) 04/13/22 03:55 Baso # (Auto) 0.0 10^3/uL (0.0-0.1) 04/13/22 03:55 Nucleated RBC % (auto) 0.2 % 04/13/22 03:55 Nucleated RBCs # 0.0 /100WBC 04/13/22 03:55 APTT 29.1 SECONDS (23.9-36.7) 04/09/22 13:26 PTT Patient/Normal 1:1 Cancelled 04/07/22 14:55 D-Dimer 2.06 ug/mIFEU (0-0.59) H 04/07/22 06:35 Specimen Type Arterial 04/11/22 13:27 Sample Site Radial, left 04/11/22 13:27 ABG pH 7.38 (7.35-7.45) 04/11/22 13:27 ABG pCO2 27.4 mmHg (35-45) L 04/11/22 13:27 ABG pO2 62.5 mmHg (80.0-100.0) L 04/11/22 13:27 ABG HCO3 16.3 mmol/L (22-26) L 04/11/22 13:27 ABG O2 Saturation 90.0 04/11/22 13:27 ABG Base Excess -7.7 mmol/L (-2.0-2.0) L 04/11/22 13:27 Harry Test Pos 04/11/22 13:27 A-a O2 Gradient 33.8 mmHg (5-10) H 04/11/22 13:27 Hematocrit 28.3 % (42-52) L 04/11/22 13:27 Hgb O2 Saturation 88.2 % (95-100) L 04/11/22 13:27 Carboxyhemoglobin 1.3 %THgb (0.4-20.1) 04/11/22 13:27 Methemoglobin 0.7 % (0.4-1.5) 04/11/22 13:27 Total Hemoglobin 9.2 g/dL (14-18) L 04/11/22 13:27 Sodium 147.0 mmol/L (131-143) H 04/11/22 13:27 Potassium 4.5 mmol/L (3.5-5.0) 04/11/22 13:27 Glucose 192.0 mg/dL (70-115) H 04/11/22 13:27 Ionized Calcium 1.3 mmol/L (1.1-1.4) 04/11/22 13:27 O2 Delivery Device Hag 04/11/22 13:27 O2 Liters/Min 50.0 % 04/11/22 13:27 FiO2 50.0 % 04/11/22 13:27 Custodial Officer ID Cak 04/11/22 13:27 Sodium 142 mmol/L (136-145) 04/13/22 10:12 Potassium 2.9 mmol/L (3.5-5.1) L 04/13/22 10:12 Chloride 105 mmol/L (98-107) 04/13/22 10:12 Carbon Dioxide 22 mmol/L (22-29) 04/13/22 10:12 Anion Gap 17.9 (5-19) 04/13/22 10:12 BUN 69 mg/dL (8-23) H 04/13/22 10:12 Creatinine 2.7 mg/dL (0.7-1.2) H 04/13/22 10:12 GFR Calculation Not Reportable 04/13/22 10:12 Glucose 142 mg/dL (65-115) H 04/13/22 10:12 POC Glucose 138 mg/dL (70-110) H 04/13/22 12:39 Calculated Osmolality 317 mOsm/kg (285-295) H 04/13/22 10:12 Lactic Acid 4.6 mmol/L (0.5-2.2) H* 04/07/22 06:35 Lactic Acid (Sepsis) 5.8 mmol/L (0.5-2.2) H* 04/07/22 09:20 Lactate 1.5 mmol/L (0.5-2.2) 04/09/22 10:37 Uric Acid 14.6 mg/dL (3.4-7.0) H 04/12/22 09:56 Calcium 8.6 mg/dL (8.5-10.5) 04/13/22 10:12 Phosphorus 3.2 mg/dL (2.5-4.5) 04/13/22 10:12 Magnesium 2.3 mg/dL (1.7-2.3) 04/13/22 10:12 Iron 23 ug/dL (59-158) L 04/13/22 03:55 TIBC 157 mcg/dl 04/13/22 03:55 % Saturation 14.6 % (20-50) L 04/13/22 03:55 Unsat Iron Binding 134 ug/dL (112-347) 04/13/22 03:55 Total Bilirubin 0.4 mg/dL (0.15-1.2) 04/13/22 10:12 AST 33 U/L (0-40) 04/13/22 10:12 ALT 64 U/L (0-41) H 04/13/22 10:12 Alkaline Phosphatase 190 U/L (40-130) H 04/13/22 10:12 Creatine Kinase 191 U/L (39-308) 04/07/22 13:16 Troponin T Baseline 790 ng/L (0-15) H* 04/07/22 06:35 Troponin T 120 Minute 732.9 ng/L (0-15) H 04/07/22 09:20 Delta Troponin T -57.1 ABS# (0-10) L 04/07/22 09:20 Troponin T Hi Sens 6Hr 640.8 ng/L (0-15) H 04/07/22 13:15 Troponin T Hi Sens 6Hr Delta -149.2 ng/L (0-12) L 04/07/22 13:15 NT-Pro-B Natriuret Pep 10628 pg/mL (0-125) H 04/07/22 06:35 Total Protein 5.7 g/dL (6.6-8.7) L 04/13/22 10:12 Albumin 2.5 g/dL (3.5-5.2) L 04/13/22 10:12 Globulin 3.2 g/dL (1.3-4.6) 04/13/22 10:12 25-OH Vitamin D Total 17 ng/mL (30-100) L 04/13/22 03:55 Procalcitonin 0.86 ng/mL (0-0.5) H 04/11/22 11:57 Urine Color Yellow (Yellow) 04/07/22 13:06 Urine Appearance Clear (CLEAR) 04/07/22 13:06 Urine pH 5 (5-7) 04/07/22 13:06 Ur Specific Robert 1.020 (1.005-1.030) 04/07/22 13:06 Urine Protein 3+ (Negative) H 04/07/22 13:06 Urine Glucose (UA) Trace (Normal) H 04/07/22 13:06 Urine Ketones 1+ (Negative) H 04/07/22 13:06 Urine Blood 2+ (Negative) H 04/07/22 13:06 Urine Nitrate Negative (Negative) 04/07/22 13:06 Urine Bilirubin Neg (Negative) 04/07/22 13:06 Urine Urobilinogen Neg mg/dL (Negative) 04/07/22 13:06 Ur Leukocyte Esterase Negative (Negative) 04/07/22 13:06 Urine RBC 0-4 /hpf (0-2) H 04/07/22 13:06 Urine WBC None /hpf (0-5) 04/07/22 13:06 Ur Squamous Epith Cells 0-4 /hpf (0-5) H 04/07/22 13:06 Amorphous Sediment 1+ /hpf 04/07/22 13:06 Urine Bacteria 1+ /hpf (NONE) H 04/07/22 13:06 Vancomycin Trough 21.3 ug/mL (10-15) H 04/13/22 10:12 Random Vancomycin 31.6 ug/mL (20.0-40.0) 04/12/22 07:12 Coronavirus 229E (PCR) Not detected (NOT DETECT) 04/07/22 09:47 Hep Bs Antigen Non-reactive (Nonreactive) 04/12/22 21:21 Hep Bs Antibody 3.5 (11.5-1000) L 04/12/22 21:21 Hepatitis C Antibody Non-reactive (Nonreactive) 04/12/22 21:21 SARS-CoV-2 (PCR) Not detected (NOT DETECT) 04/07/22 09:47 Blood Type O Positive 04/11/22 08:50 Rho(D) Type Positive 04/11/22 08:50 Antibody Screen Negative 04/11/22 08:50 Crossmatch See Detail 04/11/22 08:50 Micro: Microbiology 04/11/22 16:36 Urine Culture - Preliminary Urine Catheterized 04/11/22 16:57 MRSA Culture - Final Nose 04/07/22 10:10 Blood Culture - Final Blood NO GROWTH AFTER 5 DAYS 04/07/22 10:16 Blood Culture - Final Blood Staphylococcus epidermidis 04/11/22 13:35 Blood Culture - Preliminary Blood NEGATIVE TO DATE 04/11/22 12:29 Blood Culture - Preliminary Blood NEGATIVE TO DATE 04/11/22 16:36 Bacterial Antigens - Final Urine,Voided A&P Assessment and plan (1) Non-ST elevation myocardial infarction (NSTEMI) in recovery phase: (2) Uremia: (3) Protein-energy malnutrition: (4) Acute kidney injury superimposed on chronic kidney disease: (5) COPD (chronic obstructive pulmonary disease): (6) Acute systolic heart failure: (7) Acute kidney injury: (8) Pneumonia: (9) Acute respiratory failure with hypoxemia: (10) ARDS (adult respiratory distress syndrome): (11) Goals of care, counseling/discussion: Plan #Altered mental status in patient with sepsis secondary to aspiration pneumonia/uremic encephalopathy -Appears confused -Concerning feature is elevated BUN-which may be contributing to his confusion--Discussed with nephrology/hospitalist agreed to place hemodialysis catheter and dialyzed to see if uremia is improving his mentation will improve- after for which he had 1 session of hemodialysis and BUN down to 69 from 122- still no improvement in mentation -Had extensive discussion with at bedside about goals of care regarding DNR/DNI and hemodialysis -As per patient wishes-he is DNR/DNI and does not want permanent hemodialysis -Anyways patient is making good urine and we may not need any more sessions of hemodialysis -Other causes of confusion can be from his sepsis -patient is being treated with antibiotics - understands patient will further deconditioned due to poor oral intake and does not want any feeding tubes as per patient's wishes-and wants to take patient home with home hospice #acute hypoxic respiratory failure in patient who presented with fluid overload due to acute systolic heart failure-improved oxygen requirements with initial diuretic regimen and dobutamine #Patient at high risk for aspiration-barium swallow showed evidence of aspiration with nectar thick fluids-?underlying pneumonia #History of MRSA bacteremia in November 2021-current cultures 1/4 bottles positive for staph epidermidis likely contamination- repeat cultures pending #Acute on chronic renal enlycjx-osmfzvzc-xnil plausible explanation is cardiorenal syndrome in patient with new onset CHF #Patient also has underlying COPD and is on 3 L home oxygen -Currently patient oxygen requirements decreased and requiring 8 L;-Patient does not want intubation and resuscitation-and so he is DNR/DNI-we will continue supportive care -Continue DuoNeb nebulizations and we will taper down steroids based on clinical response -With significantly elevated BNP and echo evidence of acute systolic heart failure-and CT evidence of central pulmonary congestion-I suspect respiratory fa ilure is predominantly secondary to fluid overload and with worsening renal functions this is even more challenging. Also given high risk for aspiration based on barium swallow-he may have some component of aspiration pneumonia contributing to ARDS-also today's procalcitonin is high-although likely secondary to renal failure-recommended to continue broad-spectrum antibiotic coverage with vancomycin/Zosyn until final cultures are available -Cardiology on board and will make decision about further interventions to rule out underlying CAD-currently patient is on Plavix -Good urine output-and will currently discontinue Lasix and hold off hemodialysis #Protein energy malnutrition and severe deconditioning #Patient with significant aspiration to nectar thin liquids as per speech and recommended honey thick liquids -With his confusion-very difficult to feed patient -Speech recommended honey thick liquids-but suspect aspiration with honey thick as well-speech to reevaluate today -Again had extensive discussion with at bedside about goals of care regarding feeding. Earlier during hospitalization patient himself did not want any feeding tubes and today at bedside also agrees with that. -At this point of time patient is hemodynamically stable with decreasing supplemental oxygen requirements, making good urine-does not have any indication for hemodialysis-the major concern was his feeding without which he will be further deconditioned and does not give a good prognosis overall. -Everything explained in detail to the patient and and as we are not pursuing for aggressive care like intubation/resuscitation/permanent hemodialysis/cardiac interventions-recommended home hospice with supportive care. She verbalized understanding of what is happening and wanted home hospice with feeding assistance as well as nursing care regarding his bedsores. -Accordingly information was passed on to hospitalist taking care of the patient to involve case management to discuss about home hospice ICU CHECKLIST: Problem list updated Verbal orders reviewed and signed Analgesia: Morphine as needed Glycemic Control: Scale coverage Nutrition: Speech reevaluation today to check if he is aspirating even with honey thick liquids Restraint Renewal (within 24 hrs): Yes Ulcer Prophylaxis: PPI Chemical Thromboprophylaxis: Prophylaxis: Heparin Mechanical Thromboprophylaxis: SCD Need for Central line: Can discontinue Need for Myers catheter: Urine output monitoring Prognosis: Poor Transfer: Floor Critical Care Time (No Overlap) 65 min This patient has a high probability of sudden, clinically significant deterioration, which requires the highest level of physician preparedness to intervene urgently. I managed/supervised life or organ supporting interventions that required frequent physician assessment. I devoted my full attention in the ICU to the direct care of this patient for the period of time indicated above. Time I spent with family or surrogate(s) is included only if the patient was incapable of providing necessary information or participating in decision making. Time devoted to teaching and to any procedures I billed separately is not included. Services Provided: Telemetry review Mechanical Ventilation Hemodynamic interpretation, assessment and management Review and interpretation of CXR Review and interpretation of lab values Review and interpretation of microbiologic data and culture results Review of medications and administration Review and interpretation of Nutrition requirements and management Discussion of management with other consultants and services Clinical update to family members Attestations Medical Necessity Statement*: Worsening mental status-require hemodialysis for uremic encephalopathy-family leading towards comfort care Critical Care Time: The high probability of a clinically significant, sudden or life threatening deterioration of the patient's?[pulmonary, cardiac, renal, infectious]?system(s) required my full and direct attention, intervention and personal management. The critical care time is as shown. This time is in addition to time spent performing any reported procedures but includes the following: [x]?Data and vital sign review and interpretation [x]?Patient assessment, examination and intervention [x]?Documentation [x]?Medication orders and management Critical Care Time (min): 65 Coding Level of Care Code Established Pt Acute Fiber Optic Splicer for Chg Fwd Patient Type Established History Comprehensive Exam Comprehensive Medical Decision Making Moderate Complexity Diagnoses Non-ST elevation myocardial infarction (NSTEMI) in recovery phase I21.4 Uremia N19 Protein-energy malnutrition E46 Acute kidney injury superimposed on chronic kidney disease N17.9; N18.9 COPD (chronic obstructive pulmonary disease) J44.9 Acute systolic heart failure I50.21 Acute kidney injury N17.9 Pneumonia J18.9 Acute respiratory failure with hypoxemia J96.01 ARDS (adult respiratory distress syndrome) J80 Goals of care, counseling/discussion Z71.89 Time Spent (min) 65 Comment Including goals of care discussion
--- NOTE | 2022-04-13 13:53 | PC.NURSE ---
very unhappy with patients diagnosis and doctors and nurses care. Refusing to let staff carry out prescribed orders. Requested to have a glove to stick fingers up patients anus to check to see if he needed to have a bowel movement because the hospitals medications do not work per the . Patient needing nutrition and the option of NG or OG or PEG placement would be beneficial. does not want nutrition provided via tubes and hospice was discussed with patient by Dr. Morfin. Primary care Dr Jerome also aware of patients status and wifes wishes.
--- NOTE | 2022-04-13 14:13 | P.PN_ITS ---
Subjective Subjective: Seen this morning. Patient is on 8 L of nasal cannula. Appears slightly dry. Dialysis done yesterday removed 1 L fluid. Labs appearing better today. Hypokalemic again. Patient altered and on restraints at this time. Vitals/I&O/Wt Last Vital Signs Temp 97.4 F L 04/13/22 08:00 Pulse 81 04/13/22 13:00 Resp 12 04/13/22 13:00 BP 146/71 04/13/22 13:00 Pulse Ox 95 04/13/22 13:00 O2 Del Method 04/13/22 11:10 O2 Flow Rate 8 04/13/22 11:10 FiO2 50 04/13/22 07:43 04/12/22 04/13/22 04/13/22 22:59 06:59 14:59 Intake Total 475 / 625 1221.667 / 2595.253 3332 / 1350 Output Total 2275 / 2575 520 / 3095 Balance -1800 / -1950 701.667 / -1707.640 0386 / 1350 Weight last 48 hrs Weight 56.472 kg Weight 55.7 kg Weight 58.287 kg Physical Exam Narrative: General exam is a white male, comfortable, on 8 L nasal cannula. Chronically ill-appearing, bitemporal wasting HEENT: Pupils equally round. Oropharynx clear. Cardiovascular regular rate and rhythm, distant heart sounds. No obvious murmur. Lungs bilateral expiratory wheezes. crackles at bases. Mild rhonchi diffusely throughout lung osorio breath sounds symmetric. No acute distress, no accessory muscle use. Abdomen is soft nontender positive bowel sounds. No obvious organomegaly Back demonstrates small decub right scapular area approximately 1.5 cm, stage II without signs of infection. Surgical scar noted Extremities trace edema bilateral lower extremities, cap refill brisk Skin see findings above Neuro no obvious focal deficits. Urinary Catheter Management: Myers: Cath Placed During This Visit: yes Reason for Continuing Indwelling Catheter: Accurate Measurement of Urinary Output in Critically Ill Patients Urinary Catheter Date of Insertion: 04/07/22 Urinary Catheter Time of Insertion: 13:06 Data : 04/13/22 03:55 04/13/22 14:10 Micro: Microbiology 04/11/22 16:36 Urine Culture - Preliminary Urine Catheterized 04/11/22 16:57 MRSA Culture - Final Nose 04/07/22 10:10 Blood Culture - Final Blood NO GROWTH AFTER 5 DAYS 04/07/22 10:16 Blood Culture - Final Blood Staphylococcus epidermidis 04/11/22 13:35 Blood Culture - Preliminary Blood NEGATIVE TO DATE 04/11/22 12:29 Blood Culture - Preliminary Blood NEGATIVE TO DATE 04/11/22 16:36 Bacterial Antigens - Final Urine,Voided A&P Assessment and plan (1) ARDS (adult respiratory distress syndrome): (2) Pneumonia: (3) Acute kidney injury superimposed on chronic kidney disease: (4) COPD (chronic obstructive pulmonary disease): (5) Acute systolic heart failure: (6) Physical deconditioning: (7) Protein-energy malnutrition: (8) Uremia: Plan #Aspiration pneumonia, ARDS, multilobar pneumonia? #High aspiration risk #Acute systolic congestive heart failure, new onset #Anemia #CARMENZA on CKD, baseline 1.2?1.6 #NSTEMI, most likely type II CT #Hypertension #COPD #Positive blood culture with MRSA November 2021, 1 bottle out of 4 gram-positive for gram-positive cocci in clusters #Constipation #Leukocytosis #Elevated liver enzymes -1 bottle of 4 positive for GPC in clusters. ? Check MRSA nares. Patient is on Vanco and Zosyn since admission, will continue for now ? Chest at admission showed no evidence for PE, small to moderate right greater than left pleural effusions., Patchy confluent airspace infiltrates in both perihilar regions extending into upper and lower lobes compatible with pneumonia, pattern suspicious for viral pneumonia. Correlation for COVID- pneumonia. -Venous Dopplers negative for DVT ? Renal ultrasound on 04/06 2022 showed normal-sized echogenic kidneys, moderate to chronic medical renal disease ? Modified barium swallow done on 04/10/2022 shows positive for aspiration of nectar consistency and thin liquid barium.. ? Chest x-ray today shows bilateral pulmonary infiltrates and small bibasilar pleural effusions demonstrating no significant change. ? Echocardiogram shows LVEF 32%, mildly dilated left ventricle, diffuse hypokinesia of left ventricle, mild concentric left ventricular hypertrophy. Grade 3 x 4 diastolic dysfunction, severely elevated filling pressures. Estimated pulmonary artery peak systolic pressure of 45.04/07/2022 -WBC count today 15,000. Hemoglobin 7.0. BUN 96, creatinine 3.5. ? Patient has had 48 hours of dobutamine drip at 5/h. ? Patient is a confused today. Had dialysis yesterday 1 L removed. ? Liver enzymes elevation worsening. AST 114, ALT 125. - COVID-negative PCR 04/07/2022 Plan for today ? Continue aspirin, Lipitor, Plavix, metoprolol tartrate 25 twice daily ?Continue DuoNeb, Pulmicort twice daily ? Continue Protonix 40 IV twice daily ? Nephrology on board. Continue Lasix as per their recommendations. ? Continue bowel regimen. Continue MiraLAX 17 g daily. Continue docusate senna 1 twice daily. Patient does get hypoxic with movement. Unsure if he can tolerate an enema at this time. We will hold off on aggressive stimulant enemas. We will attempt with a glycerin suppository today. ? We will continue sucralfate and Protonix for now. ? Patient is at high aspiration risk. Dysphagia level 4 diet, thick pur?e food recommended. Patient is not interested in any type of feeding tube if needed later on down the road. -Cardiology suspecting underlying three-vessel disease due to patient's echo results. Patient not a candidate for invasive intervention at this time due to kidney function. Dobutamine drip was stopped 04/10/2022 after discussion with cardiology. We will continue per their recommendations. -Pulmonology consulted. Appreciate their recommendations. ?Avoid nephrotoxic's ? respiratory viral panel pending ? Repeat blood cultures pending. ? Continue patient on vancomycin and imipenem ? Patient is status postdialysis with 1 L removal -Patient's would like to opt for hospice at this point. Analgesia: Tylenol as needed, morphine 1 mg every 4 hours as needed Glycemic control: Not needed. Hypoglycemia protocol Nutrition: Puree diet dysphagia level 4 CODE STATUS: DNR/DNI. PUD prophylaxis: Protonix for PUD prophylaxis DVT prophylaxis: Heparin subc Physical therapy evaluation, Discharge planning: SNF versus home health once medically stable will get physical therapy evaluation. Continue with care at ICU level This documentation was created by [employer] furnace and wash equipment operator software. Every effort was made to ensure accuracy of furnace and wash equipment operator. Any obvious errors or omissions should be clarified with the author of the document. Patient's has chosen to opt with hospice services and to take patient home. She would like home health services set up along with hospice. We will transfer patient to floor today. He is on 8 L nasal cannula. Dialysis catheter may come out as does not want to do anymore dialysis. She voiced all of the above with the plating tank operator Dr. Morfin today. I did try to go back to the room to speak to the but she was no longer there. She spoke with case management over the phone had is chosen [facility] hospice services. Hospice referral placed. Transfer to floor to private room preferably Attestations Medical Necessity Statement*: Transfer to floor today. Patient eventually go home with hospice once everything is set up at home. Coding Level of Care Code Acute Chain Offbearer for [facility] Fwd Diagnoses ARDS (adult respiratory distress syndrome) J80 Pneumonia J18.9 Acute kidney injury superimposed on chronic kidney disease N17.9; N18.9 COPD (chronic obstructive pulmonary disease) J44.9 Acute systolic heart failure I50.21 Physical deconditioning R53.81 Protein-energy malnutrition E46 Uremia N19
[2022-04-13 15:02] LABS: Anion Gap 15.3 (5-19); Blood Urea Nitrogen 74 mg/dL (8-23); Carbon Dioxide 23 mmol/L (22-29); Chloride 107 mmol/L (98-107); Glucose 137 mg/dL (65-115); Magnesium 2.4 mg/dL (1.7-2.3); Osmolality Calculated 318 mOsm/kg (285-295); Potassium 3.3 mmol/L (3.5-5.1); Sodium 142 mmol/L (136-145)
[2022-04-13 17:29] LABS: Glucose Point of Care 168 mg/dL (70-110)
[2022-04-13] MEDS: sennosides-docusate Tablet 1 TAB PO (17:30)
[2022-04-13] MEDS: ferrous gluconate 324 mg Tablet PO (17:30)
--- NOTE | 2022-04-13 17:52 | PC.NURSE ---
Patient still coughing when eating or drinking any food/drink no matter the consistency. ST evaluated patient again, also recommended that all intake patient would most likely aspirate on no matter the consistency.
--- NOTE | 2022-04-13 18:18 | PC.NURSE ---
Patient transferred to [facility] at 1814
--- NOTE | 2022-04-13 18:27 | PC.NURSE ---
Transfer Note Patient transferred to [facility] from ICU via bed. Handoff received from Opal GAVIN. Patient oriented to environment and equipment. Covering service notified. Orders reviewed and will continue to monitor. Family and/or sales representative jewelry notified.
--- NOTE | 2022-04-13 18:29 | P.PN_ITS ---
Subjective Subjective: Patient had a hemodialysis yesterday. He continues to remain confused. The vital signs seems to be stable. No fever, chills or cough. Currently is on 6 L of oxygen by nasal cannula. Oxygen saturation is around 90%. Medications: Medication Review Details: Current Medications Acetaminophen (Acetaminophen 325 Mg Tablet) 650 mg PO Q6H PRN PRN Reason: MILD PAIN Last Admin: 04/11/22 17:44 Dose: 650 mg Albuterol/Ipratropium (Ipratropium-Albuterol 3 Ml Neb) 3 ml INHALATION Q4H PEPE Last Admin: 04/13/22 16:12 Dose: 3 ml Aspirin (Aspirin 81 Mg Ec Tablet) 81 mg PO DAILY PEPE Last Admin: 04/13/22 08:26 Dose: 81 mg Atorvastatin Calcium (Atorvastatin 40 Mg Tablet) 20 mg PO BEDTIME PEPE Last Admin: 04/12/22 21:33 Dose: 20 mg Budesonide (Budesonide 0.5 Mg/2 Ml Neb) 0.5 mg INHALATION BID.RESPIRATORY PEPE Last Admin: 04/13/22 07:38 Dose: 0.5 mg Clopidogrel Bisulfate (Clopidogrel 75 Mg Tablet) 75 mg PO DAILY PEPE Last Admin: 04/13/22 08:26 Dose: 75 mg Dextrose (Dextrose 50% Syringe 50 Ml) 25 ml IVP ONCE PRN; Protocol PRN Reason: hypoglycemia protocol Dextrose (Dextrose 50% Syringe 50 Ml) 50 ml IVP PRN PRN; Protocol PRN Reason: hypoglycemia protocol Ferrous Gluconate (Ferrous Gluconate 324 Mg Tablet) 324 mg PO BIDWM PEPE Last Admin: 04/13/22 17:30 Dose: 324 mg Glucagon (Glucagon 1 Mg/Ml Inj 1 Ml) 1 mg IM ONCE PRN; Protocol PRN Reason: Adult Acute Hypoglycemia Prot. Heparin Sodium (Porcine) (Heparin 5,000 Unit/Ml Inj 1 Ml) 5,000 unit SUBCUT Q12H PEPE Last Admin: 04/13/22 11:59 Dose: 5,000 unit Hydralazine HCl (Hydralazine 20 Mg/Ml Inj 1 Ml) 10 mg IVP Q4H PRN PRN Reason: SYSTOLIC BLOOD PRESSURE Last Admin: 04/07/22 16:51 Dose: 10 mg Imipenem/Cilastatin Sodium 250 (mg/ Sodium Chloride) 100 mls @ 200 mls/hr IV Q12H PEPE; Protocol Last Infusion: 04/13/22 13:39 Dose: Infused Vancomycin HCl 1,000 mg/ (Sodium Chloride) 250 mls @ 250 mls/hr IV Q36H PEPE; Protocol Insulin Human Lispro (Insulin Lispro 100 Unit/1 Ml) 0 unit SUBCUT WM&BEDTIME PEPE; Protocol Last Admin: 04/13/22 17:29 Dose: 2 unit Methylprednisolone Sodium Succinate (Methylprednisolone Sod Succ 125 Mg/2 Ml Inj) 30 mg IVP Q12H PEPE Last Admin: 04/13/22 08:22 Dose: 30 mg Metoprolol Tartrate (Metoprolol Tartrate 25 Mg Tablet) 25 mg PO BID@0900,2100 [facility] Last Admin: 04/13/22 08:26 Dose: 25 mg Ondansetron HCl (Ondansetron 2 Mg/Ml Sdv 2 Ml) 4 mg IVP Q6H PRN PRN Reason: NAUSEA AND VOMITING Pantoprazole Sodium (Pantoprazole 40 Mg Sdv) 40 mg IVP Q12H PEPE Last Admin: 04/13/22 08:25 Dose: 40 mg Polyethylene Glycol (Polyethylene Glycol 3350 Pkt 17 Gm) 17 gm PO DAILY [facility] Last Admin: 04/13/22 08:25 Dose: Not Given Senna/Docusate Sodium (Sennosides-Docusate Tablet) 1 tab PO BID [facility] Last Admin: 04/13/22 17:30 Dose: 1 tab Sucralfate (Sucralfate 1 Gm/10 Ml Oral Liq Udc) 1 gm PO AC&BEDTIME [facility] Last Admin: 04/13/22 12:51 Dose: Not Given Vitals/I&O/Wt Last Vital Signs Temp 97.4 F L 04/13/22 08:00 Pulse 80 04/13/22 18:00 Resp 14 04/13/22 18:00 BP 146/81 04/13/22 18:00 Pulse Ox 95 04/13/22 15:30 O2 Del Method 04/13/22 15:30 O2 Flow Rate 6 04/13/22 15:30 FiO2 50 04/13/22 07:43 04/13/22 04/13/22 04/13/22 06:59 14:59 22:59 Intake Total 1221.667 / 7491.798 4427 / 1350 130 / 1480 Output Total 520 / 3095 400 / 400 Balance 701.667 / -2212.531 6474 / 1350 -270 / 1080 Weight last 48 hrs Weight 124 lb 8 oz Weight 122 lb 12.76 oz Weight 128 lb 8 oz Physical Exam Narrative: GENERAL: The patient is alert confused. Not in any distress chronically ill looking. HEENT: Mild pallor, no icterus or lymphadenopathy.Oral cavity: There are no mucous membrane lesions. NECK: Trachea appears to be central. No masses noted. No JVD or thyromegaly appreciated. RESPIRATORY: Bilateral coarse crackles and expiratory wheezing. Few fine rales. BREASTS: Deferred. HEART: The heart sounds are normal. No S3 or S4. Short systolic murmur in the left sternal border. No pericardial rub ABDOMEN: No vessel pulsations or distention. No tenderness. No organomegaly appreciated. Bowel sounds are normally heard. : Deferred. RECTAL: Deferred. LYMPHATIC: No lymphadenopathy noted in the neck. EXTREMITIES: No edema or cyanosis. No clubbing. MUSCULOSKELETAL: No acute joint deformities or swelling SKIN: There are no significant rashes or ecchymosis NEUROPSYCHIATRIC: The patient is alert . Not in any distress. Left-sided weakness Urinary Catheter Management: Myers: Cath Placed During This Visit: yes Reason for Continuing Indwelling Catheter: Accurate Measurement of Urinary Output in Critically Ill Patients Urinary Catheter Date of Insertion: 04/07/22 Urinary Catheter Time of Insertion: 13:06 Data : 04/13/22 03:55 04/13/22 14:10 Other Labs: Laboratory Last Values WBC 20.6 10^3/uL (4.0-10.0) H 04/13/22 03:55 RBC 3.16 10^6/uL (4.1-5.3) L 04/13/22 03:55 Hgb 8.6 g/dL (11.7-16.6) L 04/13/22 03:55 Hct 28.4 % (42.0-52.0) L 04/13/22 03:55 MCV 89.9 fl (80-94) 04/13/22 03:55 MCH 27.2 pg (28.0-34.0) L 04/13/22 03:55 MCHC 30.3 g/dL (30.0-36.0) 04/13/22 03:55 RDW 15.4 % (12.1-15.1) H 04/13/22 03:55 Plt Count 349 10^3/cmm (130-400) 04/13/22 03:55 MPV 10.9 fL (7.4-10.4) H 04/13/22 03:55 Neut % (Auto) 94.0 % 04/13/22 03:55 Lymph % (Auto) 1.8 % 04/13/22 03:55 [place] % (Auto) 3.3 % 04/13/22 03:55 Eos % (Auto) 0.0 % 04/13/22 03:55 Baso % (Auto) 0.0 % 04/13/22 03:55 Neut # (Auto) 19.37 10^3/uL (1.8-7.7) H 04/13/22 03:55 Lymph # (Auto) 0.4 10^3/uL (0.8-4.8) L 04/13/22 03:55 [place] # (Auto) 0.7 10^3/uL (0.2-0.9) 04/13/22 03:55 Eos # (Auto) 0.0 10^3/uL (0.0-0.8) 04/13/22 03:55 Baso # (Auto) 0.0 10^3/uL (0.0-0.1) 04/13/22 03:55 Nucleated RBC % (auto) 0.2 % 04/13/22 03:55 Nucleated RBCs # 0.0 /100WBC 04/13/22 03:55 APTT 29.1 SECONDS (23.9-36.7) 04/09/22 13:26 PTT Patient/Normal 1:1 Cancelled 04/07/22 14:55 D-Dimer 2.06 ug/mIFEU (0-0.59) H 04/07/22 06:35 Specimen Type Arterial 04/11/22 13:27 Sample Site Radial, left 04/11/22 13:27 ABG pH 7.38 (7.35-7.45) 04/11/22 13:27 ABG pCO2 27.4 mmHg (35-45) L 04/11/22 13:27 ABG pO2 62.5 mmHg (80.0-100.0) L 04/11/22 13:27 ABG HCO3 16.3 mmol/L (22-26) L 04/11/22 13:27 ABG O2 Saturation 90.0 04/11/22 13:27 ABG Base Excess -7.7 mmol/L (-2.0-2.0) L 04/11/22 13:27 Harry Test Pos 04/11/22 13:27 A-a O2 Gradient 33.8 mmHg (5-10) H 04/11/22 13:27 Hematocrit 28.3 % (42-52) L 04/11/22 13:27 Hgb O2 Saturation 88.2 % (95-100) L 04/11/22 13:27 Carboxyhemoglobin 1.3 %THgb (0.4-20.1) 04/11/22 13:27 Methemoglobin 0.7 % (0.4-1.5) 04/11/22 13:27 Total Hemoglobin 9.2 g/dL (14-18) L 04/11/22 13:27 Sodium 147.0 mmol/L (131-143) H 04/11/22 13:27 Potassium 4.5 mmol/L (3.5-5.0) 04/11/22 13:27 Glucose 192.0 mg/dL (70-115) H 04/11/22 13:27 Ionized Calcium 1.3 mmol/L (1.1-1.4) 04/11/22 13:27 O2 Delivery Device Hag 04/11/22 13:27 O2 Liters/Min 50.0 % 04/11/22 13:27 FiO2 50.0 % 04/11/22 13:27 Horse Shoer ID Cak 04/11/22 13:27 Sodium 142 mmol/L (136-145) 04/13/22 14:10 Potassium 3.3 mmol/L (3.5-5.1) L 04/13/22 14:10 Chloride 107 mmol/L (98-107) 04/13/22 14:10 Carbon Dioxide 23 mmol/L (22-29) 04/13/22 14:10 Anion Gap 15.3 (5-19) 04/13/22 14:10 BUN 74 mg/dL (8-23) H 04/13/22 14:10 Creatinine 2.6 mg/dL (0.7-1.2) H 04/13/22 14:10 GFR Calculation Not Reportable 04/13/22 14:10 Glucose 137 mg/dL (65-115) H 04/13/22 14:10 POC Glucose 168 mg/dL (70-110) H 04/13/22 17:27 Calculated Osmolality 318 mOsm/kg (285-295) H 04/13/22 14:10 Lactic Acid 4.6 mmol/L (0.5-2.2) H* 04/07/22 06:35 Lactic Acid (Sepsis) 5.8 mmol/L (0.5-2.2) H* 04/07/22 09:20 Lactate 1.5 mmol/L (0.5-2.2) 04/09/22 10:37 Uric Acid 14.6 mg/dL (3.4-7.0) H 04/12/22 09:56 Calcium 9.0 mg/dL (8.5-10.5) 04/13/22 14:10 Phosphorus 3.2 mg/dL (2.5-4.5) 04/13/22 10:12 Magnesium 2.4 mg/dL (1.7-2.3) H 04/13/22 14:10 Iron 23 ug/dL (59-158) L 04/13/22 03:55 TIBC 157 mcg/dl 04/13/22 03:55 % Saturation 14.6 % (20-50) L 04/13/22 03:55 Unsat Iron Binding 134 ug/dL (112-347) 04/13/22 03:55 Total Bilirubin 0.4 mg/dL (0.15-1.2) 04/13/22 10:12 AST 33 U/L (0-40) 04/13/22 10:12 ALT 64 U/L (0-41) H 04/13/22 10:12 Alkaline Phosphatase 190 U/L (40-130) H 04/13/22 10:12 Creatine Kinase 191 U/L (39-308) 04/07/22 13:16 Troponin T Baseline 790 ng/L (0-15) H* 04/07/22 06:35 Troponin T 120 Minute 732.9 ng/L (0-15) H 04/07/22 09:20 Delta Troponin T -57.1 ABS# (0-10) L 04/07/22 09:20 Troponin T Hi Sens 6Hr 640.8 ng/L (0-15) H 04/07/22 13:15 Troponin T Hi Sens 6Hr Delta -149.2 ng/L (0-12) L 04/07/22 13:15 NT-Pro-B Natriuret Pep 80264 pg/mL (0-125) H 04/07/22 06:35 Total Protein 5.7 g/dL (6.6-8.7) L 04/13/22 10:12 Albumin 2.5 g/dL (3.5-5.2) L 04/13/22 10:12 Globulin 3.2 g/dL (1.3-4.6) 04/13/22 10:12 25-OH Vitamin D Total 17 ng/mL (30-100) L 04/13/22 03:55 Procalcitonin 0.86 ng/mL (0-0.5) H 04/11/22 11:57 Urine Color Yellow (Yellow) 04/07/22 13:06 Urine Appearance Clear (CLEAR) 04/07/22 13:06 Urine pH 5 (5-7) 04/07/22 13:06 Ur Specific [place] 1.020 (1.005-1.030) 04/07/22 13:06 Urine Protein 3+ (Negative) H 04/07/22 13:06 Urine Glucose (UA) Trace (Normal) H 04/07/22 13:06 Urine Ketones 1+ (Negative) H 04/07/22 13:06 Urine Blood 2+ (Negative) H 04/07/22 13:06 Urine Nitrate Negative (Negative) 04/07/22 13:06 Urine Bilirubin Neg (Negative) 04/07/22 13:06 Urine Urobilinogen Neg mg/dL (Negative) 04/07/22 13:06 Ur Leukocyte Esterase Negative (Negative) 04/07/22 13:06 Urine RBC 0-4 /hpf (0-2) H 04/07/22 13:06 Urine WBC None /hpf (0-5) 04/07/22 13:06 Ur Squamous Epith Cells 0-4 /hpf (0-5) H 04/07/22 13:06 Amorphous Sediment 1+ /hpf 04/07/22 13:06 Urine Bacteria 1+ /hpf (NONE) H 04/07/22 13:06 Vancomycin Trough 21.3 ug/mL (10-15) H 04/13/22 10:12 Random Vancomycin 31.6 ug/mL (20.0-40.0) 04/12/22 07:12 Coronavirus 229E (PCR) Not detected (NOT DETECT) 04/07/22 09:47 Hep Bs Antigen Non-reactive (Nonreactive) 04/12/22 21:21 Hep Bs Antibody 3.5 (11.5-1000) L 04/12/22 21:21 Hepatitis C Antibody Non-reactive (Nonreactive) 04/12/22 21:21 SARS-CoV-2 (PCR) Not detected (NOT DETECT) 04/07/22 09:47 Blood Type O Positive 04/11/22 08:50 Rho(D) Type Positive 04/11/22 08:50 Antibody Screen Negative 04/11/22 08:50 Crossmatch See Detail 04/11/22 08:50 Micro: Microbiology 04/11/22 16:36 Urine Culture - Preliminary Urine Catheterized 04/11/22 16:57 MRSA Culture - Final Nose 04/07/22 10:10 Blood Culture - Final Blood NO GROWTH AFTER 5 DAYS 04/07/22 10:16 Blood Culture - Final Blood Staphylococcus epidermidis 04/11/22 13:35 Blood Culture - Preliminary Blood NEGATIVE TO DATE A&P Assessment and plan (1) ARDS (adult respiratory distress syndrome): Patient's oxygen saturation fluctuates. Currently is on 6 L of oxygen by nasal cannula. (2) Acute systolic heart failure: Patient seems her intermittent decompensated heart failure. Heart failure sy mptoms seems to be improving after dialysis. (3) Non-ST elevation myocardial infarction (NSTEMI) in recovery phase: Seems to be tolerating the Plavix so far well. Because of the patient is a poor physical condition and altered mental status, may not be an ideal candidate for any interventional procedures. (4) Acute kidney injury superimposed on chronic kidney disease: Status post hemodialysis. Plan The other problems are Anemia, status post blood transfusion, hemoglobin seems to be stable possible pneumonia Leukocytosis-persistent Recent MRSA infection/abscess drainage COPD exacerbation History of hypertension, currently off stage II Type 2 diabetes Hypokalemia, currently corrected The patient has a DNI DNR status. Will discuss again with the patient's regarding his further cardiac management. We will continue to optimize his medical treatment Attestations Medical Necessity Statement*: Defer to primary Coding Level of Care Code Acute Solar Business Developer for Chg Fwd History Expanded Problem Focused Exam Expanded Problem Focused Medical Decision Making Moderate Complexity Diagnoses ARDS (adult respiratory distress syndrome) J80 Acute systolic heart failure I50.21 Non-ST elevation myocardial infarction (NSTEMI) in recovery phase I21.4 Acute kidney injury superimposed on chronic kidney disease N17.9; N18.9
[2022-04-13] MEDS: atorvastatin 40 mg Tablet 20 MG PO (20:36)
[2022-04-13] MEDS: hyDRALAzine 25 mg Tablet PO (20:40)
[2022-04-13 21:01] LABS: Glucose Point of Care 158 mg/dL (70-110)
[2022-04-13] MEDS: vancomycin 1,000 MG in sodium chloride 0.9% 250 ML 250 MG IV (22:03)
[2022-04-13 23:40] LABS: Adenovirus Not Detected (NOT DETECT); Chlamydia Pneumoniae Not Detected (NOT DETECT); Coronavirus 229E,HKU1,NL63,OC4 Not Detected (NOT DETECT); Human Metapneumovirus Not Detected (NOT DETECT); Human Rhinovirus/Enterovirus Not Detected (NOT DETECT); Influenza A Not Detected (NOT DETECT); Influenza A H1 Not Detected (NOT DETECT); Influenza A H1-2009 Not Detected (NOT DETECT); Influenza A H3 Not Detected (NOT DETECT); Influenza B Not Detected (NOT DETECT); Mycoplasma Pneumoniae Not Detected (NOT DETECT); Parainfluenza Virus Type 1 Not Detected (NOT DETECT); Parainfluenza Virus Type 2 Not Detected (NOT DETECT); Parainfluenza Virus Type 3 Not Detected (NOT DETECT); Parainfluenza Virus Type 4 Not Detected (NOT DETECT); Respiratory Syncytial Virus A Not Detected (NOT DETECT); Respiratory Syncytial Virus B Not Detected (NOT DETECT); SARS-COV-2 Not Detected (NOT DETECT)
[2022-04-14] VITALS (17 sets, daily range): BP systolic 152–171; BP diastolic 67–88; PULSE 76–100; RESP 15–20; TEMP 36.3–37.1; O2SAT 90–96
[2022-04-14] MEDS: ipratropium-albuterol 3 mL Neb INHALATION ×5 (03:06→20:17)
[2022-04-14 05:10] LABS: Basophils % 0.1 %; Hemoglobin 9.8 g/dL (11.7-16.6); Lymphocytes # 0.5 10^3/uL (0.8-4.8); Lymphocytes % 2.4 %; Mean Corpuscular HGB Conc 29.7 g/dL (30.0-36.0); Mean Corpuscular Hemoglobin 27.5 pg (28.0-34.0); Mean Corpuscular Volume 92.4 fl (80-94); Mean Platelet Volume 11.1 fL (7.4-10.4); Monocytes # 0.6 10^3/uL (0.2-0.9); Monocytes % 2.8 %; Neutrophils # 18.37 10^3/uL (1.8-7.7); Neutrophils % 93.6 %; Nucleated Red Blood Cells % 0 %; Platelet Count 352 10^3/cmm (130-400); Red Blood Count 3.57 10^6/uL (4.1-5.3); Red Cell Distribution Width 15.5 % (12.1-15.1); White Blood Count 19.6 10^3/uL (4.0-10.0)
[2022-04-14] MEDS: sucralfate 1 gm/10 mL Oral Liq UDC PO ×3 (05:33→20:37)
[2022-04-14 05:34] LABS: Alanine Aminotransferase 52 U/L (0-41); Albumin Level 2.5 g/dL (3.5-5.2); Alkaline Phosphatase 203 U/L (40-130); Anion Gap 20.3 (5-19); Aspartate Amino Transferase 27 U/L (0-40); Blood Urea Nitrogen 73 mg/dL (8-23); Calcium 9.1 mg/dL (8.5-10.5); Carbon Dioxide 20 mmol/L (22-29); Chloride 105 mmol/L (98-107); Globulin 3.4 g/dL (1.3-4.6); Glucose 170 mg/dL (65-115); Magnesium 2.5 mg/dL (1.7-2.3); Osmolality Calculated 320 mOsm/kg (285-295); Phosphorus 4.2 mg/dL (2.5-4.5); Potassium 3.3 mmol/L (3.5-5.1); Sodium 142 mmol/L (136-145); Total Bilirubin 0.4 mg/dL (0.15-1.2); Total Protein 5.9 g/dL (6.6-8.7)
[2022-04-14 06:09] LABS: Glucose Point of Care 190 mg/dL (70-110)
[2022-04-14] MEDS: budesonide 0.5 mg/2 mL Neb INHALATION ×2 (07:56→20:17)
[2022-04-14] MEDS: pantoprazole 40 mg SDV IVP ×2 (08:13→20:46)
[2022-04-14] MEDS: ferrous gluconate 324 mg Tablet PO (08:19)
[2022-04-14] MEDS: clopidogrel 75 mg Tablet PO (08:19)
[2022-04-14] MEDS: sennosides-docusate Tablet 1 TAB PO (08:19)
[2022-04-14] MEDS: insulin lispro 100 unit/1 mL SUBCUT ×3 (08:20→20:46)
[2022-04-14] MEDS: hyDRALAzine 25 mg Tablet PO ×2 (08:20→20:42)
[2022-04-14] MEDS: metoprolol tartrate 25 mg Tablet PO ×2 (08:20→20:41)
[2022-04-14] MEDS: aspirin 81 mg EC Tablet PO (08:20)
--- NOTE | 2022-04-14 10:15 | P.PN_ITS ---
Subjective Subjective: The patient is still remaining confused. Vital signs are stable. He is requiring oxygen 7 L/min by nasal cannula. Mild respiratory distress. Denies any chest pain. He is afebrile. Medications: Medication Review Details: Current Medications Acetaminophen (Acetaminophen 325 Mg Tablet) 650 mg PO Q6H PRN PRN Reason: MILD PAIN Last Admin: 04/11/22 17:44 Dose: 650 mg Albuterol/Ipratropium (Ipratropium-Albuterol 3 Ml Neb) 3 ml INHALATION Q4H PEPE Last Admin: 04/14/22 07:56 Dose: 3 ml Aspirin (Aspirin 81 Mg Ec Tablet) 81 mg PO DAILY PEPE Last Admin: 04/14/22 08:20 Dose: 81 mg Atorvastatin Calcium (Atorvastatin 40 Mg Tablet) 20 mg PO BEDTIME PEPE Last Admin: 04/13/22 20:36 Dose: 20 mg Budesonide (Budesonide 0.5 Mg/2 Ml Neb) 0.5 mg INHALATION BID.RESPIRATORY PEPE Last Admin: 04/14/22 07:56 Dose: 0.5 mg Clopidogrel Bisulfate (Clopidogrel 75 Mg Tablet) 75 mg PO DAILY PEPE Last Admin: 04/14/22 08:19 Dose: 75 mg Dextrose (Dextrose 50% Syringe 50 Ml) 25 ml IVP ONCE PRN; Protocol PRN Reason: hypoglycemia protocol Dextrose (Dextrose 50% Syringe 50 Ml) 50 ml IVP PRN PRN; Protocol PRN Reason: hypoglycemia protocol Ferrous Gluconate (Ferrous Gluconate 324 Mg Tablet) 324 mg PO BIDWM PEPE Last Admin: 04/14/22 08:19 Dose: 324 mg Glucagon (Glucagon 1 Mg/Ml Inj 1 Ml) 1 mg IM ONCE PRN; Protocol PRN Reason: Adult Acute Hypoglycemia Prot. Heparin Sodium (Porcine) (Heparin 5,000 Unit/Ml Inj 1 Ml) 5,000 unit SUBCUT Q12H PEPE Last Admin: 04/13/22 22:02 Dose: 5,000 unit Hydralazine HCl (Hydralazine 20 Mg/Ml Inj 1 Ml) 10 mg IVP Q4H PRN PRN Reason: SYSTOLIC BLOOD PRESSURE Last Admin: 04/07/22 16:51 Dose: 10 mg Hydralazine HCl (Hydralazine 25 Mg Tablet) 25 mg PO TID PEPE Last Admin: 04/14/22 08:20 Dose: 25 mg Imipenem/Cilastatin Sodium 250 (mg/ Sodium Chloride) 100 mls @ 200 mls/hr IV Q12H [facility]; Protocol Last Infusion: 04/14/22 07:39 Dose: Infused Vancomycin HCl 1,000 mg/ (Sodium Chloride) 250 mls @ 250 mls/hr IV Q36H [facility]; Protocol Last Infusion: 04/14/22 07:40 Dose: Infused Potassium Chloride (K-Reginald) 100 mls @ 25 mls/hr IV ONCE ONE Stop: 04/14/22 13:55 Insulin Human Lispro (Insulin Lispro 100 Unit/1 Ml) 0 unit SUBCUT WM&BEDTIME [facility]; Protocol Last Admin: 04/14/22 08:20 Dose: 2 unit Methylprednisolone Sodium Succinate (Methylprednisolone Sod Succ 125 Mg/2 Ml Inj) 30 mg IVP Q12H [facility] [place] Last Admin: 04/14/22 08:12 Dose: 30 mg Metoprolol Tartrate (Metoprolol Tartrate 25 Mg Tablet) 25 mg PO BID@0900,2100 [facility] [place] Last Admin: 04/14/22 08:20 Dose: 25 mg Ondansetron HCl (Ondansetron 2 Mg/Ml Sdv 2 Ml) 4 mg IVP Q6H PRN PRN Reason: NAUSEA AND VOMITING Pantoprazole Sodium (Pantoprazole 40 Mg Sdv) 40 mg IVP Q12H [facility] [place] Last Admin: 04/14/22 08:13 Dose: 40 mg Polyethylene Glycol (Polyethylene Glycol 3350 Pkt 17 Gm) 17 gm PO DAILY [facility] [place] Last Admin: 04/14/22 08:20 Dose: Not Given Senna/Docusate Sodium (Sennosides-Docusate Tablet) 1 tab PO BID [facility] [place] Last Admin: 04/14/22 08:19 Dose: 1 tab Sucralfate (Sucralfate 1 Gm/10 Ml Oral Liq Udc) 1 gm PO AC&BEDTIME [facility] [place] Last Admin: 04/14/22 05:33 Dose: 1 gm Vitals/I&O/Wt Last Vital Signs Temp 98.2 F 04/14/22 08:00 Pulse 98 04/14/22 08:00 Resp 18 04/14/22 08:00 BP 163/86 04/14/22 08:00 Pulse Ox 93 04/14/22 08:00 O2 Del Method 04/14/22 08:00 O2 Flow Rate 8 04/14/22 07:56 FiO2 50 04/13/22 07:43 04/13/22 04/14/22 04/14/22 22:59 06:59 14:59 Intake Total 130 / 1480 380 / 380 Output Total 400 / 400 300 / 700 Balance -270 / 1080 -300 / 780 380 / 380 Weight last 48 hrs Weight 122 lb 8 oz Weight 124 lb 8 oz Weight 122 lb 12.76 oz Physical Exam Narrative: GENERAL: The patient is alert but.. Mild respiratory distress HEENT: Minimal pallor. No icterus or lymphadenopathy.Oral cavity: There are no mucous membrane lesions. NECK: Trachea appears to be central. No masses noted. No JVD or thyromegaly appreciated. RESPIRATORY: Chest is symmetrical. There is some intercostal muscle retraction. Breath sounds are heard bilaterally with the diffuse expiratory wheezing and occasional coarse crackles BREASTS: Deferred. [] HEART: The heart sounds are normal. No S3 or S4. Short systolic murmur in the left sternal border. No pericardial rub ABDOMEN: No vessel pulsations or distention. No tenderness. No organomegaly appreciated. Bowel sounds are normally heard. [] : Deferred. [] RECTAL: Deferred. [] LYMPHATIC: No lymphadenopathy noted in the neck. EXTREMITIES: No edema or cyanosis. No clubbing. 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 Alert and confused. Urinary Catheter Management: Myers: Cath Placed During This Visit: yes Reason for Continuing Indwelling Catheter: Accurate Measurement of Urinary Output in Critically Ill Patients Urinary Catheter Date of Insertion: 04/07/22 Urinary Catheter Time of Insertion: 13:06 Data : 04/14/22 03:42 04/14/22 03:42 Other Labs: Laboratory Last Values WBC 19.6 10^3/uL (4.0-10.0) H 04/14/22 03:42 RBC 3.57 10^6/uL (4.1-5.3) L 04/14/22 03:42 Hgb 9.8 g/dL (11.7-16.6) L 04/14/22 03:42 Hct 33.0 % (42.0-52.0) L 04/14/22 03:42 MCV 92.4 fl (80-94) 04/14/22 03:42 MCH 27.5 pg (28.0-34.0) L 04/14/22 03:42 MCHC 29.7 g/dL (30.0-36.0) L 04/14/22 03:42 RDW 15.5 % (12.1-15.1) H 04/14/22 03:42 Plt Count 352 10^3/cmm (130-400) 04/14/22 03:42 MPV 11.1 fL (7.4-10.4) H 04/14/22 03:42 Neut % (Auto) 93.6 % 04/14/22 03:42 Lymph % (Auto) 2.4 % 04/14/22 03:42 [place] % (Auto) 2.8 % 04/14/22 03:42 Eos % (Auto) 0.0 % 04/14/22 03:42 Baso % (Auto) 0.1 % 04/14/22 03:42 Neut # (Auto) 18.37 10^3/uL (1.8-7.7) H 04/14/22 03:42 Lymph # (Auto) 0.5 10^3/uL (0.8-4.8) L 04/14/22 03:42 [place] # (Auto) 0.6 10^3/uL (0.2-0.9) 04/14/22 03:42 Eos # (Auto) 0.0 10^3/uL (0.0-0.8) 04/14/22 03:42 Baso # (Auto) 0.0 10^3/uL (0.0-0.1) 04/14/22 03:42 Nucleated RBC % (auto) 0 % 04/14/22 03:42 Nucleated RBCs # 0.0 /100WBC 04/14/22 03:42 APTT 29.1 SECONDS (23.9-36.7) 04/09/22 13:26 PTT Patient/Normal 1:1 Cancelled 04/07/22 14:55 D-Dimer 2.06 ug/mIFEU (0-0.59) H 04/07/22 06:35 Specimen Type Arterial 04/11/22 13:27 Sample Site Radial, left 04/11/22 13:27 ABG pH 7.38 (7.35-7.45) 04/11/22 13:27 ABG pCO2 27.4 mmHg (35-45) L 04/11/22 13:27 ABG pO2 62.5 mmHg (80.0-100.0) L 04/11/22 13:27 ABG HCO3 16.3 mmol/L (22-26) L 04/11/22 13:27 ABG O2 Saturation 90.0 04/11/22 13:27 ABG Base Excess -7.7 mmol/L (-2.0-2.0) L 04/11/22 13:27 Harry Test Pos 04/11/22 13:27 A-a O2 Gradient 33.8 mmHg (5-10) H 04/11/22 13:27 Hematocrit 28.3 % (42-52) L 04/11/22 13:27 Hgb O2 Saturation 88.2 % (95-100) L 04/11/22 13:27 Carboxyhemoglobin 1.3 %THgb (0.4-20.1) 04/11/22 13:27 Methemoglobin 0.7 % (0.4-1.5) 04/11/22 13:27 Total Hemoglobin 9.2 g/dL (14-18) L 04/11/22 13:27 Sodium 147.0 mmol/L (131-143) H 04/11/22 13:27 Potassium 4.5 mmol/L (3.5-5.0) 04/11/22 13:27 Glucose 192.0 mg/dL (70-115) H 04/11/22 13:27 Ionized Calcium 1.3 mmol/L (1.1-1.4) 04/11/22 13:27 O2 Delivery Device Hag 04/11/22 13:27 O2 Liters/Min 50.0 % 04/11/22 13:27 FiO2 50.0 % 04/11/22 13:27 Produce Associate ID Cak 04/11/22 13:27 Sodium 142 mmol/L (136-145) 04/14/22 03:42 Potassium 3.3 mmol/L (3.5-5.1) L 04/14/22 03:42 Chloride 105 mmol/L (98-107) 04/14/22 03:42 Carbon Dioxide 20 mmol/L (22-29) L 04/14/22 03:42 Anion Gap 20.3 (5-19) H 04/14/22 03:42 BUN 73 mg/dL (8-23) H 04/14/22 03:42 Creatinine 2.8 mg/dL (0.7-1.2) H 04/14/22 03:42 GFR Calculation Not Reportable 04/14/22 03:42 Glucose 170 mg/dL (65-115) H 04/14/22 03:42 POC Glucose 190 mg/dL (70-110) H 04/14/22 06:06 Calculated Osmolality 320 mOsm/kg (285-295) H 04/14/22 03:42 Lactic Acid 4.6 mmol/L (0.5-2.2) H* 04/07/22 06:35 Lactic Acid (Sepsis) 5.8 mmol/L (0.5-2.2) H* 04/07/22 09:20 Lactate 1.5 mmol/L (0.5-2.2) 04/09/22 10:37 Uric Acid 14.6 mg/dL (3.4-7.0) H 04/12/22 09:56 Calcium 9.1 mg/dL (8.5-10.5) 04/14/22 03:42 Phosphorus 4.2 mg/dL (2.5-4.5) 04/14/22 03:42 Magnesium 2.5 mg/dL (1.7-2.3) H 04/14/22 03:42 Iron 23 ug/dL (59-158) L 04/13/22 03:55 TIBC 157 mcg/dl 04/13/22 03:55 % Saturation 14.6 % (20-50) L 04/13/22 03:55 Unsat Iron Binding 134 ug/dL (112-347) 04/13/22 03:55 Total Bilirubin 0.4 mg/dL (0.15-1.2) 04/14/22 03:42 AST 27 U/L (0-40) 04/14/22 03:42 ALT 52 U/L (0-41) H 04/14/22 03:42 Alkaline Phosphatase 203 U/L (40-130) H 04/14/22 03:42 Creatine Kinase 191 U/L (39-308) 04/07/22 13:16 Troponin T Baseline 790 ng/L (0-15) H* 04/07/22 06:35 Troponin T 120 Minute 732.9 ng/L (0-15) H 04/07/22 09:20 Delta Troponin T -57.1 ABS# (0-10) L 04/07/22 09:20 Troponin T Hi Sens 6Hr 640.8 ng/L (0-15) H 04/07/22 13:15 Troponin T Hi Sens 6Hr Delta -149.2 ng/L (0-12) L 04/07/22 13:15 NT-Pro-B Natriuret Pep 82746 pg/mL (0-125) H 04/07/22 06:35 Total Protein 5.9 g/dL (6.6-8.7) L 04/14/22 03:42 Albumin 2.5 g/dL (3.5-5.2) L 04/14/22 03:42 Globulin 3.4 g/dL (1.3-4.6) 04/14/22 03:42 25-OH Vitamin D Total 17 ng/mL (30-100) L 04/13/22 03:55 Procalcitonin 0.86 ng/mL (0-0.5) H 04/11/22 11:57 Urine Color Yellow (Yellow) 04/07/22 13:06 Urine Appearance Clear (CLEAR) 04/07/22 13:06 Urine pH 5 (5-7) 04/07/22 13:06 Ur Specific [place] 1.020 (1.005-1.030) 04/07/22 13:06 Urine Protein 3+ (Negative) H 04/07/22 13:06 Urine Glucose (UA) Trace (Normal) H 04/07/22 13:06 Urine Ketones 1+ (Negative) H 04/07/22 13:06 Urine Blood 2+ (Negative) H 04/07/22 13:06 Urine Nitrate Negative (Negative) 04/07/22 13:06 Urine Bilirubin Neg (Negative) 04/07/22 13:06 Urine Urobilinogen Neg mg/dL (Negative) 04/07/22 13:06 Ur Leukocyte Esterase Negative (Negative) 04/07/22 13:06 Urine RBC 0-4 /hpf (0-2) H 04/07/22 13:06 Urine WBC None /hpf (0-5) 04/07/22 13:06 Ur Squamous Epith Cells 0-4 /hpf (0-5) H 04/07/22 13:06 Amorphous Sediment 1+ /hpf 04/07/22 13:06 Urine Bacteria 1+ /hpf (NONE) H 04/07/22 13:06 Nasal Influ A H1 2009 PCR Not detected (NOT DETECT) 04/13/22 20:00 Vancomycin Trough 21.3 ug/mL (10-15) H 04/13/22 10:12 Random Vancomycin 31.6 ug/mL (20.0-40.0) 04/12/22 07:12 Adenovirus (PCR) Not detected (NOT DETECT) 04/13/22 20:00 C. pneumoniae DNA (PCR) Not detected (NOT DETECT) 04/13/22 20:00 Coronavirus 229E (PCR) Not detected (NOT DETECT) 04/13/22 20:00 Hep Bs Antigen Non-reactive (Nonreactive) 04/12/22 21:21 Hep Bs Antibody 3.5 (11.5-1000) L 04/12/22 21:21 Hepatitis C Antibody Non-reactive (Nonreactive) 04/12/22 21:21 Human Metapneumovir PCR Not detected (NOT DETECT) 04/13/22 20:00 Influenza A (H1) PCR Not detected (NOT DETECT) 04/13/22 20:00 Influenza A (H3) PCR Not detected (NOT DETECT) 04/13/22 20:00 Influenza Type A (PCR) Not detected (NOT DETECT) 04/13/22 20:00 Influenza Type B (PCR) Not detected (NOT DETECT) 04/13/22 20:00 M. pneumoniae (PCR) Not detected (NOT DETECT) 04/13/22 20:00 Parainfluenza 1 (PCR) Not detected (NOT DETECT) 04/13/22 20:00 Parainfluenza 2 (PCR) Not detected (NOT DETECT) 04/13/22 20:00 Parainfluenza 3 (PCR) Not detected (NOT DETECT) 04/13/22 20:00 Parainfluenza 4 (PCR) Not detected (NOT DETECT) 04/13/22 20:00 RSV Type A (PCR) Not detected (NOT DETECT) 04/13/22 20:00 RSV Type B (PCR) Not detected (NOT DETECT) 04/13/22 20:00 Entero/Rhino (PCR) Not detected (NOT DETECT) 04/13/22 20:00 SARS-CoV-2 (PCR) Not detected (NOT DETECT) 04/13/22 20:00 Blood Type O Positive 04/11/22 08:50 Rho(D) Type Positive 04/11/22 08:50 Antibody Screen Negative 04/11/22 08:50 Crossmatch See Detail 04/11/22 08:50 Micro: Microbiology 04/11/22 16:36 Urine Culture - Final Urine Catheterized A&P Assessment and plan (1) ARDS (adult respiratory distress syndrome): Patient is still requiring oxygen at 7 L/min by nasal cannula. (2) Acute systolic heart failure: Patient seems her intermittent decompensated heart failure. Currently seems compensated. (3) Non-ST elevation myocardial infarction (NSTEMI) in recovery phase: May continue on the Plavix. Aspirin is on hold. Hemoglobin is stable. Normal (4) Acute kidney injury superimposed on chronic kidney disease: Status post hemodialysis. Plan The other problems are Anemia, status post blood transfusion, hemoglobin seems to be stable possible pneumonia Leukocytosis-persistent, seems to be coming down Recent MRSA infection/abscess drainage COPD exacerbation History of hypertension, currently off stage II Type 2 diabetes Hypokalemia, mild with a potassium of 3.3 today. To be corrected The patient has a DNI DNR status. Apparently the has decided not to subject the patient through any invasive or interventional procedures. She has decided not to have the dialysis again. Wanted to take him home with the hospice care. Attestations Medical Necessity Statement*: Disposition as per the primary Coding Level of Care Code Acute Director Of Events for [facility] Fwd History Expanded Problem Focused Exam Expanded Problem Focused Medical Decision Making Moderate Complexity Diagnoses ARDS (adult respiratory distress syndrome) J80 Acute systolic heart failure I50.21 Non-ST elevation myocardial infarction (NSTEMI) in recovery phase I21.4 Acute kidney injury superimposed on chronic kidney disease N17.9; N18.9
[2022-04-14] MEDS: potassium chloride premix 100 ML 25 MEQ IV (10:41)
[2022-04-14] MEDS: heparin 5,000 unit/mL INJ 1 mL 5000 UNIT SUBCUT ×2 (10:42→20:42)
[2022-04-14 11:03] LABS: Glucose Point of Care 111 mg/dL (70-110)
--- NOTE | 2022-04-14 11:23 | CT_ITS ---
WS: [id number] CT HEAD NONCONTRAST HISTORY: stroke? TECHNIQUE: Contiguous axial imaging performed through the brain in 2.5 mm imaging. Bone and soft tiss ue windows. Sagittal and coronal reformats reviewed. All CT scans at [facility] use at least one of these dose optimization techniques: automated exposure control; mA and/or kV adjustment per pa tient size (includes targeted exams where dose is matched to clinical indication); or iterative recon struction. DLP: 1031.57 mGy.cm COMPARISON: 12/29/2020 No acute intracranial hemorrhage, midline shift or mass effect. Moderate atrophy and small vessel ischemic disease. Chronic lacunar infarcts in the basal ganglia and thalami bilaterally. Large RIGHT frontal parietal infarct with encephalomalacia. Extensive small ves christi ischemic disease surrounding the ventricles. Ventricles are diffusely dilated. Mild atrophy of t he cerebellum. No inferior displacement of the cerebellar tonsils. Paranasal sinuses: As visualized are clear. Mastoid air cells: Well pneumatized. Calvarium and scalp: Skull is intact with no soft tissue edema or swelling. CT/CT head wo con* [id number] IMPRESSION: 1. No acute intracranial hemorrhage or edema. 2. Large RIGHT remote MCA territory infarct with encephalomalacia and ex vacuo le dilatation of the lateral ventricle. Similar to the prior study of 12/29/2020 . 3. Additional atrophy and extensive small vessel ischemic disease. No progress ion. 4. Diffuse ventriculomegaly is probably on the basis of atrophy.
--- NOTE | 2022-04-14 12:10 | PM.PN ---
Subjective Subjective: SOB, weak orthopneic, + diarrhea, poor speech Medications: Reviewed: Yes Medication Review Details: Current Medications Acetaminophen (Acetaminophen 325 Mg Tablet) 650 mg PO Q6H PRN PRN Reason: MILD PAIN Last Admin: 04/11/22 17:44 Dose: 650 mg Albuterol/Ipratropium (Ipratropium-Albuterol 3 Ml Neb) 3 ml INHALATION Q4H PEPE Last Admin: 04/14/22 11:26 Dose: 3 ml Aspirin (Aspirin 81 Mg Ec Tablet) 81 mg PO DAILY PEPE Last Admin: 04/14/22 08:20 Dose: 81 mg Atorvastatin Calcium (Atorvastatin 40 Mg Tablet) 20 mg PO BEDTIME PEPE Last Admin: 04/13/22 20:36 Dose: 20 mg Budesonide (Budesonide 0.5 Mg/2 Ml Neb) 0.5 mg INHALATION BID.RESPIRATORY PEPE Last Admin: 04/14/22 07:56 Dose: 0.5 mg Clopidogrel Bisulfate (Clopidogrel 75 Mg Tablet) 75 mg PO DAILY PEPE Last Admin: 04/14/22 08:19 Dose: 75 mg Dextrose (Dextrose 50% Syringe 50 Ml) 25 ml IVP ONCE PRN; Protocol PRN Reason: hypoglycemia protocol Dextrose (Dextrose 50% Syringe 50 Ml) 50 ml IVP PRN PRN; Protocol PRN Reason: hypoglycemia protocol Ferrous Gluconate (Ferrous Gluconate 324 Mg Tablet) 324 mg PO BIDWM PEPE Last Admin: 04/14/22 08:19 Dose: 324 mg Glucagon (Glucagon 1 Mg/Ml Inj 1 Ml) 1 mg IM ONCE PRN; Protocol PRN Reason: Adult Acute Hypoglycemia Prot. Heparin Sodium (Porcine) (Heparin 5,000 Unit/Ml Inj 1 Ml) 5,000 unit SUBCUT Q12H [facility] Last Admin: 04/14/22 10:42 Dose: 5,000 unit Hydralazine HCl (Hydralazine 20 Mg/Ml Inj 1 Ml) 10 mg IVP Q4H PRN PRN Reason: SYSTOLIC BLOOD PRESSURE Last Admin: 04/07/22 16:51 Dose: 10 mg Hydralazine HCl (Hydralazine 25 Mg Tablet) 25 mg PO TID PEPE Last Admin: 04/14/22 08:20 Dose: 25 mg Imipenem/Cilastatin Sodium 250 (mg/ Sodium Chloride) 100 mls @ 200 mls/hr IV Q12H [facility]; Protocol Last Infusion: 04/14/22 07:39 Dose: Infused Vancomycin HCl 1,000 mg/ (Sodium Chloride) 250 mls @ 250 mls/hr IV Q36H [facility]; Protocol Last Infusion: 04/14/22 07:40 Dose: Infused Potassium Chloride (K-Reginald) 100 mls @ 25 mls/hr IV ONCE ONE Stop: 04/14/22 13:55 Last Admin: 04/14/22 10:41 Dose: 25 mls/hr Insulin Human Lispro (Insulin Lispro 100 Unit/1 Ml) 0 unit SUBCUT WM&BEDTIME [facility]; Protocol Last Admin: 04/14/22 11:28 Dose: Not Given Methylprednisolone Sodium Succinate (Methylprednisolone Sod Succ 125 Mg/2 Ml Inj) 30 mg IVP Q12H [facility] Last Admin: 04/14/22 08:12 Dose: 30 mg Metoprolol Tartrate (Metoprolol Tartrate 25 Mg Tablet) 25 mg PO BID@0900,2100 [facility] Last Admin: 04/14/22 08:20 Dose: 25 mg Ondansetron HCl (Ondansetron 2 Mg/Ml Sdv 2 Ml) 4 mg IVP Q6H PRN PRN Reason: NAUSEA AND VOMITING Pantoprazole Sodium (Pantoprazole 40 Mg Sdv) 40 mg IVP Q12H [facility] Last Admin: 04/14/22 08:13 Dose: 40 mg Polyethylene Glycol (Polyethylene Glycol 3350 Pkt 17 Gm) 17 gm PO DAILY [facility] Last Admin: 04/14/22 08:20 Dose: Not Given Senna/Docusate Sodium (Sennosides-Docusate Tablet) 1 tab PO BID [facility] Last Admin: 04/14/22 08:19 Dose: 1 tab Sucralfate (Sucralfate 1 Gm/10 Ml Oral Liq Udc) 1 gm PO AC&BEDTIME [facility] Last Admin: 04/14/22 10:42 Dose: 1 gm Vitals/I&O/Wt Last Vital Signs Temp 97.6 F 04/14/22 11:46 Pulse 98 04/14/22 11:46 Resp 18 04/14/22 11:46 BP 171/86 04/14/22 11:46 Pulse Ox 94 04/14/22 11:46 O2 Del Method 04/14/22 11:46 O2 Flow Rate 8 04/14/22 11:27 FiO2 50 04/13/22 07:43 04/13/22 04/14/22 04/14/22 22:59 06:59 14:59 Intake Total 130 / 1480 380 / 380 Output Total 400 / 400 300 / 700 Balance -270 / 1080 -300 / 780 380 / 380 Weight last 48 hrs Weight 55.565 kg Weight 56.472 kg Weight 55.7 kg Physical Exam Narrative: sob on NC 02 , VS noted heent- nc/at neck supple lungs -per RN -b/l crackles AND WHEEZES heart reg abd soft, nt, nd, +bs ext dec b/l edema rt femoral dialysis access neuro- more awake, left side weak, difficulty w/ speach Urinary Catheter Management: Myers: Cath Placed During This Visit: yes Reason for Continuing Indwelling Catheter: Accurate Measurement of Urinary Output in Critically Ill Patients Urinary Catheter Date of Insertion: 04/07/22 Urinary Catheter Time of Insertion: 13:06 Data : 04/14/22 03:42 04/14/22 03:42 Micro: Microbiology 04/11/22 16:36 Urine Culture - Final Urine Catheterized A&P Assessment and plan (1) Acute kidney injury superimposed on chronic kidney disease: 76 yr old man h/o COPD, CKD stage 3, CVA, DM, HTN. H/o MRSA pleural effusion in November 2021. Pt here w/ b/l pna, infoltrates, pleural effusions and drop in EF from 65- 32% pt has EZRA., he is being treated w/ lasix, vanco, zsosyn 1. EZRA- baseline cr 1.1 in November 2021. Cr 1.3- 1.5 in january 2022. -s/p first HD on 04/12/22- family does not want any more dialysis -discussed in detail w/ pts and Dr Jerome. 2. Infection- on zosyn and vanco- monitor vanco level. was 31 yesterday- will repeat vanco level. do not redose vanco if trough is above 20 -wbc remains 20 3. SOB from PNA and CHFrEF - will give lasix -family does not want any tubes or invasive procedures 4.met acidosis- from EZRA and lactate 5. replace k and monitor 6. anemia - hgb improved 7. effusions- monitor on diuretics meds reviewed discussed w/ Dr Jerome, pts , and RN seen and examined w/ RN- telehealth visit time spent 30 min Plan see above Attestations Medical Necessity Statement*: sob, ezra, chf, nstemi Time Spent in Patient Care: 16 - 35 minutes (>than 50% of time spent in counselling and/or direct pt care on unit). Coding Level of Care Code Acute [facility] Breeder for [facility] Fwd Diagnoses Acute kidney injury superimposed on chronic kidney disease N17.9; N18.9
--- NOTE | 2022-04-14 12:25 | PC.SOCIAL ---
IMM update IMM updated with patient's . Copy Pg 2 provided. Initialled, dated, timed, and placed in chart.
[2022-04-14] MEDS: FUROsemide 10 mg/mL SDV 4mL 40 MG IVP (12:57)
[2022-04-14] MEDS: spironolactone 25 mg Tablet PO (13:33)
--- NOTE | 2022-04-14 13:49 | PM.PN ---
Subjective Subjective: Discussion with patient's this morning. She does not want anymore dialysis. Patient is confused and unable to make decisions for himself. He does look slightly more short of breath than yesterday. Patient states she cannot take him home with hospice today and would like to wait till Sunday as she has does not have arrangements at home. She would like to continue all current treatment actively and continue to keep DNR/DNI status. She does not want to transition to comfort care. She states she is hopeful he will turn around. She is also requesting a head CT to rule out stroke. CT head was done which did not show an acute stroke. He does have a large right remote MCA territory infarct similar to prior study a year ago. We had a discussion with her in presence of charge nurse, social media specialist and myself. She was also seen by nephrology today. Patient did have an episode of diarrhea this morning due to all stool softeners has been receiving in the last few days. is requested us to take out the dialysis catheter. RN will be taking a dialysis catheter today.. Vitals/I&O/Wt Last Vital Signs Temp 97.6 F 04/14/22 11:46 Pulse 98 04/14/22 11:46 Resp 18 04/14/22 11:46 BP 171/86 04/14/22 11:46 Pulse Ox 94 04/14/22 11:46 O2 Del Method 04/14/22 11:46 O2 Flow Rate 8 04/14/22 11:27 FiO2 50 04/13/22 07:43 04/13/22 04/14/22 04/14/22 22:59 06:59 14:59 Intake Total 130 / 1480 380 / 380 Output Total 400 / 400 300 / 700 Balance -270 / 1080 -300 / 780 380 / 380 Weight last 48 hrs Weight 55.565 kg Weight 56.472 kg Weight 55.7 kg Physical Exam Narrative: General exam is a white male, slightly short of breath, on 8 L nasal cannula. Chronically ill-appearing, bitemporal wasting, orthopnea positive. HEENT: Pupils equally round. Oropharynx clear. Cardiovascular regular rate and rhythm, distant heart sounds. No obvious murmur. Lungs bilateral expiratory wheezes. crackles at bases. Mild rhonchi diffusely throughout lung osorio breath sounds symmetric. No acute distress, no accessory muscle use. Abdomen is soft nontender positive bowel sounds. No obvious organomegaly Back demonstrates small decub right scapular area approximately 1.5 cm, stage II without signs of infection. Surgical scar noted Extremities trace edema bilateral lower extremities, cap refill brisk Skin see findings above Neuro no obvious focal deficits. Urinary Catheter Management: Myers: Cath Placed During This Visit: yes Reason for Continuing Indwelling Catheter: Accurate Measurement of Urinary Output in Critically Ill Patients Urinary Catheter Date of Insertion: 04/07/22 Urinary Catheter Time of Insertion: 13:06 Data : 04/14/22 03:42 04/14/22 03:42 Micro: Microbiology 04/11/22 16:36 Urine Culture - Final Urine Catheterized A&P Assessment and plan (1) ARDS (adult respiratory distress syndrome): (2) Pneumonia: (3) Acute kidney injury superimposed on chronic kidney disease: (4) COPD (chronic obstructive pulmonary disease): (5) Acute systolic heart failure: (6) Physical deconditioning: (7) Protein-energy malnutrition: (8) Uremia: Plan #Aspiration pneumonia, ARDS, multilobar pneumonia? #High aspiration risk #Acute systolic congestive heart failure, new onset #Anemia #CARMENZA on CKD, baseline 1.2?1.6 #NSTEMI, most likely type II [place] #Hypertension #COPD #Positive blood culture with MRSA November 2021, 1 bottle out of 4 gram-positive for gram-positive cocci in clusters #Constipation #Leukocytosis #Elevated liver enzymes -1 bottle of 4 positive for GPC in clusters. ? Check MRSA nares. Patient is on Vanco and Zosyn since admission, will continue for now ? Chest at admission showed no evidence for PE, small to moderate right greater than left pleural effusions., Patchy confluent airspace infiltrates in both perihilar regions extending into upper and lower lobes compatible with pneumonia, pattern suspicious for viral pneumonia. Correlation for COVID-pneumonia. -Venous Dopplers negative for DVT ? Renal ultrasound on 04/06 2022 showed normal-sized echogenic kidneys, moderate to chronic medical renal disease ? Modified barium swallow done on 04/10/2022 shows positive for aspiration of nectar consistency and thin liquid barium.. ? Chest x-ray today shows bilateral pulmonary infiltrates and small bibasilar pleural effusions demonstrating no significant change. ? Echocardiogram shows LVEF 32%, mildly dilated left ventricle, diffuse hypokinesia of left ventricle, mild concentric left ventricular hypertrophy. Grade 3 x 4 diastolic dysfunction, severely elevated filling pressures. Estimated pulmonary artery peak systolic pressure of 45.04/07/2022 -WBC count today 15,000. Hemoglobin 7.0. BUN 96, creatinine 3.5. ? Patient has had 48 hours of dobutamine drip at 5/h. ? Patient is a confused today. Had dialysis yesterday 1 L removed. ? Liver enzymes elevation worsening. AST 114, ALT 125. - COVID-negative PCR 04/07/2022 Plan for today ? Continue aspirin, Lipitor, Plavix, metoprolol tartrate 25 twice daily ?Continue DuoNeb, Pulmicort twice daily ? Continue Protonix 40 IV twice daily ? Nephrology on board. Continue Lasix as per their recommendations. ? Continue bowel regimen. Continue MiraLAX 17 g daily. Continue docusate senna 1 twice daily. We will hold off on aggressive stimulant enemas. ? We will continue sucralfate and Protonix for now. ? Patient is at high aspiration risk. Dysphagia level 4 diet, thick pur?e food recommended. Patient and his not interested in feeding tube. Therefore will not do NG or PEG. We will continue to supplement with Ensure thickened. Discussed with RN to make sure Ensure is providing every meal. -Cardiology suspecting underlying three-vessel disease due to patient's echo results. Patient not a candidate for invasive intervention at this time due to kidney function. Dobutamine drip was stopped 04/10/2022 after discussion with cardiology. We will continue per their recommendations. -Pulmonology consulted. Appreciate their recommendations. ?Avoid nephrotoxic's ? respiratory viral panel pending ? Repeat blood cultures pending. ? Continue patient on imipenem. Vent level high. We will not get vancomycin level above 20. Pharmacy is dosing that. ? Patient is status postdialysis with 1 L removal -Patient's would like to opt for hospice at this point. However would like to continue all above treatment until she can take him home with hospice. Patient is not comfort care status. We will start Lasix 40 IV twice daily today. Urine output 700 and last 24 hours. ? We will continue on Lasix at this time. ? CT head ruled out any new cerebrovascular events. Analgesia: Tylenol as needed, morphine 1 mg every 4 hours as needed Glycemic control: Not needed. Hypoglycemia protocol Nutrition: Puree diet dysphagia level 4 CODE STATUS: DNR/DNI. PUD prophylaxis: Protonix for PUD prophylaxis DVT prophylaxis: Heparin subc Physical therapy evaluation, Discharge planning: Home with hospice on Sunday. Continue with care at ICU level This documentation was created by [employer] pilot can router software. Every effort was made to ensure accuracy of pilot can router. Any obvious errors or omissions should be clarified with the author of the document. Home with hospice on Sunday. Attestations Medical Necessity Statement*: Patient will be going home with hospice once patient's is ready to take him home. She is setting up supplies that she needs. Hospice cannot admit patient until Sunday. He will stay here until Sunday. Coding Level of Care Code Acute Exhaust And Muffler Fitter for [facility] Fwd Diagnoses ARDS (adult respiratory distress syndrome) J80 Pneumonia J18.9 Acute kidney injury superimposed on chronic kidney disease N17.9; N18.9 COPD (chronic obstructive pulmonary disease) J44.9 Acute systolic heart failure I50.21 Physical deconditioning R53.81 Protein-energy malnutrition E46 Uremia N19
[2022-04-14 17:02] LABS: Glucose Point of Care 236 mg/dL (70-110)
[2022-04-14] MEDS: atorvastatin 40 mg Tablet 20 MG PO (20:40)
[2022-04-14 21:21] LABS: Glucose Point of Care 247 mg/dL (70-110)
[2022-04-15] VITALS (17 sets, daily range): BP systolic 158–170; BP diastolic 73–85; PULSE 71–97; RESP 15–24; TEMP 36.7–36.9; O2SAT 87–99
[2022-04-15] MEDS: ipratropium-albuterol 3 mL Neb INHALATION ×6 (00:43→20:05)
[2022-04-15] MEDS: FUROsemide 10 mg/mL SDV 4mL 40 MG IVP ×2 (01:42→10:58)
[2022-04-15 05:14] LABS: Basophils % 0.1 %; Hematocrit 31.9 % (42.0-52.0); Hemoglobin 9.5 g/dL (11.7-16.6); Lymphocytes # 0.4 10^3/uL (0.8-4.8); Lymphocytes % 1.8 %; Mean Corpuscular HGB Conc 29.8 g/dL (30.0-36.0); Mean Corpuscular Hemoglobin 26.8 pg (28.0-34.0); Mean Corpuscular Volume 89.9 fl (80-94); Mean Platelet Volume 11.2 fL (7.4-10.4); Monocytes # 0.5 10^3/uL (0.2-0.9); Neutrophils # 21.81 10^3/uL (1.8-7.7); Neutrophils % 94.6 %; Nucleated Red Blood Cells % 0.1 %; Platelet Count 412 10^3/cmm (130-400); Red Blood Count 3.55 10^6/uL (4.1-5.3); Red Cell Distribution Width 15.8 % (12.1-15.1)
[2022-04-15 05:30] LABS: Alanine Aminotransferase 35 U/L (0-41); Albumin Level 2.7 g/dL (3.5-5.2); Alkaline Phosphatase 220 U/L (40-130); Anion Gap 20.4 (5-19); Aspartate Amino Transferase 21 U/L (0-40); Calcium 9.6 mg/dL (8.5-10.5); Carbon Dioxide 21 mmol/L (22-29); Chloride 114 mmol/L (98-107); Globulin 3.3 g/dL (1.3-4.6); Glucose 184 mg/dL (65-115); Magnesium 2.5 mg/dL (1.7-2.3); Osmolality Calculated 344 mOsm/kg (285-295); Phosphorus 3.1 mg/dL (2.5-4.5); Potassium 3.4 mmol/L (3.5-5.1); Sodium 152 mmol/L (136-145); Total Bilirubin 0.4 mg/dL (0.15-1.2)
[2022-04-15 05:38] LABS: Blood Urea Nitrogen 82 mg/dL (8-23)
[2022-04-15] MEDS: sucralfate 1 gm/10 mL Oral Liq UDC PO ×4 (06:30→20:42)
[2022-04-15] MEDS: budesonide 0.5 mg/2 mL Neb INHALATION ×2 (07:38→20:05)
[2022-04-15] MEDS: pantoprazole 40 mg SDV IVP ×2 (09:24→20:42)
[2022-04-15] MEDS: clopidogrel 75 mg Tablet PO (09:25)
[2022-04-15] MEDS: ferrous gluconate 324 mg Tablet PO ×2 (09:25→17:30)
[2022-04-15] MEDS: aspirin 81 mg EC Tablet PO (09:25)
[2022-04-15] MEDS: spironolactone 25 mg Tablet PO (09:25)
[2022-04-15] MEDS: sennosides-docusate Tablet 1 TAB PO ×2 (09:25→17:30)
[2022-04-15] MEDS: hyDRALAzine 25 mg Tablet PO ×3 (09:25→20:42)
[2022-04-15] MEDS: metoprolol tartrate 25 mg Tablet PO ×2 (09:25→20:42)
[2022-04-15] MEDS: insulin lispro 100 unit/1 mL SUBCUT ×4 (09:26→20:55)
[2022-04-15] MEDS: polyethylene glycol 3350 Pkt 17 gm PO (09:26)
--- NOTE | 2022-04-15 09:40 | XRR_ITS ---
PROCEDURE INFORMATION: Exam: XR Chest Exam date and time: 04/15/2022 11:37 AM Age: 76 years old Clinical indication: Shortness of breath; Additional info: SOB, chf TECHNIQUE: Imaging protocol: Radiologic exam of the chest. Views: 1 view. COMPARISON: CR XR chest 1V portable [id number] 04/11/2022 9:48 AM FINDINGS: Lungs: There are patchy bilateral pulmonary opacities which appear worsened on the left and improved on the right when compared to the prior study. Pleural spaces: Blunting of the costophrenic angles is suggestive of small pleural effusions. Heart/Mediastinum: Cardiomegaly. Bones/joints: Unremarkable. XR/XR chest 1V portable [id number] IMPRESSION: There are patchy bilateral pulmonary opacities which appear worsened on the left and improved on the right when compared to the prior study.
--- NOTE | 2022-04-15 09:55 | P.PN_ITS ---
Subjective Subjective: sob, confused, eating w/ assistance. weak. Medications: Reviewed: Yes Medication Review Details: Current Medications Acetaminophen (Acetaminophen 325 Mg Tablet) 650 mg PO Q6H PRN PRN Reason: MILD PAIN Last Admin: 04/11/22 17:44 Dose: 650 mg Albuterol/Ipratropium (Ipratropium-Albuterol 3 Ml Neb) 3 ml INHALATION Q4H [facility] Last Admin: 04/15/22 07:38 Dose: 3 ml Aspirin (Aspirin 81 Mg Ec Tablet) 81 mg PO DAILY PEPE Last Admin: 04/15/22 09:25 Dose: 81 mg Atorvastatin Calcium (Atorvastatin 40 Mg Tablet) 20 mg PO BEDTIME PEPE Last Admin: 04/14/22 20:40 Dose: 20 mg Budesonide (Budesonide 0.5 Mg/2 Ml Neb) 0.5 mg INHALATION BID.RESPIRATORY [facility] Last Admin: 04/15/22 07:38 Dose: 0.5 mg Clopidogrel Bisulfate (Clopidogrel 75 Mg Tablet) 75 mg PO DAILY [facility] Last Admin: 04/15/22 09:25 Dose: 75 mg Dextrose (Dextrose 50% Syringe 50 Ml) 25 ml IVP ONCE PRN; Protocol PRN Reason: hypoglycemia protocol Dextrose (Dextrose 50% Syringe 50 Ml) 50 ml IVP PRN PRN; Protocol PRN Reason: hypoglycemia protocol Ferrous Gluconate (Ferrous Gluconate 324 Mg Tablet) 324 mg PO BIDWM [facility] Last Admin: 04/15/22 09:25 Dose: 324 mg Furosemide (Furosemide 10 Mg/Ml Sdv 4ml) 40 mg IVP DAILY [facility] Glucagon (Glucagon 1 Mg/Ml Inj 1 Ml) 1 mg IM ONCE PRN; Protocol PRN Reason: Adult Acute Hypoglycemia Prot. Heparin Sodium (Porcine) (Heparin 5,000 Unit/Ml Inj 1 Ml) 5,000 unit SUBCUT Q12H [facility] Last Admin: 04/14/22 20:42 Dose: 5,000 unit Hydralazine HCl (Hydralazine 20 Mg/Ml Inj 1 Ml) 10 mg IVP Q4H PRN PRN Reason: SYSTOLIC BLOOD PRESSURE Last Admin: 04/07/22 16:51 Dose: 10 mg Hydralazine HCl (Hydralazine 25 Mg Tablet) 25 mg PO TID [facility] Last Admin: 04/15/22 09:25 Dose: 25 mg Imipenem/Cilastatin Sodium 250 (mg/ Sodium Chloride) 100 mls @ 200 mls/hr IV Q12H [facility]; Protocol Last Admin: 04/15/22 01:42 Dose: 100 mls/hr Vancomycin HCl 1,000 mg/ (Sodium Chloride) 250 mls @ 250 mls/hr IV Q36H [facility]; Protocol Last Infusion: 04/14/22 07:40 Dose: Infused Insulin Human Lispro (Insulin Lispro 100 Unit/1 Ml) 0 unit SUBCUT WM&BEDTIME [facility]; Protocol Last Admin: 04/15/22 09:26 Dose: 6 unit Methylprednisolone Sodium Succinate (Methylprednisolone Sod Succ 125 Mg/2 Ml Inj) 30 mg IVP Q12H [facility] Last Admin: 04/15/22 09:24 Dose: 30 mg Metoprolol Tartrate (Metoprolol Tartrate 25 Mg Tablet) 25 mg PO BID@0900,2100 [facility] Last Admin: 04/15/22 09:25 Dose: 25 mg Ondansetron HCl (Ondansetron 2 Mg/Ml Sdv 2 Ml) 4 mg IVP Q6H PRN PRN Reason: NAUSEA AND VOMITING Pantoprazole Sodium (Pantoprazole 40 Mg Sdv) 40 mg IVP Q12H [facility] Last Admin: 04/15/22 09:24 Dose: 40 mg Polyethylene Glycol (Polyethylene Glycol 3350 Pkt 17 Gm) 17 gm PO DAILY [facility] Last Admin: 04/15/22 09:26 Dose: 17 gm Senna/Docusate Sodium (Sennosides-Docusate Tablet) 1 tab PO BID [facility] Last Admin: 04/15/22 09:25 Dose: 1 tab Spironolactone (Spironolactone 25 Mg Tablet) 25 mg PO DAILY [facility] Last Admin: 04/15/22 09:25 Dose: 25 mg Sucralfate (Sucralfate 1 Gm/10 Ml Oral Liq Udc) 1 gm PO AC&BEDTIME [facility] Last Admin: 04/15/22 06:30 Dose: 1 gm Vitals/I&O/Wt Last Vital Signs Temp 98.4 F 04/15/22 05:14 Pulse 90 04/15/22 07:58 Resp 15 04/15/22 07:58 BP 168/85 04/15/22 07:58 Pulse Ox 96 04/15/22 07:58 O2 Del Method 04/15/22 07:58 O2 Flow Rate 10 04/15/22 07:43 FiO2 50 04/13/22 07:43 04/14/22 04/15/22 04/15/22 22:59 06:59 14:59 Intake Total 100 / 960 500 / 1460 Output Total 1400 / 2600 Balance 100 / -240 -900 / -1140 Weight last 48 hrs Weight 56.2 kg Weight 55.565 kg Physical Exam Narrative: sob on NC 02 , VS noted heent- nc/at neck supple lungs b/l crackles- improved from yesterday heart reg abd soft, nt, nd, +bs ext minimal b/l leg edema neuro- confused, lethargic, left side weak Urinary Catheter Management: Myers: Cath Placed During This Visit: yes Reason for Continuing Indwelling Catheter: Accurate Measurement of Urinary Output in Critically Ill Patients Urinary Catheter Date of Insertion: 04/07/22 Urinary Catheter Time of Insertion: 13:06 Data : 04/15/22 04:37 04/15/22 04:37 Micro: Microbiology 04/11/22 16:36 Urine Culture - Final Urine Catheterized A&P Assessment and plan (1) Acute kidney injury superimposed on chronic kidney disease: 76 yr old man h/o COPD, CKD stage 3, CVA, DM, HTN. H/o MRSA pleural effusion in November 2021. Pt here w/ b/l pna, infoltrates, pleural effusions and drop in EF from 65- 32% pt has CARMENZA., he is being treated w/ lasix, vanco, zsosyn 1. CARMENZA- baseline cr 1.1 in November 2021. Cr 1.3- 1.5 in December/ january 2022. -s/p first HD on 04/12/22- family does not want any more dialysis -discussed in detail w/ pts and Dr Jerome. 2. Infection- on zosyn and vanco- monitor vanco level. was 31 yesterday- will repeat vanco level. do not redose vanco if trough is above 20 -wbc remains 23 3. SOB from PNA and CHFrEF - will dec lasix and repeat cxr -family does not want any tubes or invasive procedures 4.hypernatremia from lasix- dec dose. needs water -repeat chem 7 this afternoon. if na higher, start d5 w 5. replace k and monitor 6. anemia - hgb stable 7. effusions- monitor on diuretics -repeat cxr family does not want any new interventions meds reviewed -would consider comfort care. Pt has CARMENZA, low EF, pna, effusions, AMS. Prognosis is poor and family does not want any new interventions or catheters seen and examined w/ RN- telehealth visit time spent 25+ min Plan see above Attestations Medical Necessity Statement*: carmenza, resp distress, chf, pna Time Spent in Patient Care: 16 - 35 minutes (>than 50% of time spent in counselling and/or direct pt care on unit) . Coding Level of Care Code Acute Fibre Composite Technician for [facility] Diagnoses Acute kidney injury superimposed on chronic kidney disease N17.9; N18.9
[2022-04-15] MEDS: vancomycin 1,000 MG in sodium chloride 0.9% 250 ML 250 MG IV (10:55)
[2022-04-15] MEDS: heparin 5,000 unit/mL INJ 1 mL 5000 UNIT SUBCUT ×2 (10:56→20:42)
[2022-04-15] MEDS: potassium chloride oral liq 20 mEq/15 mL UDC 40 MEQ PO (10:56)
[2022-04-15 10:58] LABS: Glucose Point of Care 278 mg/dL (70-110)
[2022-04-15 11:54] LABS: Vancomycin Random 23.6 ug/mL (20.0-40.0)
--- NOTE | 2022-04-15 12:43 | PM.PN ---
Subjective Subjective: Family seen at bedside. Patient appears quite weak and is on 8 L nasal cannula at this time. He does respond but is hard to understand. Dialysis catheter was removed yesterday as per 's request. is not interested in further aggressive interventions such as dialysis, catheterization. She would like to take him home with hospice on Sunday. She also does not want to make him comfort measures at this time. He does understand that his oxygenation is worsening and labs are worsening. She states she would like all current treatment to stay as is for the time being. She would like for us to continue feeding him by mouth. She does not want any feeding tubes at this time. Sodium 152, BUN 82, creatinine 2.9 today. Vitals/I&O/Wt Last Vital Signs Temp 98.4 F 04/15/22 05:14 Pulse 79 04/15/22 12:00 Resp 21 H 04/15/22 12:00 BP 170/82 04/15/22 11:19 Pulse Ox 98 04/15/22 12:00 O2 Del Method 04/15/22 12:00 O2 Flow Rate 8 04/15/22 12:00 FiO2 50 04/13/22 07:43 04/14/22 04/15/22 04/15/22 22:59 06:59 14:59 Intake Total 100 / 960 500 / 1460 100 / 100 Output Total 1400 / 2600 500 / 500 Balance 100 / -240 -900 / -1140 -400 / -400 Weight last 48 hrs Weight 56.2 kg Weight 55.565 kg Physical Exam Narrative: General exam is a white male, slightly short of breath, on 8 L nasal cannula. Chronically ill-appearing, bitemporal wasting, orthopnea positive. HEENT: Pupils equally round. Oropharynx clear. Cardiovascular regular rate and rhythm, distant heart sounds. No obvious murmur. Lungs bilateral crackles at bases but improved compared to yesterday.. Mild rhonchi diffusely throughout lung osorio breath sounds symmetric. No acute distress, no accessory muscle use. Abdomen is soft nontender positive bowel sounds. No obvious organomegaly Back demonstrates small decub right scapular area approximately 1.5 cm, stage II without signs of infection. Surgical scar noted Extremities trace edema bilateral lower extremities, cap refill brisk Skin see findings above Neuro no obvious focal deficits. Urinary Catheter Management: Myers: Cath Placed During This Visit: yes Reason for Continuing Indwelling Catheter: Accurate Measurement of Urinary Output in Critically Ill Patients Urinary Catheter Date of Insertion: 04/07/22 Urinary Catheter Time of Insertion: 13:06 Data : 04/15/22 04:37 04/15/22 04:37 Micro: Microbiology 04/11/22 16:36 Urine Culture - Final Urine Catheterized A&P Assessment and plan (1) ARDS (adult respiratory distress syndrome): (2) Pneumonia: (3) Acute kidney injury superimposed on chronic kidney disease: (4) COPD (chronic obstructive pulmonary disease): (5) Acute systolic heart failure: (6) Physical deconditioning: (7) Protein-energy malnutrition: (8) Uremia: Plan #Aspiration pneumonia, ARDS, multilobar pneumonia? #High aspiration risk #Acute systolic congestive heart failure, new onset #Anemia #CARMENZA on CKD, baseline 1.2?1.6 #NSTEMI, most likely type II [place] #Hypertension #COPD #Positive blood culture with MRSA November 2021, 1 bottle out of 4 gram-positive for gram-positive cocci in clusters #Constipation #Leukocytosis #Elevated liver enzymes -1 bottle of 4 positive for GPC in clusters. ? Check MRSA nares. Patient is on Vanco and Zosyn since admission, will continue for now ? Chest at admission showed no evidence for PE, small to moderate right greater than left pleural effusions., Patchy confluent airspace infiltrates in both perihilar regions extending into upper and lower lobes compatible with pneumonia, pattern suspicious for viral pneumonia. Correlation for COVID-pneumonia. -Venous Dopplers negative for DVT ? Renal ultrasound on 04/06 2022 showed normal-sized echogenic kidneys, moderate to chronic medical renal disease ? Modified barium swallow done on 04/10/2022 shows positive for aspiration of nectar consistency and thin liquid barium.. ? Chest x-ray today shows bilateral pulmonary infiltrates and small bibasilar pleural effusions demonstrating no significant change. ? Echocardiogram shows LVEF 32%, mildly dilated left ventricle, diffuse hypokinesia of left ventricle, mild concentric left ventricular hypertrophy. Grade 3 x 4 diastolic dysfunction, severely elevated filling pressures. Estimated pulmonary artery peak systolic pressure of 45.04/07/2022 -WBC count today 23,000. Hemoglobin 9.5. BUN 85, creatinine 2.9. ? Patient has had 48 hours of dobutamine drip at 5/h. ? Had wound this patient on 04/13 with 1 L fluid removal.. ? Liver enzymes normal today. - COVID-negative PCR 04/07/2022 Plan for today ? Continue aspirin, Lipitor, Plavix, metoprolol tartrate 25 twice daily ?Continue DuoNeb, Pulmicort twice daily ? Continue Protonix 40 IV twice daily ? Nephrology on board. Continue Lasix as per their recommendations. ? Continue bowel regimen. Continue MiraLAX 17 g daily. Continue docusate senna 1 twice daily. We will hold off on aggressive stimulant enemas. ? We will continue sucralfate and Protonix for now. ? Patient is at high aspiration risk. Dysphagia level 4 diet, thick pur?e food recommended. Patient and his not interested in feeding tube. Therefore will not do NG or PEG. We will continue to supplement with Ensure thickened. Discussed with RN to make sure Ensure is providing every meal. -Cardiology suspecting underlying three-vessel disease due to patient's echo results. Patient not a candidate for invasive intervention at this time due to kidney function. Dobutamine drip was stopped 04/10/2022 after discussion with cardiology. We will continue per their recommendations. -Pulmonology consulted. Appreciate their recommendations. ?Avoid nephrotoxic's ? respiratory viral panel negative ? Repeat blood cultures negative to date ? Continue patient on imipenem. Vanc level high. We will not get vancomycin level above 20. Pharmacy is dosing that. ? Patient is status postdialysis with 1 L removal -Patient's would like to opt for hospice at this point. However would like to continue all above treatment until she can take him home with hospice. Patient is not comfort care status. -Decrease Lasix dose today as per nephrology recommendations. ? We will continue on Lasix at this time. ? CT head ruled out any new cerebrovascular events. -Patient slightly hypertensive over the last few days. We will add amlodipine 5 mg daily. Analgesia: Tylenol as needed, morphine 1 mg every 4 hours as needed Glycemic control: Not needed. Hypoglycemia protocol Nutrition: Puree diet dysphagia level 4 CODE STATUS: DNR/DNI. PUD prophylaxis: Protonix for PUD prophylaxis DVT prophylaxis: Heparin subc Physical therapy evaluation, Discharge planning: Home with hospice on Sunday. This documentation was created by [employer] founder and chief executive officer software. Every effort was made to ensure accuracy of founder and chief executive officer. Any obvious errors or omissions should be clarified with the author of the document. Home with hospice on Sunday. Attestations Medical Necessity Statement*: Patient will be going home with hospice once patient's is ready to take him home. She is setting up supplies that she needs. Hospice cannot admit patient until Sunday. He will stay here until Sunday. Coding Level of Care Code Acute Wheel Roller for [facility] Fwd Diagnoses ARDS (adult respiratory distress syndrome) J80 Pneumonia J18.9 Acute kidney injury superimposed on chronic kidney disease N17.9; N18.9 COPD (chronic obstructive pulmonary disease) J44.9 Acute systolic heart failure I50.21 Physical deconditioning R53.81 Protein-energy malnutrition E46 Uremia N19
[2022-04-15] MEDS: amlodipine 5 mg Tablet PO (13:15)
[2022-04-15 16:56] LABS: Glucose Point of Care 169 mg/dL (70-110)
[2022-04-15] MEDS: dextrose 5% 1,000 ML 30 ML IV (17:29)
[2022-04-15 18:01] LABS: Calcium 9.8 mg/dL (8.5-10.5); Carbon Dioxide 23 mmol/L (22-29); Chloride 115 mmol/L (98-107); Glucose 149 mg/dL (65-115); Magnesium 2.7 mg/dL (1.7-2.3); Osmolality Calculated 348 mOsm/kg (285-295); Sodium 153 mmol/L (136-145)
[2022-04-15 18:09] LABS: Blood Urea Nitrogen 95 mg/dL (8-23)
[2022-04-15 20:19] LABS: Glucose Point of Care 159 mg/dL (70-110)
[2022-04-15] MEDS: atorvastatin 40 mg Tablet 20 MG PO (20:42)
[2022-04-15] MEDS: potassium chloride oral liq 20 mEq/15 mL UDC PO (23:06)
[2022-04-16] VITALS (20 sets, daily range): BP systolic 146–173; BP diastolic 73–86; PULSE 55–143; RESP 15–22; TEMP 36.2–37.5; O2SAT 83–98
[2022-04-16] MEDS: ipratropium-albuterol 3 mL Neb INHALATION ×6 (00:01→19:33)
[2022-04-16 04:48] LABS: Alanine Aminotransferase 21 U/L (0-41); Albumin Level 2.5 g/dL (3.5-5.2); Alkaline Phosphatase 169 U/L (40-130); Anion Gap 17.5 (5-19); Aspartate Amino Transferase 16 U/L (0-40); Calcium 9.3 mg/dL (8.5-10.5); Carbon Dioxide 24 mmol/L (22-29); Chloride 117 mmol/L (98-107); Glucose 245 mg/dL (65-115); Magnesium 2.6 mg/dL (1.7-2.3); Osmolality Calculated 356 mOsm/kg (285-295); Phosphorus 3.3 mg/dL (2.5-4.5); Potassium 3.5 mmol/L (3.5-5.1); Sodium 155 mmol/L (136-145); Total Bilirubin 0.3 mg/dL (0.15-1.2); Total Protein 5.5 g/dL (6.6-8.7)
[2022-04-16 04:53] LABS: Blood Urea Nitrogen 90 mg/dL (8-23)
[2022-04-16 06:05] LABS: Glucose Point of Care 251 mg/dL (70-110)
[2022-04-16] MEDS: sucralfate 1 gm/10 mL Oral Liq UDC PO ×4 (06:13→21:01)
--- NOTE | 2022-04-16 07:00 | PM.PN ---
Subjective Subjective: awake, lethargic, interactive Medications: Reviewed: Yes Medication Review Details: Current Medications Acetaminophen (Acetaminophen 325 Mg Tablet) 650 mg PO Q6H PRN PRN Reason: MILD PAIN Last Admin: 04/11/22 17:44 Dose: 650 mg Albuterol/Ipratropium (Ipratropium-Albuterol 3 Ml Neb) 3 ml INHALATION Q4H [facility] Last Admin: 04/16/22 04:13 Dose: 3 ml Amlodipine Besylate (Amlodipine 5 Mg Tablet) 5 mg PO DAILY [facility] Last Admin: 04/15/22 13:15 Dose: 5 mg Aspirin (Aspirin 81 Mg Ec Tablet) 81 mg PO DAILY [facility] Last Admin: 04/15/22 09:25 Dose: 81 mg Atorvastatin Calcium (Atorvastatin 40 Mg Tablet) 20 mg PO BEDTIME [facility] Last Admin: 04/15/22 20:42 Dose: 20 mg Budesonide (Budesonide 0.5 Mg/2 Ml Neb) 0.5 mg INHALATION BID.RESPIRATORY [facility] Last Admin: 04/15/22 20:05 Dose: 0.5 mg Clopidogrel Bisulfate (Clopidogrel 75 Mg Tablet) 75 mg PO DAILY [facility] Last Admin: 04/15/22 09:25 Dose: 75 mg Dextrose (Dextrose 50% Syringe 50 Ml) 25 ml IVP ONCE PRN; Protocol PRN Reason: hypoglycemia protocol Dextrose (Dextrose 50% Syringe 50 Ml) 50 ml IVP PRN PRN; Protocol PRN Reason: hypoglycemia protocol Ferrous Gluconate (Ferrous Gluconate 324 Mg Tablet) 324 mg PO BIDWM [facility] Last Admin: 04/15/22 17:30 Dose: 324 mg Furosemide (Furosemide 10 Mg/Ml Sdv 4ml) 40 mg IVP DAILY [facility] Last Admin: 04/15/22 10:58 Dose: 40 mg Glucagon (Glucagon 1 Mg/Ml Inj 1 Ml) 1 mg IM ONCE PRN; Protocol PRN Reason: Adult Acute Hypoglycemia Prot. Heparin Sodium (Porcine) (Heparin 5,000 Unit/Ml Inj 1 Ml) 5,000 unit SUBCUT Q12H [facility] Last Admin: 04/15/22 20:42 Dose: 5,000 unit Hydralazine HCl (Hydralazine 20 Mg/Ml Inj 1 Ml) 10 mg IVP Q4H PRN PRN Reason: SYSTOLIC BLOOD PRESSURE Last Admin: 04/07/22 16:51 Dose: 10 mg Hydralazine HCl (Hydralazine 25 Mg Tablet) 25 mg PO TID [facility] Last Admin: 04/15/22 20:42 Dose: 25 mg Imipenem/Cilastatin Sodium 250 (mg/ Sodium Chloride) 100 mls @ 200 mls/hr IV Q12H [facility]; Protocol Last Admin: 04/16/22 00:46 Dose: 200 mls/hr Vancomycin HCl 1,000 mg/ (Sodium Chloride) 250 mls @ 250 mls/hr IV Q36H [facility]; Protocol Last Infusion: 04/15/22 18:26 Dose: Infused Dextrose (D5w) 1,000 mls @ 30 mls/hr IV .Q24H [facility] Last Admin: 04/15/22 17:29 Dose: 30 mls/hr Insulin Human Lispro (Insulin Lispro 100 Unit/1 Ml) 0 unit SUBCUT WM&BEDTIME [facility]; Protocol Last Admin: 04/15/22 20:55 Dose: 2 unit Methylprednisolone Sodium Succinate (Methylprednisolone Sod Succ 125 Mg/2 Ml Inj) 30 mg IVP Q12H [facility] Last Admin: 04/15/22 20:41 Dose: 30 mg Metoprolol Tartrate (Metoprolol Tartrate 25 Mg Tablet) 25 mg PO BID@0900,2100 [facility] Last Admin: 04/15/22 20:42 Dose: 25 mg Ondansetron HCl (Ondansetron 2 Mg/Ml Sdv 2 Ml) 4 mg IVP Q6H PRN PRN Reason: NAUSEA AND VOMITING Pantoprazole Sodium (Pantoprazole 40 Mg Sdv) 40 mg IVP Q12H [facility] Last Admin: 04/15/22 20:42 Dose: 40 mg Polyethylene Glycol (Polyethylene Glycol 3350 Pkt 17 Gm) 17 gm PO DAILY [facility] Last Admin: 04/15/22 09:26 Dose: 17 gm Senna/Docusate Sodium (Sennosides-Docusate Tablet) 1 tab PO BID [facility] Last Admin: 04/15/22 17:30 Dose: 1 tab Spironolactone (Spironolactone 25 Mg Tablet) 25 mg PO DAILY [facility] Last Admin: 04/15/22 09:25 Dose: 25 mg Sucralfate (Sucralfate 1 Gm/10 Ml Oral Liq Udc) 1 gm PO AC&BEDTIME [facility] Last Admin: 04/16/22 06:13 Dose: 1 gm Vitals/I&O/Wt Last Vital Signs Temp 97.8 F 04/16/22 04:49 Pulse 84 04/16/22 06:00 Resp 18 04/16/22 04:49 BP 166/78 04/16/22 04:49 Pulse Ox 93 04/16/22 04:49 O2 Del Method 04/16/22 04:06 O2 Flow Rate 6 04/16/22 04:06 FiO2 50 04/13/22 07:43 04/15/22 04/16/22 04/16/22 22:59 06:59 14:59 Intake Total 690 / 910 200 / 1110 Output Total 650 / 1150 Balance 40 / -240 200 / -40 Weight last 48 hrs Weight 56.2 kg Physical Exam Narrative: sob on NC 02 , VS noted heent- nc/at neck supple lungs b/l good air movement heart reg abd soft, nt, nd, +bs ext no b/l leg edema neuro- confused, lethargic, left side weak Urinary Catheter Management: Myers: Cath Placed During This Visit: yes Reason for Continuing Indwelling Catheter: Acute Urinary Retention or Obstruction Urinary Catheter Date of Insertion: 04/07/22 Urinary Catheter Time of Insertion: 13:06 Data : 04/15/22 04:37 04/16/22 03:20 A&P Assessment and plan (1) Acute kidney injury superimposed on chronic kidney disease: 76 yr old man h/o COPD, CKD stage 3, CVA, DM, HTN. H/o MRSA pleural effusion in November 2021. Pt here w/ b/l pna, infoltrates, pleural effusions and drop in EF from 65- 32% pt has CARMENZA., he is being treated w/ lasix, vanco, zsosyn 1. CARMENZA- baseline cr 1.1 in November 2021. Cr 1.3- 1.5 in january 2022. -s/p first HD on 04/12/22- family does not want any more dialysis -discussed in detail w/ pts and Dr Jerome. 2. Infection- on zosyn and vanco- monitor vanco level. - do not redose vanco if trough is above 20 -wbc remains 23 3. SOB from PNA and CHFrEF - hold diuretics - does not want any tubes or invasive procedures 4.hypernatremia from lasix- dec dose. needs water -repeat chem 7 this afternoon. -start d5w 5. replace k and monitor 6. anemia - hgb stable 7. effusions- monitor on diuretics -repeat cxr family does not want any new interventions meds reviewed -would consider comfort care. Pt has CARMENZA, low EF, pna, effusions, AMS, and hypernatremia. Prognosis is poor and family does not want any new interventions or catheters seen and examined w/ RN- telehealth visit time spent 25+ min Plan see above Attestations Medical Necessity Statement*: carmenza, hypernatremia, infection, chf Time Spent in Patient Care: 16 - 35 minutes (>than 50% of time spent in counselling and/or direct pt care on unit). Coding Level of Care Code Acute Gastroenterology Physician for [facility] Diagnoses Acute kidney injury superimposed on chronic kidney disease N17.9; N18.9
[2022-04-16] MEDS: budesonide 0.5 mg/2 mL Neb INHALATION ×2 (07:27→19:33)
[2022-04-16] MEDS: dextrose 5% 1,000 ML 100 ML IV (08:41)
--- NOTE | 2022-04-16 08:47 | PC.SOCIAL ---
IMM update IMM not updated as patient isn't expected to dc in the next 24 hours.
--- NOTE | 2022-04-16 09:02 | P.PN_ITS ---
Subjective Subjective: no acute events overnight overall pt more confused today. He is repeating the same word again and again. However able to tell me his name, birthday. says he is not in pain at this time. but unable to interact more than this. able to move extremities. on 6L NC. Vitals/I&O/Wt Last Vital Signs Temp 99.5 F 04/16/22 08:03 Pulse 94 04/16/22 08:03 Resp 22 H 04/16/22 08:03 BP 146/84 04/16/22 08:03 Pulse Ox 94 04/16/22 08:03 O2 Del Method 04/16/22 08:03 O2 Flow Rate 6 04/16/22 08:03 FiO2 50 04/13/22 07:43 04/15/22 04/16/22 04/16/22 22:59 06:59 14:59 Intake Total 690 / 910 200 / 1110 Output Total 650 / 1150 Balance 40 / -240 200 / -40 Weight last 48 hrs Weight 56.2 kg Physical Exam Narrative: General exam is a white male, does not appear short of breath t suly, on 6 L nasal cannula. Chronically ill-appearing, bitemporal wasting, More confused today HEENT: Pupils equally round. Oropharynx clear. Cardiovascular regular rate and rhythm, distant heart sounds. No obvious murmur. Lungs bilateral crackles at bases but improved compared to yesterday.. Mild rhonchi diffusely throughout lung osorio breath sounds symmetric. No acute distress, no accessory muscle use. Abdomen is soft nontender positive bowel sounds. No obvious organomegaly Back demonstrates small decub right scapular area approximately 1.5 cm, stage II without signs of infection. Surgical scar noted Extremities trace edema bilateral lower extremities, cap refill brisk Skin see findings above Neuro no obvious focal deficits. Urinary Catheter Management: Myers: Cath Placed During This Visit: yes Reason for Continuing Indwelling Catheter: Acute Urinary Retention or Obstruction Urinary Catheter Date of Insertion: 04/07/22 Urinary Catheter Time of Insertion: 13:06 Data : 04/15/22 04:37 04/16/22 03:20 A&P Assessment and plan (1) ARDS (adult respiratory distress syndrome): (2) Pneumonia: (3) Acute kidney injury superimposed on chronic kidney disease: (4) COPD (chronic obstructive pulmonary disease): (5) Acute systolic heart failure: (6) Physical deconditioning: (7) Protein-energy malnutrition: (8) Uremia: Plan #Aspiration pneumonia, ARDS, multilobar pneumonia? #High aspiration risk #Decompensated Acute systolic congestive heart failure, new onset #Anemia #CARMENZA on CKD, baseline 1.2?1.6 #NSTEMI, most likely type II PR #Hypertension #COPD #Positive blood culture with MRSA November 2021, 1 bottle out of 4 gram-positive for gram-positive cocci in clusters #Constipation #Leukocytosis #Elevated liver enzymes -1 bottle of 4 positive for GPC in clusters. ? Check MRSA nares. Patient is on Vanco and Zosyn since admission, will continue for now ? Chest at admission showed no evidence for PE, small to moderate right greater than left pleural effusions., Patchy confluent airspace infiltrates in both perihilar regions extending into upper and lower lobes compatible with pneumonia, pattern suspicious for viral pneumonia. Correlation for COVID- pneumonia. -Venous Dopplers negative for DVT ? Renal ultrasound on 04/06 2022 showed normal-sized echogenic kidneys, moderate to chronic medical renal disease ? Modified barium swallow done on 04/10/2022 shows positive for aspiration of nectar consistency and thin liquid barium.. ? Chest x-ray today shows bilateral pulmonary infiltrates and small bibasilar pleural effusions demonstrating no significant change. ? Echocardiogram shows LVEF 32%, mildly dilated left ventricle, diffuse hypokinesia of left ventricle, mild concentric left ventricular hypertrophy. Grade 3 x 4 diastolic dysfunction, severely elevated filling pressures. Estimated pulmonary artery peak systolic pressure of 45.04/07/2022 -WBC count today 23,000. Hemoglobin 9.5. BUN 85, creatinine 2.9. ? Patient has had 48 hours of dobutamine drip at 5/h. ? Had dialysis on 04/13 with 1 L fluid removal.. ? Liver enzymes normal today. - COVID-negative PCR 04/07/2022 Plan for today - Creatinine BUN worsening today - Na 155. COntinue d5w FLUIDS AT 30 cc/hr ? Continue aspirin, Lipitor, Plavix, metoprolol tartrate 25 twice daily ?Continue DuoNeb, Pulmicort twice daily ? Continue Protonix 40 IV twice daily ? Nephrology on board. Continue Lasix as per their recommendations. ? Continue bowel regimen. Continue MiraLAX 17 g daily. Continue docusate senna 1 twice daily. We will hold off on aggressive stimulant enemas. ? We will continue sucralfate and Protonix for now. ? Patient is at high aspiration risk. Dysphagia level 4 diet, thick pur?e food recommended. Patient and his not interested in feeding tube. Therefore will not do NG or PEG. We will continue to supplement with Ensure thickened. Discussed with RN to make sure Ensure is providing every meal. -Cardiology suspecting underlying three-vessel disease due to patient's echo results. Patient not a candidate for invasive intervention at this time due to kidney function. Dobutamine drip was stopped 04/10/2022 after discussion with cardiology. We will continue per their recommendations. -Pulmonology consulted. Appreciate their recommendations. ?Avoid nephrotoxic's ? respiratory viral panel negative ? Repeat blood cultures negative to date ? Continue patient on imipenem. Vanc level high. We will not get vancomycin level above 20. Pharmacy is dosing that. ? Patient is status postdialysis with 1 L removal -Patient's would like to opt for hospice at this point. However would like to continue all above treatment until she can take him home with hospice. P atient is not comfort care status. ? We will continue on Lasix at this time. ? CT head ruled out any new cerebrovascular events. -Patient slightly hypertensive over the last few days. Continue amlodipine 5 mg daily. Analgesia: Tylenol as needed, morphine 1 mg every 4 hours as needed Glycemic control: Not needed. Hypoglycemia protocol Nutrition: Puree diet dysphagia level 4 CODE STATUS: DNR/DNI. PUD prophylaxis: Protonix for PUD prophylaxis DVT prophylaxis: Heparin subc Physical therapy evaluation, Discharge planning: Home with hospice on Sunday. This documentation was created by [employer] flute polisher software. Every effort was made to ensure accuracy of flute polisher. Any obvious errors or omissions should be clarified with the author of the document. Home with hospice on Sunday. Attestations Medical Necessity Statement*: Patient will be going home with hospice once patient's is ready to take him home. She is setting up supplies that she needs. Hospice cannot admit patient until Sunday. He will stay here until Sunday. Coding Level of Care Code Acute Pulp Grinder for [facility] Fwd Diagnoses ARDS (adult respiratory distress syndrome) J80 Pneumonia J18.9 Acute kidney injury superimposed on chronic kidney disease N17.9; N18.9 COPD (chronic obstructive pulmonary disease) J44.9 Acute systolic heart failure I50.21 Physical deconditioning R53.81 Protein-energy malnutrition E46 Uremia N19
[2022-04-16] MEDS: insulin lispro 100 unit/1 mL SUBCUT ×4 (09:20→21:12)
[2022-04-16] MEDS: amlodipine 5 mg Tablet PO (09:22)
[2022-04-16] MEDS: clopidogrel 75 mg Tablet PO (09:23)
[2022-04-16] MEDS: hyDRALAzine 25 mg Tablet PO ×3 (09:23→21:00)
[2022-04-16] MEDS: sennosides-docusate Tablet 1 TAB PO ×2 (09:23→19:36)
[2022-04-16] MEDS: aspirin 81 mg EC Tablet PO (09:23)
[2022-04-16] MEDS: FUROsemide 10 mg/mL SDV 4mL 40 MG IVP (09:24)
[2022-04-16] MEDS: pantoprazole 40 mg SDV IVP ×2 (09:24→21:00)
[2022-04-16] MEDS: spironolactone 25 mg Tablet PO (09:24)
[2022-04-16] MEDS: ferrous gluconate 324 mg Tablet PO ×2 (09:27→19:37)
[2022-04-16 12:25] LABS: Glucose Point of Care 298 mg/dL (70-110)
[2022-04-16] MEDS: heparin 5,000 unit/mL INJ 1 mL 5000 UNIT SUBCUT ×2 (12:58→22:30)
[2022-04-16] MEDS: metoprolol tartrate 25 mg Tablet PO (13:14)
[2022-04-16 17:11] LABS: Anion Gap 20.1 (5-19); Calcium 9.6 mg/dL (8.5-10.5); Carbon Dioxide 23 mmol/L (22-29); Chloride 116 mmol/L (98-107); Glucose 226 mg/dL (65-115); Osmolality Calculated 360 mOsm/kg (285-295); Potassium 3.1 mmol/L (3.5-5.1); Sodium 156 mmol/L (136-145)
[2022-04-16 17:20] LABS: Glucose Point of Care 236 mg/dL (70-110)
[2022-04-16 17:32] LABS: Blood Urea Nitrogen 98 mg/dL (8-23)
--- NOTE | 2022-04-16 17:35 | ECG_ITS ---
[facility] Test Date: 2022-04-16 Pat Name: Rico Ozuna Department: Room: 266 Gender: Male Medicine Tech: : [id number] Requested By: Khadijah Jerome Order Number: [id number] Avery MD: Dawood Lennon M.D. Measurements Intervals [place] Rate: 143 P: AR: QRS: -21 QRSD: 97 T: 157 QT: 278 QTc: 429 Interpretive Statements ATRIAL FIBRILLATION WITH RAPID VENTRICULAR RESPONSE WITH ABERRANT CONDUCTION OR VENTRICULAR PREMATURE COMPLEXES BORDERLINE LEFT AXIS DEVIATION [QRS AXIS < -20] VOLTAGE CRITERIA FOR LVH [MEETS CRITERIA IN ONE OF: R(aVL), S(V1), R(V5), R(V5/V6)+S(V1)] ST DEVIATION AND MODERATE T-WAVE ABNORMALITY, CONSIDER LATERAL ISCHEMIA [-0.1+ mV T-WAVE IN I/aVL/V5/V6] Compared to ECG 04/07/2022 12:51:25 Ventricular premature complex(es) now present Aberrant conduction of supraventricular beat(s) now present T-wave abnormality now present Possible ischemia now present Sinus rhythm no longer present ST (T wave) deviation no longer present Electronically Signed On 04-16-2022 21:59:15 CDT by Dawood Lennon M.D. [id number]
[2022-04-16] MEDS: dilTIAZem 5 mg/mL SDV 5 mL 10 MG IVP (18:22)
[2022-04-16] MEDS: dextrose 5% 1,000 ML 30 ML IV (18:23)
[2022-04-16] MEDS: lidocaine 1% 5 ML in potassium chloride premix 100 ML 50 ML IV (19:34)
[2022-04-16 20:38] LABS: Glucose Point of Care 279 mg/dL (70-110)
[2022-04-16] MEDS: atorvastatin 40 mg Tablet 20 MG PO (21:00)
[2022-04-16] MEDS: metoprolol tartrate 50 mg Tablet PO (21:01)
[2022-04-17] VITALS (16 sets, daily range): BP systolic 130–173; BP diastolic 66–81; PULSE 60–88; RESP 16–20; TEMP 36.4–36.8; O2SAT 92–98
[2022-04-17] MEDS: dextrose 5% 1,000 ML 30 ML IV (00:05)
[2022-04-17] MEDS: ipratropium-albuterol 3 mL Neb INHALATION ×6 (00:16→23:52)
[2022-04-17 02:19] LABS: Basophils % 0.1 %; Hematocrit 34.1 % (42.0-52.0); Hemoglobin 9.8 g/dL (11.7-16.6); Lymphocytes # 0.6 10^3/uL (0.8-4.8); Lymphocytes % 2.3 %; Mean Corpuscular HGB Conc 28.7 g/dL (30.0-36.0); Mean Corpuscular Hemoglobin 26.8 pg (28.0-34.0); Mean Corpuscular Volume 93.2 fl (80-94); Mean Platelet Volume 11.4 fL (7.4-10.4); Monocytes # 0.7 10^3/uL (0.2-0.9); Monocytes % 2.5 %; Neutrophils # 25.83 10^3/uL (1.8-7.7); Neutrophils % 94.4 %; Nucleated Red Blood Cells % 0 %; Platelet Count 369 10^3/cmm (130-400); Red Blood Count 3.66 10^6/uL (4.1-5.3); Red Cell Distribution Width 15.8 % (12.1-15.1); White Blood Count 27.4 10^3/uL (4.0-10.0)
[2022-04-17 02:39] LABS: Alanine Aminotransferase 16 U/L (0-41); Albumin Level 2.5 g/dL (3.5-5.2); Alkaline Phosphatase 167 U/L (40-130); Anion Gap 18.1 (5-19); Aspartate Amino Transferase 16 U/L (0-40); Calcium 9.6 mg/dL (8.5-10.5); Carbon Dioxide 23 mmol/L (22-29); Chloride 119 mmol/L (98-107); Globulin 3.5 g/dL (1.3-4.6); Glucose 118 mg/dL (65-115); Magnesium 2.8 mg/dL (1.7-2.3); Osmolality Calculated 357 mOsm/kg (285-295); Phosphorus 2.7 mg/dL (2.5-4.5); Potassium 3.1 mmol/L (3.5-5.1); Sodium 157 mmol/L (136-145); Total Bilirubin 0.3 mg/dL (0.15-1.2)
[2022-04-17 02:44] LABS: Creatinine Clr Calc Pharmacy 18.1439
[2022-04-17 02:46] LABS: Blood Urea Nitrogen 103 mg/dL (8-23)
[2022-04-17] MEDS: sucralfate 1 gm/10 mL Oral Liq UDC PO (06:14)
[2022-04-17 06:19] LABS: Glucose Point of Care 192 mg/dL (70-110)
--- NOTE | 2022-04-17 07:31 | P.PN_ITS ---
Subjective Subjective: weak, lethargic, thirsty. not eating. Medications: Reviewed: Yes Medication Review Details: Current Medications Acetaminophen (Acetaminophen 325 Mg Tablet) 650 mg PO Q6H PRN PRN Reason: MILD PAIN Last Admin: 04/11/22 17:44 Dose: 650 mg Albuterol/Ipratropium (Ipratropium-Albuterol 3 Ml Neb) 3 ml INHALATION Q4H [facility] Last Admin: 04/17/22 03:54 Dose: 3 ml Amlodipine Besylate (Amlodipine 5 Mg Tablet) 5 mg PO DAILY [facility] Last Admin: 04/16/22 09:22 Dose: 5 mg Aspirin (Aspirin 81 Mg Ec Tablet) 81 mg PO DAILY [facility] Last Admin: 04/16/22 09:23 Dose: 81 mg Atorvastatin Calcium (Atorvastatin 40 Mg Tablet) 20 mg PO BEDTIME [facility] Last Admin: 04/16/22 21:00 Dose: 20 mg Budesonide (Budesonide 0.5 Mg/2 Ml Neb) 0.5 mg INHALATION BID.RESPIRATORY [facility] Last Admin: 04/16/22 19:33 Dose: 0.5 mg Clopidogrel Bisulfate (Clopidogrel 75 Mg Tablet) 75 mg PO DAILY [facility] Last Admin: 04/16/22 09:23 Dose: 75 mg Dextrose (Dextrose 50% Syringe 50 Ml) 25 ml IVP ONCE PRN; Protocol PRN Reason: hypoglycemia protocol Dextrose (Dextrose 50% Syringe 50 Ml) 50 ml IVP PRN PRN; Protocol PRN Reason: hypoglycemia protocol Ferrous Gluconate (Ferrous Gluconate 324 Mg Tablet) 324 mg PO BIDWM [facility] Last Admin: 04/16/22 19:37 Dose: 324 mg Furosemide (Furosemide 10 Mg/Ml Sdv 4ml) 40 mg IVP DAILY [facility] Last Admin: 04/16/22 09:24 Dose: 40 mg Glucagon (Glucagon 1 Mg/Ml Inj 1 Ml) 1 mg IM ONCE PRN; Protocol PRN Reason: Adult Acute Hypoglycemia Prot. Heparin Sodium (Porcine) (Heparin 5,000 Unit/Ml Inj 1 Ml) 5,000 unit SUBCUT Q12H [facility] Last Admin: 04/16/22 22:30 Dose: 5,000 unit Hydralazine HCl (Hydralazine 20 Mg/Ml Inj 1 Ml) 10 mg IVP Q4H PRN PRN Reason: SYSTOLIC BLOOD PRESSURE Last Admin: 04/07/22 16:51 Dose: 10 mg Hydralazine HCl (Hydralazine 25 Mg Tablet) 25 mg PO TID [facility] Last Admin: 04/16/22 21:00 Dose: 25 mg Imipenem/Cilastatin Sodium 250 (mg/ Sodium Chloride) 100 mls @ 200 mls/hr IV Q12H [facility]; Protocol Last Admin: 04/17/22 00:06 Dose: 200 mls/hr Dextrose (D5w) 1,000 mls @ 30 mls/hr IV .Q24H [facility] Last Admin: 04/17/22 00:05 Dose: 30 mls/hr Dextrose (D5w) 1,000 mls @ 100 mls/hr IV .Q10H [facility] Last Admin: 04/16/22 23:58 Dose: Not Given Vancomycin HCl 1,000 mg/ (Sodium Chloride) 250 mls @ 250 mls/hr IV Q48H [facility]; Protocol Insulin Human Lispro (Insulin Lispro 100 Unit/1 Ml) 0 unit SUBCUT WM&BEDTIME [facility]; Protocol Last Admin: 04/16/22 21:12 Dose: 8 unit Methylprednisolone Sodium Succinate (Methylprednisolone Sod Succ 125 Mg/2 Ml Inj) 30 mg IVP Q12H [facility] Last Admin: 04/16/22 21:00 Dose: 30 mg Metoprolol Tartrate (Metoprolol Tartrate 50 Mg Tablet) 50 mg PO BID@0900,2100 [facility] Last Admin: 04/16/22 21:01 Dose: 50 mg Ondansetron HCl (Ondansetron 2 Mg/Ml Sdv 2 Ml) 4 mg IVP Q6H PRN PRN Reason: NAUSEA AND VOMITING Pantoprazole Sodium (Pantoprazole 40 Mg Sdv) 40 mg IVP Q12H [facility] Last Admin: 04/16/22 21:00 Dose: 40 mg Polyethylene Glycol (Polyethylene Glycol 3350 Pkt 17 Gm) 17 gm PO DAILY [facility] Last Admin: 04/16/22 12:45 Dose: Not Given Senna/Docusate Sodium (Sennosides-Docusate Tablet) 1 tab PO BID [facility] Last Admin: 04/16/22 19:36 Dose: 1 tab Spironolactone (Spironolactone 25 Mg Tablet) 25 mg PO DAILY [facility] Last Admin: 04/16/22 09:24 Dose: 25 mg Sucralfate (Sucralfate 1 Gm/10 Ml Oral Liq Udc) 1 gm PO AC&BEDTIME [facility] Last Admin: 04/17/22 06:14 Dose: 1 gm Vitals/I&O/Wt Last Vital Signs Temp 97.6 F 04/17/22 04:00 Pulse 78 04/17/22 06:00 Resp 17 04/17/22 04:00 BP 170/81 04/17/22 04:00 Pulse Ox 97 04/17/22 04:00 O2 Del Method 04/17/22 03:54 O2 Flow Rate 3 04/17/22 03:54 FiO2 50 04/13/22 07:43 04/16/22 04/17/22 04/17/22 22:59 06:59 14:59 Intake Total 1067.5 / 1067.5 918 / 1985.5 Output Total 550 / 550 Balance 1067.5 / 1067.5 368 / 1435.5 Weight last 48 hrs Weight 52.299 kg Physical Exam Narrative: more comfortable on NC 02 , VS noted heent- nc/at neck supple lungs - some basal wheezes heart reg abd soft, nt, nd, +bs ext no b/l leg edema neuro- weak and lethargic, left side weak Urinary Catheter Management: Myers: Cath Placed During This Visit: yes Reason for Continuing Indwelling Catheter: Hospice/Comfort/Palliative Care Urinary Catheter Date of Insertion: 04/07/22 Urinary Catheter Time of Insertion: 13:06 Data : 04/17/22 01:24 04/17/22 01:24 Micro: Microbiology 04/11/22 13:35 Blood Culture - Final Blood NO GROWTH AFTER 5 DAYS 04/11/22 12:29 Blood Culture - Final Blood NO GROWTH AFTER 5 DAYS A&P Assessment and plan (1) Acute kidney injury superimposed on chronic kidney disease: 76 yr old man h/o COPD, CKD stage 3, CVA, DM, HTN. H/o MRSA pleural effusion in November 2021. Pt here w/ b/l pna, infoltrates, pleural effusions and drop in EF from 65- 32% pt has CARMENZA., he is being treated w/ lasix, vanco, zsosyn 1. CARMENZA- baseline cr 1.1 in November 2021. Cr 1.3- 1.5 in December/ january 2022. -s/p first HD on 04/12/22- family does not want any more dialysis -discussed in detail w/ pts and Dr Jerome. 2. Infection- on zosyn and vanco- monitor vanco level. - do not redose vanco if trough is above 20 -wbc remains 23 3. SOB from PNA and CHFrEF - hold diuretics - does not want any tubes or invasive procedures 4.hypernatremia from lasix- hold lasix and give more water. -repeat chem 7 this afternoon. 5. replace k and monitor 6. anemia - hgb stable 7. abnormal cxr- likely pna. Q effusions. family does not want any new interventions meds reviewed -would consider comfort care. Pt has CARMENZA, low EF, pna, effusions, AMS, and hypernatremia. Prognosis is poor and family does not want any new interventions or catheters seen and examined w/ RN- telehealth visit time spent 25+ min Plan see above Attestations Medical Necessity Statement*: per medicine Time Spent in Patient Care: 16 - 35 minutes (>than 50% of time spent in counselling and/or direct pt care on unit) . Coding Level of Care Code Acute Associate Property Manager for [facility] Diagnoses Acute kidney injury superimposed on chronic kidney disease N17.9; N18.9
[2022-04-17] MEDS: budesonide 0.5 mg/2 mL Neb INHALATION (08:14)
[2022-04-17] MEDS: pantoprazole 40 mg SDV IVP (08:31)
[2022-04-17] MEDS: polyethylene glycol 3350 Pkt 17 gm PO (08:31)
[2022-04-17] MEDS: insulin lispro 100 unit/1 mL SUBCUT ×4 (08:31→21:59)
[2022-04-17] MEDS: sennosides-docusate Tablet 1 TAB PO ×2 (08:32→18:14)
[2022-04-17] MEDS: clopidogrel 75 mg Tablet PO (08:32)
[2022-04-17] MEDS: aspirin 81 mg EC Tablet PO (08:32)
[2022-04-17] MEDS: hyDRALAzine 25 mg Tablet PO ×3 (08:32→20:14)
[2022-04-17] MEDS: metoprolol tartrate 50 mg Tablet PO ×2 (08:32→20:14)
[2022-04-17] MEDS: amlodipine 5 mg Tablet PO (08:32)
[2022-04-17] MEDS: potassium chloride oral liq 20 mEq/15 mL UDC 40 MEQ PO (08:33)
[2022-04-17] MEDS: ferrous gluconate 324 mg Tablet PO (08:33)
[2022-04-17 11:04] LABS: Glucose Point of Care 173 mg/dL (70-110)
[2022-04-17] MEDS: dextrose 5% 1,000 ML 100 ML IV ×2 (15:55→20:07)
[2022-04-17 17:16] LABS: Glucose Point of Care 276 mg/dL (70-110)
--- NOTE | 2022-04-17 18:21 | P.PN_ITS ---
Subjective Subjective: Hospital course, labs appreciated. On examination patient lying comfortably in bed, not alert, on 3 to 4 L, slightly labored breathing. As per chart review patient is hospice care now. Medications: Reviewed: Yes Vitals/I&O/Wt Last Vital Signs Temp 97.7 F 04/17/22 16:00 Pulse 77 04/17/22 16:00 Resp 20 H 04/17/22 16:00 BP 164/76 04/17/22 16:00 Pulse Ox 96 04/17/22 16:00 O2 Del Method 04/17/22 16:00 O2 Flow Rate 3 04/17/22 12:00 FiO2 50 04/13/22 07:43 04/17/22 04/17/22 04/17/22 06:59 14:59 22:59 Intake Total 918 / 1985.5 624 / 624 131.667 / 755.667 Output Total 550 / 550 Balance 368 / 1435.5 624 / 624 131.667 / 755.667 Weight last 48 hrs Weight 52.299 kg Physical Exam Narrative: General exam: Chronically sick appearing, awake not alert HEENT: Pupils equally round. Oropharynx clear. Neck is supple no lymphadenopathy thyromegaly Cardiovascular regular rate and rhythm, distant heart sounds. No obvious murmur. Lungs bilateral expiratory wheezes. Few crackles. Breath sounds symmetric. Abdomen is soft nontender positive bowel sounds. No obvious organomegaly Back demonstrates small decub right scapular area approximately 1.5 cm, stage II without signs of infection. Surgical scar noted exam now demonstrates Myers as he is allowed placement. In talking with the nurse he had quite a bit of residual that was lost/leaked when Myers was placed. Extremities no cyanosis clubbing or edema, cap refill brisk Skin see findings above Neuro no obvious focal deficits. Urinary Catheter Management: Myers: Cath Placed During This Visit: yes Reason for Continuing Indwelling Catheter: Hospice/Comfort/Palliative Care Urinary Catheter Date of Insertion: 04/07/22 Urinary Catheter Time of Insertion: 13:06 Data : 04/17/22 01:24 04/17/22 01:24 Micro: Microbiology 04/11/22 13:35 Blood Culture - Final Blood NO GROWTH AFTER 5 DAYS A&P Assessment and plan (1) ARDS (adult respiratory distress syndrome): (2) Pneumonia: (3) Acute kidney injury superimposed on chronic kidney disease: (4) COPD (chronic obstructive pulmonary disease): (5) Acute systolic heart failure: (6) Physical deconditioning: (7) Protein-energy malnutrition: (8) Uremia: Plan #Aspiration pneumonia, ARDS, multilobar pneumonia? #High aspiration risk #Decompensated Acute systolic congestive heart failure, new onset #Anemia #ACRMENZA on CKD, baseline 1.2?1.6 #NSTEMI, most likely type II [place] #Hypertension #COPD #Positive blood culture with MRSA November 2021, 1 bottle out of 4 gram-positive for gram-positive cocci in clusters #Constipation #Leukocytosis #Elevated liver enzymes As per chart review patient is hospice care. Confirmed with patient's family and director of hospice. Family requesting to be discharged on Sunday No further labs. Stop IV antibiotics, steroids Vitals as per protocol. Continue other oral medication as per request of family members when patient is awake and able to. Discharge planning: Home with hospice. This documentation was created by [employer] bowling or skating front desk clerk software. Every effort was made to ensure accuracy of bowling or skating front desk clerk. Any obvious errors or omissions should be clarified with the author of the document. Attestations Medical Necessity Statement*: Requires further hospitalization for hospice care while safe discharge planning is sought Time Spent in Patient Care: 16 - 35 minutes Coding Level of Care Code Acute Senior Java Ui Developer for [facility] Fwd Diagnoses ARDS (adult respiratory distress syndrome) J80 Pneumonia J18.9 Acute kidney injury superimposed on chronic kidney disease N17.9; N18.9 COPD (chronic obstructive pulmonary disease) J44.9 Acute systolic heart failure I50.21 Physical deconditioning R53.81 Protein-energy malnutrition E46 Uremia N19
[2022-04-17] MEDS: acetaminophen 325 mg Tablet 650 MG PO (18:23)
[2022-04-17] MEDS: morphine 4 mg/mL SDV 1 mL 2 MG IVP (20:14)
[2022-04-17 20:42] LABS: Glucose Point of Care 225 mg/dL (70-110)
[2022-04-18] VITALS (11 sets, daily range): BP systolic 142–180; BP diastolic 56–79; PULSE 43–84; RESP 10–26; TEMP 36.7–37; O2SAT 90–94
[2022-04-18] MEDS: morphine 4 mg/mL SDV 1 mL 2 MG IVP (00:50)
[2022-04-18] MEDS: ipratropium-albuterol 3 mL Neb INHALATION ×5 (03:19→23:03)
[2022-04-18] MEDS: dextrose 5% 1,000 ML 100 ML IV ×2 (05:44→20:33)
[2022-04-18 06:46] LABS: Glucose Point of Care 205 mg/dL (70-110)
[2022-04-18] MEDS: insulin lispro 100 unit/1 mL SUBCUT ×2 (08:24→13:09)
[2022-04-18] MEDS: aspirin 81 mg EC Tablet PO (08:27)
[2022-04-18] MEDS: sennosides-docusate Tablet 1 TAB PO (08:28)
[2022-04-18] MEDS: clopidogrel 75 mg Tablet PO (08:28)
[2022-04-18] MEDS: amlodipine 5 mg Tablet PO (09:49)
[2022-04-18] MEDS: hyDRALAzine 25 mg Tablet PO (09:49)
[2022-04-18] MEDS: metoprolol tartrate 50 mg Tablet PO ×2 (09:49→20:33)
[2022-04-18 12:52] LABS: Glucose Point of Care 189 mg/dL (70-110)
--- NOTE | 2022-04-18 14:36 | P.PN_ITS ---
Subjective Subjective: Status quo. Patient has remained comfortable. Family requesting discharge on Sunday. Hospice team agreeable. Medications: Reviewed: Yes Vitals/I&O/Wt Last Vital Signs Temp 98.0 F 04/18/22 07:57 Pulse 67 04/18/22 11:45 Resp 20 H 04/18/22 11:45 BP 180/79 04/18/22 09:46 Pulse Ox 94 04/18/22 11:45 O2 Del Method 04/18/22 11:45 O2 Flow Rate 3 04/18/22 11:45 FiO2 50 04/13/22 07:43 04/17/22 04/18/22 04/18/22 22:59 06:59 14:59 Intake Total 611.667 / 1235.667 961.667 / 2197.334 Output Total 650 / 650 Balance 611.667 / 1235.667 311.667 / 1547.334 Weight last 48 hrs Weight 51.891 kg Weight 52.299 kg Physical Exam 2 Narrative: Not examined given hospice Status Urinary Catheter Management: Myers: Cath Placed During This Visit: yes Reason for Continuing Indwelling Catheter: Hospice/Comfort/Palliative Care Urinary Catheter Date of Insertion: 04/07/22 Urinary Catheter Time of Insertion: 13:06 Data : 04/17/22 01:24 04/17/22 01:24 A&P Assessment and plan (1) ARDS (adult respiratory distress syndrome): (2) Pneumonia: (3) Acute kidney injury superimposed on chronic kidney disease: (4) COPD (chronic obstructive pulmonary disease): (5) Acute systolic heart failure: (6) Physical deconditioning: (7) Protein-energy malnutrition: (8) Uremia: Plan #Aspiration pneumonia, ARDS, multilobar pneumonia? #High aspiration risk #Decompensated Acute systolic congestive heart failure, new onset #Anemia #CARMENZA on CKD, baseline 1.2?1.6 #NSTEMI, most likely type II [place] #Hypertension #COPD #Positive blood culture with MRSA November 2021, 1 bottle out of 4 gram-positive for gram-positive cocci in clusters #Constipation #Leukocytosis #Elevated liver enzymes As per chart review patient is hospice care. Confirmed with patient's family and director of hospice. Family requesting to be discharged on Sunday No further labs. Stop IV antibiotics, steroids Vitals as per protocol. Continue other oral medication as per request of family members when patient is awake and able to. Stop Accu-Cheks Discharge planning: Home with hospice. This documentation was created by [employer] seasonal greenery bundler software. Every effort was made to ensure accuracy of seasonal greenery bundler. Any obvious errors or omissions should be clarified with the author of the document. Attestations Medical Necessity Statement*: Hospice care Time Spent in Patient Care: less than 15 minutes Coding Level of Care Code Acute Transaction Manager for [facility] Fwd Diagnoses ARDS (adult respiratory distress syndrome) J80 Pneumonia J18.9 Acute kidney injury superimposed on chronic kidney disease N17.9; N18.9 COPD (chronic obstructive pulmonary disease) J44.9 Acute systolic heart failure I50.21 Physical deconditioning R53.81 Protein-energy malnutrition E46 Uremia N19
[2022-04-18 16:11] LABS: Glucose Point of Care 212 mg/dL (70-110)
[2022-04-18 16:11] LABS: Glucose Point of Care 200 mg/dL (70-110)
[2022-04-19] MEDS: ipratropium-albuterol 3 mL Neb INHALATION ×2 (03:47→07:57)
[2022-04-19 03:51] VITALS: PULSE 76; RESP 22; O2SAT 93
[2022-04-19 03:57] VITALS: PULSE 79
[2022-04-19] MEDS: dextrose 5% 1,000 ML 100 ML IV (05:56)
[2022-04-19 06:00] VITALS: BMI 18.9
[2022-04-19 07:45] VITALS: PULSE 69; RESP 20; O2SAT 96
[2022-04-19 07:53] VITALS: PULSE 72
[2022-04-19 08:00] VITALS: BP 153/72; PULSE 74; RESP 18; TEMP 36.6; O2SAT 98
--- NOTE | 2022-04-19 08:16 | P.DS_ITS ---
Discharge Providers Date of Admission: 04/07/22 13:21 Date of Discharge: April 19, 2022 Attending Provider at Admission: Javier Bedolla MD Attending Provider at Discharge: Dedrick Arzola MD Consults: Pulmonology Dr. Morfin Cardiology: Dr. Gómez Telemetry nephrology Palliative: Dr. Hutton Primary Care Provider: Ezra Cooley MD Diagnoses at Discharge Discharge Diagnosis (1) ARDS (adult respiratory distress syndrome): Status: Acute (2) Pneumonia: Status: Acute (3) Acute kidney injury superimposed on chronic kidney disease: Status: Acute (4) COPD (chronic obstructive pulmonary disease): Status: Acute (5) Acute systolic heart failure: Status: Acute (6) Physical deconditioning: Status: Acute (7) Protein-energy malnutrition: Status: Acute (8) Uremia: Status: Acute Reason for Visit Reason for Visit: RESP DISTRESS Hospital Course Hospital Course Rico Ozuna is a 76 year old male with past medical history of COPD, CKD, CVA, diabetes, hypertension admitted through emergency room for chief complaints of shortness of breath, 1 day duration on 04/07/2022.? Patient had a recent hospitalization in November 2021 where there was an abscess on his back-drained by general surgery-blood cultures and abscess cultures grew MRSA, he received with 2 weeks of IV antibiotics.? Patient is on home oxygen for his COPD.? Family also thought patient had right-sided facial weakness. X-ray in the emergency room patient chest x-ray and CT-revealed bilateral lung infiltrates/interstitial edema.? CTA on admission did not show PE but showed patchy confluent airspace infiltrates in both perihilar regions extending into upper and lower lobes reported as compatible with pneumonia.? However there were bilateral small pleural effusions and BNP 79,000 and admission echocardiogram showed severe diffuse hypokinesia of left ventricle with LV ejection fraction 32% and grade 3 diastolic dysfunction-compared to echo in 2015 there is a significant drop in LV ejection fraction from 65% to 32%.? Also review of CTA central airspace infiltrates consistent more with flash pulmonary edema.? Patient was seem to be responding to IV diuretics. EKG did not show any ST elevation-started on IV heparin drip and later changed to prophylactic dose.? On admission he was also thought to be in cardiogenic shock for which he started on dobutamine drip which was later discontinued. Patient was followed up with cardiology during hospitalization for new onset heart failure. Patient was started on vancomycin, Zosyn for suspected pneumonia given history of MRSA bacteremia in November 2021 and the pulmonary infiltrates on imaging; his admission procalcitonin was low; 1/4 blood cultures were growing gram-positive cocci in clusters-identification pending and so repeat cultures were sent which were later found out to be negative. During hospitalization patient was treated with IV diuresis on admission which at first showed improvement in his renal functions but later showed worsening of CARMENZA for which nephrology was consulted. Because of oliguria, worsening renal functions he underwent hemodialysis.Patient underwent modified barium swallow which was consistent with continuous aspiration. Given severe protein energy malnutrition, chronic illness, severe physical deconditioning, continuous aspiration, patient developing CARMENZA requiring hemodialysis family later decided about discontinuing hemodialysis and did not want any aggressive treatment. Palliative care consult was sought and later patient was transitioned over to hospice. Even discharged home with hospice in comfortable status once hospice has been set up. Physical Exam Narrative: Not examined given hospice Status Urinary Catheter Management: Myers: Cath Placed During This Visit: yes Reason for Continuing Indwelling Catheter: Hospice/Comfort/Palliative Care Urinary Catheter Date of Insertion: 04/07/22 Urinary Catheter Time of Insertion: 13:06 Discharge Data Studies Completed and Pending Completed Studies During Hospitalization Category Date Time Status CT angio chest PE protcl [id number] Stat Cat Scan 04/07/22 07:[address] head wo con* [id number] Urgent Cat Scan 04/14/22 11:23 Completed CXRP [XR chest 1V portable [id number]] Stat Exams 04/15/22 09:40 Completed [place] barium swallow modifd 14049 Routine Exams 04/10/22 Completed XR chest 1V portable [id number] Stat Exams 04/07/22 06:40 Completed XR chest 1V portable [id number] Urgent Exams 04/11/22 09:28 [place] [id number] Routine Ultrasound 04/07/22 13:24 Completed US echo complete [CV. echo complete* [id number]] Stat Ultrasound 04/07/22 09:30 Completed US renal BI* [id number] Routine Ultrasound 04/07/22 13:28 Completed Pending at discharge Category Date Time Status Occult Blood Stool [Immunochemical Fecal OCB] Routine Lab 04/09/22 10:57 Uncollected Sputum Culture and Gram Stain Routine Lab 04/07/22 13:26 Uncollected Sputum Culture and Gram Stain Stat Lab 04/11/22 12:02 Uncollected Radiology Impressions Renal Ultrasound 04/07/22 13:28 IMPRESSION: Low normal-sized echogenic kidneys. Moderate chronic medical renal disease. Modified Barium Swallow 04/10/22 00:00 IMPRESSION: 1. Modified barium swallow positive for aspiration of nectar consistency and thin liquid barium foodstuffs. A report of recommendations and findings will also follow from the speech therapy service. Head CT 04/14/22 11:23 IMPRESSION: 1. No acute intracranial hemorrhage or edema. 2. Large RIGHT remote MCA territory infarct with encephalomalacia and ex vacuole dilatation of the lateral ventricle. Similar to the prior study of 12/29/2020. 3. Additional atrophy and extensive small vessel ischemic disease. No progression. 4. Diffuse ventriculomegaly is probably on the basis of atrophy. Chest X-Ray 04/15/22 09:40 IMPRESSION: There are patchy bilateral pulmonary opacities which appear worsened on the left and improved on the right when compared to the prior study. Laboratory Results WBC 27.4 10^3/uL (4.0-10.0) H 04/17/22 01:24 RBC 3.66 10^6/uL (4.1-5.3) L 04/17/22 01:24 Hgb 9.8 g/dL (11.7-16.6) L 04/17/22 01:24 Hct 34.1 % (42.0-52.0) L 04/17/22 01:24 MCV 93.2 fl (80-94) 04/17/22 01:24 MCH 26.8 pg (28.0-34.0) L 04/17/22 01:24 MCHC 28.7 g/dL (30.0-36.0) L 04/17/22 01:24 RDW 15.8 % (12.1-15.1) H 04/17/22 01:24 Plt Count 369 10^3/cmm (130-400) 04/17/22 01:24 MPV 11.4 fL (7.4-10.4) H 04/17/22 01:24 Neut % (Auto) 94.4 % 04/17/22 01:24 Lymph % (Auto) 2.3 % 04/17/22 01:24 [place] % (Auto) 2.5 % 04/17/22 01:24 Eos % (Auto) 0.0 % 04/17/22 01:24 Baso % (Auto) 0.1 % 04/17/22 01:24 Neut # (Auto) 25.83 10^3/uL (1.8-7.7) H 04/17/22 01:24 Lymph # (Auto) 0.6 10^3/uL (0.8-4.8) L 04/17/22 01:24 [place] # (Auto) 0.7 10^3/uL (0.2-0.9) 04/17/22 01:24 Eos # (Auto) 0.0 10^3/uL (0.0-0.8) 04/17/22 01:24 Baso # (Auto) 0.0 10^3/uL (0.0-0.1) 04/17/22 01:24 Nucleated RBC % (auto) 0 % 04/17/22 01:24 Nucleated RBCs # 0.0 /100WBC 04/17/22 01:24 APTT 29.1 SECONDS (23.9-36.7) 04/09/22 13:26 PTT Patient/Normal 1:1 Cancelled 04/07/22 14:55 D-Dimer 2.06 ug/mIFEU (0-0.59) H 04/07/22 06:35 Specimen Type Arterial 04/11/22 13:27 Sample Site Radial, left 04/11/22 13:27 ABG pH 7.38 (7.35-7.45) 04/11/22 13:27 ABG pCO2 27.4 mmHg (35-45) L 04/11/22 13:27 ABG pO2 62.5 mmHg (80.0-100.0) L 04/11/22 13:27 ABG HCO3 16.3 mmol/L (22-26) L 04/11/22 13:27 ABG O2 Saturation 90.0 04/11/22 13:27 ABG Base Excess -7.7 mmol/L (-2.0-2.0) L 04/11/22 13:27 Harry Test Pos 04/11/22 13:27 A-a O2 Gradient 33.8 mmHg (5-10) H 04/11/22 13:27 Hematocrit 28.3 % (42-52) L 04/11/22 13:27 Hgb O2 Saturation 88.2 % (95-100) L 04/11/22 13:27 Carboxyhemoglobin 1.3 %THgb (0.4-20.1) 04/11/22 13:27 Methemoglobin 0.7 % (0.4-1.5) 04/11/22 13:27 Total Hemoglobin 9.2 g/dL (14-18) L 04/11/22 13:27 Sodium 147.0 mmol/L (131-143) H 04/11/22 13:27 Potassium 4.5 mmol/L (3.5-5.0) 04/11/22 13:27 Glucose 192.0 mg/dL (70-115) H 04/11/22 13:27 Ionized Calcium 1.3 mmol/L (1.1-1.4) 04/11/22 13:27 O2 Delivery Device Hag 04/11/22 13:27 O2 Liters/Min 50.0 % 04/11/22 13:27 FiO2 50.0 % 04/11/22 13:27 Customer Counter Associate ID Cak 04/11/22 13:27 Sodium 157 mmol/L (136-145) H 04/17/22 01:24 Potassium 3.1 mmol/L (3.5-5.1) L 04/17/22 01:24 Chloride 119 mmol/L (98-107) H 04/17/22 01:24 Carbon Dioxide 23 mmol/L (22-29) 04/17/22 01:24 Anion Gap 18.1 (5-19) 04/17/22 01:24 BUN 103 mg/dL (8-23) H* 04/17/22 01:24 Creatinine 3.0 mg/dL (0.7-1.2) H 04/17/22 01:24 GFR Calculation Not Reportable 04/17/22 01:24 Glucose 118 mg/dL (65-115) H 04/17/22 01:24 POC Glucose 212 mg/dL (70-110) H 04/18/22 16:04 Calculated Osmolality 357 mOsm/kg (285-295) H 04/17/22 01:24 Lactic Acid 4.6 mmol/L (0.5-2.2) H* 04/07/22 06:35 Lactic Acid (Sepsis) 5.8 mmol/L (0.5-2.2) H* 04/07/22 09:20 Lactate 1.5 mmol/L (0.5-2.2) 04/09/22 10:37 Uric Acid 14.6 mg/dL (3.4-7.0) H 04/12/22 09:56 Calcium 9.6 mg/dL (8.5-10.5) 04/17/22 01:24 Phosphorus 2.7 mg/dL (2.5-4.5) 04/17/22 01:24 Magnesium 2.8 mg/dL (1.7-2.3) H 04/17/22 01:24 Iron 23 ug/dL (59-158) L 04/13/22 03:55 TIBC 157 mcg/dl 04/13/22 03:55 % Saturation 14.6 % (20-50) L 04/13/22 03:55 Unsat Iron Binding 134 ug/dL (112-347) 04/13/22 03:55 Total Bilirubin 0.3 mg/dL (0.15-1.2) 04/17/22 01:24 AST 16 U/L (0-40) 04/17/22 01:24 ALT 16 U/L (0-41) 04/17/22 01:24 Alkaline Phosphatase 167 U/L (40-130) H 04/17/22 01:24 Creatine Kinase 191 U/L (39-308) 04/07/22 13:16 Troponin T Baseline 790 ng/L (0-15) H* 04/07/22 06:35 Troponin T 120 Minute 732.9 ng/L (0-15) H 04/07/22 09:20 Delta Troponin T -57.1 ABS# (0-10) L 04/07/22 09:20 Troponin T Hi Sens 6Hr 640.8 ng/L (0-15) H 04/07/22 13:15 Troponin T Hi Sens 6Hr Delta -149.2 ng/L (0-12) L 04/07/22 13:15 NT-Pro-B Natriuret Pep 20552 pg/mL (0-125) H 04/07/22 06:35 Total Protein 6.0 g/dL (6.6-8.7) L 04/17/22 01:24 Albumin 2.5 g/dL (3.5-5.2) L 04/17/22 01:24 Globulin 3.5 g/dL (1.3-4.6) 04/17/22 01:24 25-OH Vitamin D Total 17 ng/mL (30-100) L 04/13/22 03:55 Procalcitonin 0.86 ng/mL (0-0.5) H 04/11/22 11:57 Urine Color Yellow (Yellow) 04/07/22 13:06 Urine Appearance Clear (CLEAR) 04/07/22 13:06 Urine pH 5 (5-7) 04/07/22 13:06 Ur Specific [place] 1.020 (1.005-1.030) 04/07/22 13:06 Urine Protein 3+ (Negative) H 04/07/22 13:06 Urine Glucose (UA) Trace (Normal) H 04/07/22 13:06 Urine Ketones 1+ (Negative) H 04/07/22 13:06 Urine Blood 2+ (Negative) H 04/07/22 13:06 Urine Nitrate Negative (Negative) 04/07/22 13:06 Urine Bilirubin Neg (Negative) 04/07/22 13:06 Urine Urobilinogen Neg mg/dL (Negative) 04/07/22 13:06 Ur Leukocyte Esterase Negative (Negative) 04/07/22 13:06 Urine RBC 0-4 /hpf (0-2) H 04/07/22 13:06 Urine WBC None /hpf (0-5) 04/07/22 13:06 Ur Squamous Epith Cells 0-4 /hpf (0-5) H 04/07/22 13:06 Amorphous Sediment 1+ /hpf 04/07/22 13:06 Urine Bacteria 1+ /hpf (NONE) H 04/07/22 13:06 Nasal Influ A H1 2008 PCR Not detected (NOT DETECT) 04/13/22 20:00 Vancomycin Trough 26.0 ug/mL (10-15) H* 04/16/22 21:35 Random Vancomycin 23.6 ug/mL (20.0-40.0) 04/15/22 11:01 Adenovirus (PCR) Not detected (NOT DETECT) 04/13/22 20:00 C. pneumoniae DNA (PCR) Not detected (NOT DETECT) 04/13/22 20:00 Coronavirus 229E (PCR) Not detected (NOT DETECT) 04/13/22 20:00 Hep Bs Antigen Non-reactive (Nonreactive) 04/12/22 21:21 Hep Bs Antibody 3.5 (11.5-1000) L 04/12/22 21:21 Hepatitis C Antibody Non-reactive (Nonreactive) 04/12/22 21:21 Human Metapneumovir PCR Not detected (NOT DETECT) 04/13/22 20:00 Influenza A (H1) PCR Not detected (NOT DETECT) 04/13/22 20:00 Influenza A (H3) PCR Not detected (NOT DETECT) 04/13/22 20:00 Influenza Type A (PCR) Not detected (NOT DETECT) 04/13/22 20:00 Influenza Type B (PCR) Not detected (NOT DETECT) 04/13/22 20:00 M. pneumoniae (PCR) Not detected (NOT DETECT) 04/13/22 20:00 Parainfluenza 1 (PCR) Not detected (NOT DETECT) 04/13/22 20:00 Parainfluenza 2 (PCR) Not detected (NOT DETECT) 04/13/22 20:00 Parainfluenza 3 (PCR) Not detected (NOT DETECT) 04/13/22 20:00 Parainfluenza 4 (PCR) Not detected (NOT DETECT) 04/13/22 20:00 RSV Type A (PCR) Not detected (NOT DETECT) 04/13/22 20:00 RSV Type B (PCR) Not detected (NOT DETECT) 04/13/22 20:00 Entero/Rhino (PCR) Not detected (NOT DETECT) 04/13/22 20:00 SARS-CoV-2 (PCR) Not detected (NOT DETECT) 04/13/22 20:00 Blood Type O Positive 04/11/22 08:50 Rho(D) Type Positive 04/11/22 08:50 Antibody Screen Negative 04/11/22 08:50 Crossmatch See Detail 04/11/22 08:50 Vitals Last Vital Signs Temp 98.3 F 04/18/22 20:00 Pulse 72 04/19/22 07:53 Resp 20 H 04/19/22 07:45 BP 142/72 04/18/22 20:00 Pulse Ox 96 04/19/22 07:45 O2 Del Method 10/05/22 07:45 O2 Flow Rate 3 04/19/22 07:45 FiO2 50 04/13/22 07:43 Discharge Plan Discharge Patient Disposition: Hospice - Home Condition: Stable Prescriptions: Continued protein supplement Liquid 1 ea PO BID PRN (Reason: unknown) atorvastatin 20 mg tablet 20 mg PO .THREE TIMES A WEEK clonazepam 0.5 mg tablet 0.5 mg PO TID PRN (Reason: anxiety) Discharge Orders: Discharge Order (Routine); Ordered 04/19/22 Ordered By: Dedrick Arzola Discharge Diet: As Directed Discharge Activity: Limit activity as instructed Patient Instructions: Hospice Care (GEN), Opioid Safety Discharge Attestations Time Spent in Discharge Care*: greater than 30 min Specific Discharge Activities: educating and/or supporting family/caregiver, discussing with pcp/other providers, discussing with transplant case manager/social workers/dc planners, documenting/other paperwork and evaluating patient/reviewing data Status at Discharge: Cognitive status at discharge: cognitively intact , Behavioral status at discharge: cooperative , Functional status at discharge: bed bound , Overall status at discharge: patient has a new baseline Quality Metrics Clinical Quality Measures [ No reported AMI, CVA or VTE this stay] Coding Level of Care Code Acute Chg FW DC note History Comprehensive Exam Comprehensive Medical Decision Making High Complexity Diagnoses ARDS (adult respiratory distress syndrome) J80 Pneumonia J18.9 Acute kidney injury superimposed on chronic kidney disease N17.9; N18.9 COPD (chronic obstructive pulmonary disease) J44.9 Acute systolic heart failure I50.21 Physical deconditioning R53.81 Protein-energy malnutrition E46 Uremia N19
--- NOTE | 2022-04-19 09:31 | PC.CHAP ---
Pastoral Care Encounter/Spiritual Assessment Type of Contact [] Declined hide examiner visit [] Patient/Family/Request visit [] Outpatient visit [] Follow-up visit [] Physician referral [] Code/Alert [x] Routine visit [] Staff referral [] Actively dying [x] Patient sleeping [] Family support [] [] Out of room [] Palliative care [] [] Receiving care in room [] Pre-surgical visit [] Trauma [] Long length of stay [] ICU visit [] Other: Relational/Emotional Strength [] Patient feels connected with others/family/visitors/staff [] Distress [] Loneliness/isolation [] Abandonment Spirituality of Patient [] Person of Krissy [] Attends Uatsdin of their Krissy [] Believes in Prayer [] Reads Bible or Presybeterian materials [] There are Spiritual issues to be addressed Damage Appraiser Interventions [] Prayer [] Active listening [] Non-anxious presence [] Spiritual/emotional support [] Crisis/trauma care [] Spiritual counseling [] Bereavement support [] Provided bereavement packet [] Provided Bible/devotional materials [] Provided toy/stuffed animal, coloring book to patient or family member [] Provided Communion [] Anointing/[place] [] Salvation [] Completed spiritual assessment [] Other: Impact on Illness or Injury [] Angry [] Fearful [] Anxious [] Often cries [] Exhaustion [] Unable to work [] Unable to attend jain [] Unable to walk/stand [] Unable to read [] Unable to drive [] Unable to eat/drink [] Unable to sleep [] Unable to be with family [] Patient intubated [] Other: Summary Time spent with patient
[2022-04-19] MEDS: clopidogrel 75 mg Tablet PO (09:39)
[2022-04-19] MEDS: amlodipine 5 mg Tablet PO (09:39)
[2022-04-19] MEDS: aspirin 81 mg EC Tablet PO (09:39)
[2022-04-19] MEDS: metoprolol tartrate 50 mg Tablet PO (09:39)
[2022-04-19 12:21] VITALS: BP 153/72; PULSE 74; RESP 18; TEMP 36.6; O2SAT 98
== END 2022-04-19 12:23 | disposition hospice, home (50) | DRG 280 ==
LOC: ER 08:53 → ICU 11:38 → MEDSURG 04-13 18:24
PROVIDERS: Family Medicine; Internal Medicine; Internal Medicine Nephrology; Internal Medicine Pulmonary Disease; Admitting Provider Internal Medicine; Emergency Provider Family Medicine; PCP Family Medicine; Visit Provider Student in an Organized Health Care Education/Training Program
DX: I13.0 Hypertensive heart and chronic kidney disease with heart failure and stage 1 through stage 4 chronic kidney disease, or unspecified chronic kidney disease (principal); E43 Unspecified severe protein-calorie malnutrition; I21.A1 Myocardial infarction type 2; I50.21 Acute systolic (congestive) heart failure; J69.0 Pneumonitis due to inhalation of food and vomit; J80 Acute respiratory distress syndrome; R57.0 Cardiogenic shock; Z68.1 Body mass index [BMI] 19.9 or less, adult; N17.9 Acute kidney failure, unspecified; E87.20 Acidosis, unspecified; N18.30 Chronic kidney disease, stage 3 unspecified; E11.22 Type 2 diabetes mellitus with diabetic chronic kidney disease; Z86.14 Personal history of Methicillin resistant Staphylococcus aureus infection; Z87.891 Personal history of nicotine dependence; D63.1 Anemia in chronic kidney disease; Z86.73 Personal history of transient ischemic attack (TIA), and cerebral infarction without residual deficits; Z66 Do not resuscitate; Z99.81 Dependence on supplemental oxygen; I27.20 Pulmonary hypertension, unspecified; R41.0 Disorientation, unspecified; K59.00 Constipation, unspecified; E87.6 Hypokalemia; I25.5 Ischemic cardiomyopathy
CPT/HCPCS: 36415; 36416; 36600; 51702; 70450; 71045; 71275; 74230; 76770; 80048; 80051; 80053; 80202; 81001; 82306; 82330; 82550; 82805; 82962; 83540; 83550; 83605; 83735; 83880; 84100; 84145; 84484; 84550; 85025; 85378; 85730; 86403; 86706; 86803; 86850; 86900; 86920; 87040; 87086; 87150; 87340; 87449; 87486; 87581; 87633; 87635; 87641; 92507; 92523; 92526; 92610; 92611; 93005; 93306; 93970; 94640; 94660; 94669; 96365; 96366; 96367; 96372; 96375; 97110; 97161; 97530; 99291; C9113; J0360; J0692; J0743; J1250; J1644; J1815; J1940; J2270; J2543; J2930; J3370; J3480; J3490; J7030; J7050; J7626; Q3014; Q9967